=== PATIENT | male | born 2005 | race Caucasian/White ===

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

== ENCOUNTER 2024-01-03 18:04 | Emergency (ER) | payer MEDICAID, SELFPAY ==
--- OUTSIDE RECORDS SUMMARY | 2024-01-03 18:09 | XMS_ITS | Encounter Summary ---
Author Organization [facility] [place] [address] Care Team Providers Care Certified Performance Technologist Name Role Phone Unavailable Primary Care Provider Unavailabl e Encounter Details Date Type Department Care Team (Late st Contact Info) Description 10/30/2019 Orders Only [place] [address] Bjorn Hinojosa MD [facility] [place] [address] Auditory hallucination Social History Tobacco Use Types [...] EDT Yaya Mueller ? 10/31/2019 ??9:22 AM [facility] Department of Neurology Outpatient EEG Report [...] channel digitized electroencephalogram was performed in the [facility] Clinical Neurophysiology Laboratory. The 10/20 international system of electrode placement was used and bipolar and referential electrode montages were recorded. ??In addition to EEG the patient was monitored for EKG and lateral/vertical eye movements. Video was recorded during the session. The duration of the recording was 25 minutes. CHIEF WHEELAGE CLERK'S REPORT: Performed by: SR Patient was sleep deprived. Sleep was not attained. Photic stimulation was ??performed. Hyperventilation was not performed. Effort was was not adequate. Movement and other artifact was not significant. Comments: ??None. Bjorn Hinojosa MD NEUROLOGY ORDERABLES documented in this encounter Visit Diagnoses Diagnosis Auditory hallucination Hallucinations Auditory hallucination Hallucinations documented in this encounter
--- OUTSIDE RECORDS SUMMARY | 2024-01-03 18:09 | XMS_ITS | Clinical Summary ---
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 ([facility]) 07/15/2023 Borderline personality disorder ([facility]) 2023 Bipolar 1 disorder ([facility]) 07/14/2023 Delirium due to multiple etiologies 07/12/2023 Mood disorder ([facility]) 07/12/2023 Suicide attempt ([facility]) 07/12/2023 Acute encephalopathy 07/11/2023 Ingestion of substance, inte ntional self-harm, initial encounter ([facility]) 07/10/2023 Acute respiratory failure with hypoxia ([facility]) 07/10/2023 Immunizations Name Administration Dates [...] place to sleep or slept in a fdc (including now)? Yes 07/14/2023 Sex and Gender Information Value Date Recorded Sex Assigned at Not on file Gender Identity Not on file Sexual Orientation Not on file Obstetrics History Growth Chart Information Age Height Weight Ytzagj-isq-crie th Percentile BMI Percentile Head Circum Head Circum Percentile Date 17 years 99.3 kg (218 lb 14.4 oz) 2023 17 years 93.9 kg (207 lb) 2023 17 years 88.8 kg (195 lb 12.3 oz) 2023 17 years 175.3 cm (5' 9.02) 91.6 kg (202 lb) 95.12%* 2023 17 years 175.3 cm (5' 9) 91.6 kg (202 lb) 95.13%* 2023 * [facility] (Boys, 2-20 Years) Last Filed [...] Advance Directives For more information, please contact: [phone] * Full Code (Latest Code Status on [...] Made the Decision? Default/Not Discussed Care Teams Sheep Farmer Relationship Specialty Start Date End Date Unknown, Provider, PCP - General 07/10/23 Obie Mccoy MD [address] [place] [id number] 07/10/23
--- OUTSIDE RECORDS SUMMARY | 2024-01-03 18:09 | XMS_ITS | Encounter Summary ---
[place] [address] Care Team Providers Care Plant Tech Name Role Phone KlaudiaRobbie Primary Care Provider [phone] Reason for Referral * Consultation (Routine) - Closed Specialty Diagnoses / Procedures Referred By Magen barney Referred To Contact Psychiatry Diagnoses Anxiety disorder, unspecified type Do Rodriguez MD [address] [place] [address] Nitin Meyers PsyD [facility] [place] [address] Referral ID Status Reason Start Date Expiration Date V isits Requested Visits Authorized [id number] Closed Consult, Test & Treat 09/23/2022 09/23/2023 1 1 Encounter Details Date Type Department Care Team (Latest Contact Info) Description 09/23/2022 Transcribe Orders eDH Incoming Referrals [phone] Do Rodriguez MD [address] [place], [place] [id number] Anxiety disorder, unspecified type Social History Tobacco [...] type documented in this encounter Care Teams Plant Tech Relationship Specialty Start Date End Date Robbie Rudolph DO [address] [place] [address] PCP - General Family Medicine 10/31/19 documented as of this encounter
--- OUTSIDE RECORDS SUMMARY | 2024-01-03 18:09 | XMS_ITS | Encounter Summary ---
[facility] Organization [facility] Address [facility] [place] [address] Care Team Providers Care Elementary Art Teacher Name Role Phone Klaudia Robbie Saldivar Primary Care Provider [phone] Reason for Visit * Auth/Cert (Routine) Specialty Diagnoses / Procedures Referred By Magen t Referred To Contact Diagnoses Poisoning by unspecified drugs, medicaments and biological substances, accidental (unintentional), initial encounter Procedures [facility] Referral ID Status Reason Start Date Expiration Date Visits Re quested Visits Authorized [id number] 1 1 Encounter Details Date Type Department Care Team (Latest Contact Info) Description 12/15/2022 12:13 PM EDT - 12/15/2022 2:15 PM EDT Hospital Encounter [facility] at [address] [phone] Kevin Blakely MD [facility] [place] [address] Discharge Disposition: Home Social History Tobacco Use [...] on filedocumented in this encounter Care Teams Elementary Art Teacher Relationship Specialty Start Date End Date Robbie Rudolph DO [address] [place] [address] PCP - General Family Medicine 10/31/19 documented as of this encounter
--- OUTSIDE RECORDS SUMMARY | 2024-01-03 18:09 | XMS_ITS | Encounter Summary ---
Author Organization [facility] [place] [address] Care Team Providers Care Poultice Machine Operator Name Role Phone Klaudia Robbie Saldivar Primary Care Provider [phone] Reason for Visit * Auth/Cert (Routine) Specialty Diagnoses / Procedures Referred By Magen t Referred To Contact Diagnoses Borderline personality disorder Bipolar Affective Disorder Procedures emerg Lucille Espinal MD [facility] [place] [address] [facility] Referral ID Status Reason Start Date Expiration Date Visits Re quested Visits Authorized [id number] 1 1 Encounter Details Date Type Department Care Team (Late st Contact Info) Description 12/19/2022 2:56 PM EDT - 12/23/2022 1:31 PM EDT Hospital Encounter Psychiatry Care Unit Level 2 [place] [address] Lucille Mcmullen MD [facility] [place] [address] Discharge Disposition: Home Social History Tobacco Use [...] Keshav Patiño Patient Age: 17 y.o. Language: Luxembourgish Race: White Ethnicity: Not nor Admit date: [...] at 9:30 am with Do Rodriguez MD [facility] [address] [place] [address] Wednesday, January 04, 2023 at 9:00 am with Enoch Aguayo CP [facility] [address] [place] [address] Inpatient Provider Contact Information: For questions regarding this document (including laboratory or other studies) or issues relating tothis hospitalization, please contact your casework supervisor, Delma Caceres RN, through the [facility] Pensionholder Information Clerk . Issues after hours and on weekends will be handled by the residential driver on-call who can be reached through the Department of Psychiatry by calling [phone] and following the appropriate prompts to connect to the mirror fabrication supervisor team. Medication Instructions Continue to take all of the medications as instructed. Any medication changes will be addressed at your next outpatient appointment with the individual who prescribes your medications. Advance Care Plan The patient has an appointed surrogate decision maker: [place] of surrogate decision maker: N/A The patient [...] the ICU. He initially was transferred to [facility] after an intentional overdose while under the [...] cocaine, alcohol, and marijuana. While in the [facility] ICU he was intubated, extubated, and further [...] Social Work offered to connect him with [facility] for wraparound services, and with homeless community support groups, both of which Keshav declined. Keshav was offered resources for substance use and referral to rehab, both of which he declined. During his time in the hospital, the team made contact with family (mother Sheryl [phone]) who shared that Keshav was not able [...] who lives nearby his immediate family in [place]. His mother shared that Keshav had [...] considering re-admission, recommend discussing with inpatient medical insurance claims processor or attending on service first. On the [...] rate, and normal rhythm Language: fluent in indian, without paraphasic errors, and without word finding [...] INR Thyroid: No results found for: TSH, U4BWQGO, TT4 Lipids and HgbA1C: Lab Results Component Value Date TRIG 117 12/15/2022 No results found for: HA1C Vit Lvls: No results found for: [id number], SFOLATE UA: No results found for: GLUCOSEU, [...] pending Discharge Disposition: home Primary Care Physician: Robbei Rudolph DO [phone] Special Physician Instructions: -Keshav would benefit greatly from connection with community resources at [facility]. He deferred these services while [...] emergencies, call [phone] from anywhere in the [facility]. State specific information for [place] and [place] crisis services are as follows and should be used to access local resources: [facility] Mental Health Crises Services REPLACED BY [facility] Crisis Line text or call Visit www.Handshake for further information [place] Call your local [facility] crisis line at: [place]: Counseling Service of [facility] [phone] [place]: [facility] Services [phone] [place]: [facility] [phone] [place]: [facility] [phone] [place]: [facility] [phone] [place]: [facility] Counseling and Support [phone] [place]: [facility] Mental Health [phone] on weekdays 8AM-4:30PM and [phone] on nights and weekends [place]: Brenda [facility] [place]: [facility] [phone] [place]: [facility] [phone] [place]: [facility] Services, [place]: HCRS [place]: HCRS or Text [place] to 972447 For further information for [place] residents: https://mentalhealth.[place].gov/services/emergency-services/esx-vqm-cvei National Suicide Prevention Hotline: For patients cared for in the Department of Psychiatry, you can reach your mental health clinician at [phone]. Activity level: no restrictions from psychiatry Diet: [...] emergencies, call 988 from anywhere in the [facility]. State specific information for [place] and [place] crisis services are as follows and should be used to access local resources: [facility] Mental Health Crises Services REPLACED BY [facility] Crisis Line text or call Visit www.Handshake for further information [place] Call your local [facility] crisis line at: [place]: Counseling Service of [facility] [phone] [place]: [facility] [phone] [place]: [facility] [phone] [place]: [facility] [phone] [place]: [facility] [phone] [place] speedy [place]: [facility] Counseling and Support [phone] [place]: [facility] Health [phone] on weekdays 8AM-4:30PM and [phone] on nights and weekends [place]: Brenda [place]: [facility] [phone] [place]: [facility] [phone] [place]: [facility] Services, [place]: HCRS [place]: HCRS or Text [place] to [phone] For further information for [place] residents: https://mentalhealth.[place].[facility]/services/emergency-services/ssd-pfm-csin National Suicide Prevention Hotline: For patients cared for in the Department of Psychiatry, you can reach your mental health clinician at [phone]. I have personally seen and examined the [...] coordinating discharge for this patient and included jqcx-jo-[id number] and exam, explanation of after visit instructions and medications to the patient and necessary caregivers, documentation, and prescription management. documented in this encounter Discharge Instructions * Discharge Instructions* Barbara Sewell MSW - 12/20/2022 12:55 PM EDT We have made the following appointments for you: Tuesday, December 27, 2022 at 9:30 am with Do Rodriguez MD [facility] [address] [place] [address] Wednesday, January 04, 2023 at 9:00 am with Enoch Aguayo CP [facility] [address] [place] [address] Community Supports: If you should change your mind about a referral to the Community Rehabilitation Therapy program at [facility] please contact their office to obtain the application, for you and your outpatient providers to complete: [phone]. To access information/supports around teenage at risk of homelessness you can outreach to [facility] Youth Services: [phone]. Inpatient Provider Contact Information: For questions regarding this document (including laboratory or other studies) or issues relating tothis hospitalization, please contact your casework supervisor, Delma Caceres RN, through the [facility] Pensionholder Information Clerk . Issues after hours and on weekends will be handled by the residential driver on-call who can be reached through the Department of Psychiatry by calling [phone] and following the appropriate prompts to connect to the mirror fabrication supervisor team. Medication Instructions Continue to take all of the medications as instructed. Any medication changes will be addressed at your next outpatient appointment with the individual who prescribes your medications. Advance Care Plan The patient has an appointed surrogate decision maker: [place] of surrogate decision maker: N/A The patient [...] INR Thyroid: No results found for: TSH, Q1UMBVI, TT4 Lipids and HgbA1C: Lab Results Component Value Date TRIG 117 12/15/2022 No results found for: HA1C Vit Lvls: No results found for: [id number], SFOLATE UA: No results found for: GLUCOSEU, [...] home Primary Care Physician: Robbie Rudolph DO [phone] Special Physician Instructions: -Keshav would benefit greatly from connection with community resources at [facility]. He deferred these services while [...] the [place]. State specific information for [place] and [place] crisis services are as follows and should be used to access local resources: [facility] Crises Services REPLACED BY [facility] Crisis Line text or call Visit www.Handshake for further information [place] Call your local community crisis line at: [place]: [facility] Service of [facility] [phone] [place]: [facility] Services [phone] [place]: [facility] [phone] [place]: [facility] [phone] [place]: [facility] [phone] [place]: [facility] Counseling and Support [phone] [place]: [facility] Mental Health [phone] on weekdays 8AM-4:30PM and [phone] on nights and weekends [place]: [facility] [place]: [facility] [phone] [place]: [facility] [phone] [place]: [facility] Services, [place]: HCRS [place]: HCRS or Text [place] to [phone] For further information for [place] residents: https://mentalhealth.[place].[facility]/services/emergency-services/vtq-afi-osaz National Suicide Prevention Hotline: For patients cared for in the Department of Psychiatry, you can reach your mental health clinician at [phone]. Activity level: no restrictions from psychiatry Diet: [...] discharge- Ride will be at [facility] for 1:30 [facility] Medicaid is covering transport [phone] Pt will be driven to [facility] home in [place]. * Daniela Amezcua LCValerie - 12/23/2022 [...] rate, and normal rhythm Language: fluent in indian, without paraphasic errors, and without word finding [...] age matched peers Insight: limited Judgment: poor Hardy Suicide Risk Scale - Initial Assessment: Q1 [...] the Past 3 Months?: yes (12/19/22 152) Hardy Suicide Risk Scale - Daily Assessment (most [...] 12/15/2022 Thyroid: No results found for: TSH, V7UEYQK, TT4 Lipids and HgbA1C: Lab Results Component Value Date TRIG 117 12/15/2022 No results found for: HA1C Vit Lvls: No results found for: [id number], SFOLATE UA: Lab Results Component Value Date [...] Patient declined SW offer to refer to [facility] Services for wraparound services and to [...] hands on courses, but struggled with math, indian, and history. Keshav feels like social interactions [...] rate, and normal rhythm Language: fluent in indian, without paraphasic errors, and without word finding [...] age matched peers Insight: limited Judgment: poor Hardy Suicide Risk Scale - Initial Assessment: Q1 [...] Within the Past 3 Months?: yes (12/19/221519) Hardy Suicide Risk Scale - Daily Assessment (most [...] 12/15/2022 Thyroid: No results found for: TSH, D3WRLBC, TT4 Lipids and HgbA1C: Lab Results Component Value Date TRIG 117 12/15/2022 No results found for: HA1C Vit Lvls: No results found for: [id number], SFOLATE UA: Lab Results Component Value Date [...] with the patient today. * [facility] - 12/20/2022 10:35 AM EDT Inpatient Daily [...] in the group discussion afterwards. Daniela Amezcua [facility] 12/20/2022 Patient attended the following therapeutic activities: [...] Children: no Employment: recently lost job Residence: [address] [address] Outpatient Providers: (include location) Current Mental Health Prescriber: Current Therapist: PCP: Robbie Rudolph DO Chief Complaint: 17 y.o. Male presents to [facility] with a history of ADHD, bipolar disorder, PTSD, and two reported suicide attempts who presented to [facility] as a transfer from [facility] on 12/15/22 following a suicide [...] and her partner take him to the [facility] ED. He was subsequently transferred to [facility] where he received ICU level of care until medically stable. Keshav shares that things have been difficult for him for the past few months. In particular he citeslosing his job as a large stressor and feels as though he was fired due to expressing concern that the [employer] he worked in did not meet health [...] injection 5,000 Units 5,000 Units Subcutaneous Q8H [facility] Santhosh Templeton MD 5,000 Units at 12/19/22 [...] old) until recently and working in a [employer]. He did not graduate from high [...] Tired appearing EYES ENT CV RESP GI /COUNTY HISTORIAN (include LMP if applicable) MSK SKIN NEURO PSYCH ENDO HEME/LYMPH ALL/IMMUNO Physical Exam: Vitals Flowsheet Row Admission (Current) from 12/15/2022 in Intensive Care Unit at [facility] Weight - Scale 102.6 kg (226 [...] rate, and normal rhythm Language: fluent in indian, without paraphasic errors, and without word finding [...] 12/15/2022 Thyroid: No results found for: TSH, I0GAPDM, TT4 Lipids and HgbA1C: Lab Results Component Value Date TRIG 117 12/15/2022 No results found for: HA1C Vit Lvls: No results found for: [id number], SFOLATE UA: Lab Results Component Value Date [...] a 17 y.o. Male who presents to [facility] with with a history of ADHD, bipolar disorder, PTSD, and two reported suicide attempts who presented to [facility] as a transfer from [facility] on 12/15/22 following a suicide [...] substance use in the setting pf this fydzbr1tey, furthermore, he may have a trauma history [...] surrogate would be surrogate decision maker per [place] surrogate decision making law. (Only good for 180 days) Any patient receiving care in [place] must abide by [place] law. The hierarchy for surrogate decision making [...] (i) The agent with financial power of film producer or a conservator appointed in accordance with [...] as: Patient is homeless at this time [address] [address] Social & Family Supports: All names listed [...] N/A ; Prescription Coverage: Yes Preferred Pharmacy: [id number] - [place], [place] - [address] [facility] [address] Status: Patient is a : No Primary Care Provider listed: Robbie Rudolph DO [phone] Patient/Caregiver Goals of Treatment: Safety and stabilization Potential Needs for Transition of Care: mental health services Agency Referrals: Patient refused referral to [facility] and inpatient substance use treatment. No referrals [...] asked if experiencing SI, pt corrected this designer writer that we should ask do you [...] hours: 7 hrs. Last Bowel Movement: 12/22/22 Hardy Suicide Severity Rating Scale: Initial Risk: High [...] PM EDT OUTCOME EVALUATION NOTE: OUTCOME SUMMARY: [id number]. Pt preoccupied with plan or going home [...] compliant with hs meds. PLAN MOVING FORWARD: Hardy Suicide Severity Rating Scale: Initial Risk: High [...] patient to be higher risk than the Hardy Suicide Severity Rating Scale result per Clinical [...] 12/22/2022 10:58 AM EDT OUTCOME EVALUATION NOTE: Hardy Suicide Severity Rating Scale: Initial Risk: High [...] patient to be higher risk than the Hardy Suicide Severity Rating Scale result per Clinical [...] pain. Pt med compliant PLAN MOVING FORWARD: Hardy Suicide Severity Rating Scale: Initial Risk: High Risk (12/19/22 1520) Daily Risk: Low Risk (12/21/222055) The following nursing interventions and strategies were implemented to mitigate suicide risk: Full room search conducted Identify protective barriers Reviewed Values with patient Scheduled check in with nursing Therapeutic communications/listening Positive reinforcement RN's may designate a patient to be higher risk than the Hardy Suicide Severity Rating Scale result per Clinical [...] occasionally on the phone and attending groups. 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 Financial Source of Income: none Financial / Environmental Concerns: unable to afford rent/mortgage, unemployed, unable to afford food Who Manages Finances if Patient Unable: noone Application for Public Assistance: Legal Criminal Activity/Legal Involvement: other (see comments) (on diversion for retail theft.) MENTAL / BEHAVIORAL HEALTH Values / Beliefs Judaism / Spiritual Practices and Beliefs : deferred Coping / Stress Major Change / Loss / Stressor: mental health condition, financial, legal concerns, housing concerns, chemical dependency/abuse Patient Personal Strengths: future/goal oriented Sources of Support: mental health providers Techniques to Eckerty with Loss/Stress/Change: diversional activities, substance use, medication [...] now unemployed (lost his job at a [employer] a few weeks ago), homeless, with little to no friends/supports for him to turn to. 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 Pt's responses to inquiring about plans for the time immediately after discharge from he is not able to identify any concrete and realistic plan even when asked to be more detailed. He currently does not want to consider a homeless longterm, and verbalizes disinterest in [facility] treatment/residentialoptions since as a future TRUCK SPOTTER he shoudn't be using therefore it is no longer an issue for him. INTERFACE DEVELOPER has consulted with team expressing concern on Pt's unrealistic approach and the impact it will have on his disposition and planning Social Work Plan: INTERFACE DEVELOPER will continue to follow to support Pt in identifying a realistic disposition, and address any obstacles. Barbara Sewell, STEREOTYPE FINISHER, INTERFACE DEVELOPER, [facility] Fact Checker Office of Care Management * Plan of [...] Compliant with scheduled meds. PLAN MOVING FORWARD: Hardy Suicide Severity Rating Scale: Initial Risk: High [...] patient to be higher risk than the Hardy Suicide Severity Rating Scale result per Clinical [...] occasionally on the phone and attending groups. Hardy Suicide Severity Rating Scale: Initial Risk: High [...] patient to be higher risk than the Hardy Suicide Severity Rating Scale result per Clinical [...] improve understanding of illness 2 Work with Seam Finisher to create and implement aftercare plan 3 [...] PHYSICIAN Lucille Mcmullen MD 12/20/22 NURSING 12/20/22 POLYTECHNIC TEACHER Delma Caceres, VALARIE 12/20/22 THERAPIST 12/20/22 SOAKER HELPER TELMA Whatley 12/20/22 * Plan of Care - Violeta Rolle RN - 12/19/2022 8:20 PM EDT OUTCOME EVALUATION NOTE: OUTCOME SUMMARY: Pt resting in bed at start of shift, pleasant and cooperative on interview. Pt denies pain, SIHI, AVH, and agrees to alert staff if unable to maintain his safety. Pt continued to isolate to room. Pt compliant with scheduled medications. Hardy Suicide Severity Rating Scale: Initial Risk: High Risk (12/19/22 1520) Daily Risk: Low Risk (12/19/221999) The following nursing interventions and strategies were implemented to mitigate suicide risk: Full room search conducted Medication as needed Distract with activities Groups for skill building Therapeutic communications/listening Positive reinforcement RN's may designate a patient to be higher risk than the Hardy Suicide Severity Rating Scale result per Clinical [...] hallucinations Sleep hours: Last Bowel Movement: 12/18/22 Hardy Suicide Severity Rating Scale: Initial Risk: High [...] Routine documented in this encounter Care Teams Poultice Machine Operator Relationship Specialty Start Date End Date Robbie Rudolph DO [address] [place] [id number] PCP - General Family Medicine 10/31/19 documented as of this encounter
--- OUTSIDE RECORDS SUMMARY | 2024-01-03 18:09 | XMS_ITS | Referral Summary ---
Author Organization 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) 07/15/2023 Borderline personality disorder ([facility]) 2023 Bipolar 1 disorder ([facility]) 07/14/2023 Delirium due to multiple etiologies 07/12/2023 Mood disorder ([facility]) 07/12/2023 Suicide attempt ([facility]) 07/12/2023 Acute encephalopathy 07/11/2023 Ingestion of substance, inte ntional self-harm, initial encounter ([facility]) 07/10/2023 Acute respiratory failure with hypoxia ([facility]) 07/10/2023 Immunizations Name Administration Dates Next [...] place to sleep or slept in a assisted (including now)? Yes 07/14/2023 Sex and Gender [...] 96.49% 08/01/2023 180 0 EDT Growth Chart: [facility] (Boys, 2-2 0 Years) Functional Status Functional [...] Advance Directives For more information, please contact: [phone] * Full Code (Latest Code Status on [...] Made the Decision? Default/Not Discussed Care Teams Groundskeeping Maintenance Worker Relationship Specialty Start Date End Date Unknown, Provider, PCP - General 07/10/23 Obie Mccoy MD [address] [place] [id number] 07/10/23
--- OUTSIDE RECORDS SUMMARY | 2024-01-03 18:09 | XMS_ITS | Encounter Summary ---
[place] [address] Care Team Providers Care Informatics Manager Name Role Phone Klaudia Robbie Saldivar Primary Care Provider [phone] Reason for Visit * Reason Comments Procedure * Consultation (Routine) - Closed Specialty Diagnoses / Procedures Referred By Magen barney Referred To Contact Neurology Diagnoses AUDITORY HALLUCINATIONS Procedures EEG Bryant Wade, FINGERNAIL SCULPTOR [address] [place] [address] [facility] [place] [address] Referral ID Status Reason Start Date Expiration Date V isits Requested Visits Authorized [id number] Closed Consult, [facility] PCP Updated and/or Approved 10/28/2019 10/27/2020 1 1 Encounter Details Date Type Department Care Team (Latest Contact Info) Description 10/31/2019 8:45 AM EDT - 10/31/2019 11:59 PM EDT Hospital Encounter [place] [phone] Auditory hallucination Discharge Disposition: Home Social History Tobacco Use Types Packs/Day Years Used Date Smoking Tobacco: Never Assessed Sex and Gender Information Value Date Recorded Sex Assigned at Not on file Gender Identity Not on file Sexual Orientation Not on file documented as of this encounter Procedure Notes * Adbi Gill MD - 10/31/2019 9:44 AM EDT [...] documented. Abdi Gill MD [place] [address] Pager: [phone], #[phone] Email: [email or web address] * Yaya Mueller - 10/31/2019 9:20 AM EDTAssociated Order(s): EEG AWAKE, ASLEEP, DROWSY Pre-Procedure Diagnose(s): Auditory hallucination [facility] Department of Neurology Outpatient EEG Report [...] digitized electroencephalogram was performed in the [facility] Clinical Neurophysiology Laboratory. The 10/20 international system of electrode placement was used and bipolar and referential electrode montages were recorded. In addition to EEG the patient was monitored for EKGand lateral/vertical eye movements. Video was recorded during the session. The duration of the recording was 25 minutes. VAT CLEANER'S REPORT: Performed by: SR Patient was sleep [...] EDT Yaya Mueller ? 10/31/2019 ??9:22 AM [facility] Department of Neurology Outpatient EEG Report [...] channel digitized electroencephalogram was performed in the [facility] Clinical Neurophysiology Laboratory. The 10/20 international system of electrode placement was used and bipolar and referential electrode montages were recorded. ??In addition to EEG the patient was monitored for EKG and lateral/vertical eye movements. Video was recorded during the session. The duration of the recording was 25 minutes. VAT CLEANER'S REPORT: Performed by: SR Patient was sleep deprived. Sleep was not attained. Photic stimulation was ??performed. Hyperventilation was not performed. Effort was was not adequate. Movement and other artifact was not significant. Comments: ??None. Bjorn Hinojosa MD NEUROLOGY ORDERABLES documented in this encounter Visit Diagnoses Diagnosis Auditory hallucination Hallucinations documented in this encounter Care Teams Informatics Manager Relationship Specialty Start Date End Date Robbie Rudolph DO [address] [place] [phone] PCP - General Family Medicine 10/31/19 documented as of this encounter
--- OUTSIDE RECORDS SUMMARY | 2024-01-03 18:09 | XMS_ITS | Encounter Summary ---
Author Organization [facility] [place] [address] Care Team Providers Care Geological Engineering Teacher Name Role Phone Klaudia Robbie Janna CASTRO Primary Care Provider [phone] Reason for Visit * Auth/Cert (Routine) Specialty Diagnoses / Procedures Referred By Magen t Referred To Contact Diagnoses OVERDOSE/POISONING Procedures [facility] Referral ID Status Reason Start Date Expiration Date Visits Re quested Visits Authorized [id number] 1 1 Encounter Details Date Type Department Care Team (Latest Contact Info) Description 07/10/2023 3:57 PM EDT - 07/10/2023 11:59 PM EDT Hospital Encounter [facility] at [address] [phone] Kevin Blakely MD [facility] [place] [address] Discharge Disposition: Home Social History Tobacco Use [...] on filedocumented in this encounter Care Teams Geological Engineering Teacher Relationship Specialty Start Date End Date Robbie Rudolph DO [address] [place] [phone] PCP - General Family Medicine 10/31/19 documented as of this encounter
--- OUTSIDE RECORDS SUMMARY | 2024-01-03 18:09 | XMS_ITS | Encounter Summary ---
[place] [address] Care Team Providers Care Environmental Director Name Role Phone Robbie Rudolph Primary Care Provider [phone] Reason for Visit * Reason Onset Date Comments Prior Authorization 12/19/2022 No concurren t review date set, case assigned to Delma Caceres Encounter Details Date Type Department Care Team (Late st Contact Info) Description 12/19/2022 [place] [phone] Abdiel Donald Prior Authorization (No concurrent review [...] Number: n/a Spoke With: website Phone Number: [phone] Patient Class: IPI Patient Class Change Requirements: paolo for opo Notes: pt verified on [place] Medicaid website. ACO-Y documented in this encounter Plan of Treatment Not on file documented as of this encounter Visit Diagnoses Not on filedocumented in this encounter Care Teams Environmental Director Relationship Specialty Start Date End Date Robbie Rudolph DO [address] [place] [address] PCP - General Family Medicine 10/31/19 documented as of this encounter
--- OUTSIDE RECORDS SUMMARY | 2024-01-03 18:09 | XMS_ITS | Clinical Summary ---
[facility] [place] [address] Care Team Providers Care Torch Brazer Name Role Phone Robbie Rudolph DO Primary [...] 12/19/2022 2:5 3 PM EDT Growth Chart: [facility] (Boys, 2-2 0 Years) Plan of Treatment [...] Two - Attending De cision Care Teams Torch Brazer Relationship Specialty Start Date End Date Robbie Rudolph DO [address] [place] [address] PCP - General Family Medicine 10/31/19
--- OUTSIDE RECORDS SUMMARY | 2024-01-03 18:09 | XMS_ITS | Encounter Summary ---
Author Organization [facility] [place] [id number] Care Team Providers Care Aircraft Structure Mechanic Name Role Phone Robbie Rudolph DO Primary Care Provider [phone] Reason for Visit * Reason Comments Procedure * Auth/Cert (Routine) Specialty Diagnoses / Procedures Referred By Magen barney Referred To Contact Diagnoses Polysubstance overdose Overdose Procedures Emergency IPI Oniel Sanchez MD [facility] [place] [address] [facility] Referral ID Status Reason Start Date Expiration Date Visits Re quested Visits Authorized [id number] 1 1 Encounter Details Date Type Department Care Team (Latest Contact Info) Description 12/15/2022 2:16 PM EDT - 12/19/2022 2:54 PM EDT Hospital Encounter [place] [address] Oniel Sanchez MD [facility] [place] [address] Odilon Godfrey MD [facility] [place] [address] [place] [address] [place] [address] Polysubstance overdose, intentional self-harm, initial encounter; Polysubstance [...] 12/17/2022 5:0 0 AM EDT Growth Chart: [facility] (Boys, 2-2 0 Years) documented in this encounter Discharge Summaries * Gildardo Hogue MD - 12/19/2022 2:17 PM EDT Discharge Summary Patient Name: Keshav Patiño Patient Age: 17 y.o. Language: Palauan Race: White Ethnicity: Not nor Admit date: [...] please contact your inpatient physician through the [facility] Director Of Community Education . Issues afterhours and on weekends will [...] OSH and Tele-ICU report Patient presented to [facility] ED around 0800 on 12/14 with [...] in anICU setting. CCS was consulted at [facility] and patient accepted, however transfer delayed several timesover the course of 12/15 due to transportation issues. Patient intubated for airway protection/priorto transport, arriving sedated on a propofol infusion having received several ketamine boluses at [facility] and en route. Transient levo requirement [...] prior reported suicide attempts Patient presented to [facility] ED around 0800 on 12/14 with [...] an ICU setting. CCS was consulted at [facility] and patient accepted and transferred to [facility]. He remained intubated and sedated on propofol [...] who have questions please contact the health patient care technician instructor that requested your imaging first. Electronically signed by: Mert Madsen MD, [facility] ([phone]), at 12/15/2022 2:58 PM Pending Studies and [...] beany issues or concerns once you leave [facility], we apologize for any undue stress this [...] beany issues or concerns once you leave [facility], we apologize for any undue stress this [...] should arise. Kat Padgett PT, DPT Pager: [phone] 12/19/22 Inpatient Rehabilitation Department * Gildardo Hogue [...] spent <30 minutes (Day of Discharge Code 00944) involved in the final examination of the patient, discussion of the hospital stay, instructions for continuing care to all relevant caregivers, and preparation of discharge records, prescriptions and referral forms. Plans Discharge to psych admission Please see the Discharge Summary for complete details of any medication changes and additional plans. Gildardo Hogue MD [facility] Medicine 12/19/2022 * Allen Dozier RN - 12/19/2022 11:09 AM EDT OUTCOME EVALUATION NOTE: OUTCOME SUMMARY: Pt remains A+Ox4 on RA, calm and cooperative. VSS. Pt successfully voided today. PVR 0. Pysch at bedside today, plan to transfer to psych unit today. 1:1 sitter continued. Transferred to [facility] this afternoon, report given to RN. All lines removed. AVS printed and given to pt. Education provided. Brought by this RN and another medical staff member to [facility] unit. PLAN MOVING FORWARD: [facility] once appropriate Suicidal precautions until cleared [...] overdose. Reason for Assessment: Follow-up Nutrition Recommendations: [facility] Monitor and encourage po intake - [...] encounter: 102.6 kg (226 lb 3.1 oz). [place] Body Weight (IBW) (kg): 75.45 Wt Readings [...] 8:30 AM EDT Physical Therapy Note 12/16/22 9684 Evaluation & Treatment Document Type contact Total [...] SpO2 98 % Xiao Waggoner, PT Pager [phone] * Kirby Johnson, HEAD MACHINE FEEDER - 12/15/2022 8:34 PM EDT AMV Protocol: [...] day. KIRBY JOHNSON RRT * Ibis Trevizo EDGE BRUSHER - 12/15/2022 5:46 PM EDT AMV Protocol: [...] PCP: Robbie Rudolph DO PCP phone number: [phone] Date of Admission: 12/15/2022 ( Hospital Day [...] review and the patient. Patient presented to [facility] ED around 0800 on 12/14 with [...] significant for: Polysubstance overdose: Patient presented to [facility] ED around 0800 on 12/14 with [...] an ICU setting. CCS was consulted at [facility] and patient accepted and transferred to [facility]. He remained intubated and sedated on propofol [...] CODE Status: FULL Santhosh Templeton MD 12/18/2022 [facility] Medicine # [id number] * Odilon Godfrey MD - 12/15/2022 2:42 PM EDT MICU STAFF PROGRESS NOTE Critical Care Medicine Author: ODILON GODFREY Patient seen and examined on admission to critical care. Patient reported to family that he took an unknown amount of ADHD / mood medications (details belowin problem list) on 12/14. Required midazolam and precedex drips for agitation. Intubated and transported to [facility] today for further care. Temporarily required norepinephrine [...] OSH and Tele-ICU report Patient presented to [facility] ED around 0800 on 12/14 with [...] in anICU setting. CCS was consulted at [facility] and patient accepted, however transfer delayed several timesover the course of 12/15 due to transportation issues. Patient intubated for airway protection/priorto transport, arriving sedated on a propofol infusion having received several ketamine boluses at [facility] and en route. Transient levo requirement [...] 15, 2022 Critical Care Green Team (pager [phone]) Dr. Godfrey is the attending of record for this admission documented in this encounter Procedure Notes * Abdi Gill MD - 12/16/2022 5:41 PM EDTAssociated Order(s): EEG [facility] Department of Neurology Inpatient Routine EEG Report [...] tablet 975 mg 975 mg Oral Q6H [facility] Bridgette Bateman PA midazolam (pf) (Versed) (1 [...] Units 5,000 Units Subcutaneous Q8H [facility] Alem Rosa PA 5,000 Units at 12/16/22 2201 dexmedeTOMIDine (Precedex) (4 mcg/mL) in sodium chloride 0.9% 100 mL infusion 0- 1.7 mcg/kg/hr Intravenous Continuous Alem Rosa PA 30.4 mL/hr at 12/16/22 2214 1.2 mcg/kg/hr at 12/16/22 2214 PRIOR EEG(s): None METHODS: A 21 channel digitized electroencephalogram was performed in the [facility]. The 10/20 international system of electrode placement was used and bipolar and referential electrode montages were recorded. In addition to EEG the patient was monitored for EKGand lateral/vertical eye movements. Video was recorded during the session. CHIEF LENDING OFFICER'S REPORT: Performed by: NCG Patient was not [...] recording. Abdi Gill MD [place] [address] Pager: [phone], #[phone] Email: [email or web address] CC: Dr. Godfrey documented in this encounter [...] been asked to see Keshav Patiño by [facility] esperanza team for assessment of toe numbness. ID: Keshav Patiño is a 17 y.o. with PMH of ADHD, bipolar disorder, insomnia, and panic attacks who isadmitted to the ICU for a lmictal overdose. Patient presented to [facility] ED around 0800 on 12/14 with his sister who reported an ingestion of >400 mg of focalin, lamictal of unknown quantity and intuniv of unknown quantity. He was found to be tachycardic, hypertensive and developed escalation agitation. He was ultimately admitted tot ICU for management. He was extubated and recently had a psychiatric evaluation with [facility] This resident received an urgent [...] CK 566* No results for input(s): PHART, YUP9DWE, PO2ART, HSG0BSS in the last 168 hours. Recent Labs [...] who have questions please contact the health patient care technician instructor that requested your imaging first. Electronically signed by: Mert Madsen MD, [facility] ([phone]), at 12/15/2022 2:58 PM Assessment and Plan: [...] the AM Please page Vascular Neurology at #[phone] with any questions. [place] [address] Associated attestation - Ethan Saunders III, MD [...] at this time. Ethan Saunders III, MD Auto Service Writer Department of Neurology [facility] Pager: [phone] 6:29 PM 12/18/2022 * Plan of Care [...] two reported suicide attempts who presented to [facility] as a transfer from [facility] on 12/15/22 following a suicide attempt [...] and he was subsequently driven to the [facility] ED. He reports recent psychosocial stressors. 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 Psychiatric Review of Systems: Sustained Depressed Mood: [...] rate, and normal rhythm Language: fluent in mosotho, without paraphasic errors, and without word finding [...] two reported suicide attempts who presented to [facility] as a transfer from [facility] on 12/15/22 following a suicide attempt via overdose of medication for ICU-level of care. Psychiatry is consulted for evaluation of SI and recommendations regarding his home medication regimen. On evaluation this afternoon, patient confirms that his overdose of home medications was a suicide attempt. He identifies several psychosocial stressors and describes having limited social support outside of [facility]. Patient is ultimately at high risk [...] leaving AMA. Recommendations were communicated to primary nut steamer, WALTER Joshi. Nain Mckeon MD 12/17/2022 [...] [] Minimal - [] Minimal [] Straightforward 23343 [] Low [] Low [] Low [] Low 96840 [] Moderate [x] Moderate [] Moderate [] Moderate 73463 [x] High [] High [x] High [x] High 89943 Final Coding Determination: High Associated attestation - [...] DO Nery Ayers MD Psychiatry Consultation Pager: [phone] * Plan of Care - Susy Carter [...] Admitted From: Transfer from another hospital Location: [facility] Reason for Hospitalization: Polysubstance OD Covid Vaccination Status: (unable to assess) Past medical History: No past medical history on file. Hospitalizations Within the Past 30 Days: no previous admission in last 30 days Current Decision-Making Capacity: Self If AD's have not been completed the following surrogate Pt's parents - Gomez would be surrogate decision maker per [place] surrogate decision making law. (Only good for 180 days) Any patient receiving care in [place] must abide by [place] law. The hierarchy for surrogate decision making [...] (i) The agent with financial power of bankruptcy attorney or a conservator appointed in accordance [...] none Home Address confirmed as: [address] [facility] [address] Social & Family Supports: All names listed [...] a : No Primary Care Provider confirmed: oRbbie Rudolph DO [phone] Patient/Caregiver Goals of Treatment: Possible Psych admission [...] his basic needs. He was working at [employer] but lost his job,he dropped out of school. EDUCATION TEACHER explored other family relationships with pt [...] care planning. RAJ[facility] Phone: [phone] Pager: [phone] * Plan of Care - Isi Robb [...] labs Monitor BM - goal of 1 [id number] while on TF Monitor BG - goal of 140-180 Daily weights I was able to discuss plan with provider JEANNE Soler [phone] . Current Nutrition Regimen: Active Orders Diet [...] time Site Days Naso/Oral Tube 12/15/22 1423 [place] [facility] mouth 12/15/22 1423 center mouth [...] encounter: 103.7 kg (228 lb 9.9 oz). [place] Body Weight (IBW) (kg): 75.45 Wt Readings [...] EDT) Phosphorus 4.3 2.5 - 4.5 mg/dL [facility] Blood 12/18/2022 12:2 4 AM EDT 12/18/2022 12:31 AM EDT Narrative Resulting Agency Comment Spec In Lab Oniel Campbell MD CHEMISTRY ORDERABL ES [facility] [place] [address] * Magnesium (12/18/2022 12:24 AM EDT) Magnesium 0.77 0.69 - 1.07 mmol/L [facility] Blood 12/18/2022 12:2 4 AM EDT 12/18/2022 12:31 AM EDT Narrative Resulting Agency Comment Spec In Lab Oniel Campbell MD CHEMISTRY ORDERABL ES [facility] [place] [address] * Basic Metabolic Panel (non-fasting) (12/18/2022 12:24 AM EDT) Glucose 110 65 - 199 mg/dL [facility] Comment:Diabetes: >=200 mg/d L plus symptoms Blood Urea Nitrogen 11 10 - 20 mg/dL [facility] Creatinine 0.85 0.63 - 1.09 mg/dL [facility] Sodium 138 135 - 145 mmol/L [facility] Potassium Not Perf 3.5 - 5.0 [facility] Comment: Unable to quantitate due [...] questions. Chloride 101 98 - 107 mmol/L [facility] Carbon Dioxide 23 22 - 31 mmol/L [facility] Anion Gap 14 5 - 15 mmol/L [facility] Calcium 9.4 8.5 - 10.5 mg/dL [facility] Est Glomerular Filtration Rate 129 >=60 mL/min/1. 73 m?? [facility] Comment: This patient's estimated GFR was [...] MD CHEMISTRY ORDERABL ES Performing Organization Address [facility] Co de Phone Number [facility] [place] [address] * Blood culture (12/17/2022 9:05 AM EDT) Blood Culture No growth at 5 days. [facility] Blood 12/17/2022 9:05 AM EDT 12/17/2022 9:42 AM EDT Comment:R fa Narrative Resulting Agency Comment Spec In Lab Odilon Godfrey MD MICROBIOLOGY - BLOOD ORDERABLES Performing Organization Address [facility] Co de Phone Number [facility] [place] [address] * Blood culture (12/17/2022 8:55 AM EDT) Blood Culture No growth at 5 days. [facility] Blood 12/17/2022 8:55 AM EDT 12/17/2022 9:42 AM EDT Comment:LH Narrative Resulting Agency Comment Spec In Lab Odilon Godfrey MD MICROBIOLOGY - BLOOD ORDERABLES Performing Organization Address [facility] de Phone Number [facility] [place] [address] * POCT Glucose (12/17/2022 8:47 AM EDT) Glucose, POC 74 65 - 199 mg/dL [facility] Comment: Supplemental ranges: <140 mg/dL before meals <180 mg/dL all other times of the day Blood 12/17/2022 8:47 AM EDT 12/17/2022 8:47 AM EDT Odilon Godfrey MD POINT OF CARE TEST O RDERABLES Performing Organization Address [facility] Co de Phone Number [facility] [place] [address] * (ABNORMAL) CK (12/17/2022 5:26 AM EDT) Creatine Kinase 566(H) 0 - 400 unit/L [facility] Blood 12/17/2022 5:26 AM EDT 12/17/2022 5:36 AM EDT Narrative Resulting Agency Comment Spec In Lab Odilon Godfrey MD CHEMISTRY ORDERABLES Performing Organization Address City/[facility] Co de Phone Number [facility] [place] [address] * Differential, Automated (12/17/2022 2:48 AM EDT) Neutrophil % 62.9 % [facility] Neutrophil Absolute 5.82 1.70 - 6.10 x10(3)/[facility] Lymph % 24.4 % [facility] Lymphocytes Abs 2.3 0.9 - 3.2 x10(3)/[facility] Monocyte % 8.4 % [facility] Monocyte Abs 0.8 0.3 - 0.9 x10(3)/[facility] Eos % 3.6 % [facility] Eosinophils Abs 0.3 0.0 - 0.4 x10(3)/[facility] Basophil % 0.4 % [facility] Baso Absolute 0.0 0.0 - 0.1 x10(3)/[facility] Immature Gran % 0.30 % [facility] Comment: Immature granulocytes(IG's)percentage and absolute count will include metamyelocytes, myelocytes, and promyelocytes. Blood smears from CBCs yielding IG's will be scanned manually for concordance. If this scan disagrees with the automated IG or if promyelocytes are noted, a manual differential will be performed. Immature Gran Absolute 0.03 0.00 - 0.04 x10(3)/[facility] Blood 12/17/2022 2:48 AM EDT 12/17/2022 3:27 AM EDT Narrative Resulting Agency Comment Spec In Lab Alem WATSON HEMATOLOGY ORDERABLE S [facility] [place] [address] * (ABNORMAL) Hemogram (12/17/2022 2:48 AM EDT) White Blood Cell 9.3 4.0 - 9.5 x10(3)/mc L [facility] Red Blood Cell 4.70 4.58 - 5.54 x10(6)/mc L [facility] Hemoglobin 13.6(L) 13.7 - 16.5 g/dL [facility] Hematocrit 38.5(L) 40.5 - 48.5 % [facility] Mean Cell Volume 81.9(L) 82.9 - 93.1 fL [facility] Mean Cell Hemoglobin 28.9 27.5 - 32.1 pg [facility] Mean Cell Hemoglobin Concentration 35.3 32.0 - 35.7 g/dL [facility] Platelet 273 145 - 357 x10(3)/mc L [facility] RDW Standard Deviation 34.0(L) 36.0 - 45.0 fL [facility] RDW coefficient of variation 11.5 11.4 - 13.8 % [facility] Mean Platelet Volume 9.1 7.6 - 12.9 fL [facility] NRBC% auto 0.0 % [facility] NRBC Absolute 0.000 0.000 - 0.000 x10(3)/ L [facility] Blood 12/17/2022 2:48 AM EDT 12/17/2022 3:27 AM EDT Narrative Resulting Agency Comment Spec In Lab Alem WATSON HEMATOLOGY ORDERABLE S [facility] [place] [address] * Hepatic Function Panel (12/17/2022 2:48 AM EDT) Pathologist [facility] Protein, Total 6.8 6.1 - 8.0 g/dL [facility] Albumin 4.0 3.2 - 5.2 g/dL [facility] Aspartate Aminotransferase 22 10 - 40 unit/L [facility] Alanine Aminotransferase 27 0 - 40 unit/L [facility] Alkaline Phosphatase 94 55 - 149 unit/L [facility] Bilirubin, Total 0.6 0.2 - 1.3 mg/dL [facility] Bilirubin, Direct 0.1 0.0 - 0.3 mg/dL [facility] Blood 12/17/2022 2:48 AM EDT 12/17/2022 3:27 AM EDT Narrative Resulting Agency Comment Spec In Lab Oniel Campbell MD CHEMISTRY ORDERABL ES Performing Organization Address City/[facility]/ZIP Co de Phone Number [facility] [place] [address] * Ammonia (12/17/2022 12:55 AM EDT) Ammonia 18 16 - 60 mcmol/L [facility] Blood 12/17/2022 12:5 5 AM EDT 12/17/2022 1:06 AM EDT Narrative Resulting Agency Comment Spec In Lab Jonathan Stanton APRN CHEMISTRY ORDERABLES Performing Organization Address [facility] Co de Phone Number [facility] [place] [address] * Phosphorus (12/17/2022 12:55 AM EDT) Phosphorus 4.2 2.5 - 4.5 mg/dL [facility] Blood 12/17/2022 12:5 5 AM EDT 12/17/2022 1:08 AM EDT Narrative Resulting Agency Comment Spec In Lab Oniel Campbell MD CHEMISTRY ORDERABL ES Performing Organization Address City/[facility] Co de Phone Number [facility] [place] [address] * Magnesium (12/17/2022 12:55 AM EDT) Magnesium 0.72 0.69 - 1.07 mmol/L [facility] Blood 12/17/2022 12:5 5 AM EDT 12/17/2022 1:08 AM EDT Narrative Resulting Agency Comment Spec In Lab Oniel Campbell MD CHEMISTRY ORDERABL ES Performing Organization Address [facility] Co de Phone Number [facility] [place] [address] * Hepatic Function Panel (12/17/2022 12:55 AM EDT) Protein, Total 6.6 6.1 - 8.0 g/dL [facility] Albumin 3.9 3.2 - 5.2 g/dL [facility] Aspartate Aminotransferase Not Perf 10 - 40 [facility] Comment: Unable to quantitate due to sample hemolysis. ??Sample redraw suggested. Called by: HITESH, Read back by: LISA ARREDONDO, Date/Time:12/17/22 01:45. Alanine Aminotransferase 27 0 - 40 unit/L [facility] Alkaline Phosphatase 94 55 - 149 unit/L [facility] Bilirubin, Total 0.5 0.2 - 1.3 mg/dL [facility] Bilirubin, Direct Not Perf 0.0 - 0.3 [facility] Comment: Unable to quantitate due to sample hemolysis. ??Sample redraw suggested. Called by: HITESH, Read back by: LISA ARREDONDO, Date/Time:12/17/22 01:45. Blood 12/17/2022 12:5 5 AM EDT 12/17/2022 1:08 AM EDT Narrative Resulting Agency Comment Spec In Lab Oniel Campbell MD CHEMISTRY ORDERABL ES Performing Organization Address [facility] Co de Phone Number [facility] [place] [address] * (ABNORMAL) Basic Metabolic Panel (non-fasting) (12/17/2022 12:55 AM EDT) Glucose 74 65 - 199 mg/dL [facility] Comment:Diabetes: >=200 mg/d L plus symptoms Blood Urea Nitrogen 10 10 - 20 mg/dL [facility] Comment:result rechecked-HITESH Creatinine 0.95 0.63 - 1.09 mg/dL [facility] Sodium 141 135 - 145 mmol/L [facility] Potassium 4.0 3.5 - 5.0 mmol/L [facility] Comment: Please note: ??Patients with WBC >100,000 may have falsely elevated Potassium levels. ??For accurate Potassium quantification in these patients send serum separator tube (gold top) for subsequent determinations. ??Contact the Clinical Chemistry Laboratory if there are any questions. Chloride 102 98 - 107 mmol/L [facility] Carbon Dioxide 23 22 - 31 mmol/L [facility] Anion Gap 16(H) 5 - 15 mmol/L [facility] Calcium 9.2 8.5 - 10.5 mg/dL [facility] Est Glomerular Filtration Rate 119 >=60 mL/min/1. 73 m?? [facility] [facility] Comment: This patient's estimated GFR was [...] MD CHEMISTRY ORDERABL ES Performing Organization Address City/[facility] Co de Phone Number [facility] [place] [address] * (ABNORMAL) CK (12/17/2022 12:55 AM EDT) Creatine Kinase 720(H) 0 - 400 unit/L [facility] Blood 12/17/2022 12:5 5 AM EDT 12/17/2022 1:08 AM EDT Narrative Resulting Agency Comment Spec In Lab Odilon Godfrey MD CHEMISTRY ORDERABLES Performing Organization Address [facility]/ZIP Co de Phone Number [facility] [place] [address] * EKG 12 Lead (12/16/2022 7:38 PM EDT) Ventricular rate 75 BPM MUSE SYSTEM Atrial Rate 75 BPM MUSE SYSTEM P-R Interval 178 ms MUSE SYSTEM QRS Duration 94 ms MUSE SYSTEM Q-T Interval 370 ms MUSE SYSTEM QTC Calculated (Bezet) 413 ms MUSE SYSTEM Calculated P [place] 67 degrees MUSE SYSTEM Calculated R [place] 67 degrees MUSE SYSTEM Calculated T [place] 39 degrees MUSE SYSTEM INTERPRETATION Normal sinus rhythm Possible Left atrial enlargement Borderline ECG When compared with ECG of 15-DEC-2022 15:09, No significant change was found Confirmed by Jose Alfredo Santos MD ([id number]) on 12/19/2022 10:39:29 AM MUSE SYSTEM 12/16/2022 7:38 PM EDT 12/19/2022 10:39 AM EDT Jonathan Stnaton APRN ECG ORDERABLES MUSE SYSTEM * (ABNORMAL) CK (12/16/2022 6:18 PM EDT) Creatine Kinase 834(H) 0 - 400 unit/L [facility] Blood 12/16/2022 6:18 PM EDT 12/16/2022 6:18 PM EDT Narrative Resulting Agency Comment Spec In Lab Odilon Godfrey MD CHEMISTRY ORDERABLES [facility] [place] [address] * EEG (12/16/2022 5:41 PM EDT) Narrative Abdi Gill MD - 12/16/2022 5:41 PM EDT Abdi Gill MD ? 12/16/2022 10:43 PM [facility] Department of Neurology Inpatient Routine EEG Report [...] channel digitized electroencephalogram was performed in the [facility] [facility]. The 10/20 international system of electrode placement was used and bipolar and referential electrode montages were recorded. ??In addition to EEG the patient was monitored for EKG and lateral/vertical eye movements. Video was recorded during the session. CHIEF LENDING OFFICER'S REPORT: Performed by: NCG Patient was not [...] recording. Abdi Gill [place] [address] Pager: [phone], #[phone] Email: [email or web address] CC: Dr. Godfrey Odilon Godfrey MD NEUROLOGY ORDERABLES * (ABNORMAL) Urine culture (12/16/2022 4:53 PM EDT) Urine Culture 50,000-99,000 cfu/ml Enterococcus faecalis 10,000-49,000 cfu/ml Normal mucosal julius (A) [facility] Organism Enterococcus faecalis(A) [facility] Indwelling Catheter Urine 12/16/2022 4:53 PM [...] - GENER AL ORDERABLES Performing Organization Address City/[facility]/ZIP Co de Phone Number [facility] [place] [address] * (ABNORMAL) Urinalysis Microscopic Exam (12/16/2022 4:53 PM EDT) RBC, Urine 5(H) 0 - 3 /HPF [facility] WBC, Urine 10(H) 0 - 3 /HPF [facility] Squamous Epithelial Cells Raw Data, Urine 1 <=4 /HPF [facility] Hyaline Casts, Urine 2 0 - 2 /LPF [facility] Indwelling Catheter Urine 12/16/2022 4:53 PM EDT 12/16/2022 5:52 PM EDT Narrative Resulting Agency Comment Spec In Lab Bridgette WATSON URINE ORDERABLES [facility] [place] [address] * (ABNORMAL) Urinalysis with reflex Culture (12/16/2022 4:53 PM EDT) Glucose, Urine Dipstick Negative Negative mg/dL [facility] Protein, Urine Dipstick Negative Negative mg/dL [facility] Bilirubin, Urine Dipstick Negative Negative mg/dL [facility] Comment: Clinical correlation required for positive Urine Bilirubin results as false positive may occur with some drugs and drug related products. If a false positive is suspected a serum total bilirubin should be considered if clinically indicated. Urobilinogen, Urine Dipstick Normal Normal mg/dL [facility] pH, Urn (dipstick) 6.5 5.0 - 8.0 [facility] Blood, Urine Dipstick Trace(A) Negative mg/dL [facility] Ketone, Urine Dipstick 40(A) Negative mg/dL [facility] Nitrite, Urine Dipstick Negative Negative [facility] Leukocytes, Urine Dipstick Trace(A) Negative mcL [facility] Appearance, Urine Dipstick Clear Clear [facility] Specific Gravelly Urine Automated 1.019 1.005 - 1.030 [facility] Color, Urine Dipstick Yellow Yellow [facility] Reflex to Culture Yes [facility] Indwelling Catheter Urine 12/16/2022 4:53 PM EDT 12/16/2022 5:52 PM EDT Narrative Resulting Agency Comment Spec In Lab Odilon Godfrey MD URINE ORDERABLES [facility] [place] [address] * Benzodiazepine, Urine Confirmation (12/16/2022 1:30 PM [...] ? Negative ? ng/mL ??Cutoff: 10 ??Zolpidem Lvhpel-8-Xdempydbv c acid by LC- ? Negative ? ng/mL ??Cutoff: 10 ?MS/MS ??Benzodiazepines Interpretation ? Positive. ? ---ADDITIONAL INFORMATION------- ?This report is intended for use in clinical monitoring and ?management of patients. ??It is not intended for use in ?employment-relat ed testing. ?This test was developed and its performance characteristics ?determined by [facility] in a manner consistent with CLIA ?requirements. This test has not been cleared or approved by ?the U.S. Food and Drug Administration. ?Test Performed by: ?[facility] ?[address] [place] [address] ?Ammonia Print Operator: Kush Gaspar M.D. Ph.D.; CLIA# [id number] [facility] Urine 12/16/2022 1:30 PM EDT 12/19/2022 3:03 PM EDT Narrative Resulting Agency Comment Spec In Lab Bridgette WATSON LAB SEND OUT ORDERAB LES [facility] [place] [address] * (ABNORMAL) Rapid Drug Screen w/ Confirmation, Urine (12/16/2022 1:30 PM EDT) Barbiturates Screen, Urine None Detected None Detected [facility] Comment: The barbiturate screen detects barbiturates [...] Benzodiazepines Screen, Urine Presumptive Pos(A) None Detected [facility] Comment: The benzodiazepines screen [...] Cocaine Screen, Urine None Detected None Detected [facility] Comment: The cocaine metabolites screen detects benzoylecgonine (Cocaine Metabolite) at concentrations >150 ng/mL. A ? Presumptive Positive? result indicates that the screening result was positive but has not yet been confirmed by a highly-specific method. As with any screen, occasional false positive results from cross-reacting substances may occur. Not for Medico-Legal Purposes. Methadone Metabolites Screen, Urine None Detected None Detected [facility] Comment: The methadone metabolite screen detects EDDP (major methadone metabolite) at concentrations >100 ng/mL. A ? Presumptive Positive? result indicates that the screening result was positive but has not yet been confirmed by a highly-specific method. As with any screen, occasional false positive results from cross-reacting substances may occur. Not for Medico-Legal Purposes. Opiate Screen, Urine None Detected None Detected [facility] Comment: The opiates screen [...] Cannabinoid Screen, Urine None Detected None Detected [facility] Comment: The marijuana metabolites screen detects the THC metabolite (91-plp-6-carboxy-delta 9-THC) at concentrations >20 ng/mL. A ? Presumptive Positive? result indicates that the screening result was positive but has not yet been confirmed by a highly-specific method. As with any screen, occasional false positive results from cross-reacting substances may occur. Not for Medico-Legal Purposes. Oxycodone Screen, Urine None Detected None Detected [facility] Comment: The oxycodone screen detects oxycodone and oxymorphone at concentrations >100 ng/mL. A ? Presumptive Positive? result indicates that the screening result was positive but has not yet been confirmed by a highly-specific method. As with any screen, occasional false positive results from cross-reacting substances may occur. Not for Medico-Legal Purposes. Buprenorphine Screen, Urine None Detected None Detected [facility] Comment: The buprenorphine screen detects buprenorphine [...] characteristics of this test were determined by [facility] in accordance with CLIA requirements. This laboratory is qualified under CLIA to perform high-complexity testing. Fentanyl Screen, Urine None Detected None Detected [facility] Comment: The fentanyl screen detects fentanyl [...] characteristics of this test were determined by [facility] in accordance with CLIA requirements. This laboratory is qualified under CLIA to perform high-complexity testing. Tricyclics Screen, Urine None Detected None Detected [facility] Comment: The tricyclics screen detects tricyclic [...] characteristics of this test were determined by [facility] in accordance with CLIA requirements. This laboratory is qualified under CLIA to perform high-complexity testing. Ethanol Screen, Urine None Detected None Detected [facility] Comment:This urine ethanol a ssay detects ethanol at concentrations >/= 100 mg/L. Amphetamines Screen, Urine None Detected None Detected [facility] Comment: The amphetamine screen detects d-amphetamine and d-methamphetamine at concentrations >300 ng/mL. A ? Presumptive Positive? result indicates that the screening result was positive but has not yet been confirmed by a highly-specific method. As with any screen, occasional false positive results from cross-reacting substances may occur. Not for Medico-Legal Purposes. Creatinine Specimen Validity Test, Urine 222 >=20 mg/dL [facility] Chromate Specimen Validity Test, Urine 3.0 <=49.9 mg/L [facility] Nitrite Specimen Validity Test, Urine <50 <=499 mg/L [facility] Oxidant Specimen Validity Test, Urine >500(H) <=199 mg/L [facility] pH Specimen Validity Test, Urine 5.7 3.0 - 10.9 [facility] Adulterants Screen, Urine Suspected(A) None Detected [facility] Comment: An Adulteration screen performed on this urine sample produced a result that is suspicious for adulteration. Urine adulteration can produce false negative or false positive drug screen results. Urine 12/16/2022 1:30 PM EDT 12/16/2022 2:03 PM EDT Narrative Resulting Agency Comment Spec In Lab Bridgette WATSON CHEMISTRY ORDERABLES Performing Organization Address City/State/[facility] Co de Phone Number [facility] [place] [address] * Lamotrigine Lvl (12/16/2022 1:30 PM EDT) Lamotrigine Lvl (JULY) 15.2 3.0 - 15.0 mcg/mL [facility] Comment: ADDITIONAL INFORMATION This test was developed and its performance characteristics determined by [facility] in a manner consistent with CLIA requirements. This test has not been cleared or approved by the U.S. Food and Drug Administration. Test Performed by: [facility] [address] [place] [address] Ammonia Print Operator: Kush Gaspar M.D. Ph.D.; CLIA# [id number] Blood 12/16/2022 1:30 PM EDT 12/16/2022 3:42 PM EDT Narrative Resulting Agency Comment Spec In Lab Odilon Godfrey MD LAB SEND OUT ORDERAB LES Performing Organization Address City/[facility]/ZIP Co de Phone Number [facility] [place] [address] * Rapid Drug Screen, Urine (MAYCO Request) (12/16/2022 1:30 PM EDT) MAYCO Conf Requested Yes [facility] Comment: Collection date/time has been modified to: 13:30:00. ??Previous collection date/time: 13:29:00. Corrected from Yes [NA] on 12/16/22 14:03:28 EDT by John Au MAYCO Requested See Comment [facility] Comment: Refer to Rapid Drug Screen w/ Confirmation, Urine for results. Collection date/time has been modified to: 13:30:00. ??Previous collection date/time: 13:29:00. Corrected from See Comment [NA] on 12/16/22 14:03:28 EDT by John Au Urine 12/16/2022 1:30 PM EDT 12/16/2022 2:03 PM EDT Narrative Resulting Agency Comment Spec In Lab Odilon Godfrey MD URINE ORDERABLES Performing Organization Address [facility] Co de Phone Number [facility] [place] [address] * (ABNORMAL) CK (12/16/2022 12:15 PM EDT) Creatine Kinase 712(H) 0 - 400 unit/L [facility] Blood 12/16/2022 12:1 5 PM EDT 12/16/2022 12:50 PM EDT Narrative Resulting Agency Comment Spec In Lab Odilon Godfrey MD CHEMISTRY ORDERABLES Performing Organization Address City/[facility]/ZIP Co de Phone Number [facility] [place] [address] * (ABNORMAL) CK (12/16/2022 5:12 AM EDT) Creatine Kinase 435(H) 0 - 400 unit/L [facility] Blood 12/16/2022 5:12 AM EDT 12/16/2022 5:17 AM EDT Narrative Resulting Agency Comment Spec In Lab Odilon Godfrey MD CHEMISTRY ORDERABLES Performing Organization Address [facility] de Phone Number [facility] [place] [address] * Differential, Automated (12/16/2022 12:55 AM EDT) Pathologist [facility] Neutrophil % 67.0 % [facility] Neutrophil Absolute 5.82 1.70 - 6.10 x10(3)/[facility] Lymph % 20.3 % [facility] Lymphocytes Abs 1.8 0.9 - 3.2 x10(3)/[facility] Monocyte % 8.3 % [facility] Monocyte Abs 0.7 0.3 - 0.9 x10(3)/[facility] Eos % 3.6 % [facility] Eosinophils Abs 0.3 0.0 - 0.4 x10(3)/[facility] Basophil % 0.6 % [facility] Baso Absolute 0.0 0.0 - 0.1 x10(3)/[facility] Immature Gran % 0.20 % [facility] Comment: Immature granulocytes(IG's)percentage and absolute count will include metamyelocytes, myelocytes, and promyelocytes. Blood smears from CBCs yielding IG's will be scanned manually for concordance. If this scan disagrees with the automated IG or if promyelocytes are noted, a manual differential will be performed. Immature Gran Absolute 0.02 0.00 - 0.04 x10(3)/mcL [facility] Blood 12/16/2022 12:5 5 AM EDT 12/16/2022 1:07 AM EDT Narrative Resulting Agency Comment Spec In Lab Alem WATSON HEMATOLOGY ORDERABLE S [facility] [place] [address] * (ABNORMAL) Hemogram (12/16/2022 12:55 AM EDT) White Blood Cell 8.7 4.0 - 9.5 x10(3)/mc L [facility] Red Blood Cell 4.45(L) 4.58 - 5.54 x10(6)/mc L [facility] Hemoglobin 12.7(L) 13.7 - 16.5 g/dL [facility] Hematocrit 37.1(L) 40.5 - 48.5 % [facility] Mean Cell Volume 83.4 82.9 - 93.1 fL [facility] Mean Cell Hemoglobin 28.5 27.5 - 32.1 pg [facility] Mean Cell Hemoglobin Concentration 34.2 32.0 - 35.7 g/dL [facility] Platelet 221 145 - 357 x10(3)/mc L [facility] RDW Standard Deviation 37.5 36.0 - 45.0 fL [facility] RDW coefficient of variation 12.2 11.4 - 13.8 % [facility] Mean Platelet Volume 9.0 7.6 - 12.9 fL [facility] NRBC% auto 0.0 % [facility] NRBC Absolute 0.000 0.000 - 0.000 x10(3)/mc L [facility] Blood 12/16/2022 12:5 5 AM EDT 12/16/2022 1:07 AM EDT Narrative Resulting Agency Comment Spec In Lab Alem WATSON HEMATOLOGY ORDERABLE S [facility] [place] [address] * Phosphorus (12/16/2022 12:55 AM EDT) Phosphorus 3.4 2.5 - 4.5 mg/dL [facility] Blood 12/16/2022 12:5 5 AM EDT 12/16/2022 1:07 AM EDT Narrative Resulting Agency Comment Spec In Lab Oniel Campbell MD CHEMISTRY ORDERABL ES Performing Organization Address [facility] de Phone Number [facility] [place] [address] * Magnesium (12/16/2022 12:55 AM EDT) Magnesium 0.81 0.69 - 1.07 mmol/L [facility] Blood 12/16/2022 12:5 5 AM EDT 12/16/2022 1:07 AM EDT Narrative Resulting Agency Comment Spec In Lab Oniel Campbell MD CHEMISTRY ORDERABL ES Performing Organization Address [facility] de Phone Number [facility] [place] [address] * (ABNORMAL) Hepatic Function Panel (12/16/2022 12:55 AM EDT) Protein, Total 6.0(L) 6.1 - 8.0 g/dL [facility] Albumin 3.5 3.2 - 5.2 g/dL [facility] Aspartate Aminotransferase 21 10 - 40 unit/L [facility] Alanine Aminotransferase 28 0 - 40 unit/L [facility] Alkaline Phosphatase 81 55 - 149 unit/L [facility] Bilirubin, Total 0.4 0.2 - 1.3 mg/dL [facility] Bilirubin, Direct 0.1 0.0 - 0.3 mg/dL [facility] Blood 12/16/2022 12:5 5 AM EDT 12/16/2022 1:07 AM EDT Narrative Resulting Agency Comment Spec In Lab Oniel Campbell MD CHEMISTRY ORDERABL ES Performing Organization Address [facility]/ZIP Co de Phone Number [facility] [place] [address] * (ABNORMAL) Basic Metabolic Panel (non-fasting) (12/16/2022 12:55 AM EDT) Glucose 98 65 - 199 mg/dL [facility] Comment:Diabetes: >=200 mg/d L plus symptoms Blood Urea Nitrogen 6(L) 10 - 20 mg/dL [facility] Comment:result rechecked-[facility] Creatinine 0.98 0.63 - 1.09 mg/dL [facility] Sodium 143 135 - 145 mmol/L [facility] Potassium 3.7 3.5 - 5.0 mmol/L [facility] Comment: Please note: ??Patients with WBC >100,000 may have falsely elevated Potassium levels. ??For accurate Potassium quantification in these patients send serum separator tube (gold top) for subsequent determinations. ??Contact the Clinical Chemistry Laboratory if there are any questions. Chloride 109(H) 98 - 107 mmol/L [facility] Carbon Dioxide 23 22 - 31 mmol/L [facility] Anion Gap 11 5 - 15 mmol/L [facility] Calcium 9.2 8.5 - 10.5 mg/dL [facility] Est Glomerular Filtration Rate 115 >=60 mL/min/1. 73 m?? [facility] Comment: This patient's estimated GFR was [...] Lab Oniel Campbell MD CHEMISTRY ORDERABL ES [facility] [place] [address] * (ABNORMAL) CK (12/16/2022 12:55 AM EDT) Creatine Kinase 556(H) 0 - 400 unit/L [facility] Blood 12/16/2022 12:5 5 AM EDT 12/16/2022 1:07 AM EDT Narrative Resulting Agency Comment Spec In Lab Odilon Godfrey MD CHEMISTRY ORDERABLES Performing Organization Address [facility] Co de Phone Number [facility] [place] [address] * EKG 12 Lead (12/15/2022 3:09 PM EDT) Ventricular rate 79 BPM MUSE SYSTEM Atrial Rate 79 BPM MUSE SYSTEM P-R Interval 164 ms MUSE SYSTEM QRS Duration 90 ms MUSE SYSTEM Q-T Interval 360 ms MUSE SYSTEM QTC Calculated (Bezet) 412 ms MUSE SYSTEM Calculated P [place] 74 degrees MUSE SYSTEM Calculated R [place] 85 degrees MUSE SYSTEM Calculated T [place] 42 degrees MUSE SYSTEM INTERPRETATION Normal sinus rhythm Normal ECG No previous ECGs available Confirmed by MD Mellisa, Berry (63) on 12/16/2022 8:33:38 AM MUSE SYSTEM 12/15/2022 3:09 PM EDT 12/16/2022 8:33 AM EDT Oniel Campbell MD ECG ORDERABLES Performing Organization Address [facility] de Phone Number MUSE SYSTEM * (ABNORMAL) BLOOD GAS 2 VENOUS (12/15/2022 3:03 PM EDT) pH, Venous 7.37 7.32 - 7.42 [facility] PCO2, Venous 41 41 - 51 mmHg [facility] PO2, Venous 33 25 - 40 mmHg [facility] Bicarbonate, Venous 23.3 mmol/L [facility] Base Excess, Venous -2.0 mmol/L [facility] Hgb Blood Gas 14.2 13.7 - 16.5 g/dL [facility] Oxyhemoglobin, Venous 70.4 % [facility] Carboxyhemoglob in, Venous 0.3 % [facility] Comment: Nonsmokers: 0.5-1.5% COHB Smokers: Variable, but usually less than 10% Toxic: 20-30% COHB Lethal: Greater than 60% COHB Methemoglobin, Venous 0.3 <=1.5 % [facility] Na Whole Blood 142 135 - 145 mmol/L [facility] K Whole Blood 3.8 3.5 - 5.0 mmol/L [facility] Comment: Please note: Patients with WBC >100,000 may have falsely elevated Potassium levels. Contact the Clinical Chemistry Laboratory if there are any questions. ICa Whole Blood 1.20 1.15 - 1.33 mmol/L [facility] Comment: Note: ??Total bilirubin higher than 20 mg/dL may lead to falsely low ionized calcium. CL Whole Blood 109(H) 98 - 107 mmol/L [facility] Gluc Whole Bld 93 65 - 199 mg/dL [facility] Comment:Diabetes: >=200 mg/d L plus symptoms Lactate WB 1.2 0.5 - 2.2 mmol/L [facility] Fraction of Inspired Oxygen, Venous 21 % [facility] Blood Gas Source Venous [facility] Blood 12/15/2022 3:03 PM EDT 12/15/2022 3:03 PM EDT Odilon Godfrey MD POINT OF CARE TEST O RDERABLES Performing Organization Address City/State/[facility] Co de Phone Number [facility] [facility] [place] [address] * XR Chest One View (12/15/2022 2:50 [...] who have questions please contact the health patient care technician instructor that requested your imaging first. ? Electronically signed by: Mert Madsen MD, [facility] ([phone]), at 12/15/2022 2:58 PM Narrative 12/15/2022 2:58 [...] patients who have questions please contactthe health patient care technician instructor that requested your imaging first. Electronically signed by: Mert Madsen MD, [facility]([phone]), at 12/15/2022 2:58 PM Oniel Campbell MD IMG DX ORDERABLES * Gold Tube HOLD (12/15/2022 2:40 PM EDT) [facility] Gold Hold Sample in lab. [facility] Blood Venous Draw / Unknown 12/15/2022 2:40 PM EDT 12/15/2022 3:02 PM EDT Alem WATSON CHEMISTRY ORDERABLES [facility] [place] [address] * (ABNORMAL) Differential, Automated (12/15/2022 2:40 PM EDT) Neutrophil % 81.4 % [facility] Neutrophil Absolute 11.47(H) 1.70 - 6.10 x10(3)/mc L [facility] Lymph % 8.9 % [facility] Lymphocytes Abs 1.3 0.9 - 3.2 x10(3)/mc L [facility] Monocyte % 7.7 % [facility] Monocyte Abs 1.1(H) 0.3 - 0.9 x10(3)/mc L [facility] Eos % 1.3 % [facility] Eosinophils Abs 0.2 0.0 - 0.4 x10(3)/mc L [facility] Basophil % 0.3 % [facility] Baso Absolute 0.0 0.0 - 0.1 x10(3)/mc L [facility] Immature Gran % 0.40 % [facility] Comment: Immature granulocytes(IG's)percentage and absolute count will include metamyelocytes, myelocytes, and promyelocytes. Blood smears from CBCs yielding IG's will be scanned manually for concordance. If this scan disagrees with the automated IG or if promyelocytes are noted, a manual differential will be performed. Immature Gran Absolute 0.05(H) 0.00 - 0.04 x10(3)/mc L [facility] Blood 12/15/2022 2:40 PM EDT 12/15/2022 3:01 PM EDT Narrative Resulting Agency Comment Spec In Lab Alem WATSON HEMATOLOGY ORDERABLE S [facility] [place] [address] * (ABNORMAL) Hemogram (12/15/2022 2:40 PM EDT) White Blood Cell 14.1(H) 4.0 - 9.5 x10(3)/mc L [facility] Red Blood Cell 4.94 4.58 - 5.54 x10(6)/mc L [facility] Hemoglobin 14.3 13.7 - 16.5 g/dL [facility] Hematocrit 42.7 40.5 - 48.5 % [facility] Mean Cell Volume 86.4 82.9 - 93.1 fL [facility] Mean Cell Hemoglobin 28.9 27.5 - 32.1 pg [facility] Mean Cell Hemoglobin Concentration 33.5 32.0 - 35.7 g/dL [facility] Platelet 250 145 - 357 x10(3)/mc L [facility] RDW Standard Deviation 38.6 36.0 - 45.0 fL [facility] RDW coefficient of variation 12.2 11.4 - 13.8 % [facility] Mean Platelet Volume 8.9 7.6 - 12.9 fL [facility] NRBC% auto 0.0 % [facility] NRBC Absolute 0.000 0.000 - 0.000 x10(3)/mc L [facility] Blood 12/15/2022 2:40 PM EDT 12/15/2022 3:01 PM EDT Narrative Resulting Agency Comment Spec In Lab Alem WATSON HEMATOLOGY ORDERABLE S [facility] [place] [address] * APTT (12/15/2022 2:40 PM EDT) Partial Thromboplastin Time 27 25 - 37 sec [facility] Comment: The PTT is NOT appropriate for heparin monitoring. Use the Anti-Xa level for heparin monitoring (HEP UFH) or LMWH monitoring (HEP LMW). A PTT less than 37 seconds generally indicates adequate hemostasis. Blood 12/15/2022 2:40 PM EDT 12/15/2022 3:01 PM EDT Narrative Resulting Agency Comment Spec In Lab Oniel Campbell MD HEMATOLOGY ORDERAB LES Performing Organization Address [facility] Co de Phone Number [facility] [place] [address] * (ABNORMAL) Prothrombin Time (12/15/2022 2:40 PM EDT) Prothrombin Time 12.6(H) 9.4 - 12.5 sec [facility] International Normalization Ratio 1.1 [facility] Comment: An INR <2.0 indicates adequate [...] MD HEMATOLOGY ORDERAB LES Performing Organization Address [facility] Co de Phone Number [facility] [place] [address] * Triglyceride (12/15/2022 2:40 PM EDT) Triglyceride 117 mg/dL [facility] Comment: Average Risk/Lower Risk: <150 mg/dL Borderline High Risk: 150-199 mg/dL High Risk: 200-499 mg/dL Very High Risk: >ke=597 mg/dL Blood 12/15/2022 2:40 PM EDT 12/15/2022 3:01 PM EDT Narrative Resulting Agency Comment Spec In Lab Oniel Campbell MD CHEMISTRY ORDERABL ES Performing Organization Address [facility] Co de Phone Number [facility] [place] [address] * (ABNORMAL) Phosphorus (12/15/2022 2:40 PM EDT) Phosphorus 2.4(L) 2.5 - 4.5 mg/dL [facility] Blood 12/15/2022 2:40 PM EDT 12/15/2022 3:01 PM EDT Narrative Resulting Agency Comment Spec In Lab Oniel Campbell MD CHEMISTRY ORDERABL ES Performing Organization Address [facility] Co de Phone Number [facility] [place] [address] * Magnesium (12/15/2022 2:40 PM EDT) Magnesium 0.77 0.69 - 1.07 mmol/L [facility] Blood 12/15/2022 2:40 PM EDT 12/15/2022 3:01 PM EDT Narrative Resulting Agency Comment Spec In Lab Oniel Campbell MD CHEMISTRY ORDERABL ES Performing Organization Address [facility] de Phone Number [facility] [place] [address] * Hepatic Function Panel (12/15/2022 2:40 PM EDT) Protein, Total 6.4 6.1 - 8.0 g/dL [facility] Albumin 4.1 3.2 - 5.2 g/dL [facility] Aspartate Aminotransferase Not Perf 10 - 40 [facility] Comment: Unable to quantitate due to sample hemolysis. ??Sample redraw suggested. Called by: MELISSA, Read back by: MARYAM CARVER, Date/Time:12/15/22 17:21. Alanine Aminotransferase 35 0 - 40 unit/L [facility] Alkaline Phosphatase 93 55 - 149 unit/L [facility] Bilirubin, Total 0.4 0.2 - 1.3 mg/dL [facility] Bilirubin, Direct 0.1 0.0 - 0.3 mg/dL [facility] Blood 12/15/2022 2:40 PM EDT 12/15/2022 3:01 PM EDT Narrative Resulting Agency Comment Spec In Lab Oniel Campbell MD CHEMISTRY ORDERABL ES Performing Organization Address [facility] Co de Phone Number [facility] [place] [address] * (ABNORMAL) Basic Metabolic Panel (non-fasting) (12/15/2022 2:40 PM EDT) Glucose 98 65 - 199 mg/dL [facility] Comment:Diabetes: >=200 mg/d L plus symptoms Blood Urea Nitrogen 3(L) 10 - 20 mg/dL [facility] Creatinine 1.01 0.63 - 1.09 mg/dL [facility] Sodium 145 135 - 145 mmol/L [facility] Potassium 4.1 3.5 - 5.0 mmol/L [facility] Comment: Please note: ??Patients with WBC >100,000 may have falsely elevated Potassium levels. ??For accurate Potassium quantification in these patients send serum separator tube (gold top) for subsequent determinations. ??Contact the Clinical Chemistry Laboratory if there are any questions. Chloride 109(H) 98 - 107 mmol/L [facility] Carbon Dioxide 23 22 - 31 mmol/L [facility] Anion Gap 13 5 - 15 mmol/L [facility] Calcium 9.3 8.5 - 10.5 mg/dL [facility] Est Glomerular Filtration Rate 111 >=60 mL/min/1. 73 m?? [facility] Comment: This patient's estimated GFR was [...] Lab Oniel Campbell MD CHEMISTRY ORDERABL ES [facility] [place] [address] * (ABNORMAL) CK (12/15/2022 2:40 PM EDT) Creatine Kinase 989(H) 0 - 400 unit/L [facility] Blood 12/15/2022 2:40 PM EDT 12/15/2022 3:01 PM EDT Narrative Resulting Agency Comment Spec In Lab Oniel Campbell MD CHEMISTRY ORDERABL ES Performing Organization Address [facility] Co de Phone Number [facility] [place] [address] * POCT Glucose (12/15/2022 2:35 PM EDT) Glucose, POC 94 65 - 199 mg/dL [facility] Comment: Supplemental ranges: <140 mg/dL before meals <180 mg/dL all other times of the day Blood 12/15/2022 2:35 PM EDT 12/15/2022 2:35 PM EDT Odilon Godfrey MD POINT OF CARE TEST O RDERABLES Performing Organization Address [facility] Co de Phone Number [facility] [place] [address] documented in this encounter Visit Diagnoses Diagnosis [...] Starting on [place] 12/15/22 at 0030, Until [place] 12/18/22 at 1611, Titrate to sedation level [...] restart at 50% of previous rate. Call supervisor brew house if goal not achieved at maximum rate. [...] restart at 50% of previous rate. Call supervisor brew house if goal not achieved at maximum rate. [...] Moses RN) [phone] (Given - Provider: Allen Dzoier RN) nitrofurantoin (Macrobid) capsule 100 mg 100 [...] restart at 50% of previous rate. Call supervisor brew house if goal not achieved at maximum rate. [...] Routine documented in this encounter Care Teams Aircraft Structure Mechanic Relationship Specialty Start Date End Date Robbie Rudolph DO [address] [place] [id number] PCP - General Family Medicine 10/31/19 documented as of this encounter
--- OUTSIDE RECORDS SUMMARY | 2024-01-03 18:09 | XMS_ITS | Encounter Summary ---
[facility] Address [facility] [place] [address] Care Team Providers Care Dough Panner Name Role Phone Robbie Rudolph Primary Care Provider [phone] Reason for Visit * Reason Onset Date Comments Hospital Transfer 12/15/2022 Encounter Details Date Type Department Care Team (Late st Contact Info) Description 12/15/2022 [place] [address] Mary Huynh MD [facility] [address] [facility] [place] [address] Hospital Transfer Social History Tobacco Use Types Packs/Day Years Used Date Smoking Tobacco: Never Assessed Sex and Gender Information Value Date Recorded Sex Assigned at Not on file Gender Identity Not on file Sexual Orientation Not on file documented as of this encounter Miscellaneous Notes * Telephone Encounter - Mary Hunyh MD - 12/15/2022 4:54 AM EDT [facility] TeleICU Transfer Acceptance Note Referring Facility and Physician: [facility] ED Accepting Service and Physician: MICU Green team Clinical Summary: Information is obtained verbally via TC call with ICU Fellow and outside Provider around 11pm. I amtold that the patient will not arrive to [facility] until the day shift. 17yo male h/o [...] on filedocumented in this encounter Care Teams Dough Panner Relationship Specialty Start Date End Date Robbie Rudolph DO [address] [place] [address] PCP - General Family Medicine 10/31/19 documented as of this encounter
--- OUTSIDE RECORDS SUMMARY | 2024-01-03 18:10 | XMS_ITS | Encounter Summary ---
Author Organization [facility] Address [address] [place] [address] Care Team Providers Care Ammonia Technician Name Role Phone Unknown, Provider Primary Care Provider [phone] Obie Mccoy MD Unavailable [phone] Encounter Details Date Type Department Care [...] place to sleep or slept in a longterm (including now)? Yes 07/11/2023 Sex and Gender Information Value Date Recorded Sex Assigned at Not on file Gender Identity Not on file Sexual Orientation Not on file documented as of this encounter Plan of Treatment Not on file documented as of this encounter Visit Diagnoses Not on filedocumented in this encounter Care Teams Ammonia Technician Relationship Specialty Start Date End Date Unknown, Provider, PCP - General 07/10/23 Obie Mccoy MD [address] [place] [id number] 07/10/23 documented as of this encounter
--- OUTSIDE RECORDS SUMMARY | 2024-01-03 18:10 | XMS_ITS | Encounter Summary ---
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
--- OUTSIDE RECORDS SUMMARY | 2024-01-03 18:10 | XMS_ITS | Encounter Summary ---
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 out to his field case manager Sherrie, to talk about options for housing as well as discharge plan. PATSY followed up with Sherrie who scheduled a phone call with PATSY for 10:30 tomorrow 07/20. PATSY will continue to work with patient through his hospitalization and help plan for a safe discharge. RAJESH Dyson, [facility] Epic Application Coordinator II Phone:[phone]/Pager:[phone] MDVIP Chat preferred * Alexis Guillaume - 07/20/2023 1105 EDT [facility] Spiritual Care Note Re: Keshav Patiño : 2005, AGE: 17 y.o. ROOM: [place] [address] BACKGROUND Warehouse Record Clerk with priors. Today, entrepreneur contacted pt in their room. Pt on phone and requested entrepreneur visit later. Not long after, entrepreneur observed pt in hallway. Pt consented to visiting in their hospital room. ASSESSMENT Beliefs & Values Pt began this encounter with the following quote: Yesterday is my past, tomorrow is my future, andtoday is my present. Pt appeared more calm and present and less emotionally distraught compared tothis entrepreneur's last visit. Pt confirmed they feel more [...] both scary and liberating for them. INTERVENTIONS Warehouse Record Clerk engaged pt in active listening, emotional processing, and supportive presence. Warehouse Record Clerk invited pt to look at their life from the vantage point of self-compassion. CARE PLAN Warehouse Record Clerk provided pt with follow up options. Pt elected to reach out to this entrepreneur via RN shouldthey desire additional supports. Warehouse Record Clerk remains available. RECOMMENDATIONS Nothing at this time. TIME STAMP: 25 minutes Alexis Guillaume [facility] Warehouse Record Clerk [address] Thank you for the opportunity to provide for this patient's/family's spiritual needs. * Ghulam Nevarez MD - 07/20/2023 1008 EDT [facility] Inpatient Daily Psychiatric Assessment DOS: 07/20/2023 OBS: [...] prior hospitalization and meeting with is outpatient field case manager Sherrie show history of BPD, not bipolar disorder, and this remains the current diagnostic hypothesis. Keshav has after a few days become more calm, cooperative, engaged in daily interviews, receptive to medication recommendations, and consistently receptive to support from his outpatient field case manager. 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 Per outpatient CM Sherrie: half-way vs crisis bed then half-way vs shared living facility, patient unsure 07/19. [...] Attending Psychiatrist * Phoebe Albright - 07/19/2023 2902 EDT Case Management Progress Note Level of Care: Acute Discharge plan/estimated date: Pending clinical course. Estimated discharge on 07/27/2023 though subject to change. [facility] Medicaid Status: N/A Barriers to d/c: Stability, safety, medication management, discharge planning. Support Network: partner, outpatient supports Next Steps: Assess for needs, gather collateral information, provide support, offer family/support person meeting if desired, community referral, discharge planning. This investment underwriter is covering for Sloane Garcia. SW met [...] plan for a safe discharge. RAJESH Dyson, [facility] Epic Application Coordinator II Epic Chat preferred * Ghulam Nevarez MD - 07/19/2023 1108 EDT [facility] Inpatient Daily Psychiatric Assessment DOS: 07/19/2023 OBS: [...] prior hospitalization and meeting with is outpatient field case manager Sherrie show history of BPD, not bipolar [...] STATUS: Full Code DISPOSITION: Unhoused. Lived in [facility]. Outpatient CM filling housing application. WAYNE 1-3 [...] Psychiatrist * Ghulam Nevarez MD - 07/18/2023 3195 EDT [facility] Inpatient Daily Psychiatric Assessment DOS: 07/18/2023 OBS: [...] meeting was held today with Keshav, his field case manager Chica, and the psychiatry team. Sherrie mentioned that Keshav had been living in a hotel and that they were working on an application for more permanent housing. Keshav shared that he was interpreted in resuming his SHIPPING SUPERVISOR medications and leaving. Sherrie encouraged Keshav to [...] prior hospitalization and meeting with is outpatient field case manager Sherrie show history of BPD, not bipolar [...] DISPOSITION: Pending Course CONSULTS: None GHULAM ROQUE, rollway man PGY-1 07/18/2023 16:36 Associated attestation - Melissa [...] get adequate sleep this shift. Assumed care [id number] Data: Patient T.S. is involuntary status, ROBBY [...] Alexis Guillaume - 07/17/2023 1305 EDT [facility] Spiritual Care Note Re: Keshav Patiño : 2005, AGE: 17 y.o. ROOM: [place] [address] BACKGROUND Warehouse Record Clerk with prior visits. Weekend entrepreneur with prior. Today, pt involved in two code 8 calls. Per pt request, this entrepreneur contacted pt in hospital room for visit. [...] themselves and how they react to things. Warehouse Record Clerk encouraged pt to reflect on this awareness [...] which may trigger this for them. INTERVENTIONS Warehouse Record Clerk engaged pt in active listening, emotional processing, and supportive presence. Pt concernsand update given to Provider. Therapist request passed along to Care Management. CARE PLAN Warehouse Record Clerk will follow up, as able, per pt request. RECOMMENDATIONS This entrepreneur recommends treatment team maintain awareness around pt's felt experience of loss of control. TIME STAMP: 35 minutes Alexis Guillaume [facility] Warehouse Record Clerk [address] Thank you for the opportunity to provide for this patient's/family's spiritual needs. * Melissa Conley MD - 07/17/2023 1103 EDT [facility] Inpatient Daily Psychiatric Assessment DOS: 07/17/2023 OBS: [...] himself on medication and to invite his field case manager Clarissa, a trusted provider, to join a [...] -Melatonin 3 mg hs PRN -Meeting with field case manager Sherrie 07/18/23 -Will obtain records from recent [...] Jay Bowersa - 07/15/2023 1639 EDT [facility] Spiritual Care Note Re: Keshav Patiño : 2005, AGE: 17 y.o. ROOM: [facility] [address] Spirituality: None BACKGROUND Responded to nursing request for support of patient who expressed openness to speaking again to spiritual care. Per nursing Keshav was expressing a desire to be freed from constant observation and relaying acceptance of a safety plan. Constant was present when this investment underwriter visited pt but permitted privacy of a closed door at Keshav's request. Of note, constant was removed on trial by end of entrepreneur'svisit. ASSESSMENT Beliefs & Values Keshav stated that [...] can talk to whom he met at [facility] but feels otherwise very isolated [...] that he doesn't deserve love and care. Warehouse Record Clerk explored and encouraged reflection on this with [...] by the removal the constant, appeared overall lead care manager in spirit as observed by both this entrepreneur and his RN. CARE PLAN RECOMMENDATIONS Pt is open to and would benefit from continued support from unit entrepreneur. TIME STAMP: 55 minutes YUSRA BOWERS, [facility] Warehouse Record Clerk [address] Thank you for the opportunity [...] no idea how creative I am. This investment underwriter thanked him for being honest about it. Notified MD and obtained order to keep plastic knives from pt. * Janet Levine RN - 07/14/2023 1717 EDT Pt had no pockets, or shoes. Search completed by Yusra Dos Santos RN * Yusra Mason RN - 07/14/2023 1601 EDT Admission Note: 17 yo male brought to [facility] with escorts. He was apprehensive about admission but was calm and compliant. Depressed mood, sad affect. Directly said to investment underwriter I will do it again when I [...] appear to use soap. He called his field case manager Sherrie, whom he stated is the only one who he will talk to while here. Hecurrently is on constant, denies AVH. Settling in room. Giving patient 1:1 encouragement and support. documented in this encounter H&P Notes * Pipe Singh MD - 07/14/2023 1436 EDT [facility] Inpatient Admission Psychiatric Evaluation Admission Date: 07/14/23 Referral Source: ED Admission Reason: SI PCP: UNKNOWN,PROVIDER HPI Keshav Patiño is a 17 y.o. male with psychiatric history of bipolar disorder, 5 psychiatric hospitalizations, unknown number of suicide attempts, and no known medical history, who [facility] following OD of psychiatric medication. Psychiatry was initially consulted for suicidal ideation and agitation management before involuntary transfer to inpatient psychiatry. Prior to overdose, Keshav sent a photograph of a firearm to his field case manager, prompting a call by anthony 911. He then overdosed on an uncertain quantity of medication, suspected to be a combination of aripiprazole, guanfacine, and lamotrigine. He was initially brought to [facility], then transferred to [facility], where he was found to have [...] individually with his nurse, psychiatrist, and social services designee at different times throughout the afternoon. Review [...] bipolar disorder -Hospitalizations: 5 prior: 2 at [facility], [facility], other [facility] -Suicide attempts: not discussed -Outpatient providers: psychiatric prescriber (per dispense reports): Do Rodriguez MD. [phone] -Self Harm: not discussed -Aggression: agitated in [...] friend he calls, unwilling to share more. food concession manager Clarissa (contact info above) -Partnership: not [...] known medical history, who was [facility] following OD of psychiatric [...] provocative text of a firearm to his field case manager prior to the attempt, and notable difference in attitude towards different staff members suggestive of splitting. Extended interview, collateral information from field case manager, and records from other hospitalizations will be [...] a photograph of a gun to his field case manager before overdose. -Location: not discussed Indications for [...] 08/04/2023 1152 EDT 08/04/2023 Group: Self-esteem Group Attendance Officer: Chiquita Berrios MA Group start time: 1115 Group end time: 1135 Keshav Patiño declined to attend * Group Note - Garima Reese - 08/04/2023 1020 EDT 08/04/2023 Group:Morning Check in Group Attendance Officer: Garima Reese Group start time: 1000 Group [...] Rustam Collazo RN - 08/04/2023 0318 EDT [facility] Certificate of Need for Emergency Medication Emergency medication may be utilized only when there is a risk of imminent danger of physical harm to self or others due to psychiatric illness. I have performed a [id number] evaluation at 0153 1. Imminent risk of [...] been told I couldn't have anymore. This investment underwriter and multiple staff tried to work with patient to get him to refrain from negative behavior to seek medication. 3. On the Admission Assessment, under Risk Factors, did the patient indicate that s/he wanted someone called if s/he received emergency medication? Yes If yes, did you attempt to call that person? Yes. [phone], Were you able toreach the person by phone? Yes at 0335- food concession manager aware. 4. Describe the effect of the emergency medication: At the time of this note the patient was medicated 1.5 hours ago. Patient is starting to slow down as evidence of not hitting reeves/windows and laying his head over his crossed arms at the kitchen table. RUSTAM COLLAZO RN 08/04/2023 3:18 * Plan of Care - Rustam Collazo RN - 08/04/2023 031 EDT Problem: Coping: Goal: Patient will decrease/cease [...] safe while in restraint or seclusion x Yucca to reality as needed x Reassess patient's [...] LOS: 21 days. Diagnosis: Bipolar I disorder ([facility]), borderline personality disorder ([facility]- CMS), Current severe [...] during safety check, which staff alert this investment underwriter. Approached patient room and knocked on his door and explained expectations of staff being ableto visualize patients during checks. Patient responds, ???Door is open.?? This investment underwriter was able to open the door and patient was sitting on his bed smirking. Patient began to argue that it was the staff's fault for not being able to open the door; expectations reviewed once again. Patient later came to the team station and put his foot in the door to make it difficult for this investment underwriter to shut the door. Patient states, ???Can I have medication??? This investment underwriter agrees to see what patient has available [...] ???more medications?? and wanted something for anxiety.This investment underwriter reminded patient that it came in an oral tablet and would require a mouth check and patient states, ???I can't promise that I can do that.?? This investment underwriter explained that due to him not following [...] Care - Rustam Collazo RN - 08/03/2023 2365 EDT Problem: Daily Care Plan Goals Goal: Care Plan Documentation Outcome: Ongoing Flowsheets (Taken 08/03/20231941) Goal This Shift: Patient will remain safe on the unit Note: Assumed patient care [id number]: Patient received walking around the unit today hitting reeves and windows. Patient shared he was doing this in an effort to get medications. This investment underwriter set firm boundaries with patient about not getting medications for acting out purposefully and that he could communicate his needs and still havethe same outcome. Patient was able to verbalize with this investment underwriter that he continues to have hand andfoot [...] 08/03/2023 2007 EDT 08/03/2023 Group:Evening Check-in Group Attendance Officer: Anabel Watson Group start time: 0700 Group end time: 0740 Keshav Patiño declined to attend * Group Note - Anabel Watson - 08/03/2023 1440 EDT 08/03/2023 Group: Self-esteem Group Attendance Officer: Anabel Watson Group start time: 0200 Group end time: 0223 Keshav Patiño declined to attend * Group Note - Teodoro Nolan - 08/03/2023 1140 EDT 08/03/2023 Group:Communication Skills Group Attendance Officer: Teodoro Nolan Group start time: 1115 Group end time: 1135 Keshav Patiño was excused because it was clinically inappropriate * Group Note - Anabel Watson - 08/03/2023 1104 EDT 08/03/2023 Group:Morning Check in Group Attendance Officer: Anabel Watson Group start time: 1000 Group [...] LOS: 20 days. 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 Mouth checks post medication administration. Patient may [...] initially redirected away from the scene. This investment underwriter went to spend time with him to offer positive reinforcement. Patient at this time (0146) requested PRN Ibuprofen for ~8/10 hand pain; while this investment underwriter was pullingmedication per his request, he returned to the rapid response area and would not follow direction to move away from the scene; after about 10-minutes of sitting with patient he finally joined this investment underwriter in the activity room to play cards. While playing cards patient abruptly stood up and walked back to the rapid which had cleared out at this time. He returned to the kitchen area and started to punch the Plexi glass windows. This investment underwriter asked him to stop and reminded him of the earlier debrief where he had stated, ???If I was given more time.?? Patient states, ???Fine. I will go on the porch, and you can't hear me out there if I punch the windows.?? This investment underwriter followed patient to the [facility] for his safety. He continued to walk around the parameter of the porch, hitting the window with his fist and bottom of his feet. He was given one final warning to communicate his needs before a Code 8 was called. Code Xi called at [address] [facility] by 0218 and worked with talking with [...] administered would barely open his mouth. This investment underwriter explained it would be difficult to administer [...] grossly intact Language: shows no deficits Knowledge: claim service representative of his education level Insight: [...] on the unit Note: Assumed patient care 5822-3948: Patient sitting at his desk eating his missed meals from earlier today. Patient denies Self-harm/SI/HI/AVH and endorses ~8/10 left hand pain, which he requests prn pain medications (too early to administer). Non-pharmacological interventions offered and declined. Patient participated in debriefing while eating his dinner. Patient noted to be asleep at 1946, and this investment underwriter did not wake patient for any further intervention. No other issues noted or reported this portion of the shift. *Patient woke-up around 2129 to request pain medication. PRN Tylenol requested and received at 2136for ~8/10 left hand pain. This investment underwriter will play cards with patient to encourage positive reinforcement; reassessed at 2214 and patient was noted to be asleep. * Group Note - Anabel Watson - 08/02/2023 1944 EDT 08/02/2023 Group:Evening Check-in Group Attendance Officer: Anabel Watson Group start time: 1815 Group end time: 184 Keshav Patiño declined to attend * Group Note - Anabel Watson - 08/02/2023 1649 EDT 08/02/2023 Group: Integrative Health Group Attendance Officer: Anabel Watson Group start time: 1530 Group [...] Daily team meetings ad frequent communication with [facility] field case manager DISCHARGE PLANS: Referral to level one facility. [...] RUSTAM COLLAZO RN Therapist: Teodoro Nolan MM, ID- Chief Librarian Branch: SLOANE GARCIA * Group Note - Teodoro Nolan - 08/02/2023 1511 EDT 08/02/2023 Group:Communication Skills Group Attendance Officer: Teodoro Nolan Group start time: 1400 Group end time: 1430 Keshav Patiño was excused because it was clinically inappropriate * Plan of Care - Denis Ambrose RN - 08/02/2023 1505 EDT Problem: Daily Care Plan Goals Goal: Care Plan Documentation Outcome: Ongoing Flowsheets (Taken 08/02/2023 8474) [id number] Data: Pt visualized in hallway outside of [...] Denis Ambrose RN - 08/02/2023 1248 EDT [facility] Certificate of Need for Emergency Medication Emergency medication may be utilized only when there is a risk of imminent danger of physical harm to self or others due to psychiatric illness. I have performed a [id number]-om-[id number] evaluation at 1127 1. Imminent risk of [...] safe while in restraint or seclusion x Yucca to reality as needed x Reassess patient's behavior and continued need for restraint or seclusion at least 30 minutes anddocument N/a Notify family/significant other of restraint/seclusion x Provide debriefing with patient Response: Pt accepted emergency PO medication. Seclusion door unlocked @ 1229 DENIS AMBROSE RN * Psych Emergency Event - Mariluz Brown MD - 08/02/2023 1201 EDT [facility] Psychiatry Emergency Note 08/02/2023 Patient assessed for [...] to engage in any discussion with this investment underwriter. Moodnot stated. Affect elevated, irritable, intense. No perceptual disturbances appreciated. Thought process somewhat goal directed. Thought content without voiced paranoid or delusional ideation. No spontaneously voiced SI but is observed punching reeves and nurse station window repeatedly. No spontaneously voiced HI to this plastic welding machine operator but overheard making physical threats toward others. [...] - 08/02/2023 1119 EDT 08/02/2023 Group:[facility] Group Attendance Officer: Garima Reese Group start time: 1110 Group end time: 1120 Keshav Patiño was excused because it was clinically inappropriate * Group Note - Teodoro Nolan - 08/02/2023 1021 EDT 08/02/2023 Group:Morning Check in Group Attendance Officer: Teodoro Nolan Group start time: 1000 Group [...] safe and needs to remain safe) x Yucca to reality as needed (continuous redirection and [...] 08/01/2023 Group: Mindfulness / [facility] Group Attendance Officer: Teodoro Nolan Group start time: 1530 Group end time: 1550 Keshav Patiño declined to attend * Plan of Care - Brannon Hernandez RN - 08/01/2023 1551 EDT Problem: Daily Care Plan Goals Goal: Care Plan Documentation Outcome: Met This Shift Flowsheets (Taken 08/01/2023 4776) Area of Focus: Safety Goal This Shift: [...] the unit. The patient talked to this investment underwriter about their family and upbringing. They stated their siblings are successful but they aren't and won't be. This investment underwriter provided therapeutic communication. PRN Tylenol for left foot pain provided. Code 8 was called. Please see emergency note.The patient was sleeping near the end of shift. Total sleep hours this shift: ~0.25 hours as of 220 BRANNON HERNANDEZ RN * Group Note - Teodoro Nolan - 08/01/2023 1441 EDT 08/01/2023 Group:Dialectical Group Attendance Officer: Teodoro Nolan Group start time: 1400 Group end time: 1435 Keshav Patiño declined to attend * Group Note - Chiquita Berrios MA - 08/01/2023 1222 EDT 08/01/2023 Group: Grief & Anger Group Attendance Officer: Chiquita Berrios MA Group start time: 1115 Group end time: 1210 Keshav Patiño declined to attend * Group Note - Chiquita Berrios MA - 08/01/2023 1046 EDT 08/01/2023 Group:Morning Check in Group Attendance Officer: Chiquita Berrios MA Group start time: 1000 Group end time: 1040 Keshav Patiño declined to attend . This investment underwriter talked with Keshav about writing on the [...] out nurse name on the board. This investment underwriter set limits and boundaries and clear expectationsfor [...] reeves and various signs with markers. This investment underwriter and other staff tried multiple times toset limits and deter behavior but pt is not redirectable. This investment underwriter informed pt that we would engage with him when he demonstrated appropriate behavior, pt became agitated and threw a marker at the team station window. Unable to assess for SI/HI/AVH due to pt's increasing agitation and disorganization. Pt requested medication, this investment underwriter offered Atarax which pt refused. Pt erased his name on whiteboard and wrote bitch and retard above this investment underwriter's name. Pt told another RN that he was going to beat the shit out of this investment underwriter. Told this RN that he tried to [...] Jules Rosenthal RN - 08/01/2023 0121 EDT [id number] Problem: Daily Care Plan Goals Goal: Care Plan Documentation Flowsheets (Taken 07/31/2023 2300) Goal This Shift: pt will get adequate rest through the night Sleep hours 5683-2570= 2.5 hours Data: Keshav Patiño is an [...] self quickly in our first interaction. This investment underwriter offer him a snack and reassured him that he will betaken care of. Keshav asked investment underwriter to play card almost immediatly, per his requested we played cards.In the beginning he was not talking much, pointing and using nonverbal communication. As the card game went on he began to intact with investment underwriter appropriately, laughing at times. Keshav shared with [...] seemed somewhat engaged to the conversation. This investment underwriter asked Keshav why he is refusing to take Zyprexa he stated, all that does is make me sleep. I don't like the feeling. Encouraged him to take his medication as ordered. Keshav was no engaged in that suggestion. Telesales Advisor encouraged Keshav to discuss his feeling related [...] 07/31/2023 1934 EDT 07/31/2023 Group:Evening Check-in Group Attendance Officer: Leydi De Guzman Group start time: 1900 Group end time: 193 Keshav Patiño declined to attend * Group Note - Anabel Watson - 07/31/2023 1622 EDT 07/31/2023 Group:Communication Skills Group Attendance Officer: Anabel Watson Group start time: 0200 Group [...] tired and they slept all day. This investment underwriter asked if they would prefer taking it [...] the outside. The patient talked w/ this investment underwriter while doing laps around the unit about [...] - 07/31/2023 1219 EDT 07/31/2023 Group:Cognitive Group Attendance Officer: Chiquita Berrios MA Group start time: 1115 Group end time: 1210 Ksehav Patiño declined to attend * Group Note - Anabel Watson - 07/31/2023 1100 EDT 07/31/2023 Group:Morning Check in Group Attendance Officer: Anabel Watson Group start time: 1000 Group end time: 1030 Keshav Patiño declined to attend * Plan of Care - Cardinal Pena RN - 07/30/2023 2323 EDT 4222-3150 Problem: Daily Care Plan Goals Goal: Care [...] of Sleep (# of hrs): 4 hrs. 6991-4572 Data: Keshav Patiño is a 17 y.o. male who was admitted to [facility] with Bipolar 1 disorder ([facility]). Assumed care of pt at 1919. In darkened room looking at phone when investment underwriter introduced self. Did notlook up from phone and gave one word answers or shook his head in response to assessment questions.Shook his head vigorously when investment underwriter offered his HS medications. Telesales Advisor asked again later and he shook his head again. Action: Provide 1:1 Therapeutic support and assess patient for safety and pain. Administer scheduled/and or PRN medications. Response: Action(s) successful with no safety issues noted this shift. Refused medications and Engaged only minimally with this investment underwriter. * Group Note - Anabel Watson - 07/30/20232007 EDT 07/30/2023 Group:Evening Check-in Group Attendance Officer: Anabel Watson Group start time: 1899 Group end time: 1922 Keshav Patiño declined to attend * Group Note - Leydi De Guzman - 07/30/2023 1450 EDT 07/30/2023 Group:Stress Management Group Attendance Officer: Leydi De Guzman Group start time: 1400 Group end time: 1445 Keshav Patiño declined to attend * Group Note - Leydi De Guzman - 07/30/2023 1205 EDT 07/30/2023 Group:Cognitive Group Attendance Officer: Leydi De Guzman Group start time: 1115 Group end time: 1200 Keshav Patiño declined to attend * Group Note - Anabel Watson - 07/30/2023 1056 EDT 07/30/2023 Group:Morning Check in Group Attendance Officer: Anabel Watson Group start time: 1000 Group [...] 17 y.o. male who was admitted to [facility] with Bipolar 1 disorder ([facility]), he was observed at shift change pacing the halls and jumping up attempting to hit the ceiling. material handler 2nd shift reported that patient refused HS [...] - Jules Rosenthal RN - 07/29/20232328 EDT 1094-5559 Problem: Daily Care Plan Goals Goal: Care [...] Shift: pt will remain safe this shift 3617-8692 Data: Assumed care at 1930. Patient remains on involuntary level 3. On frequent observation. Alert and oriented. Mood: Irritable and direct with investment underwriter. Denied depression, anxiety, AVH, SI and HI. [...] remains safe on the unit. Sleep hours 0104-5449= 4 hours Flowsheets (Taken 07/29/2023 2300) Area of Focus: Sleep Goal This Shift: pt will get adequate amount of sleep this shift 1968-4561 Data: Continue care at 2300. Patient noted [...] report. 526 c/o elbow pain refused for investment underwriter to assess the right elbow. PRN given [...] 07/29/2023 194 EDT 07/29/2023 Group:Evening Check-in Group Attendance Officer: Chiquita Berrios MA Group start time: 1899 Group end time: 1944 Keshav Patiño was excused because they had visitors * Group Note - Chiquita Berrios MA - 07/29/2023 1645 EDT 07/29/2023 Group: Self-esteem Group Attendance Officer: Chiquita Berrios MA Group start time: 1530 [...] 17 y.o. male who was admitted to [facility] with Bipolar 1 disorder ([facility]), he was observed sleeping at shift [...] LOS: 15 days. 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 Patient may have the following conditional itemwhile [...] phone and played some cards with this investment underwriter. Patient medication compliant. No other noted reports or concerns this shift. * Group Note - Anabel Watson - 07/28/2023 1910 EDT 07/28/2023 Group: Addiction Recovery Group Attendance Officer: Anabel Watson Group start time: 624 Group [...] Note: Data: Cared for this patient from 6078-2324. He was sleeping at the start of the shift, and awakened suddenly when this investment underwriter opened the door to meet him. He [...] 07/28/2023 1627 EDT 07/28/2023 Group:Communication Skills Group Attendance Officer: Teodoro Nolan Group start time: 1530 Group end time: 1615 Keshav Patiño declined to attend * Plan of Care - Benita Cuevas RN - 07/28/2023 1454 EDT Problem: Daily Care Plan Goals Goal: Care Plan Documentation 07/28/2023 1454 by Benita Cuevas RN Outcome: Met This Shift 07/28/2023 1454 by Faith, Benita, RN Flowsheets (Taken 07/28/2023 2844) Area of Focus: Safety Goal This Shift: [...] 07/28/2023 1454 EDT 07/28/2023 Group:Evening Check-in Group Attendance Officer: Anabel Watson Group start time: 0200 Group end time: 0240 Keshav Patiño declined to attend * Group Note - Chiquita Berrios MA - 07/28/2023 1249 EDT 07/28/2023 Group: Self-esteem Group Attendance Officer: Chiquita Berrios MA Group start time: 1115 Group end time: 1140 Keshav Patiño declined to attend * Group Note - Teodoro Nolan - 07/28/2023 1020 EDT 07/28/2023 Group:Morning Check in Group Attendance Officer: Teodoro Nolan Group start time: 1000 Group [...] - 07/27/2023 1930 EDT 07/27/2023 Group:Meditation Group Attendance Officer: Garima Reese Group start time: 1900 Group end time: 1930 Keshav Patiño declined to attend * Group Note - Garima Reese - 07/27/2023 1442 EDT 07/27/2023 Group:Lindsey Group Attendance Officer: Garima Reese Group start time: 1400 Group end time: 1440 Keshav Patiño declined to attend * Group Note - Garima Reese - 07/27/2023 1146 EDT 07/27/2023 Group: Art Therapy Group Attendance Officer: Garima Reese Group start time: 1115 Group end time: 1140 Keshavronen Patiño was excused because they were asleep * Group Note - Teodoro Nolan - 07/27/2023 1026 EDT 07/27/2023 Group:Morning Check in Group Attendance Officer: Teodoro Nolan Group start time: 1000 Group [...] Total hours of sleep this shift: 3.5 3770-1595 Data: Keshav Patiño is a 17 y.o. male who was admitted to [facility] with Bipolar 1 disorder ([facility]), he is received this morning asleep. [...] 07/26/2023 1916 EDT 07/26/2023 Group:Evening Check-in Group Attendance Officer: Garima Reese Group start time: 1899 Group [...] Daily team meetings ad frequent communication with [facility] field case manager DISCHARGE PLANS: Recommendation for crisis bed step [...] RUSTAM COLLAZO RN Therapist: Teodoro Nolan MM, ID- Chief Librarian Branch: TELMA Rose * Group Note - Teodoro Nolan - 07/26/2023 1435 EDT 07/26/2023 Group: Mindfulness / [facility] Group Attendance Officer: Teodoro Nolan Group start time: 1400 Group end time: 1430 Keshav M Jeovannyeau was excused because they were asleep * Group Note - Garima Reese - 07/26/2023 1213 EDT 07/26/2023 Group:Dialectical Group Attendance Officer: Garima Reese Group start time: 1115 Group end time: 1200 Keshav M Jeovannyeau was excused because they were asleep * Group Note - Garima Reese - 07/26/2023 1025 EDT 07/26/2023 Group:Morning Check in Group Attendance Officer: Garima Reese Group start time: 1000 Group end time: 1025 Keshav M Jeovannyeau was excused because they were asleep * Plan of Care - Zuleima Soares RN - 07/26/2023 0724 EDT Problem: Daily Care Plan Goals Goal: Care Plan Documentation Outcome: Ongoing Flowsheets (Taken 07/26/2023 0723) Area of Focus: Safety Goal This Shift: Pt will remain safe 7244-5404 Data: Assumed care of pt at 0730. Pt asleep at start of shift. Pt refused to wake up when prompted by this investment underwriter at 1000. This investment underwriter attempted to wake pt again at 1100, pt refusing to get out of bed/wake up. Pt awake at 1145. VS stable. When asked how he slept, pt says I'm still tired. This investment underwriter asks if pt is normally this tired and pt replied no. When asked about anxiety/depression, pt states I'm fine. Endorses 6/10 bilateral wrist pain but declines interventions. Denies SI/HI/AVH. Action: Assessed for SI/HI/AVH/pain. Offered listening and support. Administered meds per MAR. Obtained VS. Response: Pt remained safe. 9989-1591 Pt became irritable during a check in [...] - 07/25/20232013 EDT 07/25/2023 Group:Evening Check-in Group Attendance Officer: Anabel Watson Group start time: 07 Group [...] 07/25/2023 1632 EDT 07/25/2023 Group: Arts/Crafts/Hobbies/Crocheting/Painting Group Attendance Officer: Teodoro Nolan Group start time: 1530 Group end time: 1620 Keshavronen Patiño declined to attend * Group Note - Teodoro Nolan - 07/25/2023 1453 EDT 07/25/2023 Group:Communication Skills Group Attendance Officer: Teodoro Nolan Group start time: 1400 Group end time: 1430 Keshavronen Patiño declined to attend * Group Note - Chiquita Berrios MA - 07/25/2023 1215 EDT 07/25/2023 Group:Cognitive Group Attendance Officer: Chiquita eBrrios MA Group start time: 1115 Group end time: 1200 Keshavronen Patiño declined to attend * Group Note - Chiquita Berrios MA - 07/25/2023 1039 EDT 07/25/2023 Group:Morning Check in Group Attendance Officer: Chiquita Berrios MA Group start time: 1000 [...] Shift: Pt will have uninterrupted sleep overnight. 7452-6092 Pt sleep throughout the night uninterruptedly. 7042-0448 Hour(s) of sleep: 6.25 * Group Note - Leydi De Guzman - 07/24/2023 194 EDT 07/24/2023 Group:Evening Check-in Group Attendance Officer: Leydi De Guzman Group start time: 1900 [...] 1623 EDT 07/24/2023 Group:Writing for Health Group Attendance Officer: Garima Reese Group start time: 1530 Group end time: 1610 Keshav M Kaylyn declined to attend * Group Note - Teodoro Nolan - 07/24/2023 1511 EDT 07/24/2023 Group:Writing for Health Group Attendance Officer: Teodoro Nolan Group start time: 1400 Group end time: 1420 Keshav M Kaylyn was excused because they were with a provider * Group Note - Chiquita Berrios MA - 07/24/2023 1207 EDT 07/24/2023 Group: Integrative Health Group Attendance Officer: Chiquita Berrios MA Group start time: 1115 Group end time: 1200 Keshav M Kaylyn was excused because they were asleep * Group Note - Teodoro Nolan - 07/24/2023 1035 EDT 07/24/2023 Group:Morning Check in Group Attendance Officer: Teodoro Nolan Group start time: 1000 Group end time: 1025 Keshav Patiño declined to attend * Plan of Care - Bradford Yang RN - 07/24/2023 0811 EDT Problem: Daily Care Plan Goals Goal: Care Plan Documentation 07/24/2023 0811 by Bradford Yang RN Outcome: Ongoing Flowsheets (Taken 07/24/2023 0800) Area of Focus: Safety Goal This Shift: Pt will demonstrate safe behavior on the unit. 1805-8382 Upon assessment pt was observed sitting with [...] Shift: Pt will have uninterrupted sleep overnight 7066-6956 Pt sleep throughout the night uninterruptedly with no issue. 3635-6926 Hour(s) of sleep: 6.25 * Plan of Care - Bradford Yang RN - 07/23/20232007 EDT Problem: Daily Care Plan Goals Goal: Care Plan Documentation Outcome: Ongoing Flowsheets (Taken 07/23/20231999) Area of Focus: Safety Goal This Shift: Pt will demonstrate safe behavior on the unit. 0757-1048 Upon assessment pt was observed in bed [...] their room the rest of the shift. 3542-7511 Hour(s) of sleep: 0 * Group Note - Garima Reese - 07/23/2023 192 EDT 07/23/2023 Group:Evening Check-in Group Attendance Officer: Garima Reese Group start time: 1900 Group end time: 1924 Keshav Patiño was excused because they were with a provider * Group Note - Garima Reese - 07/23/2023 1517 EDT 07/23/2023 Group: Art Therapy Group Attendance Officer: Garima Reese Group start time: 1400 Group [...] 1209 EDT 07/23/2023 Group:Writing for Health Group Attendance Officer: Teodoro Nolan Group start time: 1115 Group end time: 1200 Keshavronen Patiño declined to attend * Group Note - Garima Reese - 07/23/2023 1030 EDT 07/23/2023 Group:Morning Check in Group Attendance Officer: Garima Reese Group start time: 1000 Group [...] people. Pt is able to joke with investment underwriter a little but then returns to a downcast stare and reporting feeling like he just wants to leave and . Pt is consistently stating that he wants to and finally, after offering numerous alternative coping strategies and activities, investment underwriter asked if the pt just wanted to try and sleep. He said he did. At this time he reported vague pain in his hand but wouldn't answer any questions regarding the pain. Later hesaid it was 6/10 and he took PRN tylenol for the pain. He also received PRN zyprexa 5 mg and melaton in 3mg. Pt was more conversational with investment underwriter after taking these meds but then did finally fall asleep. He did attempt to convince investment underwriter that he was needing to discharge and [...] out of their room hereto punch. When investment underwriter asked more about that he didn't say he wanted to punch anyone and he was saying it more as an observation, but he was reminded how that would not get him home. Staff are aware. A: Assessed for any acute changes MH sx or medical issues. Safety checked per [facility] protocol. Medications given per order and all interventions completed per treatment plan. R: Pt remains safe on the shift and has had no changes in MH sx or medical complaints. * Group Note - Garima Reese - 07/22/20231930 EDT 07/22/2023 Group:Evening Check-in Group Attendance Officer: Garima Reese Group start time: 1849 Group end time: 1929 Keshav Patiño declined to attend * Group Note - Garima Reese - 07/22/2023 1436 EDT 07/22/2023 Group:Coping with Anxiety Group Attendance Officer: Garima Reese Group start time: 1400 Group end time: 1435 Keshav Patiño declined to attend * Plan of Care - Yusra Mason RN - 07/22/2023 1352 EDT D: Pt. Was flat, frustrated, and at times annoyed with investment underwriter. He did come out and sit at a table while investment underwriter colored. He watched videos on his phone [...] was polite most of the time with investment underwriter. * Group Note - Garima Reese - 07/22/2023 1022 EDT 07/22/2023 Group:Morning Check in Group Attendance Officer: Garima Reese Group start time: 1000 Group [...] on the unit Note: Assumed patient care 9863-0290: Patient initially isolative to his room at [...] and doesn't see himself being successful outpatient correction. Patient declined scheduled HS Zyprexa 10 mg just stating, I don't want to take it. This investment underwriter played cards with him in the milieu this shift. No other issues noted or reported. * Group Note - Anabel Watson - 07/21/2023 1941 EDT 07/21/2023 Group: Addiction Recovery Group Attendance Officer: Anabel Watson Group start time: 0700 Group end time: 0730 Keshav Patiño Patient was offered AA recovery group. * Group Note - Teodoro Nolan - 07/21/2023 1610 EDT 07/21/2023 Group:Communication Skills Group Attendance Officer: Teodoro Nolan Group start time: 1530 Group end time: 1600 Keshav Patiño declined to attend * Group Note - Anabel Watson - 07/21/2023 1549 EDT 07/21/2023 Group:Focus Group Attendance Officer: Anabel Watson Group start time: 0200 Group [...] 1530. Pt refuses to engage with this investment underwriter. States I don't want to f*cking talk [...] called at 1307. Patient was going to [place] but was not allowed r/t to inappropriate foot garcia. Patient began to hit the wall with his fist. Patient requested PRNS was givenZyprexa 5mg.. Appears effective patient sleeping an hour later. Patient also asked for pain medications for his hand this AM. Positive effect. * Group Note - Leydi De Guzman - 07/21/2023 1139 EDT 07/21/2023 Group: Integrative Health Group Attendance Officer: Leydi De Guzman Group start time: 1115 Group end time: 1135 Keshav Patiño declined to attend * Group Note - Teodoro Nolan - 07/21/2023 1023 EDT 07/21/2023 Group:Morning Check in Group Attendance Officer: Teodoro Nolan Group start time: 1000 Group [...] LOS: 7 days. Diagnosis: Bipolar I disorder ([facility]), borderline personality disorder ([facility]), Current severe [...] and Zyprexa offered, but patient declined. This investment underwriter sat with patient in kitchen area, and [...] successful behaviors after previous inpatient hospitalization to [facility]. Citing his reason for maintaining his mental health was out of fear of being sent back to [facility]. This investment underwriter encouraged patient to get some sleep, but he chooses to stay in the kitchen area. Patient requested and received PRN Tylenol 500mg at 0203 and was noted to be asleep in the kitchen upon reassessment. This investment underwriter woke-up patient and directed him back to his room. Patient was noted to be asleep in his room at 0330. No other issues noted or reported overnight. Total sleep hours on NOC shift: ~2.75 hours as of 0600. 24 Hour Sleep total: ~4.5 hours. * Plan of Care - Rustam Collazo RN - 07/20/2023 5797 EDT Problem: Daily Care Plan Goals Goal: Care Plan Documentation Outcome: Met This Shift Flowsheets (Taken 07/20/20231929) Area of Focus: Safety Goal This Shift: Patient will remain safe this shift Note: Assumed patient care 6899-5722: Patient is walking laps on the unit at the start of the shift. Patient denies any current thoughts of self-harm/SI/HI/AVH and continues with Left hand pain and anxiety which he utilized PRN Tylenol 500 mg and Atarax 50 mg at 2039; effective upon reassessment. Patient played cards with this investment underwriter in the activity room for an hour. [...] at 2147 with good effect. When this investment underwriter expressed concern over his Left hand pain and swelling, hestates, I'm okay. It is no big deal. No other issues noted or reported this portion of the shift. * Group Note - Anabel Watson - 07/20/20232010 EDT 07/20/2023 Group:Evening Check-in Group Attendance Officer: Anabel Watson Group start time: 07 Group end time: 730 Keshav Patiño declined to attend * Group Note - Anabel Watson - 07/20/2023 1615 EDT 07/20/2023 Group: Integrative Health Group Attendance Officer: Anabel Watson Group start time: 329 Group end time: 414 Keshav Patiño declined to attend * Group Note - Garima Reese - 07/20/2023 1452 EDT 07/20/2023 Group:Coping with Anxiety Group Attendance Officer: Garima Reese Group start time: 1400 Group end time: 1450 Keshav Patiño declined to attend * Group Note - Anabel Watson - 07/20/2023 1219 EDT 07/20/2023 Group: Self-esteem Group Attendance Officer: Anabel Watson Group start time: 1115 Group [...] Groups- 1 NENITA CONDE RN 07/20/2023 11:32 [id number] Patient continues with a mixed mood and anxious affect. Patient appears to be more isolative today.Continues to deny sI/HI/AVH. Patient invited to play cards,accepted invitation and played several games with this investment underwriter and student nurses. * Group Note - Teodoro Nolan - 07/20/2023 1048 EDT 07/20/2023 Group:Morning Check in Group Attendance Officer: Teodoro Nolan Group start time: 1000 Group [...] LOS: 6 days. 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 Patient may have the following conditional item [...] pain this shift Note: Assumed patient care 4544-9702: Patient sitting in the kitchen with another [...] - 07/19/2023 1921 EDT 07/19/2023 Group:Meditation Group Attendance Officer: Garima Reese Group start time: 190 Group end time: 1919 Keshav Patiño declined to attend * Group Note - Teodoro Nolan - 07/19/2023 1600 EDT 07/19/2023 Group: Mindfulness / [facility] Group Attendance Officer: Teodoro Nolan Group start time: 1530 Group end time: 1550 Keshav Patiño declined to attend * Group Note - Anabel Watson - 07/19/2023 1453 EDT 07/19/2023 Group:Lindsey Group Attendance Officer: Anabel Watson Group start time: 0200 Group [...] SOCIAL: COLLABORATIVE EFFORTS: Close collaboration with community outreach worker through [facility] DISCHARGE PLANS: Step down to [...] RUSTAM COLLAZO RN Therapist: Teodoro Nolan MM, [facility] Chief Librarian Branch: TELMA Rose * Group Note - Garima Reese - 07/19/2023 1208 EDT 07/19/2023 Group: Art Therapy Group Attendance Officer: Garima Reese Group start time: 1115 Group end time: 1200 Keshav Patiño declined to attend * Group Note - Anabel Watson - 07/19/2023 1100 EDT 07/19/2023 Group:Morning Check in Group Attendance Officer: Anabel Watson Group start time: 1000 Group [...] earlier in shift played card with this investment underwriter and another patient. Action: Observation Level frequent Monitored patient for safety and assessed for SI/HI/AVH and pain. Provided1:1 supportive listening, encouraged groups and participation in the milieu, encouragedADLs. Coordinated care with treatment team, administered medications as ordered. Response: Pt remained safe on the unit. Will continue to monitor for changes in mood, behavior, andsafety. Sleep-0 Groups-0 NENITA CONDE RN 07/19/2023 9:12 Addendum- [id number] Patient continues to deny SI/HI/AVH Also, pt remains with a depressed mood and congruent affect. 1500 c/o anxiety/agitation- olanzapine given with positive effects. Urged patient to journal and inquired if there was any individual he feels comfortable speaking to. * Plan of Care - America Zhang RN - 07/19/2023 0703 EDT [id number] Problem: Daily Care Plan Goals Goal: Care [...] 07/18/2023 1626 EDT 07/18/2023 Group: Arts/Crafts/Hobbies/Crocheting/Painting Group Attendance Officer: Teodoro Nolan Group start time: 1530 Group end time: 1620 Keshav Patiño was excused because they were with a provider * Group Note - Teodoro Nolan - 07/18/2023 1429 EDT 07/18/2023 Group:Writing for Health Group Attendance Officer: Teodoro Nolan Group start time: 1400 Group end time: 1425 Keshav Patiño declined to attend * Group Note - Scottie Gutierrez - 07/18/2023 1152 EDT 07/18/2023 Group:Dialectical Group Attendance Officer: Scottie Gutierrez Group start time: 1115 Group end time: 1150 Keshav Patiño declined to attend * Group Note - Leydi De Guzman - 07/18/2023 1027 EDT 07/18/2023 Group:Morning Check in Group Attendance Officer: Leydi De Guzman Group start time: 1000 [...] refused VS. Refuses to engage with this investment underwriter, states I don't give a f*ck don't [...] 07/17/2023 2008 EDT 07/17/2023 Group:Evening Check-in Group Attendance Officer: Anabel Watson Group start time: 701 Group end time: 744 Keshav Patiño declined to attend * Group Note - Anabel Watson - 07/17/2023 1502 EDT 07/17/2023 Group:Cognitive Group Attendance Officer: Anabel Watson Group start time: 199 Group end time: 252 Keshav Patiño declined to attend * Group Note - Leydi De Guzman - 07/17/2023 1222 EDT 07/17/2023 Group:Cognitive Group Attendance Officer: Leydi De Guzman Group start time: 1115 Group end time: 1200 Keshav Patiño declined to attend * Group Note - Anabel Watson - 07/17/2023 1216 EDT 07/17/2023 Group:Morning Check in Group Attendance Officer: Anabel Watson Group start time: 1000 Group [...] Debriefing occurred at: 12:10 Rafiq Wadsworth MD [facility] Psychiatry PGY-1 07/17/23 12:25 * Psych Emergency Event - Zuleima Soares RN - 07/17/2023 1211 EDT [facility] Certificate of Need for Emergency Medication Emergency medication may be utilized only when there is a risk of imminent danger of physical harm to self or others due to psychiatric illness. I have performed a [id number] evaluation at 1143 1. Imminent risk of [...] Goal This Shift: Pt will remain safe 1304-1094 Data: Assumed care of pt at 0730. [...] says No, I don't have a plan. winding inspector and MD made aware of SI. Denies [...] but refused to take it from this investment underwriter so med was not given. Pt refusing to engage with this investment underwriter, PRN Tylenol and Atarax given by other RN. Action: Assessed for SI/HI/AVH/pain. Administered meds per MAR. Offered listening and support. Obtained VS and weight. Response: Pt remained safe barring Code 8 event. [id number] This investment underwriter attempted to interact with pt, this investment underwriter asked pt if he was up for [...] 07/16/2023 185 EDT 07/16/2023 Group:Evening Check-in Group Attendance Officer: Leydi De uGzman Group start time: 1814 Group end time: [...] 17 y.o. male who was admitted to [facility] with Bipolar 1 disorder ([facility]), he is received this AM as [...] feels much better after rest. Observed in [facility] interacting with staff and peers. He had [...] 1602 EDT 07/16/2023 Group: Integrative Health Group Attendance Officer: Leydi De Guzman Group start time: 1530 Group end time: 1550 Keshav Patiño declined to attend * Group Note - Anabel Watson - 07/16/2023 1448 EDT 07/16/2023 Group: Grief & Anger Group Attendance Officer: Anabel Watson Group start time: 0200 Group end time: 0241 Keshav Patiño declined to attend * Group Note - Leydi De Guzman - 07/16/2023 1206 EDT 07/16/2023 Group:Boundaries Group Attendance Officer: Leydi De Guzman Group start time: 1115 Group end time: 1200 Keshav Patiño declined to attend * Group Note - Anabel Watson - 07/16/2023 1024 EDT 07/16/2023 Group:Morning Check in Group Attendance Officer: Anabel Watson Group start time: 1000 Group [...] 07/15/2023 1937 EDT 07/15/2023 Group:Evening Check-in Group Attendance Officer: Anabel Watson Group start time: 0700 Group end time: 07 Keshav Patiño declined to attend * Group Note - Garima Reese - 07/15/2023 1442 EDT 07/15/2023 Group: Art Therapy Group Attendance Officer: Garima Reese Group start time: 1400 Group end time: 1435 Keshav Patiño declined to attend * Group Note - Anabel Watson - 07/15/2023 1206 EDT 07/15/2023 Group:Cognitive Group Attendance Officer: Anabel Watson Group start time: 1115 Group [...] 17 y.o. male who was admitted to [facility] with Bipolar 1 disorder ([facility]), he is received this AM as [...] asks when am I getting my next gill box tender? 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 [facility] Guideline: 11 days Principal Dx: F60.3 Borderline Personality Disorder. [facility] Guideline: 8 days Patient's Strengths: Intelligence and [...] RN: ERASMO CARMICHAEL RN Therapist: GARIMA REESE Chief Librarian Branch: SLOANE GARCIA PharmD: Patient Involvement This Treatment [...] LOS: 1 day. Diagnosis: Bipolar I disorder ([facility]). Action: Provide 1:1 Therapeutic support and assess patient for safety and pain while awake. Monitorhours of sleep. Response: Patient comes up to the team station around 2300 and requests, ???libertarian medications.?? Patient notes that the medication that was given to him made him feel ???good?? and he wanted more. This investment underwriter explained that medications are used to treat anxiety and agitation and not to be referred to as, ???[employer] medications.?? Patient agreed and appropriately requested medication for ???anxiety.?? PRN Atarax 25 mg administered at midnight. Patient was cooperative and assisted this investment underwriter to fill out his menu (faxed to nutrition). Patient appeared tired and was encouraged to rest. Patientwas adamant that he would sleep on the floor. This investment underwriter offered to help patient move mattress to floor, but he declined, ???I am fine.?? Patient offered a pillow for comfort which he accepted but declined blanket. Patient appeared to be asleep by 0115 and woke-up at 0245 distressed, tearful, andanxious. Patient comes out into hallway and lays on the floor. This investment underwriter asked patient to return to his room/floor [...] on the unit Note: Assumed patient care [id number]: Patient was in his bed at the start of the shift and avoidant of interaction with staff. Patient with his 1:1 did come to the team station shortly after start of shift to notify this investment underwriter that he was having pain in his hands. On- call MD was notified as patient did not have any comfort medicationsavailable; Patient was irritable that he had to wait for intervention. In the meantime this investment underwriter offered patient Atarax 25mg at 1950 for anxiety and agitation which he took with encouragement. Around 2024 a loud bang was heard and then followed the Code 8 activation. This investment underwriter went to patients room and upon arrival he softly punched his wall. This investment underwriter explained to him what a Code 8 looked like, what to expect as far as people responding to the unit and what he could do to avoid any unwanted intervention. Patient agreed to remain safe and this investment underwriter directed staff to cancel code. TheMD arrived [...] 1900 EDT 07/14/2023 Group: Addiction Recovery Group Attendance Officer: Garima Reese Group start time: 1810 Group [...] Social Supports in the Home Support Systems food concession manager/social services designee Able to provide 24/7 care? NA Transportation [...] requires assistance None Assistive Devices None Community Resources/Automobile Tire Builder: None Type of Home Health Services None [...] to the MICU as a transfer from [facility] following an overdose. Patient denies this was an intentional overdose. Hiscase system developer associate manager was concerned he was hoarding pills. Patient had also sent his field case manager a picture of a gun. Patient has psychiatric history of bipolar disorder. Current Living Situation/Housing: Living in emergency housing through [facility]. Family/Support System and Contact Telephone Numbers: Clarissa Jara [phone]. Family Constellation/Pertinent Family History: Patient reports he was adopted and does not have contact with his family. He has two sisters, Gabriela and Yusra and reports they have a strained relationship. Other Social Supports: None identified. Education/Employment Financial: Dropped out of school in the 9th grade. No history of work. Substance Abuse and Treatment History: unknown. Mental Health Treatment History: At [facility] for several months this past Winter. Mental Health and Other Providers: Clarissa Jara [phone]. Legal Issues: none known. Spiritual/Sabianism/Cultural Considerations: none identified Other Issues/Supports/Barriers to Adaptive Functioning: Does not identify family supports. Insurance/Pharmacy Coverage: Medicaid- traditional . Assessment: 17 yo male transferred from MICU, involuntary admission following overdose and texting field case manager picture of a gun. Plan: Gather collateral, ongoing assessment and engagement. Collaboration with outpatient providersand patient around discharge. Community referrals as indicated. Patient * Group Note - Chiquita Berrios MA - 07/14/2023 6888 EDT 07/14/2023 Group:[facility] Attendance Officer: Chiquita Berrios MA Group start time: 1400 [...] prepared using voice recognition software and/or keyboard data lead. ??All reasonable efforts have been made to ensure accuracy. ??However, minor irregularities or keyboard misprints may be present. ??If you find an error, or have any concerns, please contact Dr. Yadi Gutierrez at [email or web address] Procedure Note Yadi Gutierrez MD - 07/21/2023 [...] been prepared using voice recognition software and/orkeyboard data lead. All reasonable efforts have been made to ensureaccuracy. However, minor irregularities or keyboard misprints may bepresent. If you find an error, or have any concerns, please contact Dr. Yadi Gutierrez at [email or web address] [email or web address] Ivette Fox [facility] IMAGI NG ORDERABLES * XR HAND [...] prepared using voice recognition software and/or keyboard data lead. ??All reasonable efforts have been made to ensure accuracy. ??However, minor irregularities or keyboard misprints may be present. ??If you find an error, or have any concerns, please contact Dr. Yadi Gutierrez at [email or web address] Procedure Note Yadi Gutierrez MD - 07/21/2023 [...] been prepared using voice recognition software and/orkeyboard data lead. All reasonable efforts have been made to ensureaccuracy. However, minor irregularities or keyboard misprints may bepresent. If you find an error, or have any concerns, please contact Dr. Yadi Gutierrez at [email or web address] Ivette [facility] NG ORDERABLES * [...] therapy. LDL, Calculated 74 <160 mg/dL 9:37 [facility] Comment:Note that therapeuti c goals will differ between patients based on cardiac risk factors and current medical therapy. Triglyceride 111 <=150 mg/dL 07/21/2023 9:37 [facility] Comment:Note that therapeuti c [...] S ORDERABLES [facility] [address] [place] [address] * (ABNORMAL) LIPID PROFILE (INCLUDES CHOLESTEROL, TRIGLYCERIDES, [...] Chol/HDL Ratio 4.6 See Note 07/19/2023 15:47 [facility] Comment:No reference range h [...] BLOOD GA S ORDERABLES Performing Organization Address [facility] Co de Phone Number [facility] [address] [place] [address] * HEMOGLOBIN A1C (07/19/2023 14:43 EDT) Hemoglobin [...] BLOOD GA S ORDERABLES Performing Organization Address [facility] Co de Phone Number [facility] [address] [place] [phone] documented in this encounter Visit Diagnoses Diagnosis Borderline personality disorder (HCC-CMS)- Primary Borderline personality disorder Current severe episode of major depressive disorder without psychotic features, unspecified whether recurrent (HCC-CMS) Borderline personality disorder (HCC-CMS) Borderline personality disorder Bipolar 1 disorder (HCC-CMS) [F31.9] Bipolar I disorder, most recent episode (or current) unspecified Severe episode of recurrent major depressive disorder, without psychotic features ([facility]) [F33.2] documented in this encounter Admitting Diagnoses Diagnosis Bipolar 1 disorder ([facility]) Bipolar I disorder, most recent episode [...] 08/09/2023 documented in this encounter Care Teams Medical Lead Relationship Specialty Start Date End Date Unknown, Provider, PCP - General 07/10/23 Obie Mccoy MD [address] [place] [id number] 07/10/23 documented as of this encounter
--- OUTSIDE RECORDS SUMMARY | 2024-01-03 18:10 | XMS_ITS | Encounter Summary ---
Author Organization [facility] Address [address] [place] [address] Care Team Providers Care Scuba Diving Instructor Name Role Phone Unknown, Provider Primary Care Provider Obie Mccoy MD Unavailable [phone] Reason for Visit * Auth/Cert (Routine) Specialty Diagnoses / Procedures Referred By Contac t Referred To Contact Diagnoses Ingestion of substance, intentional self-harm, initial encounter (HCC-CMS) Over Dose/Intubated Referral ID Status Reason Start Date Expiration Date Visits Re quested Visits Authorized [id number] 1 1 Encounter Details Date Type Department Care Team (Late st Contact Info) Description 07/10/2023 17:06 EDT - 07/14/2023 12:43 EDT Hospital Encounter [facility] Medical Intensive Care Unit [address] [place] [address] [id number] Marty Higginbotham MD [address] [place] [phone] Tracie Cr MD [address] [place] [phone] Ingestion of substance, intentional self-harm, initial encounter ([facility]) (Primary Dx); Acute respiratory failure with hypoxia ([facility]); Acute encephalopathy; Delirium due to multiple etiologies; Mood disorder ([facility]); Suicide attempt ([facility]) Discharge Disposition: Psychiatric Hospital Social History Tobacco [...] Percentile 95.13% 07/10/2023 1720 EDT Growth Chart: [facility] [place] (Boys, 2-2 0 Years) documented in this encounter Discharge Summaries * Cristiane Espana MD - 07/14/2023 1122 EDT HOSPITAL MEDICINE DISCHARGE SUMMARY Primary Care Provider: UNKNOWN,PROVIDER Attending Physician: Marty Higginbotham MD Admit Date: 07/10/23 Discharge Date: 07/14/2023 Disposition (location): Involuntary psychiatry admission Condition at Discharge: Stable Reason for Admission (chief complaint): Overdose with SI Principal/Final Diagnosis: Ingestion of substance, intentional self-harm, initial encounter ([facility]) Additional Problems Managed in the Hospital: Active Hospital Problems Diagnosis Date Noted *Ingestion of substance, intentional self-harm, initial encounter ([facility]) 07/10/2023 Acute encephalopathy 07/11/2023 Acute respiratory failure with hypoxia ([facility]) 07/10/2023 Resolved Hospital Problems No resolved problems to display. Transition of care: [employer] Transition of Care report automatically routed to PCP office on discharge.Additional handoff communication performed via: Secure [employer] Staff Message to psychiatry team Clinical Issues [...] to the MICU as a transfer from [facility] for concern for toxic ingestion that occurred 5 hours PSYCHIATRIC SECURITY NURSE. Upon EMS arrival, the patient was altered,had [...] Propofol for sedation prior to transfer to [facility] and while en route. EMS reports [...] and superf icial soft tissues are unremarkable. [id number] Results Pending at Discharge: Test results still pending from this admission Procedure Component Value Units Date/Time Lamotrigine [[id number]] Collected: 07/10/23 174 Lab Status: In process Specimen: Blood, Venous Updated: 07/10/231752 CRISTIANE ESPANA MD 07/12/2023 8:27 Associated attestation - Tracie Cr MD - 07/14/2023 0418 EDT Attestation: I saw and evaluated the patient for discharge. I agree with the resident's/fellow's note. I personally spent 10 minutes in discharging services for this patient. Tracie Cr MD 07/14/2023 17:58 documented in this encounter Discharge Instructions * Medications* [place], Prerna, RN - 07/14/2023 11:36 EDT Medications will be added back to your regimen once in the psychiatric unit. documented in this encounter Discharge Disposition Disposition Code Departure Means Destination Comment [facility] documented in this encounter Progress Notes * Marty Higginbotham MD - 07/14/2023 1243 EDT Request for Documentation Clarification [facility] Keshav Patiño ; VISIT [id number]; ACCT [id number] Final Query Response Sent: 07/16/23 16:42 EDT [...] 07/11/23 11:36 EDT From: ILYA SWAN RN [facility] To: CRISTIANE ESPANA MD, MARTY HIGGINBOTHAM MD [...] [facility] Keshav Patiño ; VISIT [id number]; ACCT [id number] Query Response Sent: 07/11/23 12:55 EDT From: [...] of substance, intentional self- harm, initial encounter ([facility]). 24 hour events: Psych completed involuntary certification [...] results for input(s): PHISTAT, PCOISTAT, POISTAT, POCTCO2, D5QINLDX, POCFIO2 in the last 72 hours.Cardiac Markers: [...] medications yesterday, medically stable for transfer [facility], pending bed for involuntary [...] over 6 hours ago upon arrival at [facility] - Poison Control does not recommendGI [...] in setting of overdose #SI - 07/12 [facility] completed the involuntary certification [...] attestation - Tracie Cr MD - 07/14/2023 1936 EDT ,Attestation: I performed or was present during the mukherjee or critical portions of the visit and participated in the management of the patient on 07/14/23. I agree with the findings and plan of care as documented in the resident's/fellow's note. Tracie Cr MD 07/14/2023 17:56 * Alexis Guillaume - 07/13/2023 1345 EDT [facility] Spiritual Care Note Re: Keshav Patiño : 2005, AGE: 17 y.o. ROOM: [place] [address] BACKGROUND Plastics Bench Mechanic with prior initial contact. Today, Case Management made this public health engineer aware pt alert and oriented and having conversation. Plastics Bench Mechanic introduced self and spiritual care. Pt expressed receptivity to public health engineer support. ASSESSMENT Beliefs & Values Pt described [...] Pt spoke about their relationship with their Plug Machine Operator. Pt described CM as the only person [...] cope with life, pt replied: nothing legal. Plastics Bench Mechanic verbalized awareness of pt's humor. Pt appeared to resonate with humor being at least one way they cope with life. Pt endorsed desire to return home as soon as possible. Meaning Making Plastics Bench Mechanic invited pt to reflect on what they most desire in life. Pt replied: I don't know. Pt described the way they approach life as a river that just keeps flowing. INTERVENTIONS Plastics Bench Mechanic engaged pt in active listening, emotional processing, and supportive presence. Consulted with pt's RN post visit. CARE PLAN Pt agreed to public health engineer follow up at the beginning of next week. RECOMMENDATIONS Nothing at this time. TIME STAMP: 20 minutes Alexis Guillaume [facility] Plastics Bench Mechanic [place] [address] Thank you for the opportunity to provide for this patient's/family's spiritual needs. * Marty Higginbotham MD - 07/13/2023 0620 EDT Critical Care Progress Note Service Date: 07/13/2023 Admit Date: 07/10/2023 17:06 Reason for Admission to ICU: 17 y.o. male admitted with a chief complaint of AMS and now with a principal diagnosis of Ingestion of substance, intentional self- harm, initial encounter ([facility]). 24 hour events: Weaned off precedex drip [...] results for input(s): PHISTAT, PCOISTAT, POISTAT, POCTCO2, D7MMYICQ, POCFIO2 in the last 72 hours.Cardiac Markers: [...] medications yesterday, medically stable for transfer to [facility], pending involuntary admission paperwork. [...] over 6 hours ago upon arrival at [facility] - Poison Control does not recommendGI [...] setting of overdose #SI - Transfer to [facility] once medically stable, appreciate recommendations now for PRN medications - [facility] has begun the paperwork for the involuntary [...] Note CM met OP CM Clarissa Celestin [phone] (M) at bedside. Meeting was just to connect in person after several calls back and forth yesterday. Patient is now extubated but still sedated for agitation. Clarissa placed her phone number on the patients whiteboard and said it was fine for Keshav to call her any time but that she will not lemon picker after 6pm. Clarissa further stated she is workingon getting him his phone back. This CM will continue to follow for ongoing care coordination. Patient stated to Clarissa that he would be willing to accept a voluntary psych admission. CMSW Manuel Nickerson PATHOLOGY LABORATORY AIDES TEACHER * Alexis Guillaume - 07/12/2023 1215 EDT [facility] Spiritual Care Note Re: Keshav Graysusan : 2005, AGE: 17 y.o. ROOM: [place] [address] BACKGROUND Plastics Bench Mechanic self-initiated visit. Prior attempt. Today, public health engineer observed pt who appeared to be sleeping. Consulted bedside RN who advised pt medicated at this time. Plastics Bench Mechanic subsequently introduced self and spiritual care. Pt expressed receptivity to public health engineer support. ASSESSMENT Beliefs & Values Not mentioned. Connections Plastics Bench Mechanic observed pt's Plug Machine Operator arriving to visit pt. One of the few statements clearly made by the pt: I grew up with tough parents. Otherwise, pt mumbling throughout encounter. Coping Pt observed to be very drowsy with their eyes briefly opening and mostly closed. Meaning Making Not mentioned. INTERVENTIONS Plastics Bench Mechanic attempted to engaged pt in active listening, emotional processing, and supportive presence. Plastics Bench Mechanic consulted with [employer]. Later, public health engineer observed who public health engineer learned is pt's Plug Machine Operator. Plastics Bench Mechanic introduced self and spiritual care. CM declined supports at this time but affirmed chaplainpresence to support pt later on. CARE PLAN Plastics Bench Mechanic will follow up, as able, per pt request. Plastics Bench Mechanic coordinated follow up with bedside [employer]. RECOMMENDATIONS Nothing at this time. TIME STAMP: 10 minutes Alexis Guillaume [facility] Plastics Bench Mechaniceileen Ramachandran 131 Thank you for the opportunity to provide for this patient's/family's spiritual needs. * Cristiane Espana MD - 07/12/2023 0638 EDT Critical Care Progress Note Service Date: 07/12/2023 Admit Date: 07/10/2023 17:06 Reason for Admission to ICU: 17 y.o. male admitted with a chief complaint of AMS and now with a principal diagnosis of Ingestion of substance, intentional self- harm, initial encounter ([facility]). 24 hour events: Extubated in afternoon Subjective [...] results for input(s): PHISTAT, PCOISTAT, POISTAT, POCTCO2, [id number], POCFIO2 in the last 72 hours.Cardiac Markers: [...] over 6 hours ago upon arrival at [facility] - Poison Control does not recommendGI [...] Ingestion of substance, intentional self-harm, initial encounter ([facility]) Patient understands reason for admission: No PATIENT INFO VERIFIED: (S) PCP not verified, Contact Info, Address (the patient sees an SOAKING PIT OPERATOR at [facility] for priumary care needs. does not have a foram PCP.) Type of housing (single family, condo, apartment, retirement, single room occupancy, [facility] funded hotel room, group usp) - motel room Who does the patient live with? alone Does the patient have access to their own bedroom/bathroom/kitchen - or is it shared with others? own Name of housing complex (ex [address], [facility], etc)- [facility] in [place] [place] Housing Authority/Managing Organization - [facility] Community Care Providers (complex case manager, [facility] nurse, etc) name and contact information- [facility] F[facility]IAN [facility] [phone] Hiv Counselor. Discharge Delay Risk Assessment 1. Disease/Medical Condition: [...] medical expenses 8. 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) Levels: 1 Stairs to enter: 0 Handicap access: None Bathroom located on bedroom level?: Yes What in home social supports are available to the patient? (S) collection manager/social media content specialist, Family member(s) (the only family the patint [...] Expected Discharge on IV Antibiotics: No CULTURAL, SPIRITISM and/or LANGUAGE factors affecting health care/discharge planning: [...] in comments) (the patient is active with [facility] for [employer] and general case managment as well as primary care with agency SOAKING PIT OPERATOR.) POST HOSPITAL TRANSITION PLAN: the patient is an 17 year old male admitted SP OD with active SI prior to attempt. Assessment completed with Clarissa Jara collection manager at [facility]belle [facility] - [phone] who is the patients primary community support person. Additionally he received basic primary care from an SOAKING PIT OPERATOR at [facility] as well. Clarissa repots that he and younger sister were adopted by Sheryl and Goemz Patiño at age 1 and his older sister was adopted by a different family. The patientis reported to be currently estranged from his adoptive parents and likely would not want contact with them at this time. Keshav is currently un-housed with a [employer] voucher [place] the [employer] [facility] [place] reports he is fully [...] of substance, intentional self- harm, initial encounter ([facility]). 24 hour events: Transferred to [facility] MICU Subjective Intubated and sedated Review [...] results for input(s): PHISTAT, PCOISTAT, POISTAT, POCTCO2, [id number], POCFIO2 in the last 72 hours.Cardiac Markers: [...] Ingestion of substance, intentional self-harm, initial encounter ([facility]) 2. Acute respiratory failure with hypoxia ([facility]) 3. Acute encephalopathy Critical Care time [...] 07/11/2023 * Sylvester Calvert, RT - 07/11/2023 6812 EDT Respiratory Progress Note Indications for Respiratory [...] Add LDA for any identified wounds Add [place] image for any suspected PI or non surgical wounds Order wound consult if suspected PI identified If Warren is < or = to 16, initiate Pressure Injury Prevention Bundle (FRV3556). 07/10/2023 19:59 * Pari Delgado, RT - [...] Marty Higginbotham MD - 07/10/2023 181 EDT [facility] Medical Intensive Care Unit History and Physical CC: overdose HISTORY OF PRESENT ILLNESS Keshav Patiño is a 17 y.o. male with a past medical history significant for bipolar disorder and SI presents to the MICU as a transfer from [facility] for concern for toxic ingestion that occurred 5 hours PSYCHIATRIC SECURITY NURSE. The patient normally receives his bipolar medications at the beginning of the week but his case manageer is concerned he has been hoarding pills. He sent a picture of a gun to his spring encaser, who then called 911. Upon EMS arrival, [...] Notes * Keshawn Martinez MD - 07/11/2023 4913 EDT Video-Electroencephalographic Monitoring Report 11 JUL 2023 [...] Lorazepam 1-2mg PO or IM / IV [id number] as needed for agitation (limit by respiratory status) -Events: NAEON Interview: On this sql report writer's evaluation of Mr. Patiño alone at [...] Patiño about how his meeting with his complex case manager, Clarissa, went yesterday, to which he noted I don't know, it was okay. Per complex case managermanager urgent care on 07/11, patient told Clarissa that he [...] notes that these hospitalizations have been at [facility], a crisis center, and [facility] again. He noted a history of agitation with other patients due that was provoked by forceful touch. He endorsed that he would like to go to [facility] as he knows the staff there and they understood him, and is opposed to going to [facility]. He eventually declined voluntary psychiatric admission after [...] Ingestion of substance, intentional self-harm, initial encounter ([facility]) Active Problems: Acute respiratory failure with hypoxia ([facility]) Acute encephalopathy Delirium due to multiple etiologies Mood disorder ([facility]) Suicide attempt ([facility]) Diagnoses #Mood disorder #Intentional overdose #Suicide attempt ASSESSMENT AND RECOMMENDATIONS Keshav Patiño is a 17 y.o. male with a reported psychiatric history of mood disorder and no significant medical history with unknown prior psychiatric hospitalizations and unknown prior suicide attempts who was admitted to [facility] on 07/10/2023 for concern for toxic [...] admit him to involuntary inpatient psychiatry at [facility] now that he has medical clearance. [...] Lorazepam 2mg PO or IM / IV [id number] as needed for agitation (limit by respiratory [...] Keshav Patiño : 2005 Admit Date: 07/10/2023 machine pie maker: UNKNOWN,PROVIDER Attending Provider: Marty Higginbotham MD Date of Consult: 07/12/23 Time of Consult: 9:45 Reason for Consult/Chief Complaint: Suicide attempt and agitation Provider/Team Requesting Consult: [facility] MICU 2 HPI Keshav Patiño is a 17 y.o. male with a reported psychiatric history of mood disorder and no significant medical history with unknown prior psychiatric hospitalizations and unknown prior suicide attempts who was admitted to [facility] on 07/10/2023 for concern for toxic overdose. Psychiatry was consulted for suicide attempt and agitation. 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 The patient normally receives his bipolar medications at the beginning of the week but his case manageer is concerned he has been hoarding pills. He sent a picture of a gun to his spring encaser, who then called 911. Upon EMS arrival, [...] initial assessment. Attempted to speak with Keshav's complex case manager, Sherrie, per patient's request. Was unable to [...] Reached out and left voicemail to patient's complex case manager for collateral information. History of Self Injury [...] Reached out and left voicemail to patient's complex case manager for collateral information. Outpatient Care History and Current: Unable to assess today given patient's level of consciousness and engagement and minimal information in patient's chart. Reached out and left voicemail to patient's complex case manager for collateral information. Psychiatric Medications (prior to admission and past): Guanfacine 4 mg daily Dexmethylphenidate Methylphenidate Lamotrigine 150 mg BID Abilify 20 mg daily Depakote 250 mg daily Family History Unknown. Reached out and left voicemail to patient's complex case manager for collateral information. Family Psychiatric History Unknown. Reached out and left voicemail to patient's complex case manager for collateral information. Social History -Living situation: Lives alone in [facility] in [place]. Patient is otherwise unhoused and using a [...] Tired Affect: Blunted. Thought Process and Associations: [place] Thought Content: Limited by mental status; related [...] at the beginning of the week but complex case manager is concerned that he has been hoarding [...] Ingestion of substance, intentional self-harm, initial encounter ([facility]) Active Problems: Acute respiratory failure with hypoxia ([facility]) Acute encephalopathy Diagnoses #Delirium due to multiple etiologies #Mood disorder #Intentional overdose #Suicide attempt ASSESSMENT AND RECOMMENDATIONS Keshav Patiño is a 17 y.o. 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 Transported with security and preliminary school psychologist. PRERNA MURRAY RN 07/14/2023 7:48 * Plan of Care - Elvia Becerril RN - 07/14/2023 0220 EDT Assumed care of Keshav Patiño at 1900, Patient admitted with Ingestion of substance, intentional self-harm, initial encounter ([facility]) Patient A&Ox 3. Neurologically WNL. Pt intermittently [...] Exam - Brook Dueñas MD - 07/13/2023 4397 EDT Second Physician (Psychiatrist) Certification I. IDENTIFYING INFORMATION Patient Name: Keshav Patiño Date of : 2005 Patient???s Current Location: [facility] MICU Evaluation performed: In-person II. [...] THREATENING DANGEROUS BEHAVIOR: Patient was transferred from [facility] with concern for toxic ingestion. Prior to arrival at the hospital, he had send his spring encaser a picture of a gun. His spring encaser believed that he had also been hoarding his psychiatric medications, which he receives at the beginning of the week. After receiving the photo of the gun, patient's spring encaser called EMS, who observed that the patient was vomiting and displaying activity consistent with seizure. [facility] [...] type) Certifying Physician Address: [facility] [[address] [place] [address]] Please fax completed form to [facility] Admissions: [phone] * Psych Involuntary Exam - Maegan Silverman - 07/13/2023 1330 EDT Revised: 09/2022 PHYSICIAN'S CERTIFICATE EMERGENCY EXAM NOTE TO PHYSICIAN: To complete this form, you must be a licensed physician or an Advanced Practice Registered Nurse (SOAKING PIT OPERATOR). While the Department of Mental Health requests all physicians and APRNs be designated by the Commissioner of Mental Health to complete Physician's Certificates, such designation is not required by law, and you may therefore complete the form without designation. If you are not currently designated, please go to [email or web address] behavioral health [email or web address] for information about becoming designated by the Commissioner of Mental Health. Complete Sections I and II. SECTION I I, the undersigned, hereby certify that I am a board-certified psychiatrist.. I further state that I am licensed in the [facility], and I have made careful examination of the mental condition of Keshav Patiño [place] [address] in the [facility], and that I am of the opinion that this person is a person in need of treatment. The following information concerning the proposed patient is submitted: DATE OF : 2005 GENDER IDENTITY: Male Can the patient speak and understand Indonesian? yes If not, what language? NA Name [...] photo of a gun he sent to complex case manager, and his suggestion to me that he [...] of Certification Print or Type Physician's Name [facility] [phone] Physician/SOAKING PIT OPERATOR's Telephone Number NOTE: The Application for [...] a copy of this form to: [facility] Admissions Office: Fax#: [phone] Phone#: [phone] * Psych Involuntary Exam - Yossi Slater MD - 07/13/2023 1327 EDT [facility]ILY [facility] Unit Docket No. In re: Keshav Patiño APPLICATION FOR EMERGENCY EXAMINATION NOW COMES Yossi Slater MD (Print full name of applicant) Of [facility], [address] [place] [address] (Print complete address of applicant) Date: 07/13/23 Relationship to, or interest in, proposed patient, consulting psychiatrist and makes application for the emergency examination of Keshav Patiño [place] [address] Parent/Legal Guardian: None known N/A (Print Name and address of Parent/Legal Guardian) *NOTE: Only the following persons may make application for an individual's emergency examination: aguardian, spouse, parent, adult child, close adult relative, a responsible adult friend, a person who has the individual in his orher charge or care (e.g., a dive superintendent of a correctional facility), a family lawyer, a licensed physician (Caution: the same physician cannot be both applicant and certifying physician), a head of a hospital or his or her written designee, or a mental health professional (i.e., a physician, psychologist, social media content specialist, mental health counselor, nurse, or other qualified person designated by the Commissioner of Mental Health). Reason for Application 1. Personal Information Keshav Patiño is a 17 y.o. single, unemployed, white presenting [place] [address] 2. Location of Assessment Mr. Patiño was [...] prior suicide attempts who was admitted to [facility] on 07/10/2023 for concern for toxic overdose. Psychiatry was consultedfor suicide attempt and agitation. 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 The patient normally receives his bipolar medications at the beginning of the week but his case manageer is concerned he has been hoarding pills. He sent a picture of a gun to his spring encaser, who then called 911. Upon EMS arrival, [...] contact. Laying in hospital bed in the [facility] medical intensive care unit. Behavior/Manner: Calm. [...] not answer but reportedly recently informed his complex case manager that he would leave and kill himself [...] admission while in the presence of his family service caseworker, reportedly stockpiling medication for such an occasion. He has also threatened to harm others who touch him, saying he will attack anyone who touches him. 6. Eyewitnesses Clarissa Celestin (collection manager) 7. Other Neurological Issues None known. [...] a copy of this form to: [facility] Admissions Office: Fax #: [phone] Phone #: [phone] * Plan of Care - Crystal Jeong [...] Action: - Patient requested male RN, notified insulation cupola charger, no male with switch with this RN at this time, able to place male MEDICAL PROGRAM SPECIALIST on this side of the unit to [...] made aware of interactions with patient. MICU insulation cupola charger updated as well. - @2129 patient attempted to throw himself out of bed multiple times again, RN caught him before falling. Patient persistently requested RN for a bottle of hand lead security officer. Redirection and comfort options provided, patient refused, [...] per order. - Q4H EKGs done - [facility] MICU team requested patient be transitioned from [...] 8:57 EDT) 08/08/2023 8:57 EDT Scan 2 Rod Bending Machine Operator PROCEDURE/MINOR SANDRA GICAL ORDERABLES * ECG REPORT - SCANNED (08/07/2023 16:35 EDT) 08/07/2023 16:3 5 EDT Scan 2 Rod Bending Machine Operator PROCEDURE/MINOR SANDRA GICAL ORDERABLES * ECG REPORT - SCANNED (07/15/2023 20:25 EDT) 07/15/2023 20:2 5 EDT Scan 2 Rod Bending Machine Operator PROCEDURE/MINOR SANDRA GICAL ORDERABLES * ECG REPORT - SCANNED (07/13/2023 14:07 EDT) 07/13/2023 14:0 7 EDT Scan 2 Rod Bending Machine Operator PROCEDURE/MINOR SANDRA GICAL ORDERABLES * ECG REPORT - SCANNED (07/13/2023 14:07 EDT) 07/13/2023 14:0 7 EDT Scan 2 Rod Bending Machine Operator PROCEDURE/MINOR SANDRA GICAL ORDERABLES * ECG REPORT - SCANNED (07/13/2023 14:07 EDT) 07/13/2023 14:0 7 EDT Scan 2 Rod Bending Machine Operator PROCEDURE/MINOR SANDRA GICAL ORDERABLES * ECG REPORT - SCANNED (07/13/2023 14:07 EDT) 07/13/2023 14:0 7 EDT Scan 2 Rod Bending Machine Operator PROCEDURE/MINOR SANDRA GICAL ORDERABLES * ECG REPORT - SCANNED (07/13/2023 14:07 EDT) 07/13/2023 14:0 7 EDT Scan 2 Rod Bending Machine Operator PROCEDURE/MINOR SANDRA GICAL ORDERABLES * ECG REPORT - SCANNED (07/12/2023 10:05 EDT) 07/12/2023 10:0 5 EDT Scan 2 Rod Bending Machine Operator PROCEDURE/MINOR SANDRA GICAL ORDERABLES * EKG 12-LEAD (07/12/2023 6:10 EDT) 07/12/2023 6:10 EDT Narrative [facility] EKG - 07/12/2023 9:57 EDT ? [facility] ? Test Date: ?2023-07-12 Pat Name: ? KESHAV PATIÑO ?Department: ?? Fong 4 ? Room: ? M422 Gender: ? Male ? Med Spec: ?? [id number] : ?2005 ? Requested By: MARTY HIGGINBOTHAM MD Order Number: [id number] ? Reading MD: ?? GABRIELA PARK MD ? Measurements Intervals ?[place] ? Rate: ? 83 ? P: ?61 TN: ? 187 ?QRS: ?48 QRSD: ? 96 [...] Date: 2023-07-12 Pat Name: KESHAV PATIÑO Department: [place] [address] [place] [facility] [place]: Male Med Spec: [id number] : 2005 Requested By: MARTY HIGGINBOTHAM MD Order Number: [id number] Reading MD: GABRIELA PARK MD Measurements Intervals [place] Rate: 83 P: 61 TN: 187 QRS: 48 QRSD: 96 T: 45 QT: 342 QTc: 403 Interpretive Statements SINUS RHYTHM NORMAL EKG I reviewed the tracing and have either agreed or edited the findings inthis report. Electronically Signed On 07-12-2023 09:57:29 EDT by FIDE KATHLEEN. Cristiane Espana MD CARDIAC ECG ORDERABL ES Performing Organization Address City/[facility]/ZIP Co de Phone Number [facility] EKG * MAGNESIUM (07/12/2023 5:58 EDT) Magnesium 1.7 1.7 - 2.8 mg/dL 07/12/2023 6:45 EDT [facility] Blood VENOUS BLOOD / Unknown Venipuncture / Unknown 07/12/2023 5:58 EDT 07/12/2023 6:13 EDT Cristiane Espana MD CHEMISTRY & BLOOD GA S ORDERABLES Performing Organization Address City/[facility]/ZIP Co de Phone Number [facility] [address] [place] [address] * (ABNORMAL) BASIC METABOLIC PANEL (BMP) (07/12/2023 5:58 EDT) Pathologist [facility] [place] Sodium 143 136 - 145 mmol/L 07/12/2023 6:45 EDT [facility] Potassium 3.8 3.5 - 5.0 mmol/L 07/12/2023 6:45 EDT [facility] Chloride 109 96 - 110 mmol/L 07/12/2023 6:45 [facility] CO2 Total 24 22 - 32 mmol/L 07/12/2023 6:45 [facility] Anion Gap 10 5 - 14 mmol/L 07/12/2023 6:45 [facility] Glucose 87 70 - 99 mg/dl 07/12/2023 6:45 [facility] Calcium 8.9 8.5 - 10.5 mg/dL 07/12/2023 6:45 [facility] BUN 8(L) 10 - 26 mg/dL 07/12/2023 6:45 [facility] Creatinine 0.84 0.66 - 1.25 mg/dL 07/12/2023 6:45 [facility] eGFR 130 >60 mL/min/1.73 m2 07/12/2023 6:45 [facility] Blood VENOUS BLOOD / Unknown Venipuncture / Unknown 07/12/2023 5:58 EDT 07/12/2023 6:13 EDT Cristiane Espana MD CHEMISTRY & BLOOD GA S ORDERABLES [facility] [address] [place] [address] * (ABNORMAL) COMPLETE BLOOD COUNT (07/12/2023 5:58 EDT) WBC 9.40 4.00 - 10.40 K/cmm 07/12/2023 6:08 EDT [facility] RBC 4.61 4.36 - 5.78 M/cmm 07/12/2023 6:08 [facility] Hemoglobin 13.7(L) 13.8 - 17.3 g/dL 07/12/2023 6:08 [facility] HCT 39.9 39.5 - 50.2 % 07/12/2023 6:08 [facility] MCV 87 81 - 95 fL 07/12/2023 6:08 [facility] MCH 29.7 27.6 - 33.0 pg 07/12/2023 6:08 [facility] MCHC 34.3 32.8 - 36.4 g/dL 07/12/2023 6:08 [facility] RDW-CV 11.9 <14.2 % 07/12/2023 6:08 [facility] RDW-SD 37.3 <46.0 fl 07/12/2023 6:08 [facility] PLT 239 141 - 377 K/cmm 07/12/2023 6:08 [facility] MPV 9.2(L) 9.5 - 12.7 fL 07/12/2023 6:08 [facility] Blood VENOUS BLOOD / Unknown Venipuncture / Unknown 07/12/2023 5:58 EDT 07/12/2023 6:02 EDT Maya Kelley MD HEMATOLOGY & PF4 ORD ERABLES [facility] [address] [place] [address] * MAGNESIUM (07/11/2023 17:40 EDT) Magnesium 2.0 1.7 - 2.8 mg/dL 07/11/2023 18:03 EDT [facility] Blood VENOUS BLOOD / Unknown Venipuncture / Unknown 07/11/2023 17:40 EDT 07/11/2023 17:44 EDT Cristiane Espana MD CHEMISTRY & BLOOD GA S ORDERABLES [facility] [address] [place] [address] * (ABNORMAL) BASIC METABOLIC PANEL (BMP) (07/11/2023 17:40 EDT) Sodium 141 136 - 145 mmol/L 07/11/2023 18:03 T [facility] Potassium 3.9 3.5 - 5.0 mmol/L 07/11/2023 18:03 [facility] Chloride 110 96 - 110 mmol/L 07/11/2023 18:03 [facility] CO2 Total 21(L) 22 - 32 mmol/L 07/11/2023 18:03 [facility] Anion Gap 10 5 - 14 mmol/L 07/11/2023 18:03 [facility] Glucose 91 70 - 99 mg/dl 07/11/2023 18:03 [facility] Calcium 9.2 8.5 - 10.5 mg/dL 07/11/2023 18:03 [facility] BUN 7(L) 10 - 26 mg/dL 07/11/2023 18:03 [facility] Creatinine 0.86 0.66 - 1.25 mg/dL 07/11/2023 18:03 [facility] eGFR 129 >60 mL/min/1.73 m2 07/11/2023 18:03 [facility] Blood VENOUS BLOOD / Unknown Venipuncture / Unknown 07/11/2023 17:40 EDT 07/11/2023 17:44 EDT Cristiane Espana MD CHEMISTRY & BLOOD GA S ORDERABLES [facility] [address] [place] [address] * EKG 12-LEAD (07/11/2023 17:31 EDT) 07/11/2023 17:3 1 EDT Narrative [facility] EKG - 07/15/2023 20:16 EDT ? [facility] ? Test Date: ?2023-07-11 Pat Name: ? KESHAV PATIÑO ?Department: ?? Fong 4 ? Room: ? M422 Gender: ? Male ? Med Spec: ?? [id number] : ?2005 ? Requested By: CAT TANNER Order Number: [id number] ? Reading MD: ?? JAYLEN COLE ? Measurements Intervals ?[place] ? Rate: ? 64 ? P: ?84 TN: ? 189 ?QRS: ?97 QRSD: ? 96 [...] Date: 2023-07-11 Pat Name: KESHAV PATIÑO Department: [place] [address] [place] [facility] [place]: Male Med Spec: [id number] : 2005 Requested By: CAT TANNER Order Number: [id number] Kerrie MD: JAYLEN CLOE Measurements Intervals [place] Rate: 64 P: 84 TN: 189 QRS: 97 QRSD: 96 T: 70 QT: 396 QTc: 410 Interpretive Statements SINUS RHYTHM BORDERLINE RIGHT AXIS DEVIATION Automated Interpretation. Provider Interpretation to follow. Compared to ECG 07/11/2023 10:06:14 No significant changes I reviewed the tracing and have either agreed or edited the findings inthis report. Electronically Signed On 07-15-2023 20:16:58 EDT by JAYLEN COLE. Cristiane Espana MD CARDIAC ECG ORDERABL ES [facility] EKG * CK (07/11/2023 13:44 EDT) Pathologist [facility] [place] CK 117 <=250 U/L 07/11/2023 14:11 EDT [facility] Blood VENOUS BLOOD / Unknown Venipuncture / Unknown 07/11/2023 13:44 EDT 07/11/2023 13:49 EDT Cristiane Espana MD CHEMISTRY & BLOOD GA S ORDERABLES Performing Organization Address City/[facility] Co de Phone Number [facility] [address] [place] [address] * MAGNESIUM (07/11/2023 13:44 EDT) Pathologist [facility] [place] Magnesium 1.9 1.7 - 2.8 mg/dL 07/11/2023 14:11 EDT [facility] Blood VENOUS BLOOD / Unknown Venipuncture / Unknown 07/11/2023 13:44 EDT 07/11/2023 13:49 EDT Maya Kelley MD CHEMISTRY & BLOOD GA S ORDERABLES Performing Organization Address [facility] de Phone Number [facility] [address] [place] [address] * (ABNORMAL) BASIC METABOLIC PANEL (BMP) (07/11/2023 13:44 EDT) Pathologist [facility] [place] Sodium 140 136 - 145 mmol/L 07/11/2023 14:11 [facility] Potassium 4.0 3.5 - 5.0 mmol/L 07/11/2023 14:11 [facility] Chloride 110 96 - 110 mmol/L 07/11/2023 14:11 [facility] CO2 Total 23 22 - 32 mmol/L 07/11/2023 14:11 [facility] Anion Gap 7 5 - 14 mmol/L 07/11/2023 14:11 [facility] Glucose 97 70 - 99 mg/dl 07/11/2023 14:11 [facility] Calcium 8.8 8.5 - 10.5 mg/dL 07/11/2023 14:11 EDT [facility] BUN 7(L) 10 - 26 mg/dL 07/11/2023 14:11 EDT [facility] Creatinine 0.85 0.66 - 1.25 mg/dL 07/11/2023 14:11 EDT [facility] eGFR 129 >60 mL/min/1.73 m2 07/11/2023 14:11 EDT [facility] Blood VENOUS BLOOD / Unknown Venipuncture / Unknown 07/11/2023 13:44 EDT 07/11/2023 13:49 EDT Maya Kelley MD CHEMISTRY & BLOOD GA S ORDERABLES Performing Organization Address [facility] Co de Phone Number [facility] [address] [place] [address] * POCT GLUCOSE, INTERFACED (07/11/2023 12:17 EDT) Glucose, POC 82 70 - 100 mg/dL 07/11/2023 12:18 EDT [facility] HN LAB POC COMMENT (GLUCOSE) Test Performed by Nursing Services 07/11/2023 12:18 EDT [facility] Blood CAPILLARY BLOOD / Unknown 07/11/2023 12:17 EDT 07/11/2023 12:18 EDT Maya Kelley MD POINT OF CARE TEST O RDERABLES Performing Organization Address [facility]/ZIP Co de Phone Number [facility] [address] [place] [address] * EKG 12-LEAD (07/11/2023 10:06 EDT) 07/11/2023 10:0 6 EDT Narrative [facility] EKG - 07/13/2023 13:55 EDT ? [facility] ? Test Date: ?2023-07-11 Pat Name: ? KESHAVHaley DAWNSELENE ?Department: ?? Fong 4 ? Room: ? M422 Gender: ? Male ? Med Spec: ?? [id number] : ?2005 ? Requested By: CAT TANNER Order Number: [id number] ? Reading MD: ?? KENNEY TORRES MD ? Measurements Intervals ?[place] ? Rate: ? 72 ? P: ?85 TN: ? 179 ?QRS: ?97 QRSD: ? 93 [...] Date: 2023-07-11 Pat Name: KESHAV PATIÑO Department: [place] [address] [place] [facility] [place]: Male Med Spec: [id number] : 2005 Requested By: CAT TANNER Order Number: [id number] Kerrie MD: KENNEY WALDEN Measurements Intervals [place] Rate: 72 P: 85 TN: 179 QRS: 97 QRSD: 93 T: 60 QT: 375 QTc: 411 Interpretive Statements SINUS RHYTHM BORDERLINE RIGHT AXIS DEVIATION Automated Interpretation. Provider Interpretation to follow. Compared to ECG 07/11/2023 05:52:25 No significant changes I reviewed the tracing and have either agreed or edited the findings inthis report. Electronically Signed On 07-13-2023 13:55:06 EDT by KYM KATHLEEN. Cristiane Espana MD CARDIAC ECG ORDERABL ES [facility] EKG * (ABNORMAL) COMPLETE BLOOD COUNT (07/11/2023 6:10 EDT) [facility] WBC 5.98 4.00 - 10.40 K/cmm 07/11/2023 6:27 T [facility] RBC 4.61 4.36 - 5.78 M/cmm 07/11/2023 6:27 [facility] Hemoglobin 13.7(L) 13.8 - 17.3 g/dL 07/11/2023 6:27 [facility] HCT 38.3(L) 39.5 - 50.2 % 07/11/2023 6:27 [facility] MCV 83 81 - 95 fL 07/11/2023 6:27 [facility] MCH 29.7 27.6 - 33.0 pg 07/11/2023 6:27 [facility] MCHC 35.8 32.8 - 36.4 g/dL 07/11/2023 6:27 [facility] RDW-CV 11.7 <14.2 % 07/11/2023 6:27 [facility] RDW-SD 35.0 <46.0 fl 07/11/2023 6:27 [facility] PLT 271 141 - 377 K/cmm 07/11/2023 6:27 [facility] MPV 9.3(L) 9.5 - 12.7 fL 07/11/2023 6:27 [facility] Blood VENOUS BLOOD / Unknown Venipuncture / Unknown 07/11/2023 6:10 EDT 07/11/2023 6:17 EDT Maya Kelley MD HEMATOLOGY & PF4 ORD ERABLES [facility] [address] [place] [address] * (ABNORMAL) BASIC METABOLIC PANEL (BMP) (07/11/2023 6:10 EDT) Sodium 142 136 - 145 mmol/L 07/11/2023 7:24 EDT [facility] Potassium 3.6 3.5 - 5.0 mmol/L 07/11/2023 7:24 EDT [facility] Chloride 108 96 - 110 mmol/L 07/11/2023 7:24 EDT [facility] CO2 Total 21(L) 22 - 32 mmol/L 07/11/2023 7:24 EDT [facility] Anion Gap 13 5 - 14 mmol/L 07/11/2023 7:24 EDT [facility] Glucose 86 70 - 99 mg/dl 07/11/2023 7:24 EDT [facility] Calcium 8.9 8.5 - 10.5 mg/dL 07/11/2023 7:24 EDT [facility] BUN 5(L) 10 - 26 mg/dL 07/11/2023 7:24 EDT [facility] Creatinine 0.79 0.66 - 1.25 mg/dL 07/11/2023 7:24 EDT [facility] eGFR 132 >60 mL/min/1.73 m2 07/11/2023 7:24 EDT [facility] Blood VENOUS BLOOD / Unknown Venipuncture / Unknown 07/11/2023 6:10 EDT 07/11/2023 6:43 EDT Maya Kelley MD CHEMISTRY & BLOOD GA S ORDERABLES [facility] [address] [place] [address] * MRSA PCR (07/11/2023 6:10 EDT) MRSA/Staph aureus Result Staphylococcus aureus detected by PCR (NOT MRSA) 07/11/2023 11:57 EDT [facility] Swab BOTH ANTERIOR NARES / Unknown Swab / Unknown 07/11/2023 6:10 EDT 07/11/2023 6:35 EDT Cristiane Espana MD MICROBIOLOGY - GENER AL ORDERABLES [facility] [address] [place] [address] * EKG 12-LEAD (07/11/2023 5:52 EDT) 07/11/2023 5:52 EDT Narrative [facility] EKG - 07/13/2023 13:55 EDT ? [facility] ? Test Date: ?2023-07-11 Pat Name: ? KESHAV PATIÑO ?Department: ?? Fong 4 ? Room: ? M422 Gender: ? Male ? Med Spec: ?? [id number] : ?2005 ? Requested By: VALDEZ NICHOLS Order Number: [id number] ? Kerrie KATHLEEN: ?? KENNEY TORRES MD ? Measurements Intervals ?[place] ? Rate: ? 87 ? P: ?72 TN: ? 154 ?QRS: ?79 QRSD: ? 94 [...] Date: 2023-07-11 Pat Name: KESHAV PATIÑO Department: [place] [address] Room: 22 Gender: Male Med Spec: [id number] : 2005 Requested By: VALDEZ NICHOLS Order Number: [id number] Kerrie MD: KENNEY WALDEN Measurements Intervals [place] Rate: 87 P: 72 TN: 154 QRS: 79 QRSD: 94 T: 61 QT: 349 QTc: 422 Interpretive Statements SINUS RHYTHM Automated Interpretation. Provider Interpretation to follow. Compared to ECG 07/11/2023 02:04:10 No significant changes I reviewed the tracing and have either agreed or edited the findings inthis report. Electronically Signed On 07-13-2023 13:55:09 EDT by KYM KATHLEEN. Maya Kelley MD CARDIAC ECG ORDERABL ES [facility] EKG * EKG 12-LEAD (07/11/2023 2:04 EDT) 07/11/2023 2:04 EDT Narrative [facility] EKG - 07/13/2023 13:55 EDT ? [facility] ? Test Date: ?2023-07-11 Pat Name: ? KESHAV PATIÑO ?Department: ?? Ajit Villanueva ? Room: ? M422 Gender: ? Male ? Med Spec: ?? [id number] : ?2005 ? Requested By: VALDEZ NICHOLS Order Number: [id number] ? Kerrie KATHLEEN: ?? KENNEY TORRES MD ? Measurements Intervals ?[place] ? Rate: ? 76 ? P: ?75 TN: ? 177 ?QRS: ?78 QRSD: ? 94 [...] Date: 2023-07-11 Pat Name: KESHAV PATIÑO Department: [place] [address] [place] [facility] [place]: Male Med Spec: [id number] : 2005 Requested By: VALDEZ NICHOLS Order Number: [id number] Kerrie MD: KENNEY WALDEN Measurements Intervals [place] Rate: 76 P: 75 TN: 177 QRS: 78 QRSD: 94 T: 67 QT: 350 QTc: 396 Interpretive Statements SINUS RHYTHM Automated Interpretation. Provider Interpretation to follow. Compared to ECG 07/10/2023 21:58:02 Sinus tachycardia no longer present I reviewed the tracing and have either agreed or edited the findings inthis report. Electronically Signed On 07-13-2023 13:55:11 EDT by KYM KATHLEEN. Maya Kelley MD CARDIAC ECG ORDERABL ES [facility] EKG * (ABNORMAL) BASIC METABOLIC PANEL (BMP) (07/10/2023 23:51 EDT) Sodium 140 136 - 145 mmol/L 07/11/2023 0:26 EDT [facility] Potassium 3.9 3.5 - 5.0 mmol/L 07/11/2023 0:26 EDT [facility] Chloride 107 96 - 110 mmol/L 07/11/2023 0:26 EDT [facility] CO2 Total 20(L) 22 - 32 mmol/L 07/11/2023 0:26 EDT [facility] Anion Gap 13 5 - 14 mmol/L 07/11/2023 0:26 EDT [facility] Glucose 143(H) 70 - 99 mg/dl 07/11/2023 0:26 EDT [facility] Calcium 8.8 8.5 - 10.5 mg/dL 07/11/2023 0:26 T [facility] BUN 7(L) 10 - 26 mg/dL 07/11/2023 0:26 EDT [facility] Creatinine 0.73 0.66 - 1.25 mg/dL 07/11/2023 0:26 EDT [facility] eGFR 135 >60 mL/min/1.73 m2 07/11/2023 0:26 EDT [facility] Blood VENOUS BLOOD / Unknown Venipuncture / Unknown 07/10/2023 23:51 EDT 07/10/2023 23:55 EDT Maya Kelley MD CHEMISTRY & BLOOD GA S ORDERABLES [facility] [address] [place] [address] * EKG 12-LEAD (07/10/2023 21:58 EDT) 07/10/2023 21:5 8 EDT Narrative [facility] EKG - 07/13/2023 13:55 EDT ? [facility] ? Test Date: ?2023-07-10 Pat Name: ? KESHAV PATIÑO ?Department: ?? Fong 4 ? Room: ? M422 Gender: ? Male ? Med Spec: ?? [id number] : ?2005 ? Requested By: CAT TANNER Order Number: [id number] ? Reading MD: ?? KENNEY TORRES MD ? Measurements Intervals ?[place] ? Rate: ? 103 ?P: ?74 TN: ? 154 ?QRS: ?92 QRSD: ? 97 [...] Date: 2023-07-10 Pat Name: KESHAV PATIÑO Department: [place] [address] [place] [facility] [place] Med Spec: [id number] : 2005 Requested By: CAT TANNER Order Number: [id number] Kerrie MD: KENNEY WALDEN Measurements Intervals [place] Rate: 103 P: 74 TN: 154 QRS: 92 QRSD: 97 T: 63 [...] CARDIAC ECG ORDERABL ES Performing Organization Address [facility] Co de Phone Number [facility] EKG * EEG WITH PROLONGED BEDSIDE VIDEO MONITORING (07/10/2023 20:06 EDT) Narrative [facility] POINT OF CARE - 07/10/2023 20:06 [...] Espana MD NEUROLOGY ORDERABLES Performing Organization Address [facility] Co de Phone Number [facility] POINT OF CARE * (ABNORMAL) BLOOD GASES, VENOUS (07/10/2023 19:43 EDT) pH, Venous 7.32 7.31 - 7.41 07/10/2023 19:55 EDT [facility] pCO2, Venous 39(L) 41 - 51 mmHg 07/10/2023 19:55 EDT [facility] pO2, Venous 70(H) 30 - 50 mmHg 07/10/2023 19:55 EDT [facility] tCO2, Venous 21(L) 22 - 28 mmol/L 07/10/2023 19:55 EDT [facility] Temperature 37.0 C 07/10/2023 19:55 T [facility] Comment:Body Temp not noted. 37 degrees assumed. O2 Saturation, Venous 93(H) 60 - 85 % 07/10/2023 19:55 T [facility] Oxygen Therapy (FIO2) 21.0 % 07/10/2023 19:55 [facility] Base Level -5.90(L) -2.00 - 3.00 mmol/L 07/10/2023 19:55 EDT [facility] Blood VENOUS BLOOD / Unknown Venipuncture / Unknown 07/10/2023 19:43 EDT 07/10/2023 19:49 EDT Marty Higginbotham MD CHEMISTRY & BLOOD GA S ORDERABLES Performing Organization Address [facility] Co de Phone Number [facility] [address] [place] [address] * XR CHEST PORTABLE LINE PLACEMENT (07/10/2023 [...] Bones and superficial soft tissues are unremarkable. [id number] Narrative 07/10/2023 19:13 EDT XR CHEST PORTABLE [...] contour. Bones andsuperficial soft tissues are unremarkable. [id number] Cristiane Espana MD IMG DIAGNOSTIC IMAGI NG ORDERABLES * CK (07/10/2023 17:46 EDT) CK 70 <=250 U/L 07/10/2023 18:32 EDT [facility] Blood VENOUS BLOOD / Unknown Port / Unknown 07/10/2023 17:46 EDT 07/10/2023 17:53 EDT Maya Kelley MD CHEMISTRY & BLOOD GA S ORDERABLES Performing Organization Address City/[facility]/ZIP Co de Phone Number [facility] [address] [place] [address] * (ABNORMAL) VALPROIC ACID LEVEL (07/10/2023 17:46 EDT) Valproic Acid 24(L) 50 - 100 ug/mL 07/10/2023 18:26 EDT [facility] Blood VENOUS BLOOD / Unknown Port / Unknown 07/10/2023 17:46 EDT 07/10/2023 17:53 EDT Cristiane Espana MD CHEMISTRY & BLOOD GA S ORDERABLES Performing Organization Address City/[facility]/ZIP Co de Phone Number [facility] [address] [place] [address] * POLYSUBSTANCE USE PANEL, URINE (07/10/2023 17:46 EDT) Pathologist [facility] [place] Buprenorphine Screen, Urine Negative <5 ng/mL 07/11/2023 11:58 EDT [facility] Oxycodone Screen, Urine Negative <100 ng/mL 07/11/2023 11:58 EDT [facility] Cotinine Screen, Urine Negative <500 ng/mL 07/11/2023 11:58 T [facility] Benzodiazepines Screen, Urine Negative <200 ng/mL 07/11/2023 11:58 T [facility] Amphetamines Screen, Urine Negative <1000 ng/mL 07/11/2023 11:58 [facility] Cocaine Metabolite Screen, Urine Negative <150 ng/mL 07/11/2023 11:58 [facility] THC Metabolites Screen, Urine Negative <50 ng/mL 07/11/2023 11:58 T [facility] Barbiturates Screen, Urine Negative <200 ng/mL 07/11/2023 11:58 [facility] Opiates Screen, Urine Negative <300 ng/mL 07/11/2023 11:58 [facility] Alcohol Metabolite (EtG) Screen, Urine Negative <500 ng/mL 07/11/2023 11:58 T [facility] Methadone Screen, Urine Negative <300 ng/mL 07/11/2023 11:58 T [facility] Fentanyl Screen with Reflex to Confirmation, U Negative <1 ng/mL 07/11/2023 11:58 [facility] Urine URINE / Unknown Urine Collect / Unknown 07/10/2023 17:46 EDT 07/10/2023 18:29 EDT Narrative [facility] - 07/11/2023 11:58 EDT Testing performed by: [facility] [address] [place] [address] [address] [address] Commercial Interior Designer: Jose Armando Loza MD; CLIA # [id number] Maya Kelley MD GEN LAB UNIT COLLECT ORDERABLES [facility] [address], [address] [place] [address], [facility] [phone] * THYROID CASCADE (07/10/2023 17:46 EDT) TSH 0.67 0.47 - 4.68 mIU/L 07/10/2023 18:54 EDT [facility] Blood VENOUS BLOOD / Unknown Port / Unknown 07/10/2023 17:46 EDT 07/10/2023 17:53 EDT Narrative [facility] - 07/10/2023 18:54 EDT NOTE: The results of this assay can be falsely lowered due to the consumption of Biotin. Cristiane Espana MD CHEMISTRY & BLOOD GA S ORDERABLES [facility] [address] [place] [address] * (ABNORMAL) UA CHEMICAL & SEDIMENT (07/10/2023 17:46 EDT) Color UA Yellow Colorless, Yellow 07/10/2023 18:05 [facility] Clarity UA Clear Clear 07/10/2023 18:05 [facility] Glucose UA Negative Negative mg/dL 07/10/2023 18:05 [facility] Bilirubin UA Negative Negative 07/10/2023 18:05 [facility] Ketones UA 1+(A) Negative 07/10/2023 18:05 [facility] Specific [place], Urine 1.006 1.001 - 1.030 07/10/2023 18:05 [facility] Blood UA Negative Negative 07/10/2023 18:05 [facility] Urobilinogen UA 1.0 0.2-1.0 mg/dL mg/dL 07/10/2023 18:05 [facility] Nitrite UA Negative Negative 07/10/2023 18:05 [facility] Leukocyte Esterase UA Negative Negative 07/10/2023 18:05 [facility] Protein UA Negative Negative mg/dL 07/10/2023 18:05 [facility] pH, UA 6.0 <8.5 07/10/2023 18:05 [facility] Urine RBC Count, Auto 0 - 2 0 - 2 Cells/HPF 07/10/2023 18:05 [facility] Urine WBC Count, Auto 0 - 3 0 - 3 Cells/HPF 07/10/2023 18:05 T [facility] Urine Squamous Count, Auto None Seen None Seen Cells/HPF 07/10/2023 18:05 [facility] Urine Hyaline Cast Count, Auto <=10 <=10 Casts/LPF 07/10/2023 18:05 [facility] Urine Bacteria Count, Auto None Seen None Seen Bacteria/HPF 07/10/2023 18:05 [facility] Urine URINE SPECIMEN OBTAINED BY SINGLE CATHETERIZATION OF URINARY BLADDER / Unknown Urine Collect / Unknown 07/10/2023 17:46 EDT 07/10/2023 17:52 EDT Narrative [facility] - 07/10/2023 18:05 EDT Urine Sediment Analysis results are unreliable on urines that are unrefrigerated for >2 hrs or refrigerated >8 hrs. Cristiane Espana MD URINALYSIS ORDERABLE S [facility] [address] [place] [address] [phone] * LAMOTRIGINE (07/10/2023 17:46 EDT) Lamotrigine, S 22.0 3.0 - 15.0 mcg/mL 07/12/2023 9:[address] [facility] Comment: ADDITIONAL INFORMATION This test was developed and its performance characteristics determined by [facility] in a manner consistent with CLIA requirements. This test has not been cleared or approved by the U.S. Food and Drug Administration. Test Performed by: [facility] [address] [place] [address] Commercial Interior Designer: Kush Gaspar M.D. Ph.D.; CLIA# [id number] Blood VENOUS BLOOD / Unknown Port / Unknown 07/10/2023 17:46 EDT 07/10/2023 17:53 EDT Cristiane Espana MD CHEMISTRY & BLOOD GA S ORDERABLES [facility] [address] [place] [address] * LACTIC ACID (07/10/2023 17:46 EDT) Lactic Acid 1.6 <=2.0 mmol/L 07/10/2023 18:10 EDT [facility] Blood VENOUS BLOOD / Unknown Port / Unknown 07/10/2023 17:46 EDT 07/10/2023 17:54 EDT Cristiane Espana MD CHEMISTRY & BLOOD GA S ORDERABLES Performing Organization Address City/[facility]/ZIP Co de Phone Number [facility] [address] [place] [address] * (ABNORMAL) MAGNESIUM (07/10/2023 17:46 EDT) Magnesium 1.6(L) 1.7 - 2.8 mg/dL 07/10/2023 18:21 EDT [facility] Blood VENOUS BLOOD / Unknown Port / Unknown 07/10/2023 17:46 EDT 07/10/2023 17:53 EDT Cristiane Espana MD CHEMISTRY & BLOOD GA S ORDERABLES Performing Organization Address City/[facility]/ZIP Co de Phone Number [facility] [address] [place] [address] * (ABNORMAL) COMPREHENSIVE METABOLIC PANEL (CMP) (07/10/2023 17:46 ED) Sodium 138 136 - 145 mmol/L 07/10/2023 18:21 [facility] Potassium 4.1 3.5 - 5.0 mmol/L 07/10/2023 18:21 [facility] Chloride 106 96 - 110 mmol/L 07/10/2023 18:21 [facility] CO2 Total 23 22 - 32 mmol/L 07/10/2023 18:21 [facility] Glucose 98 70 - 99 mg/dl 07/10/2023 18:21 [facility] BUN 10 10 - 26 mg/dL 07/10/2023 18:21 [facility] Creatinine 0.72 0.66 - 1.25 mg/dL 07/10/2023 18:21 [facility] eGFR 136 >60 mL/min/1.7 3m2 07/10/2023 18:21 [facility] Total Protein 6.0(L) 6.3 - 8.2 g/dL 07/10/2023 18:21 [facility] Albumin 3.6 3.4 - 4.9 g/dL 07/10/2023 18:21 [facility] Alkaline Phosphatase 91 38 - 126 U/L 07/10/2023 18:21 [facility] AST 21 15 - 46 U/L 07/10/2023 18:21 [facility] ALT 24 <50 U/L 07/10/2023 18:21 [facility] Bilirubin, Total 0.7 <1.4 mg/dL 07/10/19 18:21 [facility] Calcium 8.8 8.5 - 10.5 mg/dL 07/10/2023 18:21 [facility] Albumin/Globulin Ratio 1.5 1.0 - 2.5 07/10/2023 18:21 [facility] Anion Gap 9 5 - 14 mmol/L 07/10/2023 18:21 [facility] Blood VENOUS BLOOD / Unknown Port / Unknown 07/10/2023 17:46 EDT 07/10/2023 17:53 EDT Cristiane Espana MD CHEMISTRY & BLOOD GA S ORDERABLES [facility] [address] [place] [phone] * (ABNORMAL) COMPLETE BLOOD COUNT (07/10/2023 17:46 EDT) WBC 8.06 4.00 - 10.40 K/cmm 07/10/2023 18:06 T [facility] RBC 4.82 4.36 - 5.78 M/cmm 07/10/2023 18:06 [facility] Hemoglobin 14.1 13.8 - 17.3 g/dL 07/10/2023 18:06 [facility] HCT 40.7 39.5 - 50.2 % 07/10/2023 18:06 [facility] MCV 84 81 - 95 fL 07/10/2023 18:06 [facility] MCH 29.3 27.6 - 33.0 pg 07/10/2023 18:06 [facility] MCHC 34.6 32.8 - 36.4 g/dL 07/10/2023 18:06 [facility] RDW-CV 11.3 <14.2 % 07/10/2023 18:06 [facility] RDW-SD 34.8 <46.0 fl 07/10/2023 18:06 [facility] PLT 252 141 - 377 K/cmm 07/10/2023 18:06 [facility] MPV 9.2(L) 9.5 - 12.7 fL 07/10/2023 18:06 [facility] Blood VENOUS BLOOD / Unknown Port / Unknown 07/10/2023 17:46 EDT 07/10/2023 17:53 EDT Cristiane Espana MD HEMATOLOGY & PF4 ORD ERABLES Performing Organization Address City/[facility]/ZIP Co de Phone Number [facility] [address] [place] [address] * MRSA PCR (07/10/2023 17:46 EDT) MRSA/Staph aureus Result Staphylococcus aureus detected by PCR (NOT MRSA) 07/10/2023 23:14 EDT [facility] Swab BOTH ANTERIOR NARES / Unknown Swab / Unknown 07/10/2023 17:46 EDT 07/10/2023 18:01 EDT Cristiane Espana MD MICROBIOLOGY - GENER AL ORDERABLES Performing Organization Address City/[facility]/ZIP Co de Phone Number [facility] [address] [place] [address] * POCT BLOOD GAS, EG6 I-STAT (07/10/2023 17:42 EDT) pH, Venous, i-STAT 7.32 7.31 - 7.41 07/10/2023 17:51 EDT [facility] pCO2, Venous, i-STAT 47 41 - 51 mmHg 07/10/2023 17:51 EDT [facility] pO2, Venous, i-STAT 49 30 - 50 mmHg 07/10/2023 17:51 EDT [facility] TCO2, Venous, i-STAT 25 22 - 28 mmol/L 07/10/2023 17:51 EDT [facility] O2 Saturation, Venous, i-STAT 81 60 - 85 % 07/10/2023 17:51 EDT [facility] Base Excess(+) / Deficit(-), Venous, i-STAT -2 -2 - 3 mmol/L 07/10/2023 17:51 EDT [facility] Blood VENOUS BLOOD / Unknown 07/10/2023 17:42 EDT 07/10/2023 17:51 EDT Narrative [facility] - 07/10/2023 17:51 EDT Test Performed by Respiratory Cristiane Espana MD POINT OF CARE TEST O MOE Performing Organization Address [facility] Co de Phone Number [facility] [address] [place], [place] [phone] * POCT GLUCOSE, INTERFACED (07/10/2023 17:41 EDT) Glucose, POC 97 70 - 100 mg/dL 07/10/2023 17:41 EDT [facility] HN LAB POC COMMENT (GLUCOSE) Test Performed by Nursing Services 07/10/2023 17:41 EDT [facility] Blood CAPILLARY BLOOD / Unknown 07/10/2023 17:41 EDT 07/10/2023 17:41 EDT Cristiane Espana MD POINT OF CARE TEST O MOE Performing Organization Address [facility] Co de Phone Number [facility] [address] [place], [place] [address] * EKG 12-LEAD (07/10/2023 17:28 EDT) 07/10/2023 17:2 8 EDT Narrative [facility] EKG - 07/13/2023 13:55 EDT ? [facility] ? Test Date: ?2023-07-10 Pat Name: ? KESHAV PATIÑO ?Department: ?? [place] ? Room: ? M422 Gender: ? Male ? Med Spec: ?? [id number] : ?2005 ? Requested By: CAT TANNER Order Number: [id number] ? Kerrie MD: ?? KENNEY TORRES MD ? Measurements Intervals ?[place] ? Rate: ? 56 ? P: ?52 TN: ? 158 ?QRS: ?87 QRSD: ? 98 [...] Date: 2023-07-10 Pat Name: KESHAV PATIÑO Department: [place] [address] [place] [facility] [place]: Male Med Spec: [id number] : 2005 Requested By: CAT TANNER Order Number: [id number] Reading MD: KENNEY WALDEN Measurements Intervals [place] Rate: 56 P: 52 TN: 158 QRS: 87 QRSD: 98 T: 58 QT: 417 QTc: 406 Interpretive Statements [facility] Automated Interpretation. Provider Interpretation to follow. No previous ECG available for comparison I reviewed the tracing and have either agreed or edited the findings inthis report. Electronically Signed On 07-13-2023 13:55:19 EDT by KYM KATHLEEN. Cristiane Espana MD CARDIAC ECG ORDERABL ES [facility] EKG documented in this encounter Visit Diagnoses Diagnosis Ingestion of substance, intentional self-harm, initial encounter ([facility])- Primary Ingestion of substance, intentional self-harm, initial encounter ([facility]) Acute respiratory failure with hypoxia ([facility]) Acute respiratory failure Acute encephalopathy Encephalopathy, unspecified Delirium due to multiple etiologies Delirium due to conditions classified elsewhere Mood disorder ([facility]) Unspecified episodic mood disorder Suicide attempt ([facility]) Suicide and self-inflicted injury by unspecified means Acute respiratory failure with hypoxia ([facility]) Acute respiratory failure Acute encephalopathy Encephalopathy, unspecified Delirium due to multiple etiologies Delirium due to conditions classified elsewhere Mood disorder ([facility]) Unspecified episodic mood disorder Suicide attempt ([facility]) Suicide and self-inflicted injury by unspecified means documented in this encounter Admitting Diagnoses Diagnosis Ingestion of substance, intentional self-harm, initial encounter ([facility]) documented in this encounter Administered Medications Inactive [...] 07/14/2023 documented in this encounter Care Teams Scuba 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
[2024-01-03 18:11] VITALS: BP 134/80; PULSE 111; RESP 15; TEMP 36.3; O2SAT 97
--- NOTE | 2024-01-03 18:12 | ED.GENADUL_ITS ---
Discharge Plan Discharge Details Chief Complaint: PsychEval Primary Care Provider: None,None ED Provider: Ernesto Ulloa Home Meds and New Rx's Prescriptions: No Action Abilify Maintena 400 mg suspension,extended rel recon 400 mg IM QMONTH HPI General Mode of arrival: ambulatory . Date/Time Provider Initiated Documentation: 01/03/24 18:06 . Limitations to Documentation: no limitations . Information obtained by: patient . History of Present Illness 18 year old M pr esents to the emergency department with the chief complaint of depression, Patient reports no radiation. and it has been constant. No relieving factors improve symptom(s), No exacerbating factors reported . Patient notes no other symptoms.. Patient did receive the following treatments prior to arrival, none Related Data Home Medications ?Medication ?Instructions ?Recorded ?Confirmed aripiprazole 400 mg intramuscular 400 mg IM QMONTH 12/28/23 12/28/23 suspension,extended release (Abilify Maintena) Allergies Allergy/AdvReac Type Severity Reaction Status Date / Time No Known Allergies Allergy Unverified 12/28/23 20:39 General ESTIVEN: 2 Review of Systems All systems reviewed & are unremarkable except as noted in HPI and below Constitutional Constitutional: Denies chills, Denies fever(s) and Denies weakness Eyes Eyes: Denies loss of vision Cardiovascular Cardiovascular: Denies chest pain and Denies dyspnea Respiratory Respiratory: Denies cough and Denies dyspnea Gastrointestinal Gastrointestinal: Denies abdominal pain, Denies nausea and Denies vomiting Neurologic Neurologic: Denies loss of vision and Denies weakness Psychiatric Psychiatric: Reports depression Exam Const General: no acute distress Orientation: alert HENMA Head: normal to inspection Ears: external ears normal General nose exam: external nose normal Mouth: moist mucous membranes Eyes General: appearance normal, both eyes and all related structures Neck Neck: normal visual inspection Resp Effort & Inspection: normal respiratory effort and able to speak in complete sentences Cardio Rate: regular rate Skin General skin exam: no rashes or lesions noted Neuro General: patient alert and patient oriented x3 Extrem General: normal to inspection Psych Attitude: cooperative Medical Decision Making Patient is a 18-year-old male with a history of depression and 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 He was discharged posterior centimeters he walked down here and checked into the ER. He says he still feels depressed. He was requesting to go to [facility] on arrival. He has no signs of trauma, given he came right from upstairs and clinically sober do not feel any blood work or other worrisome is indicated. HE does state that if he is discharged he will attempt to harm himself. Will have mental health evaluate Mental health evaluated and they said that they were not involved with the discharge that he had up stairs, they stated that he advised that if he leaves here he will kill himself so they are going to seek voluntary placement for him. Medical Records Medical records reviewed: Yes I reviewed the patient's medical records. Quality:[facility] Health Related Social Needs: Health related social needs inadequate housing(Z59.1), housing instability, housed, with risk of homelessness(Z59.811), problem related to primary support group(Z63.9) Health related social needs details home child care provider is aw [facility] All Active Problems (Updated 12/28/23 @ 22:46 by Moe Ferreira) Depression with suicidal ideation (Chronic) Anticholinergic drug overdose (Acute) Intentional overdose (Acute) Abrasion of arm, left (Acute) Surgical History Hx of tonsillectomy Social History Smoking/Tobacco Use Status: Former Tobacco Use Second Hand Exposure: No Smoking risk assessment performed?: Yes Alcohol Intake: never Drug use: Occasionally Details: Pt states does not use anything other than Rx drugs. 12/28/23. Adopted: Yes Caregiver/Support person: No Foster care: No (unsure) Household members: none and other Housing: homeless Number of Children: 0 number of grandchildren: 0 Communication Needs: None Education Level: high school Do you need help understanding health information?: Rarely current occupation: Unemployed Pets and animals: No Do you think of yourself as: straight/heterosexual Current gender identity: male What is your relationship status?: never How often do you talk on the phone with friends or family?: decline to answer How often do you get together with friends or relatives?: decline to answer Do you belong to any clubs or organized social groups?: decline to answer Panel score (0-1 are the most socially isolated patients): 0 What type of physical activity do you participate in: walking and additional Details: Basketball Frequency: daily Danielle/Yazidism: None Seatbelt use: sometimes Helmet use: No Drive intox or ride w/intox motor 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
--- NOTE | 2024-01-03 18:54 | PDOC.MHCN_ITS ---
Date of service: 01/03/24 Time of Service: 18:40 Mental Health Emergency Note Release [facility] release signed:: Yes Reason for Visit Keshav presented to the ED after being discharged 10 minutes ago from [facility]. In the last 2 weeks has the pt presented for ES prior to today?: Yes, presented at [facility] Client Information Client is: [facility] Well Housed: No,status: Homeless Stable housing Non Suicidal Self Injury Current: Yes, Keshav reports he has been self scratching. History: yes, Keshav has a history of self harming. Safety Risk/Harm to Self or Others Current Ideation to Harm Self or Others: Yes to self. (Keshav reports several thou ghts of ending his life including jumping off a bridge or overdosing. ) Intent: yes, has intent. Plan: yes,has a plan. History of suicide attempt: yes,history of suicide attempt reported. Details of previous suicide attempt: Keshav's last suicide attempt was a few days ago when he attempted to overdose. Risk: Does risk to harm exist?: No Risk: N/A Duty to warn indicated: No Asssessment/Mental Status Appearance: Disheveled Attitude: Passive and Guarded Behavior: Poor impulse control, Agitated and Gait disturbances Speech: Normal Affect: Cogruent with mood Mood: Stressed, Depressed and Irritable Thought process: Goal directed Hallucinations: No evidence Delusions: No evidence Attention: Unremarkable Perception: Not impaired Orientation: Fully orientated Memory: Intact Insight: Poor Judgement: Poor Neurovegetative Symptoms Sleep: No change Appetitie: No change Interests: No change Energy: No change Libido: Not applicable Substance Use: Do you use nicotine?: No Have you used substances in the last 7 days?: No Additional Issues: Assaultive/Threatening Behavior: No Medical Concerns: No Client engaged in active self harm w/weapon: No Threatening to run away: No Child reported abuse/neglect: No Voluntarily presenting for services: Yes Domestic violence is a concern: No Extreme Psychosis or extreme behavior is present: No Impression Keshav presents to this mortgage loan underwriter in paper scrubs, sitting on his bed. Keshav is disheveled, and has apparent self harm scars and fresh self harm scratches. Keshav reports to this mortgage loan underwriter he was discharged with nowhere to go and no plan to be safe. Keshav reports not wanting to be discharged and wanting to seek inpatient treatment. Keshav reports he was discharged, he walked out and instantly came to the ED because he would rather try to get help than end his life. Keshav reports he was self harming today and reports if he were to be discharged on a self reported scale of 0-10 he is a 7/10 of to end his life. 0 being that he could be safe 10 being he would end his life. They reports several thoughts of how he could end his life including overdosing, or jumping off the bridge on [facility], and several others he would not disclose. Keshav would not engage in a conversation regarding his treatment team or treatment in the community. Keshav reports that he wants to go to inpatient treatment and he will remain at [facility] on a voluntary basis. Plan/Disposition Recommended Disposition: Hospitalization (referrals will be sent on 01/02 after documentation is complete) facilities contacted. Plan: Keshav will remain at [facility] until voluntary placement can be found Reports/communication Outcome discussed with: ED/Personnel
--- NOTE | 2024-01-04 09:01 | W.EDPROG ---
Date of service: 01/04/24 Time of Service: 08:00 Medical Decision Making In brief, this is a 18-year-old male patient with a past medical history significant for PTSD, OCD, insomnia, and homelessness. He was discharged from this facility yesterday, and returned to the emergency department complaining of suicidal ideation and requesting that he be allowed to stay in zone B until such time as he is admitted to an inpatient psychiatric facility. During his stay last night he did not require any acute interventions, chemical or physical restraints. He was medically cleared. This morning the patient reports that he is feeling much better, is no longer feeling suicidal or desiring to engage in self-harm (patient was scratching his arm in his hospital room over the night cleaner) and states that he wants to leave the facility. I did reach out to the social welfare administrator at [facility] who reports that given his recent safety planning that we are fine to utilize that safety plan for his discharge today. This includes a therapy session at noon which the patient recalls and will attend, and a follow-up call with the social work team at noon tomorrow. The patient is not suicidal or homicidal, is calm and understands his safety plan. At this time, the patient has had a full medical evaluation and is safe for discharge to home. They are hemodynamically stable, ambulatory, and tolerating PO. They are understanding of the follow-up plan and return precautions. They left our facility without incident. Aimee Laura MD Medical Records Medical records reviewed: Yes I reviewed the patient's medical records. Lab Data Lab results reviewed: Yes I reviewed the patient's lab results. Quality:[facility] Health Related Social Needs: Health related social needs inadequate housing(Z59.1), housing instability, housed, with risk of homelessness(Z59.811), problem related to primary support group(Z63.9) Health related social needs details rn homecare is aware Sign Out Sign Out Data: Sign Out Comment: Patient discharged from upstairs send just walked down here as he did not feel safe going home stating that he was having depression and SI. Mental health is currently seeking placement for him. Last updated by Ernesto Ulloa MD at 01/03/24 21:27 Sign Out Comment: Patient was just admitted, did not feel safe going home, and after being discharged from the hospital came to the ER. He wants to be in zone B, and so mental health has recommended that he stay in room 5 or 9 so as to not give positive reinforcement to his desire to come back. He is otherwise stable and currently seeking voluntary placement. Last updated by Demond Sultana DO at 01/04/24 04:39 Discharge Plan Disposition Patient Disposition: Home Condition: Stable Discharge Details Clinical Impression: Suicidal ideations Primary Care Provider: None,None ED Provider: Aimee Laura Home Meds and New Rx's Prescriptions: No Action Abilify Maintena 400 mg suspension,extended rel recon 400 mg IM QMONTH Discharge Instructions Instructions: Depression in adults - Discharge instructions Additional Instructions: You were seen in the emergency department today for evaluation of suicidal thoughts and feelings. You were evaluated by our team and it is safe for you to go home at this time and follow-up with the safety plan that was put in place by our social workers yesterday. This includes a therapy appointment at noon, and a check-in call with [facility] tomorrow at noon. Thank you for allowing us to be part of your care
--- NOTE | 2024-04-11 19:14 | CMPROGNOTE_ITS ---
Date of service: 04/11/24 Time of Service: 19:14 Care Management Progress Note Progress Note Text Progress Note Text: CM met with staff regarding Keshav's plan of care. Per RN, [facility] screened Keshav today and did not feel that he met criteria for inpatient psychiatric treatment, and created a safety plan for Keshav to follow in the community. Per report, he was provided the option to go to the [facility] front porch facility in [place], which he declined. The alternative would be for him to return to the community, although he stated that his room at the local hot was no longer available to him. When provided with these options, Keshav made concerning statements to staff about harming himself when he leaves the building, therefore the decision was made to hold Keshav until he can be reassessed by [facility], and a plan can be made to mitigate risk in the community. Safety plan in place. CM will continue to follow.
--- NOTE | 2024-04-11 19:18 | PDOC.CMSAFE ---
Date of service: 04/11/24 Time of Service: 19:19 Care Management Safety Plan Status Status: Voluntary Reason for Wait Reason for Wait: Assessment/Screening and Community Placement Safety Plan Safety Plan: VOLUNTARY FOR INPATIENT PSYCHIATRIC STABILIZATION.? Patient is appropriate in all interactions since arriving at [facility]; Pt has demonstrated appropriate coping and communication skills, has articulated his needs and concerns and is fully engaged during staff interaction Safety plan has been established with patient and care team to adhere to patient goals, identify restrictions based on behavioral status, address nutrition, and determine allowed personal belongings, tools for hygiene and personal care. Determine level of activity including ambulation, level of supervision, visitors, and determine privileges based on behaviors and level of engagement by pt. SAFETY PLAN: 1. Will remain on suicide precautions, in paper clothes 2. Will remain in room under direct supervision of one-on-one staff at all times provided by [employer]; MELISA, SPRAY II PAINTER motor vehicle examiner. 3. May have paper cups, plates, finger foods as well as a cardboard spoon with which to eat meals. 4. Follow [facility] Management of the Admitted Behavioral Health Patient policy. 5. Comfort bath system, shower permitted with escort at RN discretion. 6. Personal belongings-soft items permitted at RN discretion. 7. Visitors- supportive guests, at RN discretion. 8. Activities: soft cart items, and netflix/josemanuel tablet approved per RN discretion. 9.? Bathroom privileges without limitations on med/surge. 10. Phone: limited to cordless phone at RN discretion. Due to VOLUNTARY status, if patient wishes to leave [facility], staff will contact [facility] Crisis Screener ([phone]) and the Taker Off assigned, as soon as possible.
== END 2024-01-04 09:29 | disposition home or self-care (01) ==
PROVIDERS: Emergency Provider Emergency Medicine
DX: F32.A Depression, unspecified (principal); R45.851 Suicidal ideations; Z59.00 Homelessness unspecified; Z87.891 Personal history of nicotine dependence
CPT/HCPCS: 00123; 99285; 99284

== ENCOUNTER 2024-04-10 23:23 | Emergency (ER) | payer MEDICAID, SELFPAY ==
[2024-04-10] VITALS (9 sets, daily range): BP systolic 121–154; BP diastolic 68–82; PULSE 93–121; RESP 12–24; TEMP 36.6; O2SAT 96–99
--- NOTE | 2024-04-10 23:15 | RT.EKG_ITS ---
APPROVED REPORT Exam: Resting ECG Reason for Exam: OD Patient Location: E HR:95 bpm ECG Measurements Heart Rate 95 AXIS TN 165 P 56 QRSd 91 QRS 53 QT 319 T 39 QTc 401 Conclusion Sinus rhythm...normal P axis, V-rate 60- 99 Physician: no stemi
--- NOTE | 2024-04-10 23:33 | W.ED.GENAD ---
Discharge Plan Discharge Details Chief Complaint: OD/Poison Clinical Impression: Intentional overdose Primary Care Provider: None,None ED Provider: Demond Sultana Home Meds and New Rx's Prescriptions: No Action Abilify Maintena 400 mg suspension,extended rel recon 400 mg IM QMONTH quetiapine [Seroquel] 50 mg tablet 50 mg PO DAILY HPI General Date/Time Provider Initiated Documentation: 04/10/24 23:28. HPI Narrative: This is a 18-year-old female with a past medical history of previous overdose, depression who is on 50 mg of daily Seroquel, presents today for evaluation after overdose. He presents via EMS, per EMS and patient he states that he got in an argument with a person and then at around 6 PM he took 600 mg of Seroquel. He has done this before. Eventually EMS was called, and he was brought into the ER for further evaluation. He states that he does want to hurt himself, and end his life. He denies any auditory or visual hallucinations. He denies any fever or chills. No other complaints. He denies taking any alcohol drugs or other medications. Related Data Home Medications ?Medication ?Instructions ?Recorded ?Confirmed aripiprazole 400 mg intramuscular 400 mg IM QMONTH 12/28/23 04/10/24 suspension,extended release (Abilify Maintena) quetiapine 50 mg tablet (Seroquel) 50 mg PO DAILY 04/10/24 04/10/24 Allergies Allergy/AdvReac Type Severity Reaction Status Date / Time No Known Allergies Allergy Unverified 04/10/24 23:28 General Stated Complaint: OD/Poison ESTIVEN: 2 Exam Narrative Exam Narrative: 1.Const: Well-nourished, Well-developed, appearing stated age 2.Eyes: PERRL, no conjunctival injection, and symmetrical lids. 3.ENT: Atraumatic external nose and ears. Moist MM. Neck: Symmetric, trachea midline, No thyromegaly. 4.CVS: +S1/S2, Peripheral pulses 2+ and equal in all extremities. Brisk capillary refill in all extremities. 5.RESP: Unlabored respiratory effort. Clear to auscultation bilaterally. No wheezes rales or rhonchi 6.GI: Soft, Nontender/Nondistended, No hepatosplenomegaly. No guarding or rebound. 7.MSK: Normocephalic/Atraumatic, Extremities w/o deformity or ttp No cyanosis or clubbing, Normal movement of all extremities 8.Skin: Warm, Dry. No rashes or lesions. 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 Sensation grossly intact, no focal neurologic deficits. 10.Psych: (AAO) x3. Appropriate mood and affect Course Vital Signs Vital signs: Vital Signs Temperature 36.6 C 04/10/24 23:22 Pulse 109 H 04/10/24 23:22 Respiratory Rate 20 04/10/24 23:22 Blood Pressure 154/82 H 04/10/24 23:22 Pulse Oximetry 99 04/10/24 23:22 Temperature 36.6 C 04/10/24 23:22 Temperature Source Temporal Artery Scan 04/10/24 23:22 Pulse 109 H 04/10/24 23:22 Respiratory Rate 18 04/10/24 23:30 Respiratory Effort Normal, Non-Labored 04/10/24 23:30 Respiratory Depth Normal 04/10/24 23:30 Respiratory Pattern Normal 04/10/24 23:30 Blood Pressure 154/82 H 04/10/24 23:22 Blood Pressure Position Sitting 04/10/24 23:22 Pulse Oximetry 99 04/10/24 23:22 Oxygen Delivery Method Room Air 04/10/24 23:22 Oxygen Flow Rate 0 04/10/24 23:22 Pain Level 0 04/10/24 23:22 Medical Decision Making This is a 18-year-old female with a past medical history of previous overdose, depression who is on 50 mg of daily Seroquel, presents today for evaluation after overdose. He presents via EMS, per EMS and patient he states that he got in an argument with a person and then at around 6 PM he took 600 mg of Seroquel. He has done this before. Eventually EMS was called, and he was brought into the ER for further evaluation. He states that he does want to hurt himself, and end his life. He denies any auditory or visual hallucinations. He denies any fever or chills. No other complaints. He denies taking any alcohol drugs or other medications. Exam demonstrates well-appearing male, mild tachycardia, mild hypertension, no leadpipe rigidity, hyperreflexia, or evidence of significant confusion or agitation. No hyperthermia. Symptoms appear inconsistent with neuroleptic malignant syndrome. Symptoms appear inconsistent with significant serotonin syndrome. Suspect mild symptomatic component of Seroquel overdose. Will evaluate for other concerning etiologies, we will rehydrate with a liter of normal saline, will monitor closely and reassess. Patient will be placed in a one-to-one. 1 AM Laboratory workup has returned notably unremarkable. EKG benign. Electrolytes stable. Salicylates acetaminophen and alcohol negative. Patient remains notably stable. Tachycardia has resolved. Patient has been medically cleared. Discussed the case with poison control. They have no other recommendations. Patient has been seen and assessed by mental health, he will be transition to zone B and await voluntary placement versus safety plan. 1:39 AM Patient has been seen and assessed by mental health. They will recommend reassessment in the morning. Patient will be signed out to my colleagues for reassessment by mental health in the morning. 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 [facility] All Active Problems (Updated 04/11/24 @ 01:40 by Demond Sultana DO) Intentional overdose (Acute) Anticholinergic drug overdose (Acute) Intentional overdose (Acute) Abrasion of arm, left (Acute) Surgical History Hx of tonsillectomy Social History Smoking/Tobacco Use Status: Current every day Tobacco Type: e-cigarettes and smokeless tobacco Second Hand Exposure: No Smoking risk assessment performed?: Yes Alcohol Intake: never Drug use: Occasionally Substance use type: marijuana Adopted: Yes Caregiver/Support person: No Foster care: No (unsure) Household members: none and other Housing: homeless Number of Children: 0 number of grandchildren: 0 Communication Needs: None Education Level: high school Do you need help understanding health information?: Rarely current occupation: Unemployed Pets and animals: No Do you think of yourself as: straight/heterosexual Current gender identity: male What is your relationship status?: never How often do you talk on the phone with friends or family?: decline to answer How often do you get together with friends or relatives?: decline to answer Do you belong to any clubs or organized social groups?: decline to answer Panel score (0-1 are the most socially isolated patients): 0 What type of physical activity do you participate in: walking and additional Details: Basketball Frequency: daily Danielle/Restorationist: None Seatbelt use: sometimes Helmet use: No Drive intox or ride w/intox school bus driver/custodian: Yes (ride with intoxicated school bus driver/custodian) Do you feel safe at home: No Do you feel safe in your relationship?: No
[2024-04-10] MEDS: Normal Saline 1,000 ML 1000 ML IV (23:39)
[2024-04-10 23:45] LABS: Abs Immature Grans 0.01 10^3/uL (0.0-0.06); Absolute Basophil Count 0.03 10^3/uL (0.0-0.2); Absolute Eosinophil Count 0.04 10^3/uL (0.0-0.7); Absolute Lymphocyte Count 2.01 10^3/uL (1.2-3.4); Absolute Monocyte Count 0.58 10^3/uL (0.1-0.8); Absolute Neutrophil Count 4.99 10^3/uL (1.2-6.7); Basophils % 0.4 %; Eosinophils % 0.5 %; HCT 42.4 % (40.0-50.0); HGB 14.4 g/dL (13.5-17.5); Immature Grans % 0.1 %; Lymphocytes % 26.2 %; MCH 28.8 pg (27.0-33.0); MCV 85 fL (80-95); MPV 8.7 fL (8.0-11.0); Monocytes % 7.6 %; Neutrophils % 65.2 %; Platelet Count 288 10^3/uL (130-400); RDW 12.1 % (11.8-14.1); RDW-SD 36.9 fL; WBC 7.66 10^3/uL (4.4-10.8)
[2024-04-10 23:59] LABS: ALT 38 U/L (16-63); AST 13 U/L (15-37); Albumin 3.9 g/dL (3.4-5.0); Alkaline Phosphatase 100 U/L (46-116); Anion Gap 6.3 mmol/L (3-11); BUN 13 mg/dL (7-18); CO2 29.7 mmol/L (21.0-32.0); CREATININE 0.9 mg/dL (0.70-1.30); Chloride 108 mmol/L (98-107); Estimated GFR 126.17 (mL/min/1.73m2); Glucose 130 mg/dL (74-106); Magnesium 1.7 mg/dL (1.8-2.4); Potassium 3.6 mmol/L (3.5-5.1); Sodium 144 mmol/L (136-145); Total Protein 7.1 g/dL (6.4-8.2)
[2024-04-11] VITALS (13 sets, daily range): BP systolic 100–125; BP diastolic 60–68; PULSE 68–98; RESP 12–22; O2SAT 94–98
[2024-04-11 00:01] LABS: Creatine Kinase 157 U/L (39-308)
[2024-04-11 00:02] LABS: ETHANOL BLOOD < 3.0 mg/dL (<10)
[2024-04-11 00:11] LABS: Salicylate < 2.8 mg/dL (<2.8)
[2024-04-11 00:12] LABS: Acetaminophen < 2 ug/mL (10-30)
--- NOTE | 2024-04-11 00:54 | PDOC.MHCN ---
Date of service: 04/11/24 Time of Service: 00:54 PHQ-9 Over the last 2 weeks, how often have you been bothered by any of the following problems? 1. Little interest or pleasure in doing things: nearly every day 2. Feeling down, depressed, or hopeless: nearly every day 3. Trouble falling or staying asleep, or sleeping too much: nearly every day 4. Feeling tired or having little energy: nearly every day 5. Poor appetite or overeating: not at all 6. Feeling bad about yourself - or that you are a failure or have let yourself and your family down: nearly every day 7. Trouble concentrating on things, such as reading the newspaper or watching television: nearly every day 8. Moving or speaking so slowly that other people could have noticed? - Or the opposite - being so fidgety or restless that you have been moving around a lot more than usual: nearly every day 9. Thoughts that you would be better off or of hurting yourself in some way: nearly every day Total score: 24 If you checked off any problems, how difficult have these problems made it for you to do your work, take care of things at home, or get along with other people?: extremely difficult PHQ-9 Results: Positive Source: Developed by Drs. Robbie Gerard, Alysha Rodriguez, Edward Hayes and colleagues, with an educational kana from [employer]. Suicide Severity Rate CSSRS Have you wished you were or wished you could go to sleep and not wake up?: Yes Have you actually had any thoughts of killing yourself?: Yes CSSRS2 Have you been thinking about how you might do this?: Yes Have you had these thoughts and had some intention of acting on them?: Yes Have you started to work out or worked out the details of how to kill yourself? Do you intend to carry out this plan?: Yes CSSRS3 Have you ever done anything, started to do anything or prepared to do anything to end your life?: Yes CSSRS4 Was this within the past three months?: Yes Screening Score Total Score: 8 Screening: Positive Mental Health Emergency Note Release HS release signed:: Yes Reason for Visit Lori presents to [facility] due to an overdose attempt where he took 600mg of Seroquel. Lori is medically cleared and ready for an assessment. 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 (Lori reports he is still endorsing SI lori came into [facility] after attempting to OD on his prescription medication) Intent: yes, has intent. Plan: yes,has a plan. History of suicide attempt: yes,history of suicide attempt reported. Details of previous suicide attempt: Lori has attempted to end his life several times Risk: Does risk to harm exist?: yes. Access to means: No. Risk: Moderate Risk Duty to warn indicated: No Asssessment/Mental Status Appearance: Disheveled Attitude: Passive Behavior: Gait disturbances Speech: Normal Affect: Cogruent with mood Mood: Stressed and Irritable Thought process: Unremarkable Hallucinations: No evidence Delusions: No evidence Attention: Unremarkable Perception: Not impaired Orientation: Fully orientated Memory: Intact Insight: Poor Judgement: Poor Substance Use: Do you use nicotine?: No Have you used substances in the last 7 days?: No Additional Issues: Assaultive/Threatening Behavior: No Medical Concerns: No Client engaged in active self harm w/weapon: No Threatening to run away: No Child reported abuse/neglect: No Voluntarily presenting for services: Yes Domestic violence is a concern: No Extreme Psychosis or extreme behavior is present: No Impression Lori presents to this conventional mortgage underwriter sitting in his hospital bed, in paper scrubs. Lori is at [facility] due to an attempted overdose on his Seroquel. Lori reports to his conventional mortgage underwriter he took 600mg of Seroquel in attempt to end his life. Lori reports he does not want to be alive, he is still actively endorsing Si and reports other plans besides attempting to overdose. When asked about these plans, Lori states I am not going to tell you because then you will prevent me from doing them. Lori has a history of endorsing SI as well as attempting to end his life. Lori also has a history of self harming. Lori denies HI at this time. Lori got into an argument with 'someone really important' gilberto but tells this conventional mortgage underwriter it is not her business who or what they were arguing about. Lori describes his mood as a okay and says it with a smile, Lori then states he is fine, his sleep is fine, his appetite is fine and becomes frustrated because he knows he will need to repeat himself tomorrow. Lori reports he wants inpatient treatment so he knows he will need an assessment everyday. Lori reports inpatient is how I get better. Lori answered the PHQ9 and CSSRS for screening tools but could not ge through the others as he was playing with his IV and distracted, dozing off, or visibly frustrated to be asked so many questions. Lori will remain at [facility] and wait for voluntary placement Plan/Disposition Recommended Disposition: Hospitalization (Referrals will be made gilberto, 04/11 to [facility], [facility], [facility], [facility]) facilities contacted. Plan: lori will remain at [facility] until voluntary psych admission can be secured Person reported agreement to plan: Yes Reports/communication Outcome discussed with: ED/Personnel
--- NOTE | 2024-04-11 16:27 | W.EDPROG ---
Date of service: 04/11/24 Time of Service: 16:32 Medical Decision Making Care assumed from off going physician. Patient is a 18-year-old gentleman with concern for intentional overdose. Currently voluntary pending reevaluation by mental health services for potential safety plan versus placement. Patient was offered a safety plan by mental health services, but he states that he does not feel safe going home and feels that he would hurt himself if he left. Patient will continue to stay voluntarily in the emergency department and be reassessed in the morning for further management and disposition options 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 needs details health care / medical job titles is aware Discharge Plan Discharge Details Chief Complaint: OD/Poison Clinical Impression: Intentional overdose Primary Care Provider: None,None ED Provider: Vihdi York Home Meds and New Rx's Prescriptions: No Action Abilify Maintena 400 mg suspension,extended rel recon 400 mg IM QMONTH quetiapine [Seroquel] 50 mg tablet 50 mg PO DAILY
[2024-04-11 16:42] LABS: *AMPHETAMINES SCREEN URINE Negative (Negative); *BARBITURATES SCREEN URINE Negative (Negative); *BENZODIAZEPINES SCREEN URINE Negative (Negative); Cannabinoids THC Negative (Negative); Cocaine Screen,Urine Negative (Negative); METHADONE URINE SCREEN Negative (Negative); OPIATES URINE SCREEN Negative (Negative)
[2024-04-11 16:45] LABS: Tricyclic Antidepressants Negative (Negative)
[2024-04-11] MEDS: QUEtiapine 50 MG TAB PO (19:25)
--- NOTE | 2024-04-11 21:00 | W.EDPROG ---
Date of service: 04/11/24 Time of Service: 21:00 Medical Decision Making Patient has decided that he would like to leave the emergency department at this time. I discussed this with him [id number]. He has no requests. He denies any suicidal ideation or homicidal ideation. He states that he has a plan for when he leaves he will go to his sister's house and stay with her tonight. She he states that he will attempt to call her to come pick him up but that she lives really close and that he feels okay about walking even though it is very cold. At this time I do not feel that I can hold the patient against his will for that there is any indication for an EE. The patient has multiple mental health resources and a team in place to manage him in the outpatient setting. And understands he can return to the emergency department anytime as needed. 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 needs details healthcare or medical is aware Discharge Plan Disposition Patient Disposition: Home Discharge Details Clinical Impression: Intentional overdose Primary Care Provider: None,None ED Provider: Vidhi York Home Meds and New Rx's Prescriptions: No Action Abilify Maintena 400 mg suspension,extended rel recon 400 mg IM QMONTH quetiapine [Seroquel] 50 mg tablet 50 mg PO DAILY Discharge Instructions Additional Instructions: You have elected to leave the hospital at this time. You have denied any thoughts about hurting yourself or other people. Your plan is to go to your sister's house. Earlier you were offered resources for additional community mental health treatment and you declined these treatment options. If you would like to resume care or be further evaluated, you can return to the emergency department at any time otherwise please continue to follow-up with your outpatient mental health team
--- NOTE | 2024-04-11 21:12 | NUR.NOTE ---
Nursing Note: Pt was sitting in the dayroom scratching his arm with his markers. This RN, Anna Marie Mccoy, tax technician, and 2 security officers, Jozef and Lito were present and asked the patient to please give the markers back. Markers were removed from the patient area. Patient stated that he was voluntary and that he wanted to leave. Patient began to escalate and punched the window to the nursing station and kicked the door to door to the vestibule area. This RN notified Dr. York and the charge nurse, Tyler Canchola RN. Dr. York spoke with the patient and determined that he would be discharged. Patient was given his belongings and walked out of the facility at approximately 2053 through the ambulance entrance door. Per the charge nurse, this RN notified [facility], [facility], and [facility] .
--- NOTE | 2024-04-13 07:00 | NUR.NOTE ---
Access chart to reconcile EKG orders with EKG's in [facility]. Duplicate order cancelled. Nursing Note:
== END 2024-04-12 15:14 | disposition left against medical advice (07) ==
PROVIDERS: Student in an Organized Health Care Education/Training Program; Emergency Provider Emergency Medicine
DX: R45.851 Suicidal ideations (principal); R45.850 Homicidal ideations; T50.902A Poisoning by unspecified drugs, medicaments and biological substances, intentional self-harm, initial encounter
CPT/HCPCS: 00123; 36415; 80053; 80307; 82550; 93005; 96127; 96360; 99285; H0046; 80320; 80329; 83735; 85025; 93010

== ENCOUNTER 2024-04-11 23:58 | Emergency (ER) | payer MEDICAID, SELFPAY ==
[2024-04-12 00:11] VITALS: BP 120/81; PULSE 94; RESP 16; TEMP 37.2; O2SAT 100
--- NOTE | 2024-04-12 00:45 | W.ED.GENAD ---
Discharge Plan Discharge Details Chief Complaint: PsychEval Clinical Impression: Homicidal ideation, Suicide ideation Primary Care Provider: None,None ED Provider: Demond Sultana Home Meds and New Rx's Prescriptions: No Action Abilify Maintena 400 mg suspension,extended rel recon 400 mg IM QMONTH quetiapine [Seroquel] 50 mg tablet 50 mg PO DAILY HPI General Date/Time Provider Initiated Documentation: 04/12/24 00:22. HPI Narrative: 18-year-old male with a past medical history of overdose in the past requiring intubation, depression and bipolar, presents again today after just being discharged a few hours ago. I saw the patient last night for an overdose of his Seroquel. Last night he took 600 mg of Seroquel. He was evaluated, observed for the entire night, then medically cleared. He was signed out in the morning to my colleagues for mental health assessment. He was seen and assessed by mental health and safety plan was completed and he was discharged. Allegedly the patient then went home and made suicidal statements to his sister. Police were called and the patient was brought back to the ER for further evaluation. Currently the patient states many different things, some of which are contradictory, but nursing staff he states I might put a cap in my sister and her and her kids will be without parents. I told my sister that I was going to kill myself there are all sorts of ways that I think I am going to try to kill myself with, but I am not going to tell you! However together our conversations are quite limited and he states Fuck you, I don't want to talk to you. And will look around the room and point to various nurses and staff and state Fuck you, Fuck you, and FUCK you! Patient denies any other complaints. He denies any IV or illicit drug use. Related Data Home Medications ?Medication ?Instructions ?Recorded ?Confirmed aripiprazole 400 mg intramuscular 400 mg IM QMONTH 12/28/23 04/12/24 suspension,extended release (Abilify Maintena) quetiapine 50 mg tablet (Seroquel) 50 mg PO DAILY 04/10/24 04/12/24 Allergies Allergy/AdvReac Type Severity Reaction Status Date / Time No Known Allergies Allergy Unverified 04/12/24 00:32 General Stated Complaint: PsychEval ESTIVEN: 2 Exam Narrative Exam Narrative: 1.Const: Well-nourished, Well-developed, appearing stated age 2.Eyes: PERRL, no conjunctival injection, and symmetrical lids. 3.ENT: Atraumatic external nose and ears. Moist MM. Neck: Symmetric, trachea midline, No thyromegaly. 4.CVS: 5.RESP: Unlabored respiratory effort. 6.GI: 7.MSK: Normocephalic/Atraumatic, Extremities w/o deformity or ttp No cyanosis or clubbing, Normal movement of all extremities 8.Skin: Warm, Dry. No rashes or lesions. 9.Neuro: steam pan sponger II-XII grossly intact. Sensation grossly intact, no focal neurologic deficits. 10.Psych: (AAO) x3. Appropriate mood and affect, but notably confrontational Course Vital Signs Vital signs: Vital Signs Temperature 37.2 C 04/12/24 00:11 Pulse 94 H 04/12/24 00:11 Respiratory Rate 16 04/12/24 00:11 Blood Pressure 120/81 04/12/24 00:11 Pulse Oximetry 100 04/12/24 00:11 Temperature 37.2 C 04/12/24 00:11 Temperature Source Tympanic 04/12/24 00:11 Pulse 94 H 04/12/24 00:11 Respiratory Rate 16 04/12/24 00:11 Blood Pressure 120/81 04/12/24 00:11 Blood Pressure Position Sitting 04/12/24 00:11 Pulse Oximetry 100 04/12/24 00:11 Oxygen Delivery Method Room Air 04/12/24 00:11 Oxygen Flow Rate 0 04/12/24 00:11 Pain Level 4 04/12/24 00:11 Medical Decision Making 18-year-old male with a past medical history of overdose in the past requiring intubation, depression and bipolar, presents again today after just being discharged a few hours ago. I saw the patient last night for an overdose of his Seroquel. Last night he took 600 mg of Seroquel. He was evaluated, observed for the entire night, then medically cleared. He was signed out in the morning to my colleagues for mental health assessment. He was seen and assessed by mental health and safety plan was completed and he was discharged. Allegedly the patient then went home and made suicidal statements to his sister. Police were called and the patient was brought back to the ER for further evaluation. Currently the patient states many different things, some of which are contradictory, but nursing staff he states I might put a cap in my sister and her and her kids will be without parents. I told my sister that I was going to kill myself there are all sorts of ways that I think I am going to try to kill myself with, but I am not going to tell you! However together our conversations are quite limited and he states Fuck you, I don't want to talk to you. And will look around the room and point to various nurses and staff and state Fuck you, Fuck you, and FUCK you! Patient denies any other complaints. He denies any IV or illicit drug use. Exam demonstrates a confrontational male, who makes it very clear that he wants to harm himself and others. Patient is otherwise notably medically stable. The patient is able to speak clearly. There is no demonstration of any slurring of speech. There is evidence of clear decision making capacity. Patient is able to ambulate well without any difficulty. There are no signs of ataxia or stumbling motions. Mental health has come and evaluated the patient. He is seeking help voluntarily. Will keep him here, but if he tries to leave we we will perform EE. Patient has been medically cleared. Pending placement. 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 needs details neurocritical care physician is aware [facility] All Active Problems (Updated 04/12/24 @ 06:41 by Demond Sultana DO) Suicide ideation (Acute) Homicidal ideation (Acute) Intentional overdose (Acute) Anticholinergic drug overdose (Acute) Intentional overdose (Acute) Abrasion of arm, left (Acute) Surgical History Hx of tonsillectomy Social History Smoking/Tobacco Use Status: Current every day Tobacco Type: e-cigarettes and smokeless tobacco Second Hand Exposure: No Smoking risk assessment performed?: Yes Alcohol Intake: never Drug use: Occasionally Substance use type: marijuana Adopted: Yes Caregiver/Support person: No Foster care: No (unsure) Household members: none and other Housing: homeless Number of Children: 0 number of grandchildren: 0 Communication Needs: None Education Level: high school Do you need help understanding health information?: Rarely current occupation: Unemployed Pets and animals: No Do you think of yourself as: straight/heterosexual Current gender identity: male What is your relationship status?: never How often do you talk on the phone with friends or family?: decline to answer How often do you get together with friends or relatives?: decline to answer Do you belong to any clubs or organized social groups?: decline to answer Panel score (0-1 are the most socially isolated patients): 0 What type of physical activity do you participate in: walking and additional Details: Basketball Frequency: daily Danielle/Episcopalian: None Seatbelt use: sometimes Helmet use: No Drive intox or ride w/intox entry driver operator: Yes (ride with intoxicated entry driver operator) Do you feel safe at home: No Do you feel safe in your relationship?: No
--- OUTSIDE RECORDS SUMMARY | 2024-04-12 01:08 | XMS_ITS | Encounter Summary ---
[place] [address] Care Team Providers Care Cold Meat Chef Name Role Phone Robbie Rudolph Primary Care Provider [phone] Reason for Visit * Reason Onset Date Comments Prior Authorization 12/19/2022 No concurren t review date set, case assigned to Delma Caceres Encounter Details Date Type Department Care Team (Late st Contact Info) Description 12/19/2022 [place] [id number] Abdiel Donald Prior Authorization (No concurrent review [...] Number: n/a Spoke With: website Phone Number: [phone] Patient Class: IPI Patient Class Change Requirements: paolo for opo Notes: pt verified on [place] Medicaid website. ACO-Y documented in this encounter Plan of Treatment Not on file documented as of this encounter Visit Diagnoses Not on filedocumented in this encounter Care Teams Cold Meat Chef Relationship Specialty Start Date End Date Robbie Rudolph DO [address] [place] [address] PCP - General Family Medicine 10/31/19 documented as of this encounter
--- OUTSIDE RECORDS SUMMARY | 2024-04-12 01:08 | XMS_ITS | Encounter Summary ---
Author Organization [facility] [place] [address] Care Team Providers Care Operation Research Analyst Name Role Phone Klaudia Robbie Janna CASTRO Primary Care Provider [phone] Reason for Visit * Auth/Cert (Routine) Specialty Diagnoses / Procedures Referred By Magen t Referred To Contact Diagnoses OVERDOSE/POISONING Procedures [facility] Referral ID Status Reason Start Date Expiration Date Visits Re quested Visits Authorized [id number] 1 1 Encounter Details Date Type Department Care Team (Latest Contact Info) Description 07/10/2023 3:57 PM EDT - 07/10/2023 11:59 PM EDT Hospital Encounter [facility] at [address] [phone] Kevin Blakely MD [facility] [place] [address] Discharge Disposition: Home Social History Tobacco Use [...] on filedocumented in this encounter Care Teams Operation Research Analyst Relationship Specialty Start Date End Date Robbie Rudolph DO [address] [place] [phone] PCP - General Family Medicine 10/31/19 documented as of this encounter
--- OUTSIDE RECORDS SUMMARY | 2024-04-12 01:08 | XMS_ITS | Encounter Summary ---
[facility] [place] [address] Care Team Providers Care Licensed Embalmer Supervisor Name Role Phone Klaudia Robbie Saldivar Primary Care Provider [phone] Reason for Visit * Auth/Cert (Routine) Specialty Diagnoses / Procedures Referred By Magen t Referred To Contact Diagnoses Borderline personality disorder Bipolar Affective Disorder Procedures emerg Lucille Espinal MD [facility] [place] [address] [facility] Referral ID Status Reason Start Date Expiration Date Visits Re quested Visits Authorized [id number] 1 1 Encounter Details Date Type Department Care Team (Late st Contact Info) Description 12/19/2022 2:56 PM EDT - 12/23/2022 1:31 PM EDT Hospital Encounter Psychiatry Care Unit Level 2 [place] [address] Lucille Mcmullen MD [facility] [place] [address] Discharge Disposition: Home Social History Tobacco Use [...] Keshav Patiño Patient Age: 17 y.o. Language: Andorran Race: White Ethnicity: Not nor Admit date: [...] at 9:30 am with Do Rodriguez MD [facility] [address] [place] [address] Wednesday, January 04, 2023 at 9:00 am with Enoch Aguayo CP [facility] [address] [place] [address] Inpatient Provider Contact Information: For questions regarding this document (including laboratory or other studies) or issues relating tothis hospitalization, please contact your case manager specialist, Delma Caceres RN, through the [facility] Silverware Assembler . Issues after hours and on weekends will be handled by the vice president regulatory on-call who can be reached through the Department of Psychiatry by calling [phone] and following the appropriate prompts to connect to the environmental science technician team. Medication Instructions Continue to take all of the medications as instructed. Any medication changes will be addressed at your next outpatient appointment with the individual who prescribes your medications. Advance Care Plan The patient has an appointed surrogate decision maker: Conner of surrogate decision maker: N/A The patient [...] the ICU. He initially was transferred to [facility] from [facility] after an intentional overdose while under [...] cocaine, alcohol, and marijuana. While in the [facility] ICU he was intubated, extubated, and further [...] Social Work offered to connect him with [facility] [employer] for wraparound services, and with homeless community support groups, both of which Keshav declined. Keshav was offered resources for substance use and referral to rehab, both of which he declined. During his time in the hospital, the team made contact with family (mother Sheryl [phone]) who shared that Keshav was not able [...] who lives nearby his immediate family in [place]. His mother shared that Keshav had [...] considering re-admission, recommend discussing with inpatient medical billing coordinator or attending on service first. On the [...] rate, and normal rhythm Language: fluent in micronesian, without paraphasic errors, and without word finding [...] INR Thyroid: No results found for: TSH, [id number], TT4 Lipids and HgbA1C: Lab Results Component Value Date TRIG 117 12/15/2022 No results found for: HA1C Vit Lvls: No results found for: [id number], SFOLATE UA: No results found for: GLUCOSEU, [...] home Primary Care Physician: Robbie Rudolph DO [phone] Special Physician Instructions: -Keshav would benefit greatly from connection with community resources at [facility]. He deferred these services while in [...] emergencies, call 988 from anywhere in the [facility]. State specific information for [place] and [place] crisis services are as follows and should be used to access local resources: [facility] Mental Health Crises Services [facility] Crisis Line text or call Visit www.YouGoDo for further information [place] Call your local unc health crisis line at: [place]: [facility] [phone] [place]: [facility] Services [phone] [place]: [facility] [phone] [place]: [facility] [phone] [place]: [facility] [phone] Davi speedy [place]: [facility] Counseling and Support [phone] [place]: [facility] Mental Health [phone] on weekdays 8AM-4:30PM and [phone] on nights and weekends [place]: [facility] [place]: [facility] [phone] [place]: [facility] [phone] [place]: [facility] Services, [place]: H[facility]S [place]: HCRS or Text [place] to [phone] For further information for [place] residents: https://mentalhealth.[place].gov/services/emergency-services/rzf-zyw-zijo National Suicide Prevention Hotline: For patients cared for in the Department of Psychiatry, you can reach your mental health clinician at [phone]. Activity level: no restrictions from psychiatry Diet: [...] emergencies, call 988 from anywhere in the [facility]. State specific information for [place] and [place] crisis services are as follows and should be used to access local resources: [facility] Mental Health Crises Services [facility] Crisis Line text or call Visit www.YouGoDo for further information [place] Call your local [facility] health crisis line at: [place]: [facility] [phone] [place]: [facility] [phone] [place]: [facility] [phone] [place]: [facility] [phone] [place]: [facility] [phone] Davi speedy [place]: [facility] Counseling and Support [phone] [place]: [facility] [phone] on weekdays 8AM-4:30PM and [phone] on nights and weekends [place]: [facility] [place]: [facility] [phone] [place]: [facility] [phone] [place]: [facility] Services, [place]: H[facility]S [place]: HCRS or Text [place] to [phone] For further information for [place] residents: https://mentalhealth.[place].[facility]/services/emergency-services/jwm-jxt-mjxt National Suicide Prevention Hotline: For patients cared for in the Department of Psychiatry, you can reach your mental health clinician at [phone]. I have personally seen and examined the [...] coordinating discharge for this patient and included gpwn-tf-wkfxnykxymfyi and exam, explanation of after visit instructions and medications to the patient and necessary caregivers, documentation, and prescription management. documented in this encounter Discharge Instructions * Discharge Instructions* Barbara Sewell MSW - 12/20/2022 12:55 PM EDT We have made the following appointments for you: Tuesday, December 27, 2022 at 9:30 am with Do Rodriguez MD [facility] [address] [place] [address] Wednesday, January 04, 2023 at 9:00 am with Enoch Aguayo CP [facility] [address] [place] [address] Community Supports: If you should change your mind about a referral to the Community Rehabilitation Therapy program at [facility] please contact their office to obtain the application, for you and your outpatient providers to complete: [phone]. To access information/supports around teenage at risk of homelessness you can outreach to [facility] Youth Services: [phone]. Inpatient Provider Contact Information: For questions regarding this document (including laboratory or other studies) or issues relating tothis hospitalization, please contact your case manager specialist, Delma Caceres RN, through the [facility] [employer] . Issues after hours and on weekends will be handled by the vice president regulatory on-call who can be reached through the Department of Psychiatry by calling [phone] and following the appropriate prompts to connect to the environmental science technician team. Medication Instructions Continue to take all of the medications as instructed. Any medication changes will be addressed at your next outpatient appointment with the individual who prescribes your medications. Advance Care Plan The patient has an appointed surrogate decision maker: Conner of surrogate decision maker: N/A The patient [...] INR Thyroid: No results found for: TSH, E5PNLCE, TT4 Lipids and HgbA1C: Lab Results Component Value Date TRIG 117 12/15/2022 No results found for: HA1C Vit Lvls: No results found for: [id number], SFOLATE UA: No results found for: GLUCOSEU, [...] home Primary Care Physician: Robbie Rudolph DO [phone] Special Physician Instructions: -Keshav would benefit greatly from connection with community resources at [facility]. He deferred these services while in [...] the [place]. State specific information for [place] and [place] crisis services are as follows and should be used to access local resources: Regional Mental Health Crises Services [facility] Crisis Line text or call Visit www.YouGoDo for further information [place] Call your local community crisis line at: [place]: [facility] [phone] [place]: [facility] Services [phone] [place]: [facility] [phone] [place]: [facility] [phone] [place]: [facility] [phone] [place]: [facility] Counseling and Support [phone] [place]: [facility] Mental Health [phone] on weekdays 8AM-4:30PM and [phone] on nights and weekends [place]: [facility] [place]: [facility] [phone] [place]: [facility] Services [phone] [place]: [facility] Services, [place]: HCRS [place]: HCRS or Text [place] to [phone] For further information for [place] residents: https://mentalhealth.[place].[facility]/services/emergency-services/jfl-gdn-fzrj National Suicide Prevention Hotline: For patients cared for in the Department of Psychiatry, you can reach your mental health clinician at [phone]. Activity level: no restrictions from psychiatry Diet: [...] detail for discharge- Ride will [facility] at [facility] for 1:30 [facility] Medicaid is covering transport [phone] Pt will be driven to [facility] home [place]. * Daniela Amezcua LCValerie - [...] rate, and normal rhythm Language: fluent in micronesian, without paraphasic errors, and without word finding [...] age matched peers Insight: limited Judgment: poor Leon Suicide Risk Scale - Initial Assessment: Q1 [...] the Past 3 Months?: yes (12/19/22 152) Leon Suicide Risk Scale - Daily Assessment (most [...] 12/15/2022 Thyroid: No results found for: TSH, O0YZVDL, TT4 Lipids and HgbA1C: Lab Results Component Value Date TRIG 117 12/15/2022 No results found for: HA1C Vit Lvls: No results found for: [id number], SFOLATE UA: Lab Results Component Value Date [...] Patient declined SW offer to refer to [facility] for wraparound services and [...] use the assertiveness skills that were presented. OMI Mancuso 12/22/2022 * Tammy Gomez LCValerie - [...] hands on courses, but struggled with math, micronesian, and history. Keshav feels like social interactions [...] rate, and normal rhythm Language: fluent in micronesian, without paraphasic errors, and without word finding [...] age matched peers Insight: limited Judgment: poor Leon Suicide Risk Scale - Initial Assessment: Q1 [...] Within the Past 3 Months?: yes (12/19/221519) Leon Suicide Risk Scale - Daily Assessment (most [...] 12/15/2022 Thyroid: No results found for: TSH, E1GSIUZ, TT4 Lipids and HgbA1C: Lab Results Component Value Date TRIG 117 12/15/2022 No results found for: HA1C Vit Lvls: No results found for: [id number], SFOLATE UA: Lab Results Component Value Date [...] outpatient care, and/or diagnostic study. Signed By: nAaly Centeno MD 12/21/2022 Associated attestation - Lucille [...] would most benefit from connecting with a case manager specialist, therapist, and other community supports, where he [...] with the patient today. * [facility] 12/20/2022 10:35 AM EDT Inpatient Daily [...] in the group discussion afterwards. Daniela Amezcua [facility] 12/20/2022 Patient attended the following therapeutic [...] no Employment: recently lost job Residence: [address] [address] Outpatient Providers: (include location) Current Mental Health Prescriber: Current Therapist: PCP: Robbie Rudolph DO Chief Complaint: 17 y.o. Male presents to [facility] with a history of ADHD, bipolar disorder, PTSD, and two reported suicide attempts who presented to [facility] as a transfer from [facility] on 12/15/22 following a suicide [...] and her partner take him to the [facility] ED. He was subsequently transferred to [facility] where he received ICU level of care until medically stable. Keshav shares that things have been difficult for him for the past few months. In particular he citeslosing his job as a large stressor and feels as though he was fired due to expressing concern that the [employer] he worked in did not meet health [...] injection 5,000 Units 5,000 Units Subcutaneous Q8H [facility] Santhosh Templeton MD 5,000 Units [...] old) until recently and working in a [employer]. He did not graduate from high [...] Tired appearing EYES ENT CV RESP GI /KILN PLACER (include LMP if applicable) MSK SKIN NEURO PSYCH ENDO HEME/LYMPH ALL/IMMUNO Physical Exam: Vitals Flowsheet Row Admission (Current) from 12/15/2022 in Intensive Care Unit at [facility] Weight - Scale 102.6 kg (226 lb [...] rate, and normal rhythm Language: fluent in micronesian, without paraphasic errors, and without word finding [...] 12/15/2022 Thyroid: No results found for: TSH, R2PBAHS, TT4 Lipids and HgbA1C: Lab Results Component Value Date TRIG 117 12/15/2022 No results found for: HA1C Vit Lvls: No results found for: [id number], SFOLATE UA: Lab Results Component Value Date [...] a 17 y.o. Male who presents to [facility] with with a history of ADHD, bipolar disorder, PTSD, and two reported suicide attempts who presented to [facility] as a transfer from [facility] on 12/15/22 following a suicide [...] substance use in the setting pf this ycarwo3wwp, furthermore, he may have a trauma history [...] Miscellaneous Notes * Initial Assessments - Delma Cacrees RN - 12/23/2022 1:10 PM EDT Office [...] surrogate would be surrogate decision maker per [place] surrogate decision making law. (Only good for 180 days) Any patient receiving care in [place] must abide by [place] law. The hierarchy for surrogate decision making [...] (i) The agent with financial power of attorney general or a conservator appointed in accordance with [...] Patient is homeless at this time [address] [address] Social & Family Supports: All names listed [...] N/A ; Prescription Coverage: Yes Preferred Pharmacy: [id number] - [place], [place] - [address] [facility] [address] Status: Patient is a : No Primary Care Provider listed: Robbie Rudolph DO [phone] Patient/Caregiver Goals of Treatment: Safety and stabilization Potential Needs for Transition of Care: mental health services Agency Referrals: Patient refused referral to [facility] and inpatient substance use treatment. No [...] asked if experiencing SI, pt corrected this signwriter that we should ask do you feel [...] hours: 7 hrs. Last Bowel Movement: 12/22/22 Leon Suicide Severity Rating Scale: Initial Risk: High [...] PM EDT OUTCOME EVALUATION NOTE: OUTCOME SUMMARY: [id number]. Pt preoccupied with plan or going home [...] compliant with hs meds. PLAN MOVING FORWARD: Leon Suicide Severity Rating Scale: Initial Risk: High [...] patient to be higher risk than the Leon Suicide Severity Rating Scale result per Clinical [...] 12/22/2022 10:58 AM EDT OUTCOME EVALUATION NOTE: Leon Suicide Severity Rating Scale: Initial Risk: High [...] patient to be higher risk than the Leon Suicide Severity Rating Scale result per Clinical [...] pain. Pt med compliant PLAN MOVING FORWARD: Leon Suicide Severity Rating Scale: Initial Risk: High Risk (12/19/22 1520) Daily Risk: Low Risk (12/21/222055) The following nursing interventions and strategies were implemented to mitigate suicide risk: Full room search conducted Identify protective barriers Reviewed Values with patient Scheduled check in with nursing Therapeutic communications/listening Positive reinforcement RN's may designate a patient to be higher risk than the Leon Suicide Severity Rating Scale result per Clinical [...] occasionally on the phone and attending groups. Leon Suicide Severity Rating Scale: Initial Risk: High [...] patient to be higher risk than the Leon Suicide Severity Rating Scale result per Clinical [...] Sewell MSW - 12/21/2022 11:50 AM EDTSummary: [facility] Psychosocial Assessment Office of Care Management Social [...] hisGED, go to college and become an HALF BACKER, make alot of money and eventually be able to purchase a Skilljar dog. Financial Source of Income: none Financial / Environmental Concerns: unable to afford rent/mortgage, unemployed, unable to afford food Who Manages Finances if Patient Unable: noone Application for Public Assistance: Legal Criminal Activity/Legal Involvement: other (see comments) (on diversion for retail theft.) MENTAL / BEHAVIORAL HEALTH Values / Beliefs Buddhist / Spiritual Practices and Beliefs : deferred Coping / Stress Major Change / Loss / Stressor: mental health condition, financial, legal concerns, housing concerns, chemical dependency/abuse Patient Personal Strengths: future/goal oriented Sources of Support: mental health providers Techniques to [place] with Loss/Stress/Change: diversional activities, substance use, medication [...] now unemployed (lost his job at a [employer] a few weeks ago), homeless, with little to no friends/supports for him to turn to. Pt does not express significant concern about this instead saying that after speaking with one of the LPNs here through out the night he plans ot get his GED, go toschool to be an HALF BACKER, make a lot of money, get his own apartment and eventually save enough to purchase a cane jose ramon dog. Pt's responses to inquiring about plans for the time immediately after discharge from he is not able to identify any concrete and realistic plan even when asked to be more detailed. He currently does not want to consider a homeless alf, and verbalizes disinterest in [facility] treatment/residentialoptions since as a future HALF BACKER he shoudn't be using therefore it is no longer an issue for him. MOLD MAKING SUPERVISOR has consulted with team expressing concern on Pt's unrealistic approach and the impact it will have on his disposition and planning Social Work Plan: MOLD MAKING SUPERVISOR will continue to follow to support Pt in identifying a realistic disposition, and address any obstacles. Barbara Sewell, PIPE BUFFER, MOLD MAKING SUPERVISOR, [facility] [place] Office of Care Management * Plan of [...] Compliant with scheduled meds. PLAN MOVING FORWARD: Leon Suicide Severity Rating Scale: Initial Risk: High [...] patient to be higher risk than the Leon Suicide Severity Rating Scale result per Clinical [...] occasionally on the phone and attending groups. Leon Suicide Severity Rating Scale: Initial Risk: High [...] patient to be higher risk than the Leon Suicide Severity Rating Scale result per Clinical [...] improve understanding of illness 2 Work with Plant Specialist to create and implement aftercare plan 3 [...] PHYSICIAN Lucille Mcmullen MD 12/20/22 NURSING 12/20/22 BLAST SETTER Delma Caceres, VALARIE 12/20/22 THERAPIST 12/20/22 SKIMMER SCOOP OPERATOR TELMA Whatley 12/20/22 * Plan of Care - Violeta Rolle RN - 12/19/2022 8:20 PM EDT OUTCOME EVALUATION NOTE: OUTCOME SUMMARY: Pt resting in bed at start of shift, pleasant and cooperative on interview. Pt denies pain, SIHI, AVH, and agrees to alert staff if unable to maintain his safety. Pt continued to isolate to room. Pt compliant with scheduled medications. Leon Suicide Severity Rating Scale: Initial Risk: High Risk (12/19/22 1520) Daily Risk: Low Risk (12/19/221999) The following nursing interventions and strategies were implemented to mitigate suicide risk: Full room search conducted Medication as needed Distract with activities Groups for skill building Therapeutic communications/listening Positive reinforcement RN's may designate a patient to be higher risk than the Leon Suicide Severity Rating Scale result per Clinical [...] hallucinations Sleep hours: Last Bowel Movement: 12/18/22 Leon Suicide Severity Rating Scale: Initial Risk: High [...] Routine documented in this encounter Care Teams Licensed Embalmer Supervisor Relationship Specialty Start Date End Date Robbie Rudolph DO [address] [place] [id number] PCP - General Family Medicine 10/31/19 documented as of this encounter
--- OUTSIDE RECORDS SUMMARY | 2024-04-12 01:08 | XMS_ITS | Encounter Summary ---
Author Organization Formerly [facility] [place] [address] Care Team Providers Care Wholesale Account Executive Name Role Phone Robbie Rudolph DO Primary Care Provider [phone] Reason for Visit * Reason Comments Procedure * Auth/Cert (Routine) Specialty Diagnoses / Procedures Referred By Magen barney Referred To Contact Diagnoses Polysubstance overdose Overdose Procedures Emergency IPI Oniel Sanchez MD [facility] [place] [address] [facility] Referral ID Status Reason Start Date Expiration Date Visits Re quested Visits Authorized [id number] 1 1 Encounter Details Date Type Department Care Team (Latest Contact Info) Description 12/15/2022 2:16 PM EDT - 12/19/2022 2:54 PM EDT Hospital Encounter [place] [address] Oniel Sanchez MD [facility] [place] [address] Odilon Godfrey MD [facility] [place] [address] Santhosh Templeton MD [facility] [place] [address] G[place] [address] Polysubstance overdose, intentional self-harm, initial encounter; Polysubstance [...] 12/17/2022 5:0 0 AM EDT Growth Chart: [facility] (Boys, 2-2 0 Years) documented in this encounter Discharge Summaries * Gildardo Hogue MD - 12/19/2022 2:17 PM EDT Discharge Summary Patient Name: Keshav Patiño Patient Age: 17 y.o. Language: [place] Race: White Ethnicity: Not nor Admit date: [...] contact your inpatient physician through the [facility] Computer Numerical Control Operator . Issues afterhours and on weekends will [...] OSH and Tele-ICU report Patient presented to [facility] ED around 0800 on 12/14 with his [...] anICU setting. CCS was consulted at [facility] and patient accepted, however transfer delayed several timesover the course of 12/15 due to transportation issues. Patient intubated for airway protection/priorto transport, arriving sedated on a propofol infusion having received several ketamine boluses at [facility] and en route. Transient levo requirement while [...] prior reported suicide attempts Patient presented to [facility] ED around 0800 on 12/14 with his [...] ICU setting. CCS was consulted at [facility] and patient accepted and transferred to [facility]. He remained intubated and sedated on propofol [...] who have questions please contact the health skin care therapist that requested your imaging first. Pending Studies [...] beany issues or concerns once you leave [facility], we apologize for any undue stress this [...] beany issues or concerns once you leave [facility], we apologize for any undue stress this [...] of this encounter Progress Notes * Kat Padgett PT - 12/19/2022 2:49 PM EDT Physical Therapy Contact Note Consult received and chart reviewed. Per RN, pt mobilizing without concern. Awaiting transfer to psych unit. No formal PT assessment warranted at this time. Please page if mobility concerns should arise. Kat Padgett PT, DPT Pager: [phone] 12/19/22 Inpatient Rehabilitation Department * Gildardo Hogue [...] spent <30 minutes (Day of Discharge Code 99557) involved in the final examination of the patient, discussion of the hospital stay, instructions for continuing care to all relevant caregivers, and preparation of discharge records, prescriptions and referral forms. Plans Discharge to psych admission Please see the Discharge Summary for complete details of any medication changes and additional plans. Gildardo Hogue MD [facility] Medicine 12/19/2022 * Allen Dozier RN - 12/19/2022 11:09 AM EDT OUTCOME EVALUATION NOTE: OUTCOME SUMMARY: Pt remains A+Ox4 on RA, calm and cooperative. VSS. Pt successfully voided today. PVR 0. Pysch at bedside today, plan to transfer to psych unit today. 1:1 sitter continued. Transferred to [facility] this afternoon, report given to RN. All lines removed. AVS printed and given to pt. Education provided. Brought by this RN and another medical staff member to [facility] unit. PLAN MOVING FORWARD: [facility] Unit once appropriate Suicidal precautions until [...] overdose. Reason for Assessment: Follow-up Nutrition Recommendations: [facility] Monitor and encourage po intake - [...] encounter: 102.6 kg (226 lb 3.1 oz). Dunbar Body Weight (IBW) (kg): 75.45 Wt Readings [...] follow up while inpatient Thank you, Robina Verma MS, RD, CNSC, LD * Odilon Godfrey [...] Odilon Godfrey MD 12/17/2022 8:32 AM * Zuleima Rush, RT - 12/16/2022 4:01 PM EDT AMV [...] 8:30 AM EDT Physical Therapy Note 12/16/22 8011 Evaluation & Treatment Document Type contact Total [...] SpO2 98 % Xiao Waggoner, PT Pager [phone] * Kirby Johnson, COMMODITY SPECIALIST - 12/15/2022 8:34 PM EDT AMV Protocol: [...] day. KIRBY JOHNSON RRT * Ibis Trevizo RCP - 12/15/2022 5:46 PM EDT AMV Protocol: [...] PCP: Robbie Rudolph DO PCP phone number: [phone] Date of Admission: 12/15/2022 ( Hospital Day [...] review and the patient. Patient presented to [facility] ED around 0800 on 12/14 with his [...] significant for: Polysubstance overdose: Patient presented to [facility] ED around 0800 on 12/14 with his [...] ICU setting. CCS was consulted at [facility] and patient accepted and transferred to [facility]. He remained intubated and sedated on propofol [...] CODE Status: FULL Santhosh Templeton MD 12/18/2022 [facility] Medicine # [id number] * Odilon Godfrey MD - 12/15/2022 2:42 PM EDT MICU STAFF PROGRESS NOTE Critical Care Medicine Author: ODILON GODFREY Patient seen and examined on admission to critical care. Patient reported to family that he took an unknown amount of ADHD / mood medications (details belowin problem list) on 12/14. Required midazolam and precedex drips for agitation. Intubated and transported to [facility] today for further care. Temporarily required norepinephrine [...] OSH and Tele-ICU report Patient presented to [facility] ED around 0800 on 12/14 with his [...] anICU setting. CCS was consulted at [facility] and patient accepted, however transfer delayed several timesover the course of 12/15 due to transportation issues. Patient intubated for airway protection/priorto transport, arriving sedated on a propofol infusion having received several ketamine boluses at [facility] and en route. Transient levo requirement while [...] 15, 2022 Critical Care Green Team (pager [phone]) Dr. Godfrey is the attending of record for this admission documented in this encounter Procedure Notes * Abdi Gill MD - 12/16/2022 5:41 PM EDTAssociated Order(s): EEG [facility] Department of Neurology Inpatient Routine EEG Report [...] 975 mg 975 mg Oral Q6H [facility] Bridgette Bateman PA midazolam (pf) (Versed) (1 [...] 5,000 Units 5,000 Units Subcutaneous Q8H [facility] Alem Rosa PA 5,000 Units at 12/16/22 2201 dexmedeTOMIDine (Precedex) (4 mcg/mL) in sodium chloride 0.9% 100 mL infusion 0- 1.7 mcg/kg/hr Intravenous Continuous Alem Rosa PA 30.4 mL/hr at 12/16/22 2214 1.2 mcg/kg/hr at 12/16/22 2214 PRIOR EEG(s): None METHODS: A 21 channel digitized electroencephalogram was performed in the [facility] Clinical Neurophysiology Laboratory. The 10/20 international system of electrode placement was used and bipolar and referential electrode montages were recorded. In addition to EEG the patient was monitored for EKGand lateral/vertical eye movements. Video was recorded during the session. AUTO WASH BUFFER'S REPORT: Performed by: NCG Patient was not [...] recording. Abdi Gill MD [place] [address] Pager: [phone], #[phone] Email: [email or web address] CC: Dr. Godfrey documented in this encounter [...] PLAN MOVING FORWARD: 1:1 Sitter Transfer to [facility] Q8 neuro checks [facility] GOAL OUTCOME EVALUATION: [...] been asked to see Keshav Patiño by [facility] esperanza team for assessment of toe numbness. ID: Keshav Patiño is a 17 y.o. with PMH of ADHD, bipolar disorder, insomnia, and panic attacks who isadmitted to the ICU for a lmictal overdose. Patient presented to [facility] ED around 0800 on 12/14 with his sister who reported an ingestion of >400 mg of focalin, lamictal of unknown quantity and intuniv of unknown quantity. He was found to be tachycardic, hypertensive and developed escalation agitation. He was ultimately admitted tot ICU for management. He was extubated and recently had a psychiatric evaluation with [facility] This resident received an [...] CK 566* No results for input(s): PHART, CIL6JPZ, PO2ART, XNM0DAB in the last 168 hours. Recent Labs [...] who have questions please contact the health skin care therapist that requested your imaging first. Assessment and [...] the AM Please page Vascular Neurology at #[phone] with any questions. [place] [address] Associated attestation - Ethan Saunders III, MD [...] at this time. Ethan Saunders III, MD Senior Developer Department of Neurology [facility] Pager: [phone] 6:29 PM 12/18/2022 * Plan of Care [...] reported suicide attempts who presented to [facility] as a transfer from [facility] on 12/15/22 following a suicide [...] and he was subsequently driven to the [facility] ED. He reports recent psychosocial stressors. 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 Psychiatric Review of Systems: Sustained Depressed Mood: [...] 975 mg 975 mg Oral Q6H [facility] Bridgette Bateman PA 975 mg at 12/17/22 [...] 5,000 Units 5,000 Units Subcutaneous Q8H [facility] Alem Rosa PA 5,000 Units at 12/17/22 [...] rate, and normal rhythm Language: fluent in uzbek, without paraphasic errors, and without word finding [...] reported suicide attempts who presented to [facility] as a transfer from [facility] on 12/15/22 following a suicide attempt via overdose of medication for ICU-level of care. Psychiatry is consulted for evaluation of SI and recommendations regarding his home medication regimen. On evaluation this afternoon, patient confirms that his overdose of home medications was a suicide attempt. He identifies several psychosocial stressors and describes having limited social support outside of [facility]. Patient is ultimately at high risk of [...] leaving AMA. Recommendations were communicated to primary pressure steamer tender, WALTER Joshi. Nain Mckeon MD 12/17/2022 Coding [...] [] Minimal - [] Minimal [] Straightforward [id number] [] Low [] Low [] Low [] Low 78960 [] Moderate [x] Moderate [] Moderate [] Moderate 92942 [x] High [] High [x] High [x] High 10658 Final Coding Determination: High Associated attestation - [...] Psychiatrist - Do Rodriguez PCP DO Nery Ayres MD Psychiatry Consultation Pager: [phone] * Plan of Care - Susy Carter [...] Admitted From: Transfer from another hospital Location: [facility] Reason for Hospitalization: Polysubstance OD Covid Vaccination Status: (unable to assess) Past medical History: No past medical history on file. Hospitalizations Within the Past 30 Days: no previous admission in last 30 days Current Decision-Making Capacity: Self If AD's have not been completed the following surrogate Pt's parents - Gomez would be surrogate decision maker per [place] surrogate decision making law. (Only good for 180 days) Any patient receiving care in [place] must abide by [place] law. The hierarchy for surrogate decision making [...] (i) The agent with financial power of state's attorney or a conservator appointed in accordance [...] confirmed as: [address] [facility] [address] Social & Family Supports: All names listed [...] Primary Care Provider confirmed: Robbie Rudolph DO [phone] Patient/Caregiver Goals of Treatment: Possible Psych admission [...] his basic needs. He was working at [employer] but lost his job,he dropped out of school. STRESS TEST TECHNICIAN explored other family relationships with pt to [...] care planning. [facility] Phone: [phone] Pager: [phone] * Plan of Care - Isi Robb [...] as Appropriate) * Consult Note - Robina Verma RD - 12/16/2022 11:13 AM EDT Nutrition [...] labs Monitor BM - goal of 1 [id number] while on TF Monitor BG - goal of 140-180 Daily weights I was able to discuss plan with provider JEANNE Soler 1204 . Current Nutrition Regimen: Active Orders Diet [...] time Site Days Naso/Oral Tube 12/15/22 1423 [place] [facility] mouth 12/15/22 1423 center mouth [...] encounter: 103.7 kg (228 lb 9.9 oz). Dunbar Body Weight (IBW) (kg): 75.45 Wt Readings [...] EDT) Phosphorus 4.3 2.5 - 4.5 mg/dL [facility] Blood 12/18/2022 12:2 4 AM EDT 12/18/2022 12:31 AM EDT Narrative Resulting Agency Comment Spec In Lab Oniel Campbell MD CHEMISTRY ORDERABL ES [facility] [place] [address] * Magnesium (12/18/2022 12:24 AM EDT) Magnesium 0.77 0.69 - 1.07 mmol/L [facility] Blood 12/18/2022 12:2 4 AM EDT 12/18/2022 12:31 AM EDT Narrative Resulting Agency Comment Spec In Lab Oniel Campbell MD CHEMISTRY ORDERABL ES [facility] [place] [address] * Basic Metabolic Panel (non-fasting) (12/18/2022 12:24 AM EDT) Glucose 110 65 - 199 mg/dL [facility] Comment:Diabetes: >=200 mg/d L plus symptoms Blood Urea Nitrogen 11 10 - 20 mg/dL [facility] Creatinine 0.85 0.63 - 1.09 mg/dL [facility] Sodium 138 135 - 145 mmol/L [facility] Potassium Not Perf 3.5 - 5.0 [facility] Comment: Unable to quantitate due [...] questions. Chloride 101 98 - 107 mmol/L [facility] Carbon Dioxide 23 22 - 31 mmol/L [facility] Anion Gap 14 5 - 15 mmol/L [facility] Calcium 9.4 8.5 - 10.5 mg/dL [facility] Est Glomerular Filtration Rate 129 >=60 mL/min/1. 73 m?? [facility] Comment: This patient's estimated GFR [...] MD CHEMISTRY ORDERABL ES Performing Organization Address [facility] de Phone Number [facility] [place] [address] * Blood culture (12/17/2022 9:05 AM EDT) Blood Culture No growth at 5 days. [facility] Blood 12/17/2022 9:05 AM EDT 12/17/2022 9:42 AM EDT Comment:R fa Narrative Resulting Agency Comment Spec In Lab Odilon Godfrey MD MICROBIOLOGY - BLOOD ORDERABLES Performing Organization Address [facility] de Phone Number [facility] [place] [address] * Blood culture (12/17/2022 8:55 AM EDT) Blood Culture No growth at 5 days. [facility] Blood 12/17/2022 8:55 AM EDT 12/17/2022 9:42 AM EDT Comment:LH Narrative Resulting Agency Comment Spec In Lab Odilon Godfrey MD MICROBIOLOGY - BLOOD ORDERABLES Performing Organization Address [facility] de Phone Number [facility] [place] [address] * POCT Glucose (12/17/2022 8:47 AM EDT) Glucose, POC 74 65 - 199 mg/dL [facility] Comment: Supplemental ranges: <140 mg/dL before meals <180 mg/dL all other times of the day Blood 12/17/2022 8:47 AM EDT 12/17/2022 8:47 AM EDT Odilon Godfrey MD POINT OF CARE TEST O RDERABLES Performing Organization Address [facility] Co de Phone Number [facility] [place] [address] * (ABNORMAL) CK (12/17/2022 5:26 AM EDT) Creatine Kinase 566(H) 0 - 400 unit/L [facility] Blood 12/17/2022 5:26 AM EDT 12/17/2022 5:36 AM EDT Narrative Resulting Agency Comment Spec In Lab Odilon Godfrey MD CHEMISTRY ORDERABLES Performing Organization Address City/[facility]/ZIP Co de Phone Number [facility] [place] [address] * Differential, Automated (12/17/2022 2:48 AM EDT) Pathologist [facility] Neutrophil % 62.9 % [facility] Neutrophil Absolute 5.82 1.70 - 6.10 x10(3)/[facility] Lymph % 24.4 % [facility] Lymphocytes Abs 2.3 0.9 - 3.2 x10(3)/[facility] Monocyte % 8.4 % [facility] Monocyte Abs 0.8 0.3 - 0.9 x10(3)/[facility] Eos % 3.6 % [facility] Eosinophils Abs 0.3 0.0 - 0.4 x10(3)/[facility] Basophil % 0.4 % [facility] Baso Absolute 0.0 0.0 - 0.1 x10(3)/[facility]ORAT[facility] Immature Gran % 0.30 % [facility] Comment: Immature granulocytes(IG's)percentage and absolute count will include metamyelocytes, myelocytes, and promyelocytes. Blood smears from CBCs yielding IG's will be scanned manually for concordance. If this scan disagrees with the automated IG or if promyelocytes are noted, a manual differential will be performed. Immature Gran Absolute 0.03 0.00 - 0.04 x10(3)/[facility] Blood 12/17/2022 2:48 AM EDT 12/17/2022 3:27 AM EDT Narrative Resulting Agency Comment Spec In Lab Alem WATSON HEMATOLOGY ORDERABLE S [facility] [place] [address] * (ABNORMAL) Hemogram (12/17/2022 2:48 AM EDT) White Blood Cell 9.3 4.0 - 9.5 x10(3)/mc L [facility] Red Blood Cell 4.70 4.58 - 5.54 x10(6)/mc L [facility] Hemoglobin 13.6(L) 13.7 - 16.5 g/dL [facility] Hematocrit 38.5(L) 40.5 - 48.5 % [facility] Mean Cell Volume 81.9(L) 82.9 - 93.1 fL [facility] Mean Cell Hemoglobin 28.9 27.5 - 32.1 pg [facility] Mean Cell Hemoglobin Concentration 35.3 32.0 - 35.7 g/dL [facility] Platelet 273 145 - 357 x10(3)/mc L [facility] RDW Standard Deviation 34.0(L) 36.0 - 45.0 fL [facility] RDW coefficient of variation 11.5 11.4 - 13.8 % [facility] Mean Platelet Volume 9.1 7.6 - 12.9 fL [facility] NRBC% auto 0.0 % [facility] NRBC Absolute 0.000 0.000 - 0.000 x10(3)/ L [facility] Blood 12/17/2022 2:48 AM EDT 12/17/2022 3:27 AM EDT Narrative Resulting Agency Comment Spec In Lab Alem WATSON HEMATOLOGY ORDERABLE S [facility] [place] [address] * Hepatic Function Panel (12/17/2022 2:48 AM EDT) Pathologist [facility] Protein, Total 6.8 6.1 - 8.0 g/dL [facility] Albumin 4.0 3.2 - 5.2 g/dL [facility] Aspartate Aminotransferase 22 10 - 40 unit/L [facility] Alanine Aminotransferase 27 0 - 40 unit/L [facility] Alkaline Phosphatase 94 55 - 149 unit/L [facility] Bilirubin, Total 0.6 0.2 - 1.3 mg/dL [facility] Bilirubin, Direct 0.1 0.0 - 0.3 mg/dL [facility] Blood 12/17/2022 2:48 AM EDT 12/17/2022 3:27 AM EDT Narrative Resulting Agency Comment Spec In Lab Oniel Campbell MD CHEMISTRY ORDERABL ES Performing Organization Address City/[facility]/ZIP Co de Phone Number [facility] [place] [address] * Ammonia (12/17/2022 12:55 AM EDT) Ammonia 18 16 - 60 mcmol/L [facility] Blood 12/17/2022 12:5 5 AM EDT 12/17/2022 1:06 AM EDT Narrative Resulting Agency Comment Spec In Lab Jonathan Stanton APRN CHEMISTRY ORDERABLES Performing Organization Address [facility] Co de Phone Number [facility] [place] [address] * Phosphorus (12/17/2022 12:55 AM EDT) Phosphorus 4.2 2.5 - 4.5 mg/dL [facility] Blood 12/17/2022 12:5 5 AM EDT 12/17/2022 1:08 AM EDT Narrative Resulting Agency Comment Spec In Lab Oniel Campbell MD CHEMISTRY ORDERABL ES Performing Organization Address [facility] Co de Phone Number [facility] [place] [address] * Magnesium (12/17/2022 12:55 AM EDT) Magnesium 0.72 0.69 - 1.07 mmol/L [facility] Blood 12/17/2022 12:5 5 AM EDT 12/17/2022 1:08 AM EDT Narrative Resulting Agency Comment Spec In Lab Oniel Campbell MD CHEMISTRY ORDERABL ES Performing Organization Address [facility] Co de Phone Number [facility] [place] [address] * Hepatic Function Panel (12/17/2022 12:55 AM EDT) Protein, Total 6.6 6.1 - 8.0 g/dL [facility] Albumin 3.9 3.2 - 5.2 g/dL [facility] Aspartate Aminotransferase Not Perf 10 - 40 [facility] Comment: Unable to quantitate due to sample hemolysis. ??Sample redraw suggested. Called by: HITESH, Read back by: LISA ARREDONDO, Date/Time:12/17/22 01:45. Alanine Aminotransferase 27 0 - 40 unit/L [facility] Alkaline Phosphatase 94 55 - 149 unit/L [facility] Bilirubin, Total 0.5 0.2 - 1.3 mg/dL [facility] Bilirubin, Direct Not Perf 0.0 - 0.3 [facility] Comment: Unable to quantitate due to sample hemolysis. ??Sample redraw suggested. Called by: HITESH, Read back by: LISA ARREDONDO, Date/Time:12/17/22 01:45. Blood 12/17/2022 12:5 5 AM EDT 12/17/2022 1:08 AM EDT Narrative Resulting Agency Comment Spec In Lab Oniel Campbell MD CHEMISTRY ORDERABL ES Performing Organization Address [facility] [facility] [place] Co de Phone Number [facility] [place] [address] * (ABNORMAL) Basic Metabolic Panel (non-fasting) (12/17/2022 12:55 AM EDT) Glucose 74 65 - 199 mg/dL [facility] Comment:Diabetes: >=200 mg/d L plus symptoms Blood Urea Nitrogen 10 10 - 20 mg/dL [facility] Comment:result rechecked-HITESH Creatinine 0.95 0.63 - 1.09 mg/dL [facility] Sodium 141 135 - 145 mmol/L [facility] Potassium 4.0 3.5 - 5.0 mmol/L [facility] Comment: Please note: ??Patients with WBC >100,000 may have falsely elevated Potassium levels. ??For accurate Potassium quantification in these patients send serum separator tube (gold top) for subsequent determinations. ??Contact the Clinical Chemistry Laboratory if there are any questions. Chloride 102 98 - 107 mmol/L [facility] Carbon Dioxide 23 22 - 31 mmol/L [facility] Anion Gap 16(H) 5 - 15 mmol/L [facility] Calcium 9.2 8.5 - 10.5 mg/dL [facility] Est Glomerular Filtration Rate 119 >=60 mL/min/1. 73 m?? [facility] Comment: This patient's estimated GFR [...] MD CHEMISTRY ORDERABL ES Performing Organization Address [facility] [place] Co de Phone Number [facility] [place] [address] * (ABNORMAL) CK (12/17/2022 12:55 AM EDT) Creatine Kinase 720(H) 0 - 400 unit/L [facility] Blood 12/17/2022 12:5 5 AM EDT 12/17/2022 1:08 AM EDT Narrative Resulting Agency Comment Spec In Lab Odilon Godfrey MD CHEMISTRY ORDERABLES Performing Organization Address [facility] [place] Co de Phone Number [facility] [place] [address] * EKG 12 Lead (12/16/2022 7:38 PM EDT) Ventricular rate 75 BPM MUSE SYSTEM Atrial Rate 75 BPM MUSE SYSTEM P-R Interval 178 ms MUSE SYSTEM QRS Duration 94 ms MUSE SYSTEM Q-T Interval 370 ms MUSE SYSTEM QTC Calculated (Bezet) 413 ms MUSE SYSTEM Calculated P [place] 67 degrees MUSE SYSTEM Calculated R [place] 67 degrees MUSE SYSTEM Calculated T [place] 39 degrees MUSE SYSTEM INTERPRETATION Normal sinus rhythm Possible Left atrial enlargement Borderline ECG When compared with ECG of 15-DEC-2022 15:09, No significant change was found Confirmed by Jose Alfredo Santos MD ([id number]) on 12/19/2022 10:39:29 AM MUSE SYSTEM 12/16/2022 7:38 PM EDT 12/19/2022 10:39 AM EDT Jonathan Maximino COLES ECG ORDERABLES MUSE SYSTEM * (ABNORMAL) CK (12/16/2022 6:18 PM EDT) Creatine Kinase 834(H) 0 - 400 unit/L [facility] Blood 12/16/2022 6:18 PM EDT 12/16/2022 6:18 PM EDT Narrative Resulting Agency Comment Spec In Lab Odilon Godfrey MD CHEMISTRY ORDERABLES [facility] [place] [address] * EEG (12/16/2022 5:41 PM EDT) Narrative Abid Gill MD - 12/16/2022 5:41 PM EDT Abdi Gill MD ? 12/16/2022 10:43 PM [facility] Department of Neurology Inpatient Routine EEG Report [...] channel digitized electroencephalogram was performed in the [facility] Clinical Neurophysiology Laboratory. The 10/20 international system of electrode placement was used and bipolar and referential electrode montages were recorded. ??In addition to EEG the patient was monitored for EKG and lateral/vertical eye movements. Video was recorded during the session. AUTO WASH BUFFER'S REPORT: Performed by: [facility] Patient was not [...] recording. Abdi Gill [place] [address] Pager: [phone], #[phone] Email: [email or web address] CC: Dr. Godfrey Odilon Godfrey MD NEUROLOGY ORDERABLES * (ABNORMAL) Urine culture (12/16/2022 4:53 PM EDT) Urine Culture 50,000-99,000 cfu/ml Enterococcus faecalis 10,000-49,000 cfu/ml Normal mucosal julius (A) [facility] Organism Enterococcus faecalis(A) [facility] Indwelling Catheter Urine 12/16/2022 4:53 [...] - GENER AL ORDERABLES Performing Organization Address City/[facility] [place]/ZIP Co de Phone Number [facility] [place] [address] * (ABNORMAL) Urinalysis Microscopic Exam (12/16/2022 4:53 PM EDT) RBC, Urine 5(H) 0 - 3 /HPF [facility] WBC, Urine 10(H) 0 - 3 /HPF [facility] Squamous Epithelial Cells Raw Data, Urine 1 <=4 /HPF [facility] Hyaline Casts, Urine 2 0 - 2 /LPF [facility] Indwelling Catheter Urine 12/16/2022 4:53 PM EDT 12/16/2022 5:52 PM EDT Narrative Resulting Agency Comment Spec In Lab Bridgette WATSON URINE ORDERABLES Performing Organization Address City/[facility] [place]/ZIP Co de Phone Number [facility] [place] [address] * (ABNORMAL) Urinalysis with reflex Culture (12/16/2022 4:53 PM EDT) Glucose, Urine Dipstick Negative Negative mg/dL [facility] Protein, Urine Dipstick Negative Negative mg/dL [facility] Bilirubin, Urine Dipstick Negative Negative mg/dL [facility] Comment: Clinical correlation required for positive Urine Bilirubin results as false positive may occur with some drugs and drug related products. If a false positive is suspected a serum total bilirubin should be considered if clinically indicated. Urobilinogen, Urine Dipstick Normal Normal mg/dL [facility] pH, Urn (dipstick) 6.5 5.0 - 8.0 [facility] Blood, Urine Dipstick Trace(A) Negative mg/dL [facility] Ketone, Urine Dipstick 40(A) Negative mg/dL [facility] Nitrite, Urine Dipstick Negative Negative [facility] Leukocytes, Urine Dipstick Trace(A) Negative mcL [facility] Appearance, Urine Dipstick Clear Clear [facility] Specific [place] Urine Automated 1.019 1.005 - 1.030 [facility] Color, Urine Dipstick Yellow Yellow [facility] Reflex to Culture Yes [facility] Indwelling Catheter Urine 12/16/2022 4:53 PM EDT 12/16/2022 5:52 PM EDT Narrative Resulting Agency Comment Spec In Lab Odilon Godfrey MD URINE ORDERABLES Performing Organization Address [facility]/State/ZIP Co de Phone Number [facility] [place] [address] * Benzodiazepine, Urine Confirmation (12/16/2022 1:30 PM [...] ? Negative ? ng/mL ??Cutoff: 10 ??Zolpidem Irvssa-8-Ixrktndkx c acid by LC- ? Negative ? ng/mL ??Cutoff: 10 ?MS/MS ??Benzodiazepines Interpretation ? Positive. ? ---ADDITIONAL INFORMATION------- ?This report is intended for use in clinical monitoring and ?management of patients. ??It is not intended for use in ?employment-relat ed testing. ?This test was developed and its performance characteristics ?determined by [facility] in a manner consistent with CLIA ?requirements. This test has not been cleared or approved by ?the U.S. Food and Drug Administration. ?Test Performed by: ?[facility] ?[address] [place] [address] ?Mri Assistant: Kush Gaspar M.D. Ph.D.; CLIA# [id number] [facility] Urine 12/16/2022 1:30 PM EDT 12/19/2022 3:03 PM EDT Narrative Resulting Agency Comment Spec In Lab Bridgette WATSON LAB SEND OUT ORDERAB LES Performing Organization Address City/State/[facility] Co de Phone Number [facility] [place] [address] * (ABNORMAL) Rapid Drug Screen w/ Confirmation, Urine (12/16/2022 1:30 PM EDT) Barbiturates Screen, Urine None Detected None Detected [facility] Comment: The barbiturate screen detects [...] Benzodiazepines Screen, Urine Presumptive Pos(A) None Detected [facility] Comment: The benzodiazepines screen [...] Cocaine Screen, Urine None Detected None Detected [facility] Comment: The cocaine metabolites screen detects benzoylecgonine (Cocaine Metabolite) at concentrations >150 ng/mL. A ? Presumptive Positive? result indicates that the screening result was positive but has not yet been confirmed by a highly-specific method. As with any screen, occasional false positive results from cross-reacting substances may occur. Not for Medico-Legal Purposes. Methadone Metabolites Screen, Urine None Detected None Detected [facility] Comment: The methadone metabolite screen detects EDDP (major methadone metabolite) at concentrations >100 ng/mL. A ? Presumptive Positive? result indicates that the screening result was positive but has not yet been confirmed by a highly-specific method. As with any screen, occasional false positive results from cross-reacting substances may occur. Not for Medico-Legal Purposes. Opiate Screen, Urine None Detected None Detected [facility] Comment: The opiates screen [...] Cannabinoid Screen, Urine None Detected None Detected [facility] Comment: The marijuana metabolites screen detects the THC metabolite (76-ofm-8-carboxy-delta 9-THC) at concentrations >20 ng/mL. A ? Presumptive Positive? result indicates that the screening result was positive but has not yet been confirmed by a highly-specific method. As with any screen, occasional false positive results from cross-reacting substances may occur. Not for Medico-Legal Purposes. Oxycodone Screen, Urine None Detected None Detected [facility] Comment: The oxycodone screen detects oxycodone and oxymorphone at concentrations >100 ng/mL. A ? Presumptive Positive? result indicates that the screening result was positive but has not yet been confirmed by a highly-specific method. As with any screen, occasional false positive results from cross-reacting substances may occur. Not for Medico-Legal Purposes. Buprenorphine Screen, Urine None Detected None Detected [facility] Comment: The buprenorphine screen detects [...] characteristics of this test were determined by [facility] in accordance with CLIA requirements. This laboratory is qualified under CLIA to perform high-complexity testing. Fentanyl Screen, Urine None Detected None Detected [facility] Comment: The fentanyl screen detects [...] characteristics of this test were determined by [facility] in accordance with CLIA requirements. This laboratory is qualified under CLIA to perform high-complexity testing. Tricyclics Screen, Urine None Detected None Detected [facility] Comment: The tricyclics screen detects [...] characteristics of this test were determined by [facility] in accordance with CLIA requirements. This laboratory is qualified under CLIA to perform high-complexity testing. Ethanol Screen, Urine None Detected None Detected [facility] Comment:This urine ethanol a ssay detects ethanol at concentrations >/= 100 mg/L. Amphetamines Screen, Urine None Detected None Detected [facility] Comment: The amphetamine screen detects d-amphetamine and d-methamphetamine at concentrations >300 ng/mL. A ? Presumptive Positive? result indicates that the screening result was positive but has not yet been confirmed by a highly-specific method. As with any screen, occasional false positive results from cross-reacting substances may occur. Not for Medico-Legal Purposes. Creatinine Specimen Validity Test, Urine 222 >=20 mg/dL [facility] Chromate Specimen Validity Test, Urine 3.0 <=49.9 mg/L [facility] Nitrite Specimen Validity Test, Urine <50 <=499 mg/L [facility] Oxidant Specimen Validity Test, Urine >500(H) <=199 mg/L [facility] pH Specimen Validity Test, Urine 5.7 3.0 - 10.9 [facility] Adulterants Screen, Urine Suspected(A) None Detected [facility] Comment: An Adulteration screen performed on this urine sample produced a result that is suspicious for adulteration. Urine adulteration can produce false negative or false positive drug screen results. Urine 12/16/2022 1:30 PM EDT 12/16/2022 2:03 PM EDT Narrative Resulting Agency Comment Spec In Lab Bridgette WATSON CHEMISTRY ORDERABLES Performing Organization Address City/State/[facility] Co de Phone Number [facility] [place] [address] * Lamotrigine Lvl (12/16/2022 1:30 PM EDT) Lamotrigine Lvl (JULY) 15.2 3.0 - 15.0 mcg/mL [facility] Comment: ADDITIONAL INFORMATION This test was developed and its performance characteristics determined by [facility] in a manner consistent with CLIA requirements. This test has not been cleared or approved by the U.S. Food and Drug Administration. Test Performed by: [facility] [address] [place] [address] Mri Assistant: Kush Gaspar M.D. Ph.D.; CLIA# [id number] Blood 12/16/2022 1:30 PM EDT 12/16/2022 3:42 PM EDT Narrative Resulting Agency Comment Spec In Lab Odilon Godfrey MD LAB SEND OUT ORDERAB LES Performing Organization Address City/[facility] [place]/[facility] Co de Phone Number [facility] [place] [address] * Rapid Drug Screen, Urine (MAYCO Request) (12/16/2022 1:30 PM EDT) MAYCO Conf Requested Yes [facility] Comment: Collection date/time has been modified to: 13:30:00. ??Previous collection date/time: 13:29:00. Corrected from Yes [NA] on 12/16/22 14:03:28 EDT by John Au MAYCO Requested See Comment [facility] Comment: Refer to Rapid Drug Screen w/ Confirmation, Urine for results. Collection date/time has been modified to: 13:30:00. ??Previous collection date/time: 13:29:00. Corrected from See Comment [NA] on 12/16/22 14:03:28 EDT by John Au Urine 12/16/2022 1:30 PM EDT 12/16/2022 2:03 PM EDT Narrative Resulting Agency Comment Spec In Lab Odilon Godfrey MD URINE ORDERABLES Performing Organization Address [facility] [place]/[facility] Co de Phone Number [facility] [place] [address] * (ABNORMAL) CK (12/16/2022 12:15 PM EDT) Creatine Kinase 712(H) 0 - 400 unit/L [facility] Blood 12/16/2022 12:1 5 PM EDT 12/16/2022 12:50 PM EDT Narrative Resulting Agency Comment Spec In Lab Odilon Godfrey MD CHEMISTRY ORDERABLES Performing Organization Address City/[facility] [place]/ZIP Co de Phone Number [facility] [place] [address] * (ABNORMAL) CK (12/16/2022 5:12 AM EDT) Pathologist [facility] Creatine Kinase 435(H) 0 - 400 unit/L [facility] Blood 12/16/2022 5:12 AM EDT 12/16/2022 5:17 AM EDT Narrative Resulting Agency Comment Spec In Lab Odilon Godfrey MD CHEMISTRY ORDERABLES Performing Organization Address [facility] [place]/[facility] de Phone Number [facility] [place] [address] * Differential, Automated (12/16/2022 12:55 AM EDT) Pathologist [facility] Neutrophil % 67.0 % [facility] Neutrophil Absolute 5.82 1.70 - 6.10 x10(3)/[facility] Lymph % 20.3 % [facility] Lymphocytes Abs 1.8 0.9 - 3.2 x10(3)/[facility] Monocyte % 8.3 % [facility] Monocyte Abs 0.7 0.3 - 0.9 x10(3)/[facility] Eos % 3.6 % [facility] Eosinophils Abs 0.3 0.0 - 0.4 x10(3)/[facility] Basophil % 0.6 % [facility] Baso Absolute 0.0 0.0 - 0.1 x10(3)/[facility] Immature Gran % 0.20 % [facility] Comment: Immature granulocytes(IG's)percentage and absolute count will include metamyelocytes, myelocytes, and promyelocytes. Blood smears from CBCs yielding IG's will be scanned manually for concordance. If this scan disagrees with the automated IG or if promyelocytes are noted, a manual differential will be performed. Immature Gran Absolute 0.02 0.00 - 0.04 x10(3)/mcL [facility] Blood 12/16/2022 12:5 5 AM EDT 12/16/2022 1:07 AM EDT Narrative Resulting Agency Comment Spec In Lab Alem WATSON HEMATOLOGY ORDERABLE S [facility] [place] [address] * (ABNORMAL) Hemogram (12/16/2022 12:55 AM EDT) White Blood Cell 8.7 4.0 - 9.5 x10(3)/mc L [facility] Red Blood Cell 4.45(L) 4.58 - 5.54 x10(6)/mc L [facility] Hemoglobin 12.7(L) 13.7 - 16.5 g/dL [facility] Hematocrit 37.1(L) 40.5 - 48.5 % [facility] Mean Cell Volume 83.4 82.9 - 93.1 fL [facility] Mean Cell Hemoglobin 28.5 27.5 - 32.1 pg [facility] Mean Cell Hemoglobin Concentration 34.2 32.0 - 35.7 g/dL [facility] Platelet 221 145 - 357 x10(3)/mc L [facility] RDW Standard Deviation 37.5 36.0 - 45.0 fL [facility] RDW coefficient of variation 12.2 11.4 - 13.8 % [facility] Mean Platelet Volume 9.0 7.6 - 12.9 fL [facility] NRBC% auto 0.0 % [facility] NRBC Absolute 0.000 0.000 - 0.000 x10(3)/mc L [facility] Blood 12/16/2022 12:5 5 AM EDT 12/16/2022 1:07 AM EDT Narrative Resulting Agency Comment Spec In Lab Alem WATSON HEMATOLOGY ORDERABLE S [facility] [place] [address] * Phosphorus (12/16/2022 12:55 AM EDT) Phosphorus 3.4 2.5 - 4.5 mg/dL [facility] Blood 12/16/2022 12:5 5 AM EDT 12/16/2022 1:07 AM EDT Narrative Resulting Agency Comment Spec In Lab Oniel Campbell MD CHEMISTRY ORDERABL ES Performing Organization Address [facility] [place]/[facility] de Phone Number [facility] [place] [address] * Magnesium (12/16/2022 12:55 AM EDT) Pathologist [facility] Magnesium 0.81 0.69 - 1.07 mmol/L [facility] Blood 12/16/2022 12:5 5 AM EDT 12/16/2022 1:07 AM EDT Narrative Resulting Agency Comment Spec In Lab Oniel Campbell MD CHEMISTRY ORDERABL ES Performing Organization Address [facility] de Phone Number [facility] [place] [address] * (ABNORMAL) Hepatic Function Panel (12/16/2022 12:55 AM EDT) Pathologist [facility] Protein, Total 6.0(L) 6.1 - 8.0 g/dL [facility] Albumin 3.5 3.2 - 5.2 g/dL [facility] Aspartate Aminotransferase 21 10 - 40 unit/L [facility] Alanine Aminotransferase 28 0 - 40 unit/L [facility] Alkaline Phosphatase 81 55 - 149 unit/L [facility] Bilirubin, Total 0.4 0.2 - 1.3 mg/dL [facility] Bilirubin, Direct 0.1 0.0 - 0.3 mg/dL [facility] Blood 12/16/2022 12:5 5 AM EDT 12/16/2022 1:07 AM EDT Narrative Resulting Agency Comment Spec In Lab Oniel Campbell MD CHEMISTRY ORDERABL ES Performing Organization Address [facility] [place]/[facility] Co de Phone Number [facility] [place] [address] * (ABNORMAL) Basic Metabolic Panel (non-fasting) (12/16/2022 12:55 AM EDT) Glucose 98 65 - 199 mg/dL [facility] Comment:Diabetes: >=200 mg/d L plus symptoms Blood Urea Nitrogen 6(L) 10 - 20 mg/dL [facility] Comment:result [facility]hecked[facility] Creatinine 0.98 0.63 - 1.09 mg/dL [facility] Sodium 143 135 - 145 mmol/L [facility] Potassium 3.7 3.5 - 5.0 mmol/L [facility] Comment: Please note: ??Patients with WBC >100,000 may have falsely elevated Potassium levels. ??For accurate Potassium quantification in these patients send serum separator tube (gold top) for subsequent determinations. ??Contact the Clinical Chemistry Laboratory if there are any questions. Chloride 109(H) 98 - 107 mmol/L [facility] Carbon Dioxide 23 22 - 31 mmol/L [facility] Anion Gap 11 5 - 15 mmol/L [facility] Calcium 9.2 8.5 - 10.5 mg/dL [facility] Est Glomerular Filtration Rate 115 >=60 mL/min/1. 73 m?? [facility] Comment: This patient's estimated GFR [...] Lab Oniel Campbell MD CHEMISTRY ORDERABL ES [facility] [place] [address] * (ABNORMAL) CK (12/16/2022 12:55 AM EDT) Creatine Kinase 556(H) 0 - 400 unit/L [facility] Blood 12/16/2022 12:5 5 AM EDT 12/16/2022 1:07 AM EDT Narrative Resulting Agency Comment Spec In Lab Odilon Godfrey MD CHEMISTRY ORDERABLES Performing Organization Address [facility] [facility] Co de Phone Number [facility] [place] [address] * EKG 12 Lead (12/15/2022 3:09 PM EDT) Ventricular rate 79 BPM MUSE SYSTEM Atrial Rate 79 BPM MUSE SYSTEM P-R Interval 164 ms MUSE SYSTEM QRS Duration 90 ms MUSE SYSTEM Q-T Interval 360 ms MUSE SYSTEM QTC Calculated (Bezet) 412 ms MUSE SYSTEM Calculated P [place] 74 degrees MUSE SYSTEM Calculated R [place] 85 degrees MUSE SYSTEM Calculated T [place] 42 degrees MUSE SYSTEM INTERPRETATION Normal sinus rhythm Normal ECG No previous ECGs available Confirmed by MD Mellisa, Berry (63) on 12/16/2022 8:33:38 AM MUSE SYSTEM 12/15/2022 3:09 PM EDT 12/16/2022 8:33 AM EDT Oniel Campbell MD ECG ORDERABLES Performing Organization Address [facility] Co de Phone Number MUSE SYSTEM * (ABNORMAL) BLOOD GAS 2 VENOUS (12/15/2022 3:03 PM EDT) pH, Venous 7.37 7.32 - 7.42 [facility] PCO2, Venous 41 41 - 51 mmHg [facility] PO2, Venous 33 25 - 40 mmHg [facility] Bicarbonate, Venous 23.3 mmol/L [facility] Base Excess, Venous -2.0 mmol/L [facility] Hgb Blood Gas 14.2 13.7 - 16.5 g/dL [facility] Oxyhemoglobin, Venous 70.4 % [facility] Carboxyhemoglob in, Venous 0.3 % [facility] Comment: Nonsmokers: 0.5-1.5% COHB Smokers: Variable, but usually less than 10% Toxic: 20-30% COHB Lethal: Greater than 60% COHB Methemoglobin, Venous 0.3 <=1.5 % [facility] Na Whole Blood 142 135 - 145 mmol/L [facility] K Whole Blood 3.8 3.5 - 5.0 mmol/L [facility] Comment: Please note: Patients with WBC >100,000 may have falsely elevated Potassium levels. Contact the Clinical Chemistry Laboratory if there are any questions. ICa Whole Blood 1.20 1.15 - 1.33 mmol/L [facility] Comment: Note: ??Total bilirubin higher than 20 mg/dL may lead to falsely low ionized calcium. CL Whole Blood 109(H) 98 - 107 mmol/L [facility] Gluc Whole Bld 93 65 - 199 mg/dL [facility] Comment:Diabetes: >=200 mg/d L plus symptoms Lactate WB 1.2 0.5 - 2.2 mmol/L [facility] Fraction of Inspired Oxygen, Venous 21 % [facility] Blood Gas Source Venous [facility] Blood 12/15/2022 3:03 PM EDT 12/15/2022 3:03 PM EDT Odilon Godfrey MD POINT OF CARE TEST O RDERABLES [facility] [place] [address] * XR Chest One View (12/15/2022 2:50 [...] who have questions please contact the health skin care therapist that requested your imaging first. ? Narrative [...] patients who have questions please contactthe health skin care therapist that requested your imaging first. Oniel Campbell MD IMG DX ORDERABLES * Gold Tube HOLD (12/15/2022 2:40 PM EDT) [facility] Gold Hold Sample in lab. [facility] Blood Venous Draw / Unknown 12/15/2022 2:40 PM EDT 12/15/2022 3:02 PM EDT Alem WATSON CHEMISTRY ORDERABLES [facility] [place] [address] * (ABNORMAL) Differential, Automated (12/15/2022 2:40 PM EDT) Neutrophil % 81.4 % [facility] Neutrophil Absolute 11.47(H) 1.70 - 6.10 x10(3)/mc L [facility] Lymph % 8.9 % [facility] Lymphocytes Abs 1.3 0.9 - 3.2 x10(3)/mc L [facility] Monocyte % 7.7 % [facility] Monocyte Abs 1.1(H) 0.3 - 0.9 x10(3)/mc L [facility] Eos % 1.3 % [facility] Eosinophils Abs 0.2 0.0 - 0.4 x10(3)/mc L [facility] Basophil % 0.3 % [facility] Baso Absolute 0.0 0.0 - 0.1 x10(3)/mc L [facility] Immature Gran % 0.40 % [facility] Comment: Immature granulocytes(IG's)percentage and absolute count will include metamyelocytes, myelocytes, and promyelocytes. Blood smears from CBCs yielding IG's will be scanned manually for concordance. If this scan disagrees with the automated IG or if promyelocytes are noted, a manual differential will be performed. Immature Gran Absolute 0.05(H) 0.00 - 0.04 x10(3)/mc L [facility] Blood 12/15/2022 2:40 PM EDT 12/15/2022 3:01 PM EDT Narrative Resulting Agency Comment Spec In Lab Alem WATSON HEMATOLOGY ORDERABLE S Performing Organization Address City/[facility]/ZIP Co de Phone Number [facility] [place] [address] * (ABNORMAL) Hemogram (12/15/2022 2:40 PM EDT) White Blood Cell 14.1(H) 4.0 - 9.5 x10(3)/mc L [facility] Red Blood Cell 4.94 4.58 - 5.54 x10(6)/mc L [facility] Hemoglobin 14.3 13.7 - 16.5 g/dL [facility] Hematocrit 42.7 40.5 - 48.5 % [facility] Mean Cell Volume 86.4 82.9 - 93.1 fL [facility] Mean Cell Hemoglobin 28.9 27.5 - 32.1 pg [facility] Mean Cell Hemoglobin Concentration 33.5 32.0 - 35.7 g/dL [facility] Platelet 250 145 - 357 x10(3)/mc L [facility] RDW Standard Deviation 38.6 36.0 - 45.0 fL [facility] RDW coefficient of variation 12.2 11.4 - 13.8 % [facility] Mean Platelet Volume 8.9 7.6 - 12.9 fL [facility] NRBC% auto 0.0 % [facility] NRBC Absolute 0.000 0.000 - 0.000 x10(3)/mc L [facility] Blood 12/15/2022 2:40 PM EDT 12/15/2022 3:01 PM EDT Narrative Resulting Agency Comment Spec In Lab Alem WATSON HEMATOLOGY ORDERABLE S [facility] [place] [address] * APTT (12/15/2022 2:40 PM EDT) Partial Thromboplastin Time 27 25 - 37 sec [facility] Comment: The PTT is NOT appropriate for heparin monitoring. Use the Anti-Xa level for heparin monitoring (HEP UFH) or LMWH monitoring (HEP LMW). A PTT less than 37 seconds generally indicates adequate hemostasis. Blood 12/15/2022 2:40 PM EDT 12/15/2022 3:01 PM EDT Narrative Resulting Agency Comment Spec In Lab Oniel Campbell MD HEMATOLOGY ORDERAB LES Performing Organization Address City/[facility] Co de Phone Number [facility] [place] [address] * (ABNORMAL) Prothrombin Time (12/15/2022 2:40 PM EDT) Prothrombin Time 12.6(H) 9.4 - 12.5 sec [facility] International Normalization Ratio 1.1 [facility] Comment: An INR <2.0 indicates [...] MD HEMATOLOGY ORDERAB LES Performing Organization Address [facility] Co de Phone Number [facility] [place] [address] * Triglyceride (12/15/2022 2:40 PM EDT) Triglyceride 117 mg/dL [facility] Comment: Average Risk/Lower Risk: <150 mg/dL Borderline High Risk: 150-199 mg/dL High Risk: 200-499 mg/dL Very High Risk: >dx=205 mg/dL Blood 12/15/2022 2:40 PM EDT 12/15/2022 3:01 PM EDT Narrative Resulting Agency Comment Spec In Lab Oniel Campbell MD CHEMISTRY ORDERABL ES Performing Organization Address [facility] Co de Phone Number [facility] [place] [address] * (ABNORMAL) Phosphorus (12/15/2022 2:40 PM EDT) Phosphorus 2.4(L) 2.5 - 4.5 mg/dL [facility] Blood 12/15/2022 2:40 PM EDT 12/15/2022 3:01 PM EDT Narrative Resulting Agency Comment Spec In Lab Oniel Campbell MD CHEMISTRY ORDERABL ES Performing Organization Address [facility] Co de Phone Number [facility] [place] [address] * Magnesium (12/15/2022 2:40 PM EDT) Magnesium 0.77 0.69 - 1.07 mmol/L [facility] Blood 12/15/2022 2:40 PM EDT 12/15/2022 3:01 PM EDT Narrative Resulting Agency Comment Spec In Lab Oniel Campbell MD CHEMISTRY ORDERABL ES Performing Organization Address [place] [facility] Phone Number [facility] [place] [address] * Hepatic Function Panel (12/15/2022 2:40 PM EDT) Protein, Total 6.4 6.1 - 8.0 g/dL [facility] Albumin 4.1 3.2 - 5.2 g/dL [facility] Aspartate Aminotransferase Not Perf 10 - 40 [facility] Comment: Unable to quantitate due to sample hemolysis. ??Sample redraw suggested. Called by: MELISSA, Read back by: MARYAM CARVER, Date/Time:12/15/22 17:21. Alanine Aminotransferase 35 0 - 40 unit/L [facility] Alkaline Phosphatase 93 55 - 149 unit/L [facility] Bilirubin, Total 0.4 0.2 - 1.3 mg/dL [facility] Bilirubin, Direct 0.1 0.0 - 0.3 mg/dL [facility] Blood 12/15/2022 2:40 PM EDT 12/15/2022 3:01 PM EDT Narrative Resulting Agency Comment Spec In Lab Oniel Campbell MD CHEMISTRY ORDERABL ES Performing Organization Address [facility] Co de Phone Number [facility] [place] [address] * (ABNORMAL) Basic Metabolic Panel (non-fasting) (12/15/2022 2:40 PM EDT) Glucose 98 65 - 199 mg/dL [facility] Comment:Diabetes: >=200 mg/d L plus symptoms Blood Urea Nitrogen 3(L) 10 - 20 mg/dL [facility] Creatinine 1.01 0.63 - 1.09 mg/dL [facility] Sodium 145 135 - 145 mmol/L [facility] Potassium 4.1 3.5 - 5.0 mmol/L [facility] Comment: Please note: ??Patients with WBC >100,000 may have falsely elevated Potassium levels. ??For accurate Potassium quantification in these patients send serum separator tube (gold top) for subsequent determinations. ??Contact the Clinical Chemistry Laboratory if there are any questions. Chloride 109(H) 98 - 107 mmol/L [facility] Carbon Dioxide 23 22 - 31 mmol/L [facility] Anion Gap 13 5 - 15 mmol/L [facility] Calcium 9.3 8.5 - 10.5 mg/dL [facility] Est Glomerular Filtration Rate 111 >=60 mL/min/1. 73 m?? [facility] Comment: This patient's estimated GFR [...] Lab Oniel Campbell MD CHEMISTRY ORDERABL ES [facility] [place] [address] * (ABNORMAL) CK (12/15/2022 2:40 PM EDT) Creatine Kinase 989(H) 0 - 400 unit/L [facility] Blood 12/15/2022 2:40 PM EDT 12/15/2022 3:01 PM EDT Narrative Resulting Agency Comment Spec In Lab Oniel Campbell MD CHEMISTRY ORDERABL ES Performing Organization Address [facility] Co de Phone Number [facility] [place] [address] * POCT Glucose (12/15/2022 2:35 PM EDT) Glucose, POC 94 65 - 199 mg/dL [facility] Comment: Supplemental ranges: <140 mg/dL before meals <180 mg/dL all other times of the day Blood 12/15/2022 2:35 PM EDT 12/15/2022 2:35 PM EDT Odilon Godfrey MD POINT OF CARE TEST O RDERABLES Performing Organization Address [facility] Co de Phone Number [facility] [place] [address] documented in this encounter Visit Diagnoses Diagnosis [...] Starting on [place]isha 12/15/22 at 0030, Until [place] 12/18/22 at 1611, Titrate to sedation level [...] at 50% of previous rate. Call warehouse coordinator if goal not achieved at maximum rate. [...] Starting on Trisha 12/15/22 at 1428, Until 12/16/22 at 1910, SAT resedation, Administer bolus dose [...] at 50% of previous rate. Call warehouse coordinator if goal not achieved at maximum rate. [...] Reason: Patient/family refused)1244 (Given - Provider: Kathrin Ramirez RN)1800 (Hold - Provider: Kathrin Ramirez RN - [...] at 50% of previous rate. Call warehouse coordinator if goal not achieved at maximum rate. [...] Ramirez RN)0823 (New Bag - Provider: Kathrin Ramirez RN)0838 (Rate/Dose Change - Provider: Kathrin Ramirez RN)1250 [...] Routine documented in this encounter Care Teams Wholesale Account Executive Relationship Specialty Start Date End Date Robbie Rudolph DO [address] [place] [id number] PCP - General Family Medicine 10/31/19 documented as of this encounter
--- OUTSIDE RECORDS SUMMARY | 2024-04-12 01:08 | XMS_ITS | Encounter Summary ---
Author Organization [facility] Address [facility] [place] [address] Care Team Providers Care Cream Gatherer Name Role Phone Klaudia Robbie Saldivar Primary Care Provider [phone] Reason for Visit * Auth/Cert (Routine) Specialty Diagnoses / Procedures Referred By Magen t Referred To Contact Diagnoses Poisoning by unspecified drugs, medicaments and biological substances, accidental (unintentional), initial encounter Procedures [facility] Referral ID Status Reason Start Date Expiration Date Visits Re quested Visits Authorized [id number] 1 1 Encounter Details Date Type Department Care Team (Latest Contact Info) Description 12/15/2022 12:13 PM EDT - 12/15/2022 2:15 PM EDT Hospital Encounter [facility] at [address] [phone] Kevin Blakely MD [facility] [place] [address] Discharge Disposition: Home Social History Tobacco Use [...] on filedocumented in this encounter Care Teams Cream Gatherer Relationship Specialty Start Date End Date Robbie Rudolph DO [address] [place] [address] PCP - General Family Medicine 10/31/19 documented as of this encounter
--- OUTSIDE RECORDS SUMMARY | 2024-04-12 01:08 | XMS_ITS | Clinical Summary ---
Author Organization [facility] [place] [address] Care Team Providers Care Welt Edge Rounder Name Role Phone Robbie Rudolph DO Primary [...] 12/19/2022 2:5 3 PM EDT Growth Chart: [facility] (Boys, 2-2 0 Years) Plan of Treatment Health Maintenance Due Date Last Done Comments HPV vaccine (1 - Male 3-dose series) 08/17/2019 HIV screen 2022 Hepatitis C Screening 2022 Hepatitis B vaccine (0-59 yrs) (1) 08/17/2023 Tetanus/Diphtheria/Pertussis Vaccines (1 - Tdap) 08/16 Covid-19 Vaccine (1 - season) 2023 Influenza (Flu) vaccine (1 o [...] Two - Attending De cision Care Teams Welt Edge Rounder Relationship Specialty Start Date End Date Robbie Rudolph DO [address] [place] [address] PCP - General Family Medicine 10/31/19
--- OUTSIDE RECORDS SUMMARY | 2024-04-12 01:09 | XMS_ITS | Encounter Summary ---
[place] [address] Care Team Providers Care Data Software Engineer Name Role Phone KlaudiaRobbie Primary Care Provider [phone] Reason for Referral * Consultation (Routine) - Closed Specialty Diagnoses / Procedures Referred By Magen barney Referred To Contact Psychiatry Diagnoses Anxiety disorder, unspecified type Do Rodriguez MD [address] [place] [address] Nitin Meyers PsyD [facility] [place] [address] Referral ID Status Reason Start Date Expiration Date V isits Requested Visits Authorized [id number] Closed Consult, Test & Treat 09/23/2022 09/23/2023 1 1 Encounter Details Date Type Department Care Team (Latest Contact Info) Description 09/23/2022 Transcribe Orders eDH Incoming Referrals [phone] Do Rodriguez MD [address] [place], [place] [id number] Anxiety disorder, unspecified type Social History Tobacco [...] type documented in this encounter Care Teams Data Software Engineer Relationship Specialty Start Date End Date Robbie Rudolph DO [address] [place] [address] PCP - General Family Medicine 10/31/19 documented as of this encounter
--- OUTSIDE RECORDS SUMMARY | 2024-04-12 01:09 | XMS_ITS | Encounter Summary ---
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 per pt request for hand discomfort (since 07/20 event hitting fists on wall). Pt more engaged at this time. 1503: PRN atarax given per pt request for anxiety. * Ghulam Nevarez MD - 07/24/2023 0814 EDT [facility] Inpatient Daily Psychiatric Assessment DOS: 07/24/2023 [...] receptive to support from his outpatient case fitter. 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 Per outpatient FABIAN Balderas: senior living vs crisis bed then senior living vs shared living facility, patient said no to crisis bed 07/23. WAYNE 1-2 weeks pending psychiatric stabilization. CONSULTS: None GHULAM NEVAREZ MD Psychiatry PGY-1 07/24/2023 8:14 Cosigned by Mariluz Brown MD at 09/14/2023 15:39 EDT Associated attestation - Mariluz Brown MD - 09/14/2023 1539 EDT Attending Attestation: I saw and examined [...] was able to shower and appreciate RN special education educational assistant in direction/laundry. MEDICATIONS: Current Facility-Administered Medications Medication Dose Route Frequency Provider Last Rate Last Admin acetaminophen (TYLENOL) tablet 500 mg 500 mg oral Q4H PRN Gennaro Bond MD 500 mg at 07/22/237 hydrOXYzine (ATARAX) tablet 25 mg 25 mg [...] PRN Ghulam Nevarez MD 3 mg at 07/22/232044 OLANZapine (ZYPREXA) [...] hospitalization and meeting with is outpatient case fitter Sherrie show history of BPD, not bipolar disorder, and this remains the current diagnosis. Keshav did after a few days become more calm, cooperative, engaged in daily interviews, receptive to medication recommendations, and receptive to support from his outpatient case fitter. He continues to avoid a more detailed [...] and team. Rashel Ayala DO Attending Psychiatrist Core Sticker * Rashel Ayala DO - 07/22/2023 1312 [...] closed initally, but opened up talking about [employer] videos and [facility]. Somewhat ambiguous around safety in [...] mg at 07/22/23 0924 influenza vaccine quad 2022- (PF) (6 mos+) [...] Ghulam Nevarez MD 5 mg at 07/22/23 1219 EXAM: Vitals: BP 117/66 (BP Cuff Location: [...] hospitalization and meeting with is outpatient case fitter Sherrie show history of BPD, not bipolar disorder, and this remains the current diagnosis. Keshav did after a few days become more calm, cooperative, engaged in daily interviews, receptive to medication recommendations, and receptive to support from his outpatient case fitter. He continues to avoid a more detailed [...] and team. Rashel Ayala DO Attending Psychiatrist Core Sticker * Ghulam Nevarez MD - 07/21/2023 1447 EDT [facility] Inpatient Daily Psychiatric Assessment DOS: 07/21/2023 [...] hospitalization and meeting with is outpatient case fitter Sherrie show history of BPD, not bipolar disorder, and this remains the current diagnosis. Keshav did after a few days become more calm, cooperative, engaged in daily interviews, receptive to medication recommendations, and receptive to support from his outpatient case fitter. 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 Per outpatient CM Sherrie: senior living vs crisis bed then senior living vs shared living facility, patient unsure 07/19. WAYNE 1-3 weeks pending psychiatric stabilization. CONSULTS: None GHULAM NEVAREZ MD Psychiatry PGY-1 07/21/2023 14:48 Cosigned by Melissa Conley MD at 07/23/2023 20:16 EDT Associated attestation - Melissa Conley MD - [...] Psychiatrist * Umair Mims RN - 07/21/2023 7162 EDT Data: Patient remain safe and free [...] discharge on 07/27/2023 though subject to change. [facility] Medicaid Status: N/A Barriers to d/c: Stability, safety, medication management, discharge planning. Support Network: partner, outpatient supports Next Steps: Assess for needs, gather collateral information, provide support, offer family/support person meeting if desired, community referral, discharge planning. This writer technical publications is covering for Sloane Garcia. SW attempted to call patient's CM Sherrie at 10:30 am as scheduled but was unable to reach her. SW leftvm requesting a call back. PATSY will continue to work with patient through his hospitalization and help plan for a safe discharge. RAJESH Dyson, [facility] Thai [employer] II Phone:[phone]/Pager:[phone] Epic Chat preferred * Phoebe Albright - 07/20/2023 1427 EDT Case Management Progress Note Level of Care: Acute Discharge plan/estimated date: Pending clinical course. Estimated discharge on 07/27/2023 though subject to change. [facility] Medicaid Status: N/A Barriers to d/c: Stability, safety, medication management, discharge planning. Support Network: partner, outpatient supports Next Steps: Assess for needs, gather collateral information, provide support, offer family/support person meeting if desired, community referral, discharge planning. This writer technical publications is covering for Sloane Garcia. SW met with patient independent of treatment team this afternoon to check in. Patient reported thathe doing okay today. SW discussed potential discharge plan and patient reported that he has a hotel room until August that he is not allowed to go back to due to behavioral events. Patient advised SWto reach out to his case fitter Sherrie, to talk about options for housing as well as discharge plan. SW followed up with Sherrie who scheduled a phone call with SW for 10:30 tomorrow 07/20. PATSY will continue to work with patient through his hospitalization and help plan for a safe discharge. RAJESH Dyson, [facility] [employer] Phone:[phone]/Pager:[phone] Epic Chat preferred * Alexis Guillaume - 07/20/2023 1105 EDT [facility] Spiritual Care Note Re: Keshav Harris Kaylyn : 2005, AGE: 17 y.o. ROOM: [place] [address] BACKGROUND Router Setter with priors. Today, wagon winder contacted pt in their room. Pt on phone and requested wagon winder visit later. Not long after, wagon winder observed pt in hallway. Pt consented to visiting in their hospital room. ASSESSMENT Beliefs & Values Pt began this encounter with the following quote: Yesterday is my past, tomorrow is my future, andtoday is my present. Pt appeared more calm and present and less emotionally distraught compared tothis wagon winder's last visit. Pt confirmed they feel more [...] both scary and liberating for them. INTERVENTIONS Router Setter engaged pt in active listening, emotional processing, and supportive presence. Router Setter invited pt to look at their life from the vantage point of self-compassion. CARE PLAN Router Setter provided pt with follow up options. Pt elected to reach out to this wagon winder via RN shouldthey desire additional supports. Router Setter remains available. RECOMMENDATIONS Nothing at this time. TIME STAMP: 25 minutes Alexis Guillaume [facility] Router Setter [place] [address] Thank you for the opportunity to provide for this patient's/family's spiritual needs. * Ghulam Nevarez MD - 07/20/2023 1008 EDT [facility] Inpatient Daily Psychiatric Assessment DOS: 07/20/2023 OBS: Observation / visual check: Q 15 minutes (frequent) Admitted: 07/14/23 ROBBY: Current locus of harm: 3 Legal: Legal status: Involuntary CC: Suicide Attempt UPDATE Sleep: 6.75/8.25 Groups: attending none Events: none Accepting meds: yes Vitals: WNL Emergency meds: none Labs/studies: none PRN meds: olanzapine 5 mg x3, hydroxyzine, melatonin Keo was seen in the meeting room today [...] hospitalization and meeting with is outpatient case fitter Sherire show history of BPD, not bipolar disorder, and this remains the current diagnostic hypothesis. Keshav has after a few days become more calm, cooperative, engaged in daily interviews, receptive to medication recommendations, and consistently receptive to support from his outpatient case fitter. 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 Per outpatient CM Sherrie: senior living vs crisis bed then senior living vs shared living facility, patient unsure 07/19. WAYNE 1-3 weeks pending psychiatric stabilization. CONSULTS: None GHULAM NEVAREZ MD Psychiatry PGY-1 07/20/2023 10:08 Cosigned by Melissa Conley MD at 07/20/2023 12:55 EDT Associated attestation - Melissa Conley MD - [...] Attending Psychiatrist * Phoebe Albright - 07/19/2023 1442 EDT Case Management Progress Note Level of Care: Acute Discharge plan/estimated date: Pending clinical course. Estimated discharge on 07/27/2023 though subject to change. [facility] Medicaid Status: N/A Barriers to d/c: Stability, safety, medication management, discharge planning. Support Network: partner, outpatient supports Next Steps: Assess for needs, gather collateral information, provide support, offer family/support person meeting if desired, community referral, discharge planning. This writer technical publications is covering for Sloaen Garcia. SW met with patient in tandem [...] plan for a safe discharge. RAJESH Dyson, [facility] [employer] Epic Chat preferred * Ghulam Nevarez MD - 07/19/2023 1108 EDT [facility] Inpatient Daily Psychiatric Assessment DOS: 07/19/2023 OBS: Observation / visual check: Q 15 minutes (frequent) Admitted: 07/14/23 ROBBY: Current locus of harm: 3 Legal: Legal status: Involuntary CC: Suicide Attempt UPDATE Sleep: 5/5 Groups: attending none Events: none Accepting meds: [...] hospitalization and meeting with is outpatient case fitter Sherrie show history of BPD, not bipolar [...] STATUS: Full Code DISPOSITION: Unhoused. Lived in [facility]. Outpatient CM filling housing application. WAYNE 1-3 weekspending improvement. CONSULTS: None GHULAM NEVAREZ MD Psychiatry PGY-1 07/19/2023 11:09 Cosigned by Melissa Conley MD at 07/19/2023 15:10 EDT Associated attestation - Melissa Conley MD - [...] Psychiatrist * Ghulam Nevarez MD - 07/18/2023 1635 EDT [facility] Inpatient Daily Psychiatric Assessment DOS: 07/18/2023 [...] was held today with Keshav, his case fitter Chica, and the psychiatry team. Sherrie mentioned that Keshav had been living in a hotel and that they were working on an application for more permanent housing. 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 Sherrie encouraged Keshav to [...] hospitalization and meeting with is outpatient case fitter Sherrie show history of BPD, not bipolar [...] CONSULTS: None GHULAM NEVAREZ MD Psychiatry PGY-1 07/18/2023 16:36 Cosigned by Melissa Conley MD at 07/19/2023 12:15 EDT Associated attestation - Melissa Conley MD - [...] get adequate sleep this shift. Assumed care [phone] Data: Patient T.S. is involuntary status, ROBBY [...] Alexis Guillaume - 07/17/2023 1305 EDT [facility] Spiritual Care Note Re: Keshav Patiño : 2005, AGE: 17 y.o. ROOM: [place] [address] BACKGROUND Router Setter with prior visits. Weekend wagon winder with prior. Today, pt involved in two code 8 calls. Per pt request, this wagon winder contacted pt in hospital room for visit. [...] themselves and how they react to things. Router Setter encouraged pt to reflect on this awareness [...] which may trigger this for them. INTERVENTIONS Router Setter engaged pt in active listening, emotional processing, and supportive presence. Pt concernsand update given to Provider. Therapist request passed along to Care Management. CARE PLAN Router Setter will follow up, as able, per pt request. RECOMMENDATIONS This wagon winder recommends treatment team maintain awareness around pt's felt experience of loss of control. TIME STAMP: 35 minutes Alexis Guillaume [facility] Router Settereileen Ramachandran 131 Thank you for the opportunity to provide for this patient's/family's spiritual needs. * Melissa Conley MD - 07/17/2023 1103 EDT [facility] Inpatient Daily Psychiatric Assessment DOS: 07/17/2023 [...] on medication and to invite his case fitter Clarissa, a trusted provider, to join a [...] 3 mg hs PRN -Meeting with case fitter Sherrie 07/18/23 -Will obtain records from recent [...] note. Melissa Conley MD Attending Psychiatrist * Pipe Singh MD - 07/16/2023 0057 EDT Inpatient Psychiatry Daily Progress Note Date of Service: 07/16/2023 Admit Date: 07/14/23 Hospital day: LOS: 2 days Legal Status: Legal status: Involuntary Observation Level: Observation / visual check: Q 15 minutes (frequent) Locus/Risk of Harm: Current locus of harm: 4 Reason for Admission/Chief Complaint: SI Clinical Update/24-hour Events: Patient chart reviewed including active medications, recent laboratory results and vital signs. Interval history discussed with RN. Treatment and plan discussed with patient and treatment team. No Groups. Ate meals. Medication adherent. Showered. Engaging in milieu. Slept 3.00hrs overnight and 3.25hrs total. States that he is feeling tired secondary to not sleeping well. He also feels anxious. Inquires about various options. Will consider attending groups. Denies AH, VH, SI or HI. Current Facility-Administered Medications Medication Route Frequency acetaminophen (TYLENOL) tablet 500 mg oral Q4H PRN hydrOXYzine (ATARAX) tablet 25 mg oral Q4H PRN influenza vaccine quad (PF) (6 mos+) IM injection-syringe 0.5 mL intramuscular Once (Without Time Specified) melatonin tablet 3 mg oral AT BEDTIME PRN Review of Systems: Tired; Eating well Mental Status Exam: man, who is well nourished and appears his stated age. He meets in his room. He is cooperative and makes good eye contact. No psychomotor agitation or retardation observed. Speech is fluentand spontaneous with a normal rate, tone, and volume. Describes mood as anxious and affect is broad, anxious and congruent with mood. Thought process is linear and goal-directed with tight associations. Thought content is reality based and is focused on the interview. Denies auditory or visual hallucinations. Denies suicidal or homicidal ideation. Impulse control intact. He is alert and oriented to person, place, time and situation. Short-term recall, remote memory and capacity for abstraction intact. Fund of knowledge appropriate to level of education. Language appropriate to level of education. Insight is limited to fair and judgment is impaired to fair. Physical Exam: BP 119/64 (BP Cuff Location: Right arm, BP Patient Position: Sitting) Pulse 87 Temp 36.8 ??C (98.2 ??F) (Temporal) Resp 18 Ht 175.3 cm (69.02) Wt 91.6 kg (202 lb) SpO2 100% BMI 29.82 kg/m?? Data Review: Labs: No results found for this or any previous visit (from the past 24 hour(s)). Other studies: N/A Assessment/Formulation: Mr. Keshav Patiño is a 17 y.o. male with psychiatric history of bipolar disorder, 5 psychiatric hospitalizations, unknown number of suicide attempts, and no known medical history, who was admitted tot MICU on 07/10/23 following OD of psychiatric medications (including aripiprazole, guanfacine, and lamotrigine). No acute events over the weekend. Engaging in treatment. States that mood is better. Affect is stable. No AH, VH or odd behaviors. Good impulse control. Denies SI. Insight is limited to fair and judgment is impaired to fair. Keshav Patiño meets criteria for acute level of care. Diagnostic Impression w/ Differential Diagnosis Psychiatric Diagnoses: Unspecified Depression vs. Bipolar Disorder Other Medical Conditions: s/p polymedication (including aripiprazole, guanfacine, and lamotrigine) overdose requiring MICU admission Plan: Per primary team Discharge Plan: Discharge planning per multidisciplinary team rounds. Attending Attestation: I saw and examined the patient on 07/16/23. Treatment plan reviewed with the patient and team. Pipe Singh MD Psychiatry Attending * Yusra Bowers - 07/15/2023 0144 EDT [facility] Spiritual Care Note Re: Keshav Patiño : 2005, AGE: 17 y.o. ROOM: [place] [address] Spirituality: None BACKGROUND Responded to nursing request for support of patient who expressed openness to speaking again to spiritual care. Per nursing Keshav was expressing a desire to be freed from constant observation and relaying acceptance of a safety plan. Constant was present when this writer technical publications visited pt but permitted privacy of a closed door at Keshav's request. Of note, constant was removed on trial by end of wagon winder'svisit. ASSESSMENT Beliefs & Values Keshav stated that [...] can talk to whom he met at [facility] but feels otherwise very isolated and [...] that he doesn't deserve love and care. Router Setter explored and encouraged reflection on this with [...] by the removal the constant, appeared overall hand box folder in spirit as observed by both this wagon winder and his RN. CARE PLAN RECOMMENDATIONS Pt is open to and would benefit from continued support from unit wagon winder. TIME STAMP: 55 minutes YUSRA BOWERS, [facility] Router Setter [place] 131 Thank you for the opportunity to provide for this patient's/family's spiritual needs. * Gennaro Bond MD - 07/14/20237 EDT Keshav was in his room and [...] and denied having any questions. * Yusra Mason RN - 07/14/2023 1756 EDT Pt. Gave plastic knife to constant observer at dinnertime. He said would use it, you have no idea how creative I am. This writer technical publications thanked him for being honest about it. Notified MD and obtained order to keep plastic knives from pt. * Janet Levine RN - 07/14/2023 1717 EDT Pt had no pockets, or shoes. Search completed by Yusra Dos Santos RN * Yusra Mason RN - 07/14/2023 1601 EDT Admission Note: 17 yo male brought to [facility] with escorts. He was apprehensive about admission but was calm and compliant. Depressed mood, sad affect. Directly said to writer technical publications I will do it again when I [...] to use soap. He called his case fitter Sherrie, whom he stated is the only one who he will talk to while here. Hecurrently is on constant, denies AVH. Settling in room. Giving patient 1:1 encouragement and support. documented in this encounter H&P Notes * Pipe Singh MD - 07/14/2023 1436 EDT [facility] Inpatient Admission Psychiatric Evaluation Admission Date: 07/14/23 Referral Source: ED Admission Reason: SI PCP: UNKNOWN,PROVIDER HPI Keshav Patiño is a 17 y.o. male with psychiatric history of bipolar disorder, 5 psychiatric hospitalizations, unknown number of suicide attempts, and no known medical history, who was admitted to theMICU on 07/10/23 following OD of psychiatric medication. Psychiatry was initially consulted for suicidal ideation and agitation management before involuntary transfer to inpatient psychiatry. Prior to overdose, Keshav sent a photograph of a firearm to his case fitter, prompting a call by herto 911. He then overdosed on an uncertain quantity of medication, suspected to be a combination of aripiprazole, guanfacine, and lamotrigine. He was initially brought to [facility], then transferred to [facility] MICU, where he was found to [...] meeting individually with his nurse, psychiatrist, and high school social studies teacher at different times throughout the afternoon. Review [...] bipolar disorder -Hospitalizations: 5 prior: 2 at [facility], [place], [facility], other [facility] -Suicide attempts: not discussed -Outpatient providers: psychiatric prescriber (per dispense reports): Do Rodriguez MD. [phone] -Self Harm: not discussed -Aggression: agitated in [...] friend he calls, unwilling to share more. tax compliance manager Clarissa (contact info above) -Partnership: not [...] known medical history, who was admitted to [facility] on 07/10/23 following OD of psychiatric medication. [...] text of a firearm to his case fitter prior to the attempt, and notable difference in attitude towards different staff members suggestive of splitting. Extended interview, collateral information from case fitter, and records from other hospitalizations will be [...] photograph of a gun to his case fitter before overdose. -Location: not discussed Indications for [...] 08/04/2023 1152 EDT 08/04/2023 Group: Self-esteem Group Science Manager: Chiquita Berrios MA Group start time: 1115 Group end time: 1135 Keshav Patiño declined to attend * Group Note - Garima Reese - 08/04/2023 1020 EDT 08/04/2023 Group:Morning Check in Group Science Manager: Garima Reese Group start time: 1000 Group [...] remained safe on the unit, as of 06 it appears pt slept for 2.5 this [...] Rustam Collazo RN - 08/04/2023 0318 EDT [facility] Certificate of Need for Emergency Medication Emergency medication may be utilized only when there is a risk of imminent danger of physical harm to self or others due to psychiatric illness. I have performed a [id number] evaluation at 0153 1. Imminent risk of [...] been told I couldn't have anymore. This writer technical publications and multiple staff tried to work with patient to get him to refrain from negative behavior to seek medication. 3. On the Admission Assessment, under Risk Factors, did the patient indicate that s/he wanted someone called if s/he received emergency medication? Yes If yes, did you attempt to call that person? Yes. [facility], - [phone], Were you able toreach the person by phone? Yes at [phone]- tax compliance manager aware. 4. Describe the effect of the emergency medication: At the time of this note the patient was medicated 1.5 hours ago. Patient is starting to slow down as evidence of not hitting reeves/windows and laying his head over his crossed arms at the kitchen table. RUSTAM COLLAZO RN 08/04/2023 3:18 * Plan of Care - Rustam Collazo RN - 08/04/2023 0315 EDT Problem: Coping: Goal: Patient will decrease/cease [...] safe while in restraint or seclusion x [place] to reality as needed x Reassess patient's [...] Care - Rustam Collazo RN - 08/04/2023 0242 EDT Problem: Daily Care Plan Goals Goal: Care Plan Documentation 08/04/2023 0242 by Rustam Collazo RN Outcome: Not Met This Shift Flowsheets (Taken 08/03/2023 2300) Area of Focus: Sleep Goal This Shift: Patient will sleep 5-hours Data: 17-year-old male; Level III/Frequent/Involuntary. Current LOS: 21 days. 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 Mouth checks post medication administration. Patient may have the following conditional item while on frequent observations: Phone with cracked screen. Action: Provide 1:1 Therapeutic support and assess patient for safety and pain while awake. Monitorhours of sleep. Monitor conditional item while in use. Response: Patient barricading his door with his body during safety check, which staff alert this writer technical publications. Approached patient room and knocked on his door and explained expectations of staff being ableto visualize patients during checks. Patient responds, ???Door is open.?? This writer technical publications was able to open the door and patient was sitting on his bed smirking. Patient began to argue that it was the staff's fault for not being able to open the door; expectations reviewed once again. Patient later came to the team station and put his foot in the door to make it difficult for this writer technical publications to shut the door. Patient states, ???Can I have medication??? This writer technical publications agrees to see what patient has available [...] ???more medications?? and wanted something for anxiety.This writer technical publications reminded patient that it came in an oral tablet and would require a mouth check and patient states, ???I can't promise that I can do that.?? This writer technical publications explained that due to him not following [...] care was transferred to Iman SHEPPARD at 0. Total sleep hours on NOC shift: ~0.0 hours as of 229. * Plan of Care - Rustam Collazo RN - 08/03/2023 2245 EDT Problem: Daily Care Plan Goals Goal: Care Plan Documentation Outcome: Ongoing Flowsheets (Taken 08/03/2023 194) Goal This Shift: Patient will remain safe on the unit Note: Assumed patient care [id number]: Patient received walking around the unit today hitting reeves and windows. Patient shared he was doing this in an effort to get medications. This writer technical publications set firm boundaries with patient about not getting medications for acting out purposefully and that he could communicate his needs and still havethe same outcome. Patient was able to verbalize with this writer technical publications that he continues to have hand andfoot [...] 08/03/2023 2007 EDT 08/03/2023 Group:Evening Check-in Group Science Manager: Anabel Watson Group start time: 0700 Group end time: 0740 Keshav Patiño declined to attend * Group Note - Anabel Watson - 08/03/2023 1440 EDT 08/03/2023 Group: Self-esteem Group Science Manager: Anabel Watson Group start time: 0200 Group end time: 0223 Keshav Patiño declined to attend * Group Note - Teodoro Nolan - 08/03/2023 1140 EDT 08/03/2023 Group:Communication Skills Group Science Manager: Teodoro Nolan Group start time: 1115 Group end time: 1135 Keshav Patiño was excused because it was clinically inappropriate * Group Note - Anabel Watson - 08/03/2023 1104 EDT 08/03/2023 Group:Morning Check in Group Science Manager: Anabel Watson Group start time: 1000 Group end time: 1115 Keshav Patiño declined to attend * Plan of Care - Rustam Collazo RN - 08/03/2023 0636 EDT Problem: Daily Care Plan Goals Goal: Care Plan Documentation 08/03/2023 0636 by Rustam Collazo, RN Outcome: Met This Shift Flowsheets (Taken 08/02/2023 2300) Area of Focus: Sleep Goal This Shift: Patient will sleep 5-hours Data: 17-year-old male; Level III/Frequent/Involuntary. Current LOS: 20 days. 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 Mouth checks post medication administration. Patient may [...] initially redirected away from the scene. This writer technical publications went to spend time with him to offer positive reinforcement. Patient at this time (0146) requested PRN Ibuprofen for ~8/10 hand pain; while this writer technical publications was pullingmedication per his request, he returned to the rapid response area and would not follow direction to move away from the scene; after about 10-minutes of sitting with patient he finally joined this writer technical publications in the activity room to play cards. While playing cards patient abruptly stood up and walked back to the rapid which had cleared out at this time. He returned to the kitchen area and started to punch the Plex[employer] glass windows. This writer technical publications asked him to stop and reminded him of the earlier debrief where he had stated, ???If I was given more time.?? Patient states, ???Fine. I will go on the porch, and you can't hear me out there if I punch the windows.?? This writer technical publications followed patient to the [facility] for his safety. He continued to walk around the parameter of the porch, hitting the window with his fist and bottom of his feet. He was given one final warning to communicate his needs before a Code 8 was called. Code 8 called at 0215 and arrived at [facility] by 0218 and worked with talking with [...] administered would barely open his mouth. This writer technical publications explained it would be difficult to administer [...] the unit, behavior he continued on the [employer] porch.This came immediately after he was [...] grossly intact Language: shows no deficits Knowledge: mill representative of his education level Insight: poor, [...] on the unit Note: Assumed patient care 2864-9472: Patient sitting at his desk eating his missed meals from earlier today. Patient denies Self-harm/SI/HI/AVH and endorses ~8/10 left hand pain, which he requests prn pain medications (too early to administer). Non-pharmacological interventions offered and declined. Patient participated in debriefing while eating his dinner. Patient noted to be asleep at 1946, and this writer technical publications did not wake patient for any further intervention. No other issues noted or reported this portion of the shift. *Patient woke-up around 2129 to request pain medication. PRN Tylenol requested and received at 2136for ~8/10 left hand pain. This writer technical publications will play cards with patient to encourage positive reinforcement; reassessed at 2214 and patient was noted to be asleep. * Group Note - Anabel Watson - 08/02/20231943 EDT 08/02/2023 Group:Evening Check-in Group Science Manager: Anabel Watson Group start time: 1815 Group end time: 1842 Keshav Patiño declined to attend * Group Note - Anabel Watson - 08/02/2023 1649 EDT 08/02/2023 Group: Integrative Health Group Science Manager: Anabel Watson Group start time: 1530 Group [...] Daily team meetings ad frequent communication with [facility] case fitter DISCHARGE PLANS: Referral to level one facility. [...] RUSTAM COLLAZO RN Therapist: Teodoro Nolan MM, MT- Recovery Auditor: SLOANE GARCIA * Group Note - Teodoro Nolan - 08/02/2023 1511 EDT 08/02/2023 Group:Communication Skills Group Science Manager: Teodoro Nolan Group start time: 1400 Group end time: 1430 Keshav Patiño was excused because it was clinically inappropriate * Plan of Care - Denis Ambrose RN - 08/02/2023 6606 EDT Problem: Daily Care Plan Goals Goal: Care Plan Documentation Outcome: Ongoing Flowsheets (Taken 08/02/2023 9472) 6770-1623 Data: Pt visualized in hallway outside of [...] Denis Ambrose RN - 08/02/2023 1248 EDT [facility] Certificate of Need for Emergency Medication Emergency medication may be utilized only when there is a risk of imminent danger of physical harm to self or others due to psychiatric illness. I have performed a [id number] evaluation at 1127 1. Imminent risk of [...] safe while in restraint or seclusion x [place] to reality as needed x Reassess patient's behavior and continued need for restraint or seclusion at least 30 minutes anddocument N/a Notify family/significant other of restraint/seclusion x Provide debriefing with patient Response: Pt accepted emergency PO medication. Seclusion door unlocked @ 1227 DENIS AMBROSE RN * Psych Emergency Event - Mariluz Brown MD - 08/02/2023 1201 EDT [facility] Psychiatry Emergency Note 08/02/2023 Patient assessed [...] to engage in any discussion with this writer technical publications. Moodnot stated. Affect elevated, irritable, intense. No perceptual disturbances appreciated. Thought process somewhat goal directed. Thought content without voiced paranoid or delusional ideation. No spontaneously voiced SI but is observed punching reeves and nurse station window repeatedly. No spontaneously voiced HI to this tone cabinet assembler but overheard making physical threats toward others. [...] - 08/02/2023 1119 EDT 08/02/2023 Group:[facility] Group Science Manager: Garima Reese Group start time: 1110 Group end time: 1120 Keshav Patiño was excused because it was clinically inappropriate * Group Note - Teodoro Nolan - 08/02/2023 1021 EDT 08/02/2023 Group:Morning Check in Group Science Manager: Teodoro Nolan Group start time: 1000 Group [...] despite constant redirection. First manual hold was 1949 and ended 1950 (escorted to room). Second [...] safe and needs to remain safe) x [place] to reality as needed (continuous redirection and [...] 08/01/2023 Group: Mindfulness / Francisco [facility] Group Science Manager: Teodoro Nolan Group start time: 1530 Group end time: 1550 Keshav Patiño declined to attend * Plan of Care - Brannon Hernandez RN - 08/01/2023 1551 EDT Problem: Daily Care Plan Goals Goal: Care Plan Documentation Outcome: Met This Shift Flowsheets (Taken 08/01/2023 1423) Area of Focus: Safety Goal This Shift: [...] Zyprexa was d/c'd and Abilify was started. 8/10 right handpain, PRN Ibuprofen provided. The patient denied HI/AVH. The patient reported chronic passive intrusive SI. The patient would intermittently argue w/ another pt on the unit. The patient continued to do laps around the unit. The patient talked to this writer technical publications about their family and upbringing. They stated their siblings are successful but they aren't and won't be. This writer technical publications provided therapeutic communication. PRN Tylenol for left foot pain provided. Code 8 was called. Please see emergency note.The patient was sleeping near the end of shift. Total sleep hours this shift: ~0.25 hours as of 2200 BRANNON HERNANDEZ RN * Group Note - Teodoro Nolan - 08/01/2023 1441 EDT 08/01/2023 Group:Dialectical Group Science Manager: Teodoro Nolan Group start time: 1400 Group end time: 1435 Keshav Patiño declined to attend * Group Note - Chiquita Berrios MA - 08/01/2023 1222 EDT 08/01/2023 Group: Grief & Anger Group Science Manager: Chiquita Berrios MA Group start time: 1115 Group end time: 1210 Keshav Patiño declined to attend * Group Note - Chiquita Berrios MA - 08/01/2023 1046 EDT 08/01/2023 Group:Morning Check in Group Science Manager: Chiquita Berrios MA Group start time: 1000 Group end time: 1040 Keshav Patiño declined to attend . This writer technical publications talked with Keshav about writing on the [...] out nurse name on the board. This writer technical publications set limits and boundaries and clear expectationsfor the floor. * Plan of Care - Zuleima Soares RN - 08/01/2023 0732 EDT Problem: Daily Care Plan Goals Goal: Care Plan Documentation Outcome: Ongoing Flowsheets (Taken 08/01/2023 0730) Area of Focus: Safety Goal This Shift: Pt will remain safe Data: Assumed care of pt at 0730. Pt says I feel wide awake. Pt restless and walking around unit drawing on reeves and various signs with markers. This writer technical publications and other staff tried multiple times toset limits and deter behavior but pt is not redirectable. This writer technical publications informed pt that we would engage with him when he demonstrated appropriate behavior, pt became agitated and threw a marker at the team station window. Unable to assess for SI/HI/AVH due to pt's increasing agitation and disorganization. Pt requested medication, this writer technical publications offered Atarax which pt refused. Pt erased his name on whiteboard and wrote bitch and retard above this writer technical publications's name. Pt told another RN that he was going to beat the shit out of this writer technical publications. Told this RN that he tried to [...] Jules Rosenthal RN - 08/01/2023 0121 EDT [id number] Problem: Daily Care Plan Goals Goal: Care Plan Documentation Flowsheets (Taken 07/31/2023 2300) Goal This Shift: pt will get adequate rest through the night Sleep hours 9102-3217= 2.5 hours Data: Keshav Patiño is an [...] self quickly in our first interaction. This writer technical publications offer him a snack and reassured him that he will betaken care of. Keshav asked writer technical publications to play card almost immediatly, per his requested we played cards.In the beginning he was not talking much, pointing and using nonverbal communication. As the card game went on he began to intact with writer technical publications appropriately, laughing at times. Keshav shared with writerthat he had to cut all ties off from his adoptive family because they were toxic. Keshav stated, I blame a lot of way I am here on the way I was raised, I know it was not easy raising me. Keshav and I talked about leaving the past behind us for new doors to open. Keshav seemed somewhat engaged to the conversation. This writer technical publications asked Keshav why he is refusing to take Zyprexa he stated, all that does is make me sleep. I don't like the feeling. Encouraged him to take his medication as ordered. Keshav was no engaged in that suggestion. Crossing Guard encouraged Keshav to discuss his feeling related [...] 07/31/2023 1934 EDT 07/31/2023 Group:Evening Check-in Group Science Manager: Leydi De Guzman Group start time: 1900 Group end time: 193 Keshav Patiño declined to attend * Group Note - Anabel Watson - 07/31/2023 1622 EDT 07/31/2023 Group:Communication Skills Group Science Manager: Anabel Watson Group start time: 0200 Group end time: 024 Keshav Patiño declined to attend * Plan [...] tired and they slept all day. This writer technical publications asked if they would prefer taking it [...] the outside. The patient talked w/ this writer technical publications while doing laps around the unit about [...] - 07/31/2023 1219 EDT 07/31/2023 Group:Cognitive Group Science Manager: Chiquita Berrios MA Group start time: 1115 Group end time: 1210 Keshav Patiño declined to attend * Group Note - Anabel Watson - 07/31/2023 1100 EDT 07/31/2023 Group:Morning Check in Group Science Manager: Anabel Watson Group start time: 1000 Group end time: 1030 Keshav Patiño declined to attend * Plan of Care - Cardinal Pena RN - 07/30/2023 2323 EDT [id number] Problem: Daily Care Plan Goals Goal: Care [...] of Sleep (# of hrs): 4 hrs. 3585-1540 Data: Keshav Patiño is a 17 y.o. male who was admitted to [facility] with Bipolar 1 disorder ([facility]). Assumed care of pt at 1919. In darkened room looking at phone when writer technical publications introduced self. Did notlook up from phone and gave one word answers or shook his head in response to assessment questions.Shook his head vigorously when writer technical publications offered his HS medications. Crossing Guard asked again later and he shook his head again. Action: Provide 1:1 Therapeutic support and assess patient for safety and pain. Administer scheduled/and or PRN medications. Response: Action(s) successful with no safety issues noted this shift. Refused medications and Engaged only minimally with this writer technical publications. * Group Note - Anabel Watson - 07/30/20232007 EDT 07/30/2023 Group:Evening Check-in Group Science Manager: Anabel Watson Group start time: 1899 Group end time: 1922 Keshav Patiño declined to attend * Group Note - Leydi De Guzman - 07/30/2023 1450 EDT 07/30/2023 Group:Stress Management Group Science Manager: Leydi De Guzman Group start time: 1400 Group end time: 1445 Keshav Patiño declined to attend * Group Note - Leydi De Guzman - 07/30/2023 1205 EDT 07/30/2023 Group:Cognitive Group Science Manager: Leydi De Guzman Group start time: 1115 Group end time: 1200 Keshav Patiño declined to attend * Group Note - Anabel Watson - 07/30/2023 1056 EDT 07/30/2023 Group:Morning Check in Group Science Manager: Anabel Watson Group start time: 1000 Group end time: 1022 Keshav Patiño declined to attend * Plan of Care - Jasen Truong RN - 07/30/2023 1042 EDT Problem: Daily Care Plan Goals Goal: Care Plan Documentation 07/30/2023 1042 by Jasen Truong RN Flowsheets Taken 07/30/2023 1042 Area of [...] 17 y.o. male who was admitted to [facility] with Bipolar 1 disorder ([facility]), he was observed at shift change pacing the halls and jumping up attempting to hit the ceiling. hand upper and bottom lacer reported that patient refused HS medications and [...] - Jules Rosenthal RN - 07/29/20232328 EDT 1954-2761 Problem: Daily Care Plan Goals Goal: Care Plan Documentation 07/29/20232328 by Jules Rosenthal RN Flowsheets (Taken 07/29/2023 230) Area of Focus: Sleep Goal This Shift: pt will get adequate amount of sleep this shift 07/29/20232134 by Jules Rosenthal RN Flowsheets (Taken 07/29/2023 1900) Area of Focus: Safety Goal This Shift: pt will remain safe this shift * Plan of Care - Jules Rosenthal RN - 07/29/20232134 EDT Problem: Daily Care Plan Goals Goal: Care Plan Documentation Flowsheets (Taken 07/29/2023 190) Area of Focus: Safety Goal This Shift: pt will remain safe this shift 3989-2258 Data: Assumed care at 1930. Patient remains on involuntary level 3. On frequent observation. Alert and oriented. Mood: Irritable and direct with writer technical publications. Denied depression, anxiety, AVH, SI and HI. [...] remains safe on the unit. Sleep hours 5706-7553= 4 hours Flowsheets (Taken 07/29/2023 2300) Area of Focus: Sleep Goal This Shift: pt will get adequate amount of sleep this shift 6810-5208 Data: Continue care at 2300. Patient noted [...] report. 526 c/o elbow pain refused for writer technical publications to assess the right elbow. PRN given [...] 07/29/2023 194 EDT 07/29/2023 Group:Evening Check-in Group Science Manager: Chiquita Berrios MA Group start time: 1900 Group end time: 1944 Keshav Patiño was excused because they had visitors * Group Note - Chiquita Berrios MA - 07/29/2023 1645 EDT 07/29/2023 Group: Self-esteem Group Science Manager: Chiquita Berrios MA Group start time: 1530 [...] 17 y.o. male who was admitted to [facility] with Bipolar 1 disorder ([facility]), he was observed sleeping at shift change. [...] days. 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 Patient may have the following conditional [...] Care - Rustam Collazo RN - 07/29/2023 001 EDT Problem: Daily Care Plan Goals Goal: [...] phone and played some cards with this writer technical publications. Patient medication compliant. No other noted reports or concerns this shift. * Group Note - Anabel Watson - 07/28/2023 191 EDT 07/28/2023 Group: Addiction Recovery Group Science Manager: Anabel Watson Group start time: 624 Group end time: 701 Keshav M [place] Patient was offered AA recovery group. * Plan of Care - Joyce Dawn RN - 07/28/2023 1807 EDT Problem: Daily Care Plan Goals Goal: Care Plan Documentation Outcome: Met This Shift Flowsheets (Taken 07/28/2023 1600) Area of Focus: Safety Goal This Shift: pt will remain safe on the unit this shift Note: Data: Cared for this patient from 3660-5414. He was sleeping at the start of the shift, and awakened suddenly when this writer technical publications opened the door to meet him. He [...] 07/28/2023 1627 EDT 07/28/2023 Group:Communication Skills Group Science Manager: Teodoro Nolan Group start time: 1530 Group end time: 1615 Keshav Patiño declined to attend * Plan of Care - Benita Cuevas RN - 07/28/2023 1454 EDT Problem: Daily Care Plan Goals Goal: Care Plan Documentation 07/28/2023 145 by Benita Cuevas RN Outcome: Met This Shift 07/28/2023 145 by Benita Cuevas RN Flowsheets (Taken 07/28/2023 0730) Area of Focus: Safety Goal This Shift: [...] 07/28/2023 1454 EDT 07/28/2023 Group:Evening Check-in Group Science Manager: Anabel Watson Group start time: 0200 Group end time: 0240 Keshav Patiño declined to attend * Group Note - Chiquita Berrios MA - 07/28/2023 1249 EDT 07/28/2023 Group: Self-esteem Group Science Manager: Chiquita Berrios MA Group start time: 1115 Group end time: 1140 Keshav Patiño declined to attend * Group Note - Teodoro Nolan - 07/28/2023 1020 EDT 07/28/2023 Group:Morning Check in Group Science Manager: Teodoro Nolan Group start time: 1000 Group end time: 1015 Keshav Patiño was excused because they were asleep * Plan of Care - Cristiane Roque, VALARIE - 07/27/2023 2104 EDT Data: involuntary, L3, [...] - 07/27/2023 1930 EDT 07/27/2023 Group:Meditation Group Science Manager: Garima Reese Group start time: 1900 Group end time: 1930 Keshavronen Patiño declined to attend * Group Note - Garima Reese - 07/27/2023 1442 EDT 07/27/2023 Group:[facility] Group Science Manager: Garima Reese Group start time: 1400 Group end time: 1440 Keshav Steven Patiño declined to attend * Group Note - Garima Reese - 07/27/2023 1146 EDT 07/27/2023 Group: Art Therapy Group Science Manager: Garima Reese Group start time: 1115 Group end time: 1140 Keshav Steven Patiño was excused because they were asleep * Group Note - Teodoro Nolan - 07/27/2023 1026 EDT 07/27/2023 Group:Morning Check in Group Science Manager: Teodoro Nolan Group start time: 1000 Group end time: 1015 Keshav M Kaylyn was excused because they [...] Total hours of sleep this shift: 3.5 9104-8713 Data: Keshav Patiño is a 17 y.o. male who was admitted to [facility] with Bipolar 1 disorder ([facility]), he is received this morning asleep. There have been no acute events overnight and pt denies all psychiatric symptomology this morning. Action: Provide 1:1 Therapeutic support and assess patient for safety and pain. Pt rates pain in L hand 10. Administer scheduled/and or PRN medications as prescribed [...] 07/26/2023 1916 EDT 07/26/2023 Group:Evening Check-in Group Science Manager: Garima Reese Group start time: 1899 Group [...] Daily team meetings ad frequent communication with [facility] case fitter DISCHARGE PLANS: Recommendation for crisis bed step [...] RUSTAM COLLAZO RN Therapist: Teodoro Nolan MM, [facility] Recovery Auditor: Aissatou Alphonse, GOVERNMENT CLERK * Group Note - Teodoro Nolan - 07/26/2023 1435 EDT 07/26/2023 Group: Mindfulness / [facility] Group Science Manager: Teodoro Nolan Group start time: 1400 Group end time: 1430 Keshav M Kaylyn was excused because they were asleep * Group Note - Garima Reese - 07/26/2023 1213 EDT 07/26/2023 Group:Dialectical Group Science Manager: Garima Reese Group start time: 1115 Group end time: 1200 Keshav M Kaylyn was excused because they were asleep * Group Note - Garima Reese - 07/26/2023 1025 EDT 07/26/2023 Group:Morning Check in Group Science Manager: Garima Reese Group start time: 1000 Group end time: 1025 Keshav M Kaylyn was excused because they were asleep * Plan of Care - Zuleima Soares RN - 07/26/2023 0724 EDT Problem: Daily Care Plan Goals Goal: Care Plan Documentation Outcome: Ongoing Flowsheets (Taken 07/26/2023 0723) Area of Focus: Safety Goal This Shift: Pt will remain safe [id number] Data: Assumed care of pt at 0730. Pt asleep at start of shift. Pt refused to wake up when prompted by this writer technical publications at 1000. This writer technical publications attempted to wake pt again at 1100, pt refusing to get out of bed/wake up. Pt awake at 1145. VS stable. When asked how he slept, pt says I'm still tired. This writer technical publications asks if pt is normally this tired and pt replied no. When asked about anxiety/depression, pt states I'm fine. Endorses 6/10 bilateral wrist pain but declines interventions. Denies SI/HI/AVH. Action: Assessed for SI/HI/AVH/pain. Offered listening and support. Administered meds per MAR. Obtained VS. Response: Pt remained safe. 7354-5769 Pt became irritable during a check in [...] in further conversation or assessment. Pt attended danforth. ZULEIMA SOARES RN 07/26/2023 18:16 * Plan [...] - 07/25/20232013 EDT 07/25/2023 Group:Evening Check-in Group Science Manager: Anabel Watson Group start time: 0700 Group end time: 0745 Keshav Patiño declined to attend * Plan of Care - Hany Caballeor RN - 07/25/2023 1639 EDT Problem: High [...] 07/25/2023 1632 EDT 07/25/2023 Group: Arts/Crafts/Hobbies/Crocheting/Painting Group Science Manager: Teodoro Nolan Group start time: 1530 Group end time: 1620 Keshavronen Patiño declined to attend * Group Note - Teodoro Nolan - 07/25/2023 1453 EDT 07/25/2023 Group:Communication Skills Group Science Manager: Teodoro Nolan Group start time: 1400 Group end time: 1430 Keshav Patiño declined to attend * Group Note - Chiquita Berrios MA - 07/25/2023 1215 EDT 07/25/2023 Group:Cognitive Group Science Manager: Chiquita Berrios MA Group start time: 1115 Group end time: 1200 Keshav Patiño declined to attend * Group Note - Chiquita Berrios MA - 07/25/2023 1039 EDT 07/25/2023 Group:Morning Check in Group Science Manager: Chiquita Berrios MA Group start time: 1000 Group end time: 1030 Keshav Patiño was excused because they were asleep * Plan of Care - Nenita Conde RN - 07/25/2023 1016 EDT Problem: Daily Care Plan Goals Goal: Care Plan Documentation Outcome: Ongoing Flowsheets Taken 07/25/2023 0900 by Nenita Conde, RN Area of Focus: Safety Patient will [...] Shift: Pt will have uninterrupted sleep overnight. 7179-5471 Pt sleep throughout the night uninterruptedly. 4129-6111 Hour(s) of sleep: 6.25 * Group Note - Leydi De Guzman - 07/24/2023 1945 EDT 07/24/2023 Group:Evening Check-in Group Science Manager: Leydi De Guzman Group start time: 1900 [...] 1623 EDT 07/24/2023 Group:Writing for Health Group Science Manager: Garima Reese Group start time: 1530 Group end time: 1610 Keshav Patiño declined to attend * Group Note - Teodoro Nolan - 07/24/2023 1511 EDT 07/24/2023 Group:Writing for Health Group Science Manager: Teodoro Nolan Group start time: 1400 Group end time: 1420 Keshav Patiño was excused because they were with a provider * Group Note - Chiquita Berrios MA - 07/24/2023 1207 EDT 07/24/2023 Group: Integrative Health Group Science Manager: Chiquita Berrios MA Group start time: 1115 Group end time: 1200 Keshav Patiño was excused because they were asleep * Group Note - Teodoro Nolan - 07/24/2023 1035 EDT 07/24/2023 Group:Morning Check in Group Science Manager: Teodoro Nolan Group start time: 1000 Group end time: 1025 Keshav Patiño declined to attend * Plan of Care - Bradford Yang RN - 07/24/2023 0811 EDT Problem: Daily Care Plan Goals Goal: Care Plan Documentation 07/24/2023 0811 by Bradford Yang RN Outcome: Ongoing Flowsheets (Taken 07/24/2023 0800) Area of Focus: Safety Goal This Shift: Pt will demonstrate safe behavior on the unit. 5199-6845 Upon assessment pt was observed sitting with [...] Shift: Pt will have uninterrupted sleep overnight 4122-7438 Pt sleep throughout the night uninterruptedly with no issue. 5168-0814 Hour(s) of sleep: 6.25 * Plan of Care - Bradford Yang RN - 07/23/20232007 EDT Problem: Daily Care Plan Goals Goal: Care Plan Documentation Outcome: Ongoing Flowsheets (Taken 07/23/20231999) Area of Focus: Safety Goal This Shift: Pt will demonstrate safe behavior on the unit. 7474-0156 Upon assessment pt was observed in bed [...] their room the rest of the shift. 2673-9145 Hour(s) of sleep: 0 * Group Note - Garima Reese - 07/23/2023 1925 EDT 07/23/2023 Group:Evening Check-in Group Science Manager: Garima Reese Group start time: 1900 Group end time: 1924 Keshav Patiño was excused because they were with a provider * Group Note - Garima Reese - 07/23/2023 1517 EDT 07/23/2023 Group: Art Therapy Group Science Manager: Garima Reese Group start time: 1400 Group [...] 1209 EDT 07/23/2023 Group:Writing for Health Group Science Manager: Teodoro Nolan Group start time: 1115 Group end time: 1200 Keshav Patiño declined to attend * Group Note - Garima Reese - 07/23/2023 1030 EDT 07/23/2023 Group:Morning Check in Group Science Manager: Garima Reese Group start time: 1000 Group [...] of Care - Dena Barba RN - 07/22/20232299 EDT D: Pt is received in his room and he is watching his phone. He appears dep and reports feeling hopeless bc of him feeling like he always loses people. Pt is able to joke with writer technical publications a little but then returns to a downcast stare and reporting feeling like he just wants to leave and . Pt is consistently stating that he wants to and finally, after offering numerous alternative coping strategies and activities, writer technical publications asked if the pt just wanted to try and sleep. He said he did. At this time he reported vague pain in his hand but wouldn't answer any questions regarding the pain. Later hesaid it was 10 and he took PRN tylenol for the pain. He also received PRN zyprexa 5 mg and melaton in 3mg. Pt was more conversational with writer technical publications after taking these meds but then did finally fall asleep. He did attempt to convince writer technical publications that he was needing to discharge and [...] out of their room hereto punch. When writer technical publications asked more about that he didn't say he wanted to punch anyone and he was saying it more as an observation, but he was reminded how that would not get him home. Staff are aware. A: Assessed for any acute changes MH sx or medical issues. Safety checked per [facility] protocol. Medications given per order and all interventions completed per treatment plan. R: Pt remains safe on the shift and has had no changes in MH sx or medical complaints. * Group Note - Garima Reese - 07/22/20231930 EDT 07/22/2023 Group:Evening Check-in Group Science Manager: Garima Reese Group start time: 1849 Group end time: 1929 Keshavronen Patiño declined to attend * Group Note - Garima Reese - 07/22/2023 1436 EDT 07/22/2023 Group:Coping with Anxiety Group Science Manager: Garima Reese Group start time: 1400 Group end time: 1435 Keshav Patiño declined to attend * Plan of Care - Yusra Mason, VALARIE - 07/22/2023 1352 EDT D: Pt. Was flat, frustrated, and at times annoyed with writer technical publications. He did come out and sit at a table while writer technical publications colored. He watched videos on his phone [...] was polite most of the time with writer technical publications. 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 Patient declined scheduled HS Zyprexa 10 mg just stating, I don't want to take it. This writer technical publications played cards with him in the milieu this shift. No other issues noted or reported. * Group Note - Anabel Watson - 07/21/2023 1941 EDT 07/21/2023 Group: Addiction Recovery Group Science Manager: Anabel Watson Group start time: 0700 Group end time: 0730 Keshav Patiño Patient was offered AA recovery group. * Group Note - Teodoro Nolan - 07/21/2023 1610 EDT 07/21/2023 Group:Communication Skills Group Science Manager: Teodoro Nolan Group start time: 1530 Group end time: 1600 Keshav Patiño declined to attend * Group Note - Anabel Watson - 07/21/2023 1549 EDT 07/21/2023 Group:Focus Group Science Manager: Anabel Watson Group start time: 0200 Group end time: 0242 Keshav Patiño declined to attend * Plan of Care - Zuleima Soares RN - 07/21/2023 1511 EDT Problem: Daily Care Plan Goals Goal: Care Plan Documentation Outcome: Ongoing Flowsheets (Taken 07/21/2023 1509) Area of Focus: Safety Goal This Shift: Pt will remain safe Data: Assumed care of pt at 1530. Pt refuses to engage with this writer technical publications. States I don't want to f*cking talk [...] called at 1307. Patient was going to [place] but was not allowed r/t to inappropriate foot garcia. Patient began to hit the wall with his fist. Patient requested PRNS was given Zyprexa 5mg.. Appears effective patient sleeping an hour later. Patient also asked for pain medications for his hand this AM. Positive effect. * Group Note - Leydi De Guzman - 07/21/2023 1139 EDT 07/21/2023 Group: Integrative Health Group Science Manager: Leydi De Guzman Group start time: 1115 Group end time: 1135 Keshav Patiño declined to attend * Group Note - Teodoro Nolan - 07/21/2023 1023 EDT 07/21/2023 Group:Morning Check in Group Science Manager: Teodoro Nolan Group start time: 1000 Group end time: 1020 Keshav Patiño declined to attend * Plan of Care - Rustam Collazo RN - 07/21/2023 0623 EDT Problem: Daily Care Plan Goals Goal: Care Plan Documentation 07/21/2023 0623 by Rustam Collazo, RN Outcome: Ongoing Flowsheets (Taken 07/20/2023 2300) Area of Focus: Sleep Goal This Shift: Patient will sleep 5-hours this shift Data: 17-year-old male; Level III/Frequent/Involuntary. Current LOS: 7 days. 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 Patient may have the following conditional item [...] and Zyprexa offered, but patient declined. This writer technical publications sat with patient in kitchen area, and [...] successful behaviors after previous inpatient hospitalization to [facility]. Citing his reason for maintaining his mental health was out of fear of being sent back to [facility]. This writer technical publications encouraged patient to get some sleep, but he chooses to stay in the kitchen area. Patient requested and received PRN Tylenol 500mg at 0203 and was noted to be asleep in the kitchen upon reassessment. This writer technical publications woke-up patient and directed him back to his room. Patient was noted to be asleep in his room at 0330. No other issues noted or reported overnight. Total sleep hours on NOC shift: ~2.75 hours as of 0600. 24 Hour Sleep total: ~4.5 hours. * Plan of Care - Rustam Collazo RN - 07/20/2023 6153 EDT Problem: Daily Care Plan Goals Goal: Care Plan Documentation Outcome: Met This Shift Flowsheets (Taken 07/20/2023 1930) Area of Focus: Safety Goal This Shift: Patient will remain safe this shift Note: Assumed patient care 7522-9658: Patient is walking laps on the unit at the start of the shift. Patient denies any current thoughts of self-harm/SI/HI/AVH and continues with Left hand pain and anxiety which he utilized PRN Tylenol 500 mg and Atarax 50 mg at 2039; effective upon reassessment. Patient played cards with this writer technical publications in the activity room for an hour. [...] at 2147 with good effect. When this writer technical publications expressed concern over his Left hand pain and swelling, hestates, I'm okay. It is no big deal. No other issues noted or reported this portion of the shift. * Group Note - Anabel Watson - 07/20/20232010 EDT 07/20/2023 Group:Evening Check-in Group Science Manager: Anabel Watson Group start time: 07 Group end time: 730 Keshav Patiño declined to attend * Group Note - Anabel Watson - 07/20/2023 1615 EDT 07/20/2023 Group: Integrative Health Group Science Manager: Anabel Watson Group start time: 0330 Group end time: 414 Keshav Patiño declined to attend * Group Note - Garima Reese - 07/20/2023 145 EDT 07/20/2023 Group:Coping with Anxiety Group Science Manager: Garima Reese Group start time: 1400 Group end time: 1450 Keshav Patiño declined to attend * Group Note - Anabel Watson - 07/20/2023 1219 EDT 07/20/2023 Group: Self-esteem Group Science Manager: Anabel Watson Group start time: 1115 Group [...] Groups- 1 NENITA CONDE RN 07/20/2023 11:32 [id number] Patient continues with a mixed mood and anxious affect. Patient appears to be more isolative today.Continues to deny sI/HI/AVH. Patient invited to play cards,accepted invitation and played several games with this writer technical publications and student nurses. * Group Note - Teodoro Nolan - 07/20/2023 1048 EDT 07/20/2023 Group:Morning Check in Group Science Manager: Teodoro Nolan Group start time: 1000 Group end time: 1015 Keshav Patiño was excused because they were with a provider * Plan of Care - Rustam Collazo RN - 07/20/2023 0614 EDT Problem: Daily Care Plan Goals Goal: Care Plan Documentation 07/20/2023613 by Rustam Collazo RN Outcome: Met This Shift Flowsheets (Taken 07/19/20232299) Area of Focus: Sleep Goal This Shift: Patient will sleep 5 hours this shift Data: 17-year-old male; Level III/Frequent/Involuntary. Current LOS: 6 days. Diagnosis: Bipolar I disorder ([facility]), borderline personality disorder ([facility]), Current severe episode of major depressive disorder without psychotic features ([facility]). Patient may have the following conditional [...] pain this shift Note: Assumed patient care 5521-1503: Patient sitting in the kitchen with another [...] - 07/19/2023 1921 EDT 07/19/2023 Group:Meditation Group Science Manager: Garima Reese Group start time: 1900 Group end time: 1919 Keshav Patiño declined to attend * Group Note - Teodoro Nolan - 07/19/2023 1600 EDT 07/19/2023 Group: Mindfulness / [facility] Group Science Manager: Teodoro Nolan Group start time: 1530 Group end time: 1550 Keshav Patiño declined to attend * Group Note - Anabel Watson - 07/19/2023 1453 EDT 07/19/2023 Group:[place] Group Science Manager: Anabel Watson Group start time: 0200 Group end time: 0250 Keshav Patiño declined to attend * Psych [...] No SOCIAL: COLLABORATIVE EFFORTS: Close collaboration with shared services manager through [facility] DISCHARGE PLANS: Step down to [...] RUSTAM COLLAZO RN Therapist: Teodoro Nolan MM, [facility] Recovery Auditor: TELMA Rose * Group Note - Garima Reese - 07/19/2023 1208 EDT 07/19/2023 Group: Art Therapy Group Science Manager: Garima Reese Group start time: 1115 Group end time: 1200 Keshav Patiño declined to attend * Group Note - Anabel Watson - 07/19/2023 1100 EDT 07/19/2023 Group:Morning Check in Group Science Manager: Anabel Watson Group start time: 1000 Group [...] earlier in shift played card with this writer technical publications and another patient. Action: Observation Level frequent Monitored patient for safety and assessed for SI/HI/AVH and pain. Provided1:1 supportive listening, encouraged groups and participation in the milieu, encouragedADLs. Coordinated care with treatment team, administered medications as ordered. Response: Pt remained safe on the unit. Will continue to monitor for changes in mood, behavior, andsafety. Sleep-0 Groups-0 NENITA CONDE RN 07/19/2023 9:12 Addendum- 4311-6632 Patient continues to deny SI/HI/AVH Also, pt remains with a depressed mood and congruent affect. 1500 c/o anxiety/agitation- olanzapine given with positive effects. Urged patient to journal and inquired if there was any individual he feels comfortable speaking to. * Plan of Care - America Zhang RN - 07/19/2023 0703 EDT 1757-0617 Problem: Daily Care Plan Goals Goal: Care [...] 07/18/2023 1626 EDT 07/18/2023 Group: Arts/Crafts/Hobbies/Crocheting/Painting Group Science Manager: Teodoro Nolan Group start time: 1530 Group end time: 1620 Keshav Patiño was excused because they were with a provider * Group Note - Teodoro Nolan - 07/18/2023 1429 EDT 07/18/2023 Group:Writing for Health Group Science Manager: Teodoro Nolan Group start time: 1400 Group end time: 1425 Keshav Patiño declined to attend * Group Note - Scottie Gutierrez - 07/18/2023 1152 EDT 07/18/2023 Group:Dialectical Group Science Manager: Scottie Gutierrez Group start time: 1115 Group end time: 1150 Keshav Patiño declined to attend * Group Note - Leydi De Guzman - 07/18/2023 1027 EDT 07/18/2023 Group:Morning Check in Group Science Manager: Leydi De Guzman Group start time: 1000 Group end time: 1022 Keshav Patiño was absent because they were asleep * Plan of Care - Zuleima Soares, VALARIE - 07/18/2023 0729 EDT Problem: Daily Care Plan Goals Goal: Care Plan Documentation Outcome: Ongoing Flowsheets (Taken 07/18/2023 0727) Area of Focus: Safety Goal This Shift: Pt will remain safe Data: Assumed care of pt at 0730. Pt refused VS. Refuses to engage with this writer technical publications, states I don't give a f*ck don't talk to me. Action: Attempted to assess for SI/HI/AVH/pain. Offered listening and support. Response: Pt remained safe. ZULEIMA SOARES RN 07/18/2023 14:04 * Plan of Care - Cristiane Roque RN - 07/17/2023 2135 EDT Data: involuntary, L4, frequent checks. Pt asleep when care assumed. Action: Provided a quiet, calm environment for sleep. Response: Pt safe on unit. No complaints at this time. CRISTIANE ROQUE RN 07/17/2023 21:35 * Group Note - Anabel Watson - 07/17/20232007 EDT 07/17/2023 Group:Evening Check-in Group Science Manager: Anabel Watson Group start time: 701 Group end time: 744 Keshav Patiño declined to attend * Group Note - Anabel Watson - 07/17/2023 1502 EDT 07/17/2023 Group:Cognitive Group Science Manager: Anabel Watson Group start time: 199 Group end time: 252 Keshav Patiño declined to attend * Group Note - Leydi De Guzman - 07/17/2023 1222 EDT 07/17/2023 Group:Cognitive Group Science Manager: Leydi De Guzman Group start time: 1115 Group end time: 1200 Keshav Patiño declined to attend * Group Note - Anabel Watson - 07/17/2023 1216 EDT 07/17/2023 Group:Morning Check in Group Science Manager: Anabel Watson Group start time: 1000 Group [...] Debriefing occurred at: 12:10 Rafiq Wadsworth MD [facility] Psychiatry PGY-1 07/17/23 12:25 Cosigned by Melissa Conley MD at 07/17/2023 15:31 EDT * Psych Emergency Event - Zuleima Soares RN - 07/17/2023 1211 EDT [facility] Certificate of Need for Emergency Medication Emergency medication may be utilized only when there is a risk of imminent danger of physical harm to self or others due to psychiatric illness. I have performed a [id number] evaluation at 1143 1. Imminent risk of [...] Care - Zuleima Soares RN - 07/17/2023 0783 EDT Problem: Daily Care Plan Goals Goal: Care Plan Documentation Outcome: Ongoing Flowsheets (Taken 07/17/2023 0724) Area of Focus: Safety Goal This Shift: Pt will remain safe 6600-2775 Data: Assumed care of pt at 0730. [...] says No, I don't have a plan. chief technician and MD made aware of SI. Denies [...] but refused to take it from this writer technical publications so med was not given. Pt refusing to engage with this writer technical publications, PRN Tylenol and Atarax given by other RN. Action: Assessed for SI/HI/AVH/pain. Administered meds per MAY. Offered listening and support. Obtained VS and weight. Response: Pt remained safe barring Code 8 event. 7636-5239 This writer technical publications attempted to interact with pt, this writer technical publications asked pt if he was up for talking, pt replied not with you. Refused to answer assessment questions. Remains withdrawn in his room. ZULEIMA SOARES RN 07/17/2023 18:51 * Plan of Care - Cristiane Roque, VALARIE - 07/16/20232029 EDT Data: involuntary, L4, frequent checks. Pt [...] 07/16/2023 185 EDT 07/16/2023 Group:Evening Check-in Group Science Manager: Leydi De Guzman Group start time: 1814 [...] 17 y.o. male who was admitted to [facility] with Bipolar 1 disorder ([facility]), he is received this AM as asleep. [...] feels much better after rest. [facility] and [facility]. He had questionsabout treatment plan and restarting medication. He was told to expect to meet with his treatment team tomorrow and concerns would be heard. Appropriate behavior, makes needs known at window. Did not attend groups, eating meals. Continues to be safe on the unit. JANET LEVINE RN * Group Note - Leydi De Guzman - 07/16/2023 1602 EDT 07/16/2023 Group: Integrative Health Group Science Manager: Leydi De Guzman Group start time: 1530 Group end time: 1550 Keshav Patiño declined to attend * Group Note - Anabel Watson - 07/16/2023 1448 EDT 07/16/2023 Group: Grief & Anger Group Science Manager: Anabel Watson Group start time: 0200 Group end time: 0241 Keshav Patiño declined to attend * Group Note - Leydi De Guzman - 07/16/2023 1206 EDT 07/16/2023 Group:Boundaries Group Science Manager: Leydi De Guzman Group start time: 1115 Group end time: 1200 Keshav Patiño declined to attend * Group Note - Anabel Watson - 07/16/2023 1024 EDT 07/16/2023 Group:Morning Check in Group Science Manager: Anabel Watson Group start time: 1000 Group end time: 1023 Keshav Patiño declined to attend * Plan of Care - Rui Looney RN - 07/15/2023 2351 EDT Problem: Daily Care [...] 07/15/2023 1937 EDT 07/15/2023 Group:Evening Check-in Group Science Manager: Anabel Watson Group start time: 0700 Group end time: 07 Keshav Patiño declined to attend * Group Note - Garima Reese - 07/15/2023 1442 EDT 07/15/2023 Group: Art Therapy Group Science Manager: Garima Reese Group start time: 1400 Group end time: 1435 Keshav Patiño declined to attend * Group Note - Anabel Watson - 07/15/2023 1206 EDT 07/15/2023 Group:Cognitive Group Science Manager: Anabel Watson Group start time: 1115 Group [...] of Sleep (# of hrs): 2.75 hrs. 699 - 1929 Data: Keshav Patiño is a 17 y.o. male who was admitted to [facility] with Bipolar 1 disorder ([facility]), he is received this AM as asleep. [...] asks when am I getting my next test manager? I don't like the ones that don't [...] 1022 EDT 07/15/2023 Group:Morning Check in Group Science Manager: Garima Reese Group start time: 1000 Group [...] Dx: F33.2 MDD severe without psychotic features. [facility] Guideline: 11 days Principal Dx: F60.3 Borderline Personality Disorder. [facility] Guideline: 8 days Patient's Strengths: Intelligence [...] patient's condition. Pipe Singh MD Attending Psychiatrist PCP:UJAN,PROVIDER Treatment Team Members Resident MD: RN: ERASMO CARMICHAEL RN Therapist: GARIMA REESE Recovery Auditor: SLOANE GARCIA PharmD: Patient Involvement This Treatment Plan was discussed with the patient/guardian. * Plan of Care - Rustam Collazo RN - 07/15/2023 06 EDT Problem: Daily Care Plan Goals Goal: Care Plan Documentation 07/15/2023619 by Rustam Collazo RN Outcome: Ongoing Flowsheets (Taken 07/14/2023 2300) Area of Focus: Sleep Goal This Shift: Patient will sleep 5 hours this shift Data: 17-year-old male; Level IV/Constant/Involuntary. Current LOS: 1 day. Diagnosis: Bipolar I disorder ([facility] Action: Provide 1:1 Therapeutic support and assess patient for safety and pain while awake. Monitorhours of sleep. Response: Patient comes up to the team station around 2300 and requests, ???republican medications.?? Patient notes that the medication that was given to him made him feel ???good?? and he wanted more. This writer technical publications explained that medications are used to treat anxiety and agitation and not to be referred to as, ???Democrat medications.?? Patient agreed and appropriately requested medication for ???anxiety.?? PRN Atarax 25 mg administered at midnight. Patient was cooperative and assisted this writer technical publications to fill out his menu (faxed to nutrition). Patient appeared tired and was encouraged to rest. Patientwas adamant that he would sleep on the floor. This writer technical publications offered to help patient move mattress to floor, but he declined, ???I am fine.?? Patient offered a pillow for comfort which he accepted but declined blanket. Patient appeared to be asleep by 0115 and woke-up at 0245 distressed, tearful, andanxious. Patient comes out into hallway and lays on the floor. This writer technical publications asked patient to return to his room/floor [...] Care - Rustam Collazo RN - 07/14/2023 2302 EDT Problem: Daily Care Plan Goals Goal: Care Plan Documentation Outcome: Ongoing Flowsheets (Taken 07/14/20231929) Area of Focus: Safety Goal This Shift: Patient will remain safe on the unit Note: Assumed patient care [id number]: Patient was in his bed at the start of the shift and avoidant of interaction with staff. Patient with his 1:1 did come to the team station shortly after start of shift to notify this writer technical publications that he was having pain in his hands. On- call MD was notified as patient did not have any comfort medicationsavailable; Patient was irritable that he had to wait for intervention. In the meantime this writer technical publications offered patient Atarax 25mg at 1950 for anxiety and agitation which he took with encouragement. Around 2024 a loud bang was heard and then followed the Code 8 activation. This writer technical publications went to patients room and upon arrival he softly punched his wall. This writer technical publications explained to him what a Code 8 looked like, what to expect as far as people responding to the unit and what he could do to avoid any unwanted intervention. Patient agreed to remain safe and this writer technical publications directed staff to cancel code. TheMD arrived [...] PRN Melatonin 3 mg was administered at 2238 to encourage sleep. Patient was having a little difficulty at the end of the shift due tohis 1:1 sitter going home and swapping out with the on-coming shift. Patient was able to vocalize that this transition was difficult. At this time patient appears to be doing well with his new 1:1 sitter. * Group Note - Garmia Reese - 07/14/2023 1900 EDT 07/14/2023 Group: [facility] Science Manager: Garima Reese Group start time: 1809 Group end time: 1854 Keshav Patiño was excused because because they [...] Social Supports in the Home Support Systems tax compliance manager/high school social studies teacher Able to provide 17/10 care? NA Transportation Transportation Self Does the patient need discharge transport arranged? Yes Has discharge transport been arranged? No Expected Discharge on IV Antibiotics No Transportation Additional Details not known Final Discharge Destination Motel Patient expects to be discharged to temporary housing Transportation Needs In the past 12 months, has lack of transportation kept you from medical appointments or from getting medications? yes In the past 12 months, has lack of transportation kept you from meetings, work, or from getting things needed for daily living? Yes Functional Status Activities patient requires assistance None Assistive Devices None Community Resources/Computer Systems Software Engineer: None Type of Home Health Services None [...] as a transfer from [facility] following an overdose. Patient denies this was an intentional overdose. Hiscase credit risk analytics manager was concerned he was hoarding pills. Patient had also sent his case fitter a picture of a gun. Patient has psychiatric history of bipolar disorder. Current Living Situation/Housing: Living in emergency housing through [employer]. Family/Support System and Contact Telephone Numbers: Clarissa Jara [phone]. Family Constellation/Pertinent Family History: Patient reports he was adopted and does not have contact with his family. He has two sisters, Gabriela and Yusra and reports they have a strained relationship. Other Social Supports: None identified. Education/Employment Financial: Dropped out of school in the 9th grade. No history of work. Substance Abuse and Treatment History: unknown. Mental Health Treatment History: At [facility] for several months this past Winter. Mental Health and Other Providers: Clarissa Jara [phone]. Legal Issues: none known. Spiritual/Gnosticism/Cultural Considerations: none identified Other Issues/Supports/Barriers to Adaptive Functioning: Does not identify family supports. Insurance/Pharmacy Coverage: Medicaid- traditional . Assessment: 17 yo male transferred from [facility]U, involuntary admission following overdose and texting case fitter picture of a gun. Plan: Gather collateral, ongoing assessment and engagement. Collaboration with outpatient providersand patient around discharge. Community referrals as indicated. Patient * Group Note - Chiquita Berrios MA - 07/14/2023 0825 EDT 07/14/2023 Group:[facility] Science Manager: Chiquita Berrios MA Group start time: 1400 [...] using voice recognition software and/or keyboard data communications engineer. ??All reasonable efforts have been made to ensure accuracy. ??However, minor irregularities or keyboard misprints may be present. ??If you find an error, or have any concerns, please contact Dr. Yadi Gutierrez at [email or web address] Procedure Note Yadi Gutierrez MD - 07/21/2023 [...] prepared using voice recognition software and/orkeyboard data communications engineer. All reasonable efforts have been made to ensureaccuracy. However, minor irregularities or keyboard misprints may bepresent. If you find an error, or have any concerns, please contact Dr. Yadi Gutierrez at [email or web address] [facility] ORDERABLE S Final Result * XR HAND RIGHT 1-2 VIEWS (07/21/2023 [...] using voice recognition software and/or keyboard data communications engineer. ??All reasonable efforts have been made to ensure accuracy. ??However, minor irregularities or keyboard misprints may be present. ??If you find an error, or have any concerns, please contact Dr. Yadi Gutierrez at [email or web address] Procedure Note Yadi Gutierrez MD - 07/21/2023 [...] prepared using voice recognition software and/orkeyboard data communications engineer. All reasonable efforts have been made to ensureaccuracy. However, minor irregularities or keyboard misprints may bepresent. If you find an error, or have any concerns, please contact Dr. Yadi Gutierrez at [email or web address] [email or web address] Iv[facility] ORDERABLE S Final Result * LIPID PROFILE (INCLUDES CHOLESTEROL, TRIGLYCERIDES, HDL, LDL) (07/21/2023 8:41 EDT) Cholesterol 137 <200 mg/dL 07/21/2023 9:37 [facility] Comment:Note that therapeuti c goals will differ between patients based on cardiac risk factors and current medical therapy. HDL 41 >=40 mg/dl 07/21/2023 9:37 [facility] Comment:Note that therapeuti c goals will differ between patients based on cardiac risk factors and current medical therapy. LDL, Calculated 74 <160 mg/dL 9:37 [facility] Comment:Note that therapeuti c goals will differ between patients based on cardiac risk factors and current medical therapy. Triglyceride 111 <=150 mg/dL 07/21/2023 9:37 [facility] Comment:Note that therapeuti c goals will differ between patients based on cardiac risk factors and current medical therapy. Chol/HDL Ratio 3.3 See Note 07/21/2023 9:37 [facility] Comment:No reference range h as been established for CHOL/HDL ratio. Non HDL Cholesterol 96 <160 mg/dL 07/21/2023 9:37 [facility] Comment:Note that therapeuti c goals will differ between patients based on cardiac risk factors and current medical therapy. Blood VENOUS BLOOD / Unknown Venipuncture / Unknown 07/21/2023 8:41 EDT 07/21/2023 9:05 EDT us Ghulam Nevarez MD CHEMISTRY & BLOOD GAS ORDERABL ES Final Result Performing Organization Address City/State/[facility] Co de Phone Number [facility] [address] [place] [phone] * (ABNORMAL) LIPID PROFILE (INCLUDES CHOLESTEROL, TRIGLYCERIDES, HDL, LDL) (07/19/2023 14:43 EDT) Cholesterol 137 <200 mg/dL 07/19/2023 15:47 [facility] Comment:Note that therapeuti c goals will differ between patients based on cardiac risk factors and current medical therapy. HDL 30(L) >=40 mg/dl 07/19/2023 15:47 [facility] Comment:Note that therapeuti c goals will differ between patients based on cardiac risk factors and current medical therapy. LDL, Calculated 45 <160 mg/dL 15:47 [facility] Comment:Note that therapeuti c goals will differ between patients based on cardiac risk factors and current medical therapy. Triglyceride 312(H) <=150 mg/dL 07/19/2023 15:47 [facility] Comment:Note that therapeuti c goals will differ between patients based on cardiac risk factors and current medical therapy. Chol/HDL Ratio 4.6 See Note 07/19/2023 15:47 [facility] Comment:No reference range h as been established for CHOL/HDL ratio. Non HDL Cholesterol 107 <160 mg/dL 07/19/2023 15:47 [facility] Comment:Note that therapeuti c goals will differ between patients based on cardiac risk factors and current medical therapy. Blood VENOUS BLOOD / Unknown Venipuncture / Unknown 07/19/2023 14:43 EDT 07/19/2023 15:09 EDT Ghulam Nevarez MD CHEMISTRY & BLOOD GAS ORDERABL ES Final Result [facility] [address] [id number] * HEMOGLOBIN A1C (07/19/2023 14:43 EDT) Hemoglobin A1c 4.8 <5.7 % 07/19/2023 17:03 [facility] Comment: Glycemic Status References: Normal: ??<5.7% Pre-Diabetes: ??5.7% - 6.4% Diagnostic of Diabetes: ??> or = 6.5% (if confirmed) Est Avg Glucose 91 mg/dL 17:03 [facility] Comment:The eAG represents t he A1c result expressed as average glucose in mg/dL. Blood VENOUS BLOOD / Unknown Venipuncture / Unknown 07/19/2023 14:43 EDT 07/19/2023 15:09 EDT us Ghulam Nevarez MD CHEMISTRY & BLOOD GAS ORDERABL ES Final Result [facility] [address] [place] [address] documented in this encounter Visit Diagnoses Diagnosis Borderline personality disorder (HCC-CMS)- Primary Borderline personality disorder Current severe episode of major depressive disorder without psychotic features, unspecified whether recurrent (HCC-CMS) Borderline personality disorder (HCC-CMS) Borderline personality disorder Bipolar 1 disorder (HCC-CMS) [F31.9] Bipolar I disorder, most recent episode (or current) unspecified Severe episode of recurrent major depressive disorder, 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] documented in this encounter Admitting Diagnoses Diagnosis Bipolar 1 disorder (HCC-CMS) Bipolar I disorder, most recent episode (or [...] Until Trisha 08/03/23 at 0753, Pain, Routine Given 08/02/2023 21:36 [...] oral, 2 TIMES DAILY PRN, Starting on Mon07/29/23 at 1545, Until Mon08/04/23 at 1522, Anxiety, Routine Given 08/03/2023 10:04 EDT 50 mg Given 07/31/2023 14:09 EDT 50 mg Given 07/31/2023 5:45 EDT 50 mg ibuprofen (ADVIL;MOTRIN) suspension 200 mg 200 mg, oral, EVERY 6 HOURS PRN, Starting on Mon08/03/23 at 1320, Until Mon08/04/23 at 1522, Pain, Routine Given 08/04/2023 2:54 EDT 200 mg Given 08/03/2023 19:45 EDT 200 mg ibuprofen (MOTRIN) tablet 400 mg 400 mg, oral, EVERY 6 HOURS PRN, Starting on Mon07/20/23 at 1300, Until Mon08/03/23 at 1320, Pain, Routine Given 08/03/2023 9:42 EDT 400 mg Given 08/03/2023 1:46 EDT 400 mg Given 08/02/2023 14:48 EDT 400 mg ibuprofen (MOTRIN) tablet 400 mg 400 mg, oral, NOW X1, 1 dose, On Mon08/03/23 at 0300, Routine Given 08/03/2023 2:43 EDT [...] mg, oral, NOW X1, 1 dose, On Mon08/03/23 at 0300, Routine 0243 (Given - Provider: [...] dose, On Mon08/09/23 at 2045, STAT, Release olanzapine zydis (ZYPREXA) [...] Pain, Routine 0634 (Given - Provider: Cristiane Roque, RN)1448 (Given - Provider: Denis Ambrose, RN)2136 (Given - Provider: Rustam Collazo, VALARIE) hydrOXYzine (ATARAX) tablet 50 mg 50 mg, oral, 2 TIMES DAILY PRN, Starting on 07/29/23 at 1545, Until Mon08/04/23 at 1522, Anxiety, Routine 1004 (Given - Provider: Umair Mims, VALARIE) ibuprofen (ADVIL;MOTRIN) suspension 200 mg 200 mg, oral, EVERY 6 HOURS PRN, Starting on Trisha 08/03/23 at 1320, Until Mon08/04/23 at 1522, Pain, Routine 1945 (Given - Provider: Rustam Collazo, VALARIE) 0254 (Given - Provider: Iman Sanchez RN) ibuprofen (MOTRIN) tablet 400 mg (CANCELED) 400 mg, oral, EVERY 6 HOURS PRN, Starting on Mon07/20/23 at 1300, Until Trisha 08/03/23 at 1320, Pain, Routine 0617 (Given - Provider: Cristiane Roque, RN)1448 (Given - Provider: Denis Ambrose, RN) 0146 (Given - Provider: Rustam Collazo, VALARIE)0942 (Given - Provider: Umair Mims, VALARIE) melatonin tablet 3 mg 3 mg, oral, [...] NOW X1, 1 dose, On Mon08/09/23 at 204, STAT, Release Group 4: olanzapine zydis (ZYPREXA) disintegrating tablet 10 mgJump to med 10 mg, oral, NOW X1, 1 dose, On Mon08/06/23 at 2044, STAT, Release Or OLANZapine (ZYPREXA) injection 10 mgJump to med 10 mg, intramuscular, NOW X1, 1 dose, On Mon08/06/23 at 2045, STAT, Release Group 5: olanzapine [...] 08/03/2023 diphenhydrAMINE (BENADRYL) 5 0 mg/mL injection 1 08/02/2023 diphenhydrAMINE (BENADRYL) injection 50 mg 1 08/02/2023 haloperidoL (HALDOL) 5 mg tablet 1 08/02/19 haloperidol lactate (HALDOL) 5 mg/mL injection [...] Date First Orde red Date ADMIT TO IP PSYCH 1 07/14/2023 Discharge Count Last Ordered Date First Orde red Date DISCHARGE PATIENT 1 08/04/2023 Restraints Count Last Ordered Date First Orde red Date MANUAL RESTRAINT 1 08/10/2023 [employer] PSY CHIATRY REQUEST 1 08/09/2023 documented in this encounter Care Teams Senior Physical Therapist Relationship Specialty Start Date End Date Karissa Rangel MD PCP - General 07/10/23 Obie Mccoy MD [address] [place] [address] 07/10/23 documented as of this encounter
--- OUTSIDE RECORDS SUMMARY | 2024-04-12 01:09 | XMS_ITS | Encounter Summary ---
Author Organization [facility] [place] [address] Care Team Providers Care Waistband Setter Name Role Phone Robbie Rudolph Primary Care Provider [phone] Reason for Visit * Reason Onset Date Comments Hospital Transfer 12/15/2022 Encounter Details Date Type Department Care Team (Late st Contact Info) Description 12/15/2022 [place] [address] Mary Huynh MD [facility] [address] [place] [address] Hospital Transfer Social History Tobacco Use Types Packs/Day Years Used Date Smoking Tobacco: Never Assessed Sex and Gender Information Value Date Recorded Sex Assigned at Not on file Gender Identity Not on file Sexual Orientation Not on file documented as of this encounter Miscellaneous Notes * Telephone Encounter - Mary Huynh MD - 12/15/2022 4:54 AM EDT [facility] TeleICU Transfer Acceptance Note Referring Facility and Physician: [facility] ED Accepting Service and Physician: MICU Green team Clinical Summary: Information is obtained verbally via TC call with ICU Fellow and outside Provider around 11pm. I amtold that the patient will not arrive to [facility] until the day shift. 17yo male h/o [...] on filedocumented in this encounter Care Teams Waistband Setter Relationship Specialty Start Date End Date Robbie Rudolph DO [address] [place] [address] PCP - General Family Medicine 10/31/19 documented as of this encounter
--- OUTSIDE RECORDS SUMMARY | 2024-04-12 01:09 | XMS_ITS | Encounter Summary ---
Author Organization [facility] [place] [address] Care Team Providers Care Treating Engineer Helper Name Role Phone Unavailable Primary Care Provider Unavailabl e Encounter Details Date Type Department Care Team (Late st Contact Info) Description 10/30/2019 Orders Only [place] [address] Bjorn Hinojosa MD [facility] [address] [place] [address] Auditory hallucination Social History Tobacco Use Types [...] EDT Yaya Mueller ? 10/31/2019 ??9:22 AM [facility] Department of Neurology Outpatient EEG Report Name [...] channel digitized electroencephalogram was performed in the [facility] Clinical Neurophysiology Laboratory. The 10/20 international system of electrode placement was used and bipolar and referential electrode montages were recorded. ??In addition to EEG the patient was monitored for EKG and lateral/vertical eye movements. Video was recorded during the session. The duration of the recording was 25 minutes. DOCUMENT DESIGN SPECIALIST'S REPORT: Performed by: SR Patient was [...]
--- OUTSIDE RECORDS SUMMARY | 2024-04-12 01:09 | XMS_ITS | Encounter Summary ---
[place] [address] Care Team Providers Care Cook Supervisor Name Role Phone Klaudia Robbie Saldivar Primary Care Provider [phone] Reason for Visit * Reason Comments Procedure * Consultation (Routine) - Closed Specialty Diagnoses / Procedures Referred By Magen barney Referred To Contact Neurology Diagnoses AUDITORY HALLUCINATIONS Procedures EEG Bryant Wade, GAS TORCH SOLDERER [address] [place] [address] [facility] [place] [address] Referral ID Status Reason Start Date Expiration Date V isits Requested Visits Authorized [id number] Closed Consult, [facility] PCP Updated and/or Approved 10/28/2019 10/27/2020 1 1 Encounter Details Date Type Department Care Team (Latest Contact Info) Description 10/31/2019 8:45 AM EDT - 10/31/2019 11:59 PM EDT Hospital Encounter [place] [id number] Auditory hallucination Discharge Disposition: Home Social History [...] documented. Abdi Gill MD [place] [address] Pager: [phone], #[phone] Email: [email or web address] * Yaya Mueller - 10/31/2019 9:20 AM EDTAssociated Order(s): EEG AWAKE, ASLEEP, DROWSY Pre-Procedure Diagnose(s): Auditory hallucination [facility] Department of Neurology Outpatient EEG Report [...] channel digitized electroencephalogram was performed in the [facility] Clinical Neurophysiology Laboratory. The 10/20 international system of electrode placement was used and bipolar and referential electrode montages were recorded. In addition to EEG the patient was monitored for EKGand lateral/vertical eye movements. Video was recorded during the session. The duration of the recording was 25 minutes. PIPE FITTER SOFT COPPER'S REPORT: Performed by: SR Patient was sleep [...] EDT Yaya Mueller ? 10/31/2019 ??9:22 AM [facility] Department of Neurology Outpatient EEG Report [...] channel digitized electroencephalogram was performed in the [facility] Clinical Neurophysiology Laboratory. The 10/20 international system of electrode placement was used and bipolar and referential electrode montages were recorded. ??In addition to EEG the patient was monitored for EKG and lateral/vertical eye movements. Video was recorded during the session. The duration of the recording was 25 minutes. PIPE FITTER SOFT COPPER'S REPORT: Performed by: SR Patient was sleep deprived. Sleep was not attained. Photic stimulation was ??performed. Hyperventilation was not performed. Effort was was not adequate. Movement and other artifact was not significant. Comments: ??None. Bjorn Hinojosa MD NEUROLOGY ORDERABLES documented in this encounter Visit Diagnoses Diagnosis Auditory hallucination Hallucinations documented in this encounter Care Teams Cook Supervisor Relationship Specialty Start Date End Date Robbie Rudolph DO [address] [place] [id number] PCP - General Family Medicine 10/31/19 documented as of this encounter
--- OUTSIDE RECORDS SUMMARY | 2024-04-12 01:09 | XMS_ITS | Referral Summary ---
Author Organization [facility] Address [address] [place] [address] Care Team Providers Care Fumigator And Sterilizer Name Role Phone Karissa Rangel MD Primary Care Provide r Unavailable Obie Mccoy MD Unavailable [phone] Allergies No known active allergies Active Problems Problem Noted Date Diagnosed Date Current severe episode of ma gerardo depressive disorder without psychotic features ([facility]) 07/15/2023 Borderline personality disorder ([facility]) 2023 Bipolar 1 disorder ([facility]) 07/14/2023 Delirium due to multiple etiologies 07/12/2023 Mood disorder ([facility]) 07/12/2023 Suicide attempt ([facility]) 07/12/2023 Acute encephalopathy 07/11/2023 Ingestion of substance, inte ntional self-harm, initial encounter ([facility]) 07/10/2023 Acute respiratory failure with hypoxia ([facility]) 07/10/2023 Immunizations Name Administration Dates [...] slept in a longterm (including now)? Yes 07/14/2023 Sex and Gender [...] 96.49% 08/01/2023 180 0 EDT Growth Chart: [facility] (Boys, 2-2 0 Years) Functional Status * Are you deaf or do you have serious difficulty hearing? Answer Date of Assessment Author No 07/14/2023 15:19 EDT Ronit Mason , VALARIE * Are you blind or do you have serious difficulty seeing, even when wearing glasses? Answer Date of Assessment Author No 07/14/2023 15:19 EDT Ronit Mason , RN * Do you have serious difficulty walking or climbing stairs? (5 years old or older) Answer Date of Assessment Author No 07/14/2023 15:19 EDT Ronit Mason , RN * Do you have difficulty dressing or bathing? (5 years old or older) Answer Date of Assessment Author No 07/14/2023 15:19 EDRonit Arredondo , VALARIE * Because of a physical, mental, or emotional condition, do you have difficulty doing errands alone such as visiting a doctor's office or shopping? (15 years old or older) Answer Date of Assessment Author No 07/14/2023 15:19 EDT Ronit Mason , RN Mental Status * Because of a physical, mental, or emotional condition, do you have serious difficulty concentrating, remembering, or making decisions? (5 years old or older) Answer Entry Date Author No 07/14/2023 15:19 EDRonit Arredondo , VALARIE Plan of Treatment Not on file Insurance MEDICAID [place] Advance Directives For more information, please contact: [phone] * Full Code (Latest Code Status on [...] Made the Decision? Default/Not Discussed Care Teams Fumigator And Sterilizer Relationship Specialty Start Date End Date Karissa Rangel MD PCP - General 07/10/23 Obie Mccoy MD [address] [place] [address] 07/10/23
--- OUTSIDE RECORDS SUMMARY | 2024-04-12 01:09 | XMS_ITS | Clinical Summary ---
Author Organization [facility] Address [address] [place] [address] Care Team Providers Care Carpentry Instructor Name Role Phone Karissa Rangel MD Primary Care Provide r Unavailable Obie Mccoy MD Unavailable [phone] Allergies No known active allergies Active Problems Problem Noted Date Diagnosed Date Current severe episode of ma gerardo depressive disorder without psychotic features [place] [place] 07/15/2023 Borderline personality disorder ([facility] [place] 2023 Bipolar 1 disorder ([facility] [place] 07/14/2023 Delirium due to multiple etiologies 07/12/2023 Mood disorder ([facility] [place] 07/12/2023 Suicide attempt [place] [place] 07/12/2023 Acute encephalopathy 07/11/2023 Ingestion of substance, inte ntional self-harm, initial encounter ([facility] [place] 07/10/2023 Acute respiratory failure with hypoxia ([facility] [place] 07/10/2023 Immunizations Name Administration Dates Next Due [...] place to sleep or slept in a [facility] (including now)? Yes 07/14/2023 Sex and Gender Information Value Date Recorded Sex Assigned at Not on file Legal Sex Male 18:38 EST Gender Identity Not on file Sexual Orientation Not on file Obstetrics History Growth Chart Information Age Height Weight Kafowb-[id number] th Percentile BMI Percentile Head Circum Head Circum Percentile Date 17 years 99.3 kg (218 lb 14.4 oz) 2023 17 years 93.9 kg (207 lb) 2023 17 years 88.8 kg (195 lb 12.3 oz) 2023 17 years 175.3 cm (5' 9.02) 91.6 kg (202 lb) 95.12%* 2023 17 years 175.3 cm (5' 9) 91.6 kg (202 lb) 95.13%* 2023 * [facility] (Boys, 2-20 Years) Last Filed Vital [...] 08/01/2023 180 0 EDT Growth Chart: [facility] (Boys, 2-2 0 Years) Plan of Treatment Health Maintenance Due Date Last Done Comments Hepatitis C Screen 2004 Hepatitis B Vaccine (1 of 3 - 19+ 3-dose series) 08/16 COVID-19 Vaccine ( - 2023- season) 2023 Insurance MEDICAID [place] Advance Directives For more information, please contact: [phone] * Full Code (Latest Code Status on [...] Made the Decision? Default/Not Discussed Care Teams Carpentry Instructor Relationship Specialty Start Date End Date Karissa Rangel MD PCP - General 07/10/23 Obie Mccoy MD [address] [place] [address] 07/10/23
--- OUTSIDE RECORDS SUMMARY | 2024-04-12 01:10 | XMS_ITS | Encounter Summary ---
Author Organization [facility] Address [address] [place] [address] Care Team Providers Care [place] Planning Manager Name Role Phone Karissa Rangel MD Primary Care Provide r Unavailable Obie Mccoy MD Unavailable [phone] Reason for Visit * Auth/Cert (Routine) Specialty Diagnoses / Procedures Referred By Contac t Referred To Contact Diagnoses Ingestion of substance, intentional self-harm, initial encounter (HCC-CMS) Over Dose/Intubated Referral ID Status Reason Start Date Expiration Date Visits Re quested Visits Authorized [id number] 1 1 Encounter Details Date Type Department Care Team (Late st Contact Info) Description 07/10/2023 17:06 EDT - 07/14/2023 12:43 EDT Hospital Encounter [facility] Medical Intensive Care Unit [address] [place] [address] [id number] Marty Higginbotham MD [address] [place] [phone] Tracie Cr MD [address] [place] [phone] Ingestion of substance, intentional self-harm, initial encounter (HCC-CMS) (Primary Dx); Acute respiratory failure with hypoxia (HCC-CMS); Acute encephalopathy; Delirium due to multiple etiologies; Mood disorder ([facility]); Suicide attempt ([facility]) Discharge Disposition: Psychiatric Hospital Social History [...] place to sleep or slept in a residential (including now)? Yes 07/14/2023 Sex and Gender [...] Percentile 95.13% 07/10/2023 1720 EDT Growth Chart: CDC (Boys, 2-2 0 [...] Ingestion of substance, intentional self-harm, initial encounter ([facility]) Additional Problems Managed in the Hospital: Active Hospital Problems Diagnosis Date Noted *Ingestion of substance, intentional self-harm, initial encounter ([facility]) 07/10/2023 Acute encephalopathy 07/11/2023 Acute respiratory failure with hypoxia ([facility]) 07/10/2023 Resolved Hospital Problems No resolved problems to display. Transition of care: Smart Picture Tech Transition of Care report automatically routed to PCP office on discharge.Additional handoff communication performed via: Secure Smart Picture Tech Staff Message to psychiatry team Clinical Issues [...] to the MICU as a transfer from [facility] for concern for toxic ingestion that occurred 5 hours MEDIA PRODUCTION SUPPORT MANAGER. Upon EMS arrival, the patient was altered,had [...] Propofol for sedation prior to transfer to [facility] and while en route. EMS reports that [...] and superf icial soft tissues are unremarkable. [id number] Results Pending at Discharge: Test results still pending from this admission Procedure Component Value Units Date/Time Lamotrigine [[id number]] Collected: 07/10/23 1746 Lab Status: In process Specimen: Blood, Venous Updated: 07/10/231752 CRISTIANE ESPANA MD 07/12/2023 8:27 Cosigned by Tracie Cr MD at 07/14/2023 17:58 EDT Associated attestation - Tracie Cr MD - 07/14/2023 1618 EDT Attestation: I saw and evaluated the patient for discharge. I agree with the resident's/fellow's note. I personally spent 10 minutes in discharging services for this patient. Tracie Cr MD 07/14/2023 17:58 documented in this encounter Discharge Instructions * Medications* Prerna Murray RN - 07/14/2023 11:36 EDT Medications will be added back to your regimen once in the psychiatric unit. documented in this encounter Discharge Disposition Disposition Code Departure Means Destination Comment s [facility] documented in this encounter Progress Notes * Marty Higginbotham MD - 07/14/2023 1243 EDT Request for Documentation Clarification [facility] Keshav Patiño ; VISIT [id number]; ACCT [id number] Final Query Response Sent: 07/16/23 16:42 EDT [...] 07/11/23 11:36 EDT From: ILYA SWAN RN CAPA To: [...] 07/14/2023 1243 EDT Request for Documentation Clarification [facility] Keshav Patiño ; VISIT [id number]; ACCT [id number] Query Response Sent: 07/11/23 12:55 EDT From: CRISTIANE ESPANA MD Query question: Based on the clinical information below, please specify all diagnoses that apply: Provider response: Encephalopathy, toxic from an over dose or toxic exposure: concern for overdose of home medications, including guanfacine and abilify Original Query Sent: 07/11/23 11:33 EDT From: ILYA SWAN RN [facility] To: CRISTIANE ESPANA MD, MARTY HIGGINBOTHAM MD [...] of substance, intentional self- harm, initial encounter ([facility]). 24 hour events: Psych completed involuntary certification [...] results for input(s): PHISTAT, PCOISTAT, POISTAT, POCTCO2, E2IYTZIG, POCFIO2 in the last 72 hours.Cardiac Markers: [...] medications yesterday, medically stable for transfer to [facility], pending bed for involuntary admission. Plan [...] over 6 hours ago upon arrival at [facility] - Poison Control does not recommendGI lavage [...] in setting of overdose #SI - 07/12 [facility] completed the involuntary certification paperwork, patient [...] 11:20 Cristiane Espana MD Emergency Medicine PGY-1 Cosigned by Tracie Cr MD at 07/14/2023 17:56 EDT Associated attestation - Tracie Cr MD - 07/14/2023 1756 EDT ,Attestation: I performed or was present during the mukherjee or critical portions of the visit and participated in the management of the patient on 07/14/23. I agree with the findings and plan of care as documented in the resident's/fellow's note. Tracie Cr MD 07/14/2023 17:56 * Alexis Guillaume - 07/13/2023 1345 EDT [facility] Spiritual Care Note Re: Keshav Patiño : 2005, AGE: 17 y.o. ROOM: [facility] [place] [address] BACKGROUND E Learning Developer with prior initial contact. Today, Case Management made this currency exchange specialist aware pt alert and oriented and having conversation. E Learning Developer introduced self and spiritual care. Pt expressed receptivity to currency exchange specialist support. ASSESSMENT Beliefs & Values Pt [...] Pt spoke about their relationship with their Aircraft Sheet Metal Mechanic. Pt described CM as the only person [...] cope with life, pt replied: nothing legal. E Learning Developer verbalized awareness of pt's humor. Pt appeared to resonate with humor being at least one way they cope with life. Pt endorsed desire to return home as soon as possible. Meaning Making E Learning Developer invited pt to reflect on what they most desire in life. Pt replied: I don't know. Pt described the way they approach life as a river that just keeps flowing. INTERVENTIONS E Learning Developer engaged pt in active listening, emotional processing, and supportive presence. Consulted with pt's RN post visit. CARE PLAN Pt agreed to currency exchange specialist follow up at the beginning of next week. RECOMMENDATIONS Nothing at this time. TIME STAMP: 20 minutes Alexis Guillaume [facility] E Learning Developer Duarte 131 Thank you for the opportunity [...] substance, intentional self- harm, initial encounter ([facility]). 24 hour events: Weaned off precedex [...] and Qtc remains under 420ms Recent Labs 07/10/23 1746 07/11/23 0610 07/12/23 [...] results for input(s): PHISTAT, PCOISTAT, POISTAT, POCTCO2, W4SLLEBG, POCFIO2 in the last 72 hours.Cardiac Markers: [...] medications yesterday, medically stable for transfer to [facility], pending involuntary admission paperwork. Plan Pulmonary: [...] over 6 hours ago upon arrival at [facility] - Poison Control does not recommendGI lavage [...] appreciate recommendations now for PRN medications - Psych has begun the paperwork for the involuntary [...] Note CM met OP CM Clarissa Celestin [phone] ([phone]) at bedside. Meeting was just to connect in person after several calls back and forth yesterday. Patient is now extubated but still sedated for agitation. Clarissa placed her phone number on the patients whiteboard and said it was fine for Keshav to call her any time but that she will not pickling machine operator after 6pm. Clarissa further stated she is workingon getting him his phone back. This CM will continue to follow for ongoing care coordination. Patient stated to Clarissa that he would be willing to accept a voluntary psych admission. CMSW Manuel Nickerson POT FLUXER * Alexis Guillaume - 07/12/2023 1215 EDT [facility] Spiritual Care Note Re: Keshav Patiño : 2005, AGE: 17 y.o. ROOM: [facility] [place] [address] BACKGROUND E Learning Developer self-initiated visit. Prior attempt. Today, currency exchange specialist observed pt who appeared to be sleeping. Consulted bedside RN who advised pt medicated at this time. E Learning Developer subsequently introduced self and spiritual care. Pt expressed receptivity to currency exchange specialist support. ASSESSMENT Beliefs & Values Not mentioned. Connections E Learning Developer observed pt's Aircraft Sheet Metal Mechanic arriving to visit pt. One of the few statements clearly made by the pt: I grew up with tough parents. Otherwise, pt mumbling throughout encounter. Coping Pt observed to be very drowsy with their eyes briefly opening and mostly closed. Meaning Making Not mentioned. INTERVENTIONS E Learning Developer attempted to engaged pt in active listening, emotional processing, and supportive presence. E Learning Developer consulted with [employer]. Later, currency exchange specialist observed who currency exchange specialist learned is pt's Aircraft Sheet Metal Mechanic. E Learning Developer introduced self and spiritual care. CM declined supports at this time but affirmed chaplainpresence to support pt later on. CARE PLAN E Learning Developer will follow up, as able, per pt request. E Learning Developer coordinated follow up with bedside CPSA. RECOMMENDATIONS Nothing at this time. TIME STAMP: 10 minutes Alexis Guillaume [facility] Chaplain Ramachandran 131 Thank you for the opportunity to provide for this patient's/family's spiritual needs. * Cristiane Espana MD - 07/12/2023 0609 EDT Critical Care Progress Note Service Date: 07/12/2023 Admit Date: 07/10/2023 17:06 Reason for Admission to ICU: 17 y.o. male admitted with a chief complaint of AMS and now with a principal diagnosis of Ingestion of substance, intentional self- harm, initial encounter ([facility]). 24 hour events: Extubated in afternoon Subjective [...] and Qtc remains under 420ms Recent Labs 07/10/23 1746 07/11/23 0610 07/12/23 [...] results for input(s): PHISTAT, PCOISTAT, POISTAT, POCTCO2, [id number], POCFIO2 in the last 72 hours.Cardiac Markers: [...] transition to medications PRN for transfer to [facility] for ongoing active SI. Plan Pulmonary: #Intubated [...] over 6 hours ago upon arrival at [facility] - Poison Control does not recommendGI lavage [...] 12:20 Cristiane Espana MD Emergency Medicine PGY-1 Cosigned by Marty Higginbotham MD at 07/12/2023 18:16 EDT Associated attestation - Marty Higginbotham MD - [...] Medicine 07/12/2023 * Vignesh Jackson, RT - 07/11/2023 2114 EDT Respiratory Consult/Progress Note Indications for Respiratory [...] of substance, intentional self-harm, initial encounter ([facility]) Patient understands reason for admission: No PATIENT INFO VERIFIED: (S) PCP not verified, Contact Info, Address (the patient sees an DIRECTOR OF PHILANTHROPY at [facility] for priumary care needs. [facility] Type of housing (single family, condo, apartment, prison, single room occupancy, [facility] funded hotel room, group residential) - motel room Who does the patient live with? alone Does the patient have access to their own bedroom/bathroom/kitchen - or is it shared with others? own Name of housing complex (ex [facility], [facility], etc)- [facility] in [place] [facility] Housing Authority/Managing Organization - [employer] Community Care Providers (caseworker protective services, [facility] nurse, etc) name and contact information- [facility] FABIAN Celestin [phone] Finance And Administration Manager. Discharge Delay Risk Assessment 1. Disease/Medical Condition: [...] medical expenses 8. Social issues: Absence of mobile disc jockey Major Barrier day total 7-8: 3 Risk for Delayed Discharge: At Risk For Delayed Discharge Does the patient meet criteria to be escalated?: Yes How was escalation determined?: Per screening tool LIVING ARRANGEMENTS AND ACCESSIBILITY ISSUES: Living Arrangements: (S) Homeless, Other (Comment) (unhoused with [employer] voucher for [employer] Levels: 1 Stairs to enter: 0 Handicap access: None Bathroom located on bedroom level?: Yes What in home social supports are available to the patient? (S) wardrobe manager/social media director, Family member(s) (the only family the patint [...] Expected Discharge on IV Antibiotics: No CULTURAL, DRUZE and/or LANGUAGE factors affecting health care/discharge planning: [...] in comments) (the patient is active with [facility] [employer] for HOME LIGHTING ADVISER and general case managment as well as primary care with agency DIRECTOR OF PHILANTHROPY.) POST HOSPITAL TRANSITION PLAN: the patient is an 17 year old male admitted SP OD with active SI prior to attempt. Assessment completed with Clarissa Jara wardrobe manager at [facility] - [phone] who is the patients primary community support person. Additionally he received basic primary care from an DIRECTOR OF PHILANTHROPY at [facility] as well. Clarissa repots that he and younger sister were adopted by Sheryl and Gomez Patiño at age 1 and his older sister was adopted by a different family. The patientis reported to be currently estranged from his adoptive parents and likely would not want contact with them at this time. Keshav is currently un-housed with a [employer] voucher for the [employer] in [place] [facility]. Clarissa reports he is fully independent in his [...] substance, intentional self- harm, initial encounter ([facility]). 24 hour events: Transferred to [facility] MICU Subjective Intubated and sedated Review of [...] soft tissues are unremarkable. Recent Labs 07/10/23 17407/11/23 0610 WBC 8.06 5.98 RBC 4.82 4.61 [...] results for input(s): PHISTAT, PCOISTAT, POISTAT, POCTCO2, G5LSBVWN, POCFIO2 in the last 72 hours.Cardiac Markers: [...] of substance, intentional self-harm, initial encounter ([facility]) 2. Acute respiratory failure with hypoxia ([facility]) 3. Acute encephalopathy Critical Care time was [...] 07/11/2023 * Sylvester Calvert, RT - 07/11/2023 0530 EDT Respiratory Progress Note Indications for Respiratory [...] pt at 1705- [facility]. Pt was on 100 mcgs/kg/min of propofol. [...] 07/10/2023 20:05 * Prerna Murray RN - 07/10/2023 195 EDT Images from the original note were [...] Add LDA for any identified wounds Add [place] image for any suspected PI or non surgical wounds Order wound consult if suspected PI identified If Warren is < or = to 16, initiate Pressure Injury Prevention Bundle ([id number]). 07/10/2023 19:59 * Pari Delgado, RT - [...] at 23 at the teeth. PARI DELGADO, RT 07/10/23 documented in this encounter H&P Notes * Marty Higginbotham MD - 07/10/2023 1812 EDT [facility] Medical Intensive Care Unit History and Physical CC: overdose HISTORY OF PRESENT ILLNESS Keshav Patiño is a 17 y.o. male with a past medical history significant for bipolar disorder and SI presents to the MICU as a transfer from [facility] for concern for toxic ingestion that occurred 5 hours MEDIA PRODUCTION SUPPORT MANAGER. The patient normally receives his bipolar medications at the beginning of the week but his case manageer is concerned he has been hoarding pills. He sent a picture of a gun to his rn case management, who then called 911. Upon EMS arrival, [...] critical care time is 60 minutes. Marty Higginbotham, MD Pulmonary & Critical Care Medicine 07/10/2023 documented in this encounter Procedure Notes * Keshawn Martinez MD - 07/11/20237 EDT Video-Electroencephalographic Monitoring Report 11 JUL 2023 [...] Lorazepam 1-2mg PO or IM / IV [id number] as needed for agitation (limit by respiratory status) -Events: NAEON Interview: On this senior technical writer's evaluation of Mr. Patiño alone at [...] Patiño about how his meeting with his caseworker protective services, Clarissa, went yesterday, to which he noted I don't know, it was okay. Per caseworker protective servicescurriculum manager on 07/11, patient told Clarissa that [...] notes that these hospitalizations have been at [facility], [facility], a crisis center, and [facility] again. He noted a history of agitation with other patients due that was provoked by forceful touch. He endorsed that he would like to go to [facility] as he knows the staff there and they understood him, and is opposed to going to [facility]. He eventually declined voluntary psychiatric admission after [...] this interval not displayed. LFT: Recent Labs 07/10/23 1746 TBIL 0.7 ALKPHOS 91 AST 21 ALT 24 Cardiac Markers: Recent Labs 07/10/23 1746 07/11/23 1344 CK 70 117 Thyroid Function: Recent Labs 07/10/23 1746 TSH 0.67 Imaging Reviewed Hospital Problems Principal Problem: Ingestion of substance, intentional self-harm, initial encounter ([facility]) Active Problems: Acute respiratory failure with hypoxia ([facility]) Acute encephalopathy Delirium due to multiple etiologies Mood disorder ([facility]) Suicide attempt ([facility]) Diagnoses #Mood disorder #Intentional overdose #Suicide attempt ASSESSMENT AND RECOMMENDATIONS Keshav Patiño is a 17 y.o. male with a reported psychiatric history of mood disorder and no significant medical history with unknown prior psychiatric hospitalizations and unknown prior suicide attempts who was admitted to [facility] on 07/10/2023 for concern for toxic overdose. [...] admit him to involuntary inpatient psychiatry at [facility] now that he has medical clearance. Recommendations [...] Lorazepam 2mg PO or IM / IV [id number] as needed for agitation (limit by respiratory [...] Keshav Patiño : 2005 Admit Date: 07/10/2023 wide area network systems administrator: UNKNOWN,PROVIDER Attending Provider: Marty Higginbotham MD Date of Consult: 07/12/23 Time of Consult: 9:45 Reason for Consult/Chief Complaint: Suicide attempt and agitation Provider/Team Requesting Consult: [facility] MICU 2 HPI Keshav Patiño is a 17 y.o. male with a reported psychiatric history of mood disorder and no significant medical history with unknown prior psychiatric hospitalizations and unknown prior suicide attempts who was admitted to [facility] on 07/10/2023 for concern for toxic overdose. Psychiatry was consulted for suicide attempt and agitation. Hospital course (per MICU H&P): Patient was transferred from [facility] on 07/10/23 for concern for toxic ingestion that occurred 5 hours MEDIA PRODUCTION SUPPORT MANAGER. The patient normally receives his bipolar medications at the beginning of the week but his case manageer is concerned he has been hoarding pills. He sent a picture of a gun to his rn case management, who then called 911. Upon EMS arrival, [...] initial assessment. Attempted to speak with Keshav's caseworker protective services, Sherrie, per patient's request. Was unable to [...] Reached out and left voicemail to patient's caseworker protective services for collateral information. History of Self Injury [...] Reached out and left voicemail to patient's caseworker protective services for collateral information. Outpatient Care History and Current: Unable to assess today given patient's level of consciousness and engagement and minimal information in patient's chart. Reached out and left voicemail to patient's caseworker protective services for collateral information. Psychiatric Medications (prior to admission and past): Guanfacine 4 mg daily Dexmethylphenidate Methylphenidate Lamotrigine 150 mg BID Abilify 20 mg daily Depakote 250 mg daily Family History Unknown. Reached out and left voicemail to patient's caseworker protective services for collateral information. Family Psychiatric History Unknown. Reached out and left voicemail to patient's caseworker protective services for collateral information. Social History -Living situation: Lives alone in [facility] in [place]. Patient is otherwise unhoused and using a [employer] voucher for current accommodations. -Marital Status: Not [...] Tired Affect: Blunted. Thought Process and Associations: [place] Thought Content: Limited by mental status; related [...] at the beginning of the week but caseworker protective services is concerned that he has been hoarding [...] of substance, intentional self-harm, initial encounter ([facility]) Active Problems: Acute respiratory failure with hypoxia ([facility]) Acute encephalopathy Diagnoses #Delirium due to multiple etiologies #Mood disorder #Intentional overdose #Suicide attempt ASSESSMENT AND RECOMMENDATIONS Keshav Patiño is a 17 y.o. male with a reported psychiatric history of mood disorder and no significant medical history with unknown prior psychiatric hospitalizations and unknown prior suicide attempts who was admitted to [facility] on 07/10/2023 for concern for toxic overdose. [...] Lorazepam 1-2mg PO or IM / IV [id number] as needed for agitation (limit by respiratory [...] care, and documentation. Yossi Slater MD * Cinthya Duran RD - 07/11/2023 0915 EDTAssociated Order(s): CONSULT NUTRITION [...] Findings: Respiratory: vent Digestive Systems: Last BM detective captain; Enteral Access: NGT Edema: trace generalized, [...] kcals/day MSJ x1.1-1.2 (using 91.6 kg) = [id number] kcals/day 1.5-2.0 g/kg protein (using 91.6 kg) [...] DURAN RD, CD (Call [facility] or use [employer] (Zedmo) to page RD covering this unit) documented [...] with patient. Transported with security and psychiatric technician assistant. PRERNA MURRAY RN 07/14/2023 7:48 * Plan of Care - Elvia Becerril RN - 07/14/2023 0220 EDT Assumed care of Keshav Harris Kaylyn at 1900, Patient admitted with Ingestion of substance, intentional self-harm, initial encounter ([facility]) Patient A&Ox 3. Neurologically WNL. Pt [...] Exam - Brook Dueñas MD - 07/13/2023 2587 EDT Second Physician (Psychiatrist) Certification I. IDENTIFYING INFORMATION Patient Name: Keshav Patiño Date of : 2005 Patient???s Current Location: [facility] MICU Evaluation performed: In-person II. MENTAL [...] at the hospital, he had send his rn case management a picture of a gun. His rn case management believed that he had also been hoarding his psychiatric medications, which he receives at the beginning of the week. After receiving the photo of the gun, patient's rn case management called EMS, who observed that the patient was vomiting and displaying activity consistent with seizure. He was airlifted to thespital due to the gravity of his physical [...] certificate under the pains and penalties of perjury. Electronically signed by BROOK DUEÑAS MD Date: 07/13/2023 Time: 17:27 Certifying Physician Signature BROOK DUEÑAS MD Certifying Physician Name (please type) Certifying Physician Address: [facility] [[address] [place] [address]] Please fax completed form to [facility] Admissions: [phone] * Psych Involuntary Exam - Maegan Silverman - 07/13/2023 1330 EDT Revised: 09/2022 PHYSICIAN'S CERTIFICATE EMERGENCY EXAM NOTE TO PHYSICIAN: To complete this form, you must be a licensed physician or an Advanced Practice Registered Nurse (DIRECTOR OF PHILANTHROPY). While the Department of Mental Health requests all physicians and APRNs be designated by the Commissioner of Mental Health to complete Physician's Certificates, such designation is not required by law, and you may therefore complete the form without designation. If you are not currently designated, please go to [email or web address] for information about becoming designated by the Commissioner of Mental Health. Complete Sections I and II. SECTION I I, the undersigned, hereby certify that I am a board-certified psychiatrist.. I further state that I am licensed in the [facility], and I have made careful examination of the mental condition of Keshav Patiño [address] [address] in the [facility], and that I am of the opinion that this person is a person in need of treatment. The following information concerning the proposed patient is submitted: DATE OF : 2005 GENDER IDENTITY: Male Can the patient speak and understand Ugandan? yes If not, what language? NA Name [...] say? What did the proposed patient do? Kehsav Patiño is a 17-year-old male with a [...] photo of a gun he sent to caseworker protective services, and his suggestion to me that he [...] of Certification Print or Type Physician's Name [facility] [phone] Physician/DIRECTOR OF PHILANTHROPY's Telephone Number NOTE: The Application for Emergency [...] a hearing involving the above-named proposed patient. MAEGAN SILVERMNA Please fax a copy of this form to: [facility] Admissions Office: Fax#: [phone] Phone#: [phone] * Psych Involuntary Exam - Yossi Slater MD - 07/13/2023 1327 EDT [facility] Unit Docket No. In re: Keshav Patiño APPLICATION FOR EMERGENCY EXAMINATION NOW COMES Yossi Slater MD (Print full name of applicant) Of [facility], [address] [place] [address] (Print complete address of applicant) Date: 07/13/23 Relationship to, or interest in, proposed patient, consulting psychiatrist and makes application for the emergency examination of Keshav Patiño [place] [address] Parent/Legal Guardian: None known N/A (Print Name and address of Parent/Legal Guardian) *NOTE: Only the following persons may make application for an individual's emergency examination: aguardian, spouse, parent, adult child, close adult relative, a responsible adult friend, a person who has the individual in his orher charge or care (e.g., a electric power superintendent of a correctional facility), a constitutional law professor, a licensed physician (Caution: the same physician cannot be both applicant and certifying physician), a head of a hospital or his or her written designee, or a mental health professional (i.e., a physician, psychologist, social media director, mental health counselor, nurse, or other qualified person designated by the Commissioner of Mental Health). Reason for Application 1. Personal Information Keshav Patiño is a 17 y.o. single, unemployed, white presenting [place] [address] 2. Location of Assessment Mr. Patiño was evaluated in the Medical Intensive Care Unit at the [facility], where he was admitted following his intentional overdose. 3. Familiarity with Proposed Patient and Other Relevant Information Per initial psychiatric consultation on 07/12/2023: Keshav Patiño is a 17 y.o. male with a reported psychiatric history of mood disorder and no significant medical history with unknown prior psychiatric hospitalizations and unknown prior suicide attempts who was admitted to [facility] on 07/10/2023 for concern for toxic overdose. Psychiatry was consultedfor suicide attempt and agitation. Hospital course (per MICU H&P): Patient was transferred from [facility] on 07/10/23 for concern for toxic ingestion that occurred 5 hours MEDIA PRODUCTION SUPPORT MANAGER. The patient normally receives his bipolar medications at the beginning of the week but his case manageer is concerned he has been hoarding pills. He sent a picture of a gun to his rn case management, who then called 911. Upon EMS arrival, [...] contact. Laying in hospital bed in the [facility] medical intensive care unit. Behavior/Manner: Calm. Engaged. [...] not answer but reportedly recently informed his caseworker protective services that he would leave and kill himself Homicidal Ideation: No thoughts of killing others. However, he state that he will attack anyone whotouches him (clarifying later that a hand on the shoulder would be OK) Insight Fair Judgment Fair 5. Threatening or Dangerous Behavior Patient was admitted to the [facility] medical intensive care unit following an intentional overdose as a suicide attempt. He was transported here by airlift due to concern for the seriousness of his condition (required medical ICU level of care). He had reportedly overdosed on his medication prior to admission while in the presence of his counseling case manager, reportedly stockpiling medication for such an occasion. He has also threatened to harm others who touch him, saying he will attack anyone who touches him. 6. Eyewitnesses Clarissa Celestin (wardrobe manager) 7. Other Neurological Issues None known. [...] fax a copy of this form to: [facility] Admissions Office: Fax #: [phone] Phone #: [phone] * Plan of Care - Crystal Jeong [...] patient at 0700. Report given by off-going RNMelany. Patient is drowsy and oriented x3. Patient [...] Care - Lior Dwyer RN - 07/11/2023 1919 EDT Images from the original note were not included. Data: - Assumed care of this patient @ 1900. - Patient admitted to the MICU on 07/09 from OSH d/t intentional overdose. - Currently 1:1 sit need for suicidal ideations, reports being actively suicidal - Q12H EKGs/Lytes Action: - Patient requested male RN, notified weigh and charge worker, no male with switch with this RN at this time, able to place male MUSIC AGENT on this side of the unit to [...] made aware of interactions with patient. MICU weigh and charge worker updated as well. - @2129 patient attempted to throw himself out of bed multiple times again, RN caught him before falling. Patient persistently requested RN for a bottle of hand archery equipment hay sorter. Redirection and comfort options provided, patient refused, [...] the bedside to prevent this. - From 29 to 529 patient had eyes closed, chest rise equal [...] per order. - Q4H EKGs done - NOC MICU team requested patient be transitioned from [...] SCANNED (08/08/2023 8:57 EDT) 08/08/2023 8:57 EDT us Scan 2 Combined Rail Operator PROCEDURE/MINOR SURGICAL OR DERABLES Final Result * ECG REPORT - SCANNED (08/07/2023 16:35 EDT) 08/07/2023 16:3 5 EDT us Scan 2 Combined Rail Operator PROCEDURE/MINOR SURGICAL OR DERABLES Final Result * ECG REPORT - SCANNED (07/15/2023 20:25 EDT) 07/15/2023 20:2 5 EDT us Scan 2 Combined Rail Operator PROCEDURE/MINOR SURGICAL OR DERABLES Final Result * ECG REPORT - SCANNED (07/13/2023 14:07 EDT) 07/13/2023 14:0 7 EDT us Scan 2 Combined Rail Operator PROCEDURE/MINOR SURGICAL OR DERABLES Final Result * ECG REPORT - SCANNED (07/13/2023 14:07 EDT) 07/13/2023 14:0 7 EDT us Scan 2 Combined Rail Operator PROCEDURE/MINOR SURGICAL OR DERABLES Final Result * ECG REPORT - SCANNED (07/13/2023 14:07 EDT) 07/13/2023 14:0 7 EDT us Scan 2 Combined Rail Operator PROCEDURE/MINOR SURGICAL OR DERABLES Final Result * ECG REPORT - SCANNED (07/13/2023 14:07 EDT) 07/13/2023 14:0 7 EDT us Scan 2 Combined Rail Operator PROCEDURE/MINOR SURGICAL OR DERABLES Final Result * ECG REPORT - SCANNED (07/13/2023 14:07 EDT) 07/13/2023 14:0 7 EDT us Scan 2 Combined Rail Operator PROCEDURE/MINOR SURGICAL OR DERABLES Final Result * ECG REPORT - SCANNED (07/12/2023 10:05 EDT) 07/12/2023 10:0 5 EDT us Scan 2 Combined Rail Operator PROCEDURE/MINOR SURGICAL OR DERABLES Final Result * EKG 12-LEAD (07/12/2023 6:10 EDT) 07/12/2023 6:10 EDT Narrative [facility] EKG - 07/12/2023 9:57 EDT ? [facility] ? Test Date: ?2023-07-12 Pat Name: ? KESHAV DAWNEAU ?Department: ?? Fong 4 ? Room: ? M422 Gender: ? Male ? 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 [id number] : ?2005 ? Requested By: MARTY HIGGINBOTHAM MD Order Number: [id number] ? Reading MD: ?? GABRIELAJORDAN PARK MD ? Measurements Intervals ?[place] ? Rate: ? 83 ? P: ?61 NC: ? 187 ?QRS: ?48 QRSD: ? 96 ? T: ?45 QT: ? 342 ? QTc: ?403 ? Interpretive Statements SINUS RHYTHM NORMAL EKG I reviewed the tracing and have either agreed or edited the findings in this report. Electronically Signed On 07-12-2023 09:57:29 EDT by GABRIELA PARK MD. Procedure Note Gabriela Park MD - 07/12/2023 [facility] Test Date: 2023-07-12 Pat Name: KESHAV PATIÑO Department: [place] [address] Room: [facility] Gender: Male Flour Mixer Helper: [id number] : 2005 Requested By: MARTY HIGGINBOTHAM MD Order Number: [id number] Reading MD: GABRIELA PARK MD Measurements Intervals [place] Rate: 83 P: 61 NC: 187 QRS: 48 QRSD: 96 T: 45 QT: 342 QTc: 403 Interpretive Statements SINUS RHYTHM NORMAL EKG I reviewed the tracing and have either agreed or edited the findings inthis report. Electronically Signed On 07-12-2023 09:57:29 EDT by FIDE KATHLEEN. Cristiane Espana MD CARDIAC ECG ORDERABLES Final R esult Performing Organization Address City/[facility] Co de Phone Number [facility] EKG * MAGNESIUM (07/12/2023 5:58 EDT) Magnesium 1.7 1.7 - 2.8 mg/dL 07/12/2023 6:45 EDT [facility] Blood VENOUS BLOOD / Unknown Venipuncture / Unknown 07/12/2023 5:58 EDT 07/12/2023 6:13 EDT Cristiane Espana MD CHEMISTRY & BLOOD GAS ORDERABL ES Final Result Performing Organization Address [facility] Co de Phone Number [facility] [address] [place] [address] * (ABNORMAL) BASIC METABOLIC PANEL (BMP) (07/12/2023 5:58 EDT) Sodium 143 136 - 145 mmol/L 07/12/2023 6:45 EDT [facility] Potassium 3.8 3.5 - 5.0 mmol/L 07/12/2023 6:45 EDT [facility] Chloride 109 96 - 110 mmol/L 07/12/2023 6:45 T [facility] CO2 Total 24 22 - 32 mmol/L 07/12/2023 6:45 [facility] Anion Gap 10 5 - 14 mmol/L 07/12/2023 6:45 [facility] Glucose 87 70 - 99 mg/dl 07/12/2023 6:45 [facility] Calcium 8.9 8.5 - 10.5 mg/dL 07/12/2023 6:45 [facility] BUN 8(L) 10 - 26 mg/dL 07/12/2023 6:45 [facility] Creatinine 0.84 0.66 - 1.25 mg/dL 07/12/2023 6:45 [facility] eGFR 130 >60 mL/min/1.73 m2 07/12/2023 6:45 [facility] Blood VENOUS BLOOD / Unknown Venipuncture / Unknown 07/12/2023 5:58 EDT 07/12/2023 6:13 EDT us Cristiane Espana MD CHEMISTRY & BLOOD GAS ORDERABL ES Final Result [facility] [address] [place] [address] * (ABNORMAL) COMPLETE BLOOD COUNT (07/12/2023 5:58 EDT) WBC 9.40 4.00 - 10.40 K/cmm 07/12/2023 6:08 EDT [facility] RBC 4.61 4.36 - 5.78 M/cmm 07/12/2023 6:08 [facility] Hemoglobin 13.7(L) 13.8 - 17.3 g/dL 07/12/2023 6:08 [facility] HCT 39.9 39.5 - 50.2 % 07/12/2023 6:08 [facility] MCV 87 81 - 95 fL 07/12/2023 6:08 [facility] MCH 29.7 27.6 - 33.0 pg 07/12/2023 6:08 [facility] MCHC 34.3 32.8 - 36.4 g/dL 07/12/2023 6:08 [facility] RDW-CV 11.9 <14.2 % 07/12/2023 6:08 [facility] RDW-SD 37.3 <46.0 fl 07/12/2023 6:08 [facility] PLT 239 141 - 377 K/cmm 07/12/2023 6:08 [facility] MPV 9.2(L) 9.5 - 12.7 fL 07/12/2023 6:08 [facility] Blood VENOUS BLOOD / Unknown Venipuncture / Unknown 07/12/2023 5:58 EDT 07/12/2023 6:02 EDT Maya Kelley MD HEMATOLOGY & PF4 ORDERABLES Fi nal Result [facility] [address] [place] [id number] * MAGNESIUM (07/11/2023 17:40 EDT) Magnesium 2.0 1.7 - 2.8 mg/dL 07/11/2023 18:03 [facility] Blood VENOUS BLOOD / Unknown Venipuncture / Unknown 07/11/2023 17:40 EDT 07/11/2023 17:44 EDT Cristiane Espana MD CHEMISTRY & BLOOD GAS ORDERABL ES Final Result Performing Organization Address City/[facility]/ZIP Co de Phone Number [facility] [address] [place] [address] * (ABNORMAL) BASIC METABOLIC PANEL (BMP) (07/11/2023 17:40 EDT) Sodium 141 136 - 145 mmol/L 07/11/2023 18:03 [facility] Potassium 3.9 3.5 - 5.0 mmol/L 07/11/2023 18:03 [facility] Chloride 110 96 - 110 mmol/L 07/11/2023 18:03 [facility] CO2 Total 21(L) 22 - 32 mmol/L 07/11/2023 18:03 [facility] Anion Gap 10 5 - 14 mmol/L 07/11/2023 18:03 [facility] Glucose 91 70 - 99 mg/dl 07/11/2023 18:03 [facility] Calcium 9.2 8.5 - 10.5 mg/dL 07/11/2023 18:03 [facility] BUN 7(L) 10 - 26 mg/dL 07/11/2023 18:03 [facility] Creatinine 0.86 0.66 - 1.25 mg/dL 07/11/2023 18:03 [facility] eGFR 129 >60 mL/min/1.73 m2 07/11/2023 18:03 [facility] Blood VENOUS BLOOD / Unknown Venipuncture / Unknown 07/11/2023 17:40 EDT 07/11/2023 17:44 EDT Cristiane Espana MD CHEMISTRY & BLOOD GAS ORDERABL ES Final Result [facility] [address] [place], [place] [id number] * EKG 12-LEAD (07/11/2023 17:31 EDT) 07/11/2023 17:3 1 EDT Narrative [facility] EKG - 07/15/2023 20:16 EDT ? [facility] ? Test Date: ?2023-07-11 Pat Name: ? KESHAV PATIÑO ?Department: ?? Ajit Villanueva ? Room: ? M422 Gender: ? Male ? 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 [id number] : ?2005 ? Requested By: CAT DASHAH Order Number: [id number] ? Reading MD: ?? JAYLEN COLE ? Measurements Intervals ?[place] ? Rate: ? 64 ? P: ?84 NC: ? 189 ?QRS: ?97 QRSD: ? 96 [...] Note Jaylen Cole MD - 07/15/2023 [facility] Test Date: 2023-07-11 Pat Name: KESHAV PATIÑO Department: Fong Kay Room: [facility] Gender: Male Flour Mixer Helper: [id number] : 2005 Requested By: CAT TANNER Order Number: [id number] Krerie MD: JAYLEN COLE Measurements Intervals [place] Rate: 64 P: 84 NC: 189 QRS: 97 QRSD: 96 T: 70 QT: 396 QTc: 410 Interpretive Statements SINUS RHYTHM BORDERLINE RIGHT AXIS DEVIATION Automated Interpretation. Provider Interpretation to follow. Compared to ECG 07/11/2023 10:06:14 No significant changes I reviewed the tracing and have either agreed or edited the findings inthis report. Electronically Signed On 07-15-2023 20:16:58 EDT by JAYLEN COLE. us Cristiane Espana MD CARDIAC ECG ORDERABLES Final R esult [facility] EKG * CK (07/11/2023 13:44 EDT) [facility] CK 117 <=250 U/L 07/11/2023 14:11 EDT [facility] Blood VENOUS BLOOD / Unknown Venipuncture / Unknown 07/11/2023 13:44 EDT 07/11/2023 13:49 EDT Cristiane Espana MD CHEMISTRY & BLOOD GAS ORDERABL ES Final Result Performing Organization Address City/[facility]/ZIP Co de Phone Number [facility] [address] [place] [address] * MAGNESIUM (07/11/2023 13:44 EDT) [facility] Magnesium 1.9 1.7 - 2.8 mg/dL 07/11/2023 14:11 EDT [facility] Blood VENOUS BLOOD / Unknown Venipuncture / Unknown 07/11/2023 13:44 EDT 07/11/2023 13:49 EDT Maya Kelley MD CHEMISTRY & BLOOD GAS ORDERABL ES Final Result Performing Organization Address [facility]/ZIP Co de Phone Number [facility] [address] [place] [address] * (ABNORMAL) BASIC METABOLIC PANEL (BMP) (07/11/2023 13:44 EDT) [facility] Sodium 140 136 - 145 mmol/L [facility]2023 [facility] Potassium 4.0 3.5 - 5.0 mmol/L 07/11/2023 14:11 [facility] Chloride 110 96 - 110 mmol/L 07/11/2023 14:11 [facility] CO2 Total 23 22 - 32 mmol/L 07/11/2023 14:11 [facility] Anion Gap 7 5 - 14 mmol/L 07/11/2023 14:11 [facility] Glucose 97 70 - 99 mg/dl 07/11/2023 14:11 EDT [facility] Calcium 8.8 8.5 - 10.5 mg/dL 07/11/2023 14:11 EDT [facility] BUN 7(L) 10 - 26 mg/dL 07/11/2023 14:11 EDT [facility] Creatinine 0.85 0.66 - 1.25 mg/dL 07/11/2023 14:11 EDT [facility] eGFR 129 >60 mL/min/1.73 m2 07/11/2023 14:11 EDT [facility] Blood VENOUS BLOOD / Unknown Venipuncture / Unknown 07/11/2023 13:44 EDT 07/11/2023 13:49 EDT Maya Kelley MD CHEMISTRY & BLOOD GAS ORDERABL ES Final Result Performing Organization Address City/[facility]/ZIP Co de Phone Number [facility] [address] [place] [address] * POCT GLUCOSE, INTERFACED (07/11/2023 12:17 EDT) Glucose, POC 82 70 - 100 mg/dL 07/11/2023 12:18 EDT [facility] HN LAB POC COMMENT (GLUCOSE) Test Performed by Nursing Services 07/11/2023 12:18 EDT [facility] Blood CAPILLARY BLOOD / Unknown 07/11/2023 12:17 EDT 07/11/2023 12:18 EDT Maya Kelley MD POINT OF CARE TEST ORDERABLES Final Result [facility] [address] [place] [address] * EKG 12-LEAD (07/11/2023 10:06 EDT) 07/11/2023 10:0 6 EDT Narrative [facility] EKG - 07/13/2023 13:55 EDT ? [facility] ? Test Date: ?2023-07-11 Pat Name: ? KESHAVHaley DAWNSELENE ?Department: ?? Fong 4 ? Room: ? M422 Gender: ? Male ? 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 [id number] : ?2005 ? Requested By: CAT DASHAH Order Number: [id number] ? Reading MD: ?? KENNEY TORRES MD ? Measurements Intervals ?[place] ? Rate: ? 72 ? P: ?85 NC: ? 179 ?QRS: ?97 QRSD: ? 93 [...] Kenney Torres MD PhD - 07/13/2023 [facility] Test Date: 2023-07-11 Pat Name: KESHAV PATIÑO Department: [place] [address] Room: M422 Gender: Male Flour Mixer Helper: [id number] : 2005 Requested By: CAT TANNER Order Number: [id number] Kerrie MD: KENNEY WALDEN Measurements Intervals [place] Rate: 72 P: 85 NC: 179 QRS: 97 QRSD: 93 T: 60 QT: 375 QTc: 411 Interpretive Statements SINUS RHYTHM BORDERLINE RIGHT AXIS DEVIATION Automated Interpretation. Provider Interpretation to follow. Compared to ECG 07/11/2023 05:52:25 No significant changes I reviewed the tracing and have either agreed or edited the findings inthis report. Electronically Signed On 07-13-2023 13:55:06 EDT by KYM KATHLEEN. us Cristiane Espana MD CARDIAC ECG ORDERABLES Final R esult [facility] EKG * (ABNORMAL) COMPLETE BLOOD COUNT (07/11/2023 6:10 EDT) WBC 5.98 4.00 - 10.40 K/cmm 07/11/2023 6:27 [facility] RBC 4.61 4.36 - 5.78 M/cmm 07/11/2023 6:27 [facility] Hemoglobin 13.7(L) 13.8 - 17.3 g/dL 07/11/2023 6:27 [facility] HCT 38.3(L) 39.5 - 50.2 % 07/11/2023 6:27 [facility] MCV 83 81 - 95 fL 07/11/2023 6:27 [facility] MCH 29.7 27.6 - 33.0 pg 07/11/2023 6:27 [facility] MCHC 35.8 32.8 - 36.4 g/dL 07/11/2023 6:27 [facility] RDW-CV 11.7 <14.2 % 07/11/2023 6:27 [facility] RDW-SD 35.0 <46.0 fl 07/11/2023 6:27 [facility] PLT 271 141 - 377 K/cmm 07/11/2023 6:27 [facility] MPV 9.3(L) 9.5 - 12.7 fL 07/11/2023 6:27 [facility] Blood VENOUS BLOOD / Unknown Venipuncture / Unknown 07/11/2023 6:10 EDT 07/11/2023 6:17 EDT us Maya Kelley MD HEMATOLOGY & PF4 ORDERABLES Fi nal Result [facility] [address] [place] [address] * (ABNORMAL) BASIC METABOLIC PANEL (BMP) (07/11/2023 6:10 EDT) Pathologist [facility] Sodium 142 136 - 145 mmol/L 07/11/2023 7:24 EDT [facility] Potassium 3.6 3.5 - 5.0 mmol/L 07/11/2023 7:24 EDT [facility] Chloride 108 96 - 110 mmol/L 07/11/2023 7:24 EDT [facility] CO2 Total 21(L) 22 - 32 mmol/L 07/11/2023 7:24 EDT [facility] Anion Gap 13 5 - 14 mmol/L 07/11/2023 7:24 EDT [facility] Glucose 86 70 - 99 mg/dl 07/11/2023 7:24 EDT [facility] Calcium 8.9 8.5 - 10.5 mg/dL 07/11/2023 7:24 EDT [facility] BUN 5(L) 10 - 26 mg/dL 07/11/2023 7:24 T [facility] Creatinine 0.79 0.66 - 1.25 mg/dL 07/11/2023 7:24 EDT [facility] eGFR 132 >60 mL/min/1.73 m2 07/11/2023 7:24 EDT [facility] Blood VENOUS BLOOD / Unknown Venipuncture / Unknown 07/11/2023 6:10 EDT 07/11/2023 6:43 EDT us Maya Kelley MD CHEMISTRY & BLOOD GAS ORDERABL ES Final Result [facility] [address] [place] [address] * MRSA PCR (07/11/2023 6:10 EDT) MRSA/Staph aureus Result Staphylococcus aureus detected by PCR (NOT MRSA) 07/11/2023 11:57 EDT [facility] Swab BOTH ANTERIOR NARES / Unknown Swab / Unknown 07/11/2023 6:10 EDT 07/11/2023 6:35 EDT Cristiane Espana MD MICROBIOLOGY - GENERAL ORDERAB LES Final Result [facility] [address] [place] [address] * EKG 12-LEAD (07/11/2023 5:52 EDT) 07/11/2023 5:52 EDT Narrative [facility] EKG - 07/13/2023 13:55 EDT ? [facility] ? Test Date: ?2023-07-11 Pat Name: ? KESHAV PATIÑO ?Department: ?? Fong 4 ? Room: ? M422 Gender: ? Male ? 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 [id number] : ?2005 ? Requested By: VALDEZ NICHOLS Order Number: [id number] ? Reading MD: ?? KENNEY TORRES MD ? Measurements Intervals ?[place] ? Rate: ? 87 ? P: ?72 NC: ? 154 ?QRS: ?79 QRSD: ? 94 ? T: ?61 QT: ? 349 ? QTc: ?422 ? Interpretive Statements SINUS RHYTHM Automated Interpretation. ??Provider Interpretation to follow. Compared to ECG 07/11/2023 02:04:10 No significant changes I reviewed the tracing and have either agreed or edited the findings in this report. Electronically Signed On 07-13-2023 13:55:09 EDT by KENNYE TORRES MD. Procedure Note Kenney Torres MD PhD - 07/13/2023 [facility] Test Date: 2023-07-11 Pat Name: KESHAV PATIÑO Department: [place] [address] Room: [facility] [place] Gender: Male Flour Mixer Helper: [id number] : 2005 Requested By: VALDEZ NICHOLS Order Number: [id number] Kerrie MD: KENNEY WALDEN Measurements Intervals [place] Rate: 87 P: 72 NC: 154 QRS: 79 QRSD: 94 T: 61 QT: 349 QTc: 422 Interpretive Statements SINUS RHYTHM Automated Interpretation. Provider Interpretation to follow. Compared to ECG 07/11/2023 02:04:10 No significant changes I reviewed the tracing and have either agreed or edited the findings inthis report. Electronically Signed On 07-13-2023 13:55:09 EDT by KYM KATHLEEN. us Maya Kelley MD CARDIAC ECG ORDERABLES Final R esult [facility] EKG * EKG 12-LEAD (07/11/2023 2:04 EDT) 07/11/2023 2:04 EDT Narrative [facility] EKG - 07/13/2023 13:55 EDT ? [facility] ? Test Date: ?2023-07-11 Pat Name: ? KESHAV PATIÑO ?Department: ?? [place] 4 ? Room: ? M422 Gender: ? Male ? 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 [id number] : ?2005 ? Requested By: VALDEZ NICHOLS Order Number: [id number] ? Kerrie KATHLEEN: ?? KENNEY TORRES MD ? Measurements Intervals ?[place] ? Rate: ? 76 ? P: ?75 NC: ? 177 ?QRS: ?78 QRSD: ? 94 [...] Kenney Torres MD PhD - 07/13/2023 [facility] Test Date: 2023-07-11 Pat Name: KESHAV DAWNSELENE Department: [place] [address] Room: M422 Gender: Male Flour Mixer Helper: [id number] : 2005 Requested By: VALDEZ NICHOLS Order Number: [id number] Kerrie MD: KENNEY WALDEN Measurements Intervals [place] Rate: 76 P: 75 NC: 177 QRS: 78 QRSD: 94 T: 67 QT: 350 QTc: 396 Interpretive Statements SINUS RHYTHM Automated Interpretation. Provider Interpretation to follow. Compared to ECG 07/10/2023 21:58:02 Sinus tachycardia no longer present I reviewed the tracing and have either agreed or edited the findings inthis report. Electronically Signed On 07-13-2023 13:55:11 EDT by KYM KATHLEEN. Maya Kelley MD CARDIAC ECG ORDERABLES Final R esult [facility] EKG * (ABNORMAL) BASIC METABOLIC PANEL (BMP) (07/10/2023 23:51 EDT) Sodium 140 136 - 145 mmol/L 07/11/2023 0:26 EDT [facility] Potassium 3.9 3.5 - 5.0 mmol/L 07/11/2023 0:26 EDT [facility] Chloride 107 96 - 110 mmol/L 07/11/2023 0:26 [facility] CO2 Total 20(L) 22 - 32 mmol/L 07/11/2023 0:26 T [facility] Anion Gap 13 5 - 14 mmol/L 07/11/2023 0:26 [facility] Glucose 143(H) 70 - 99 mg/dl 07/11/2023 0:26 [facility] Calcium 8.8 8.5 - 10.5 mg/dL 07/11/2023 0:26 [facility] BUN 7(L) 10 - 26 mg/dL 07/11/2023 0:26 [facility] Creatinine 0.73 0.66 - 1.25 mg/dL 07/11/2023 0:26 [facility] eGFR 135 >60 mL/min/1.73 m2 07/11/2023 0:26 [facility] Blood VENOUS BLOOD / Unknown Venipuncture / Unknown 07/10/2023 23:51 EDT 07/10/2023 23:55 EDT Maya Kelley MD CHEMISTRY & BLOOD GAS ORDERABL ES Final Result Performing Organization Address [facility]/State/ZIP Co de Phone Number [facility] [address] [place] [phone] * EKG 12-LEAD (07/10/2023 21:58 EDT) 07/10/2023 21:5 8 EDT Narrative [facility] EKG - 07/13/2023 13:55 EDT ? [facility] ? Test Date: ?2023-07-10 Pat Name: ? KESHAV PATIÑO ?Department: ?? Ajit Villanueva ? Room: ? M422 Gender: ? Male ? 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 [id number] : ?2005 ? Requested By: CAT TANNER Order Number: [id number] ? Reading MD: ?? KENNEY TORRES MD ? Measurements Intervals ?[place] ? Rate: ? 103 ?P: ?74 NC: ? 154 ?QRS: ?92 QRSD: ? 97 [...] Kenney Torres MD PhD - 07/13/2023 [facility] Test Date: 2023-07-10 Pat Name: KESHAV PATIÑO Department: [place] [address] Room: [facility] [place] Gender: Male Flour Mixer Helper: [id number] : 2005 Requested By: CAT TANNER Order Number: [id number] Kerrie KATHLEEN: KENNEY WALDEN Measurements Intervals [place] Rate: 103 P: 74 NC: 154 QRS: 92 QRSD: 97 T: 63 [...] KYM KATHLEEN. Cristiane Espana MD CARDIAC ECG ORDERABLES Final R esult [facility] EKG * EEG WITH PROLONGED BEDSIDE VIDEO MONITORING (07/10/2023 20:06 EDT) Narrative [facility] POINT OF CARE - 07/10/2023 20:06 EDT Keshawn Martinez MD ? 07/11/2023 ??9:09 Video-Electroencephalographic Monitoring Report 10 JUL 2023 Referring Physician: Deomnd Sultana, * Clinical Indication: An 17 y.o. [...] 20:07 ??07/10/2023 Cristiane Espana MD NEUROLOGY ORDERABLES Final Res ult Performing Organization Address [facility]/ZIP Co de Phone Number [facility] POINT [facility]ARE * (ABNORMAL) BLOOD GASES, VENOUS (07/10/2023 19:43 EDT) pH, Venous 7.32 7.31 - 7.41 07/10/2023 19:55 EDT [facility] pCO2, Venous 39(L) 41 - 51 mmHg 07/10/2023 19:55 EDT [facility] pO2, Venous 70(H) 30 - 50 mmHg 07/10/2023 19:55 EDT [facility] tCO2, Venous 21(L) 22 - 28 mmol/L 07/10/2023 19:55 EDT [facility] Temperature 37.0 C 07/10/2023 19:55 EDT [facility] Comment:Body Temp not noted. 37 degrees assumed. O2 Saturation, Venous 93(H) 60 - 85 % 07/10/2023 19:55 EDT [facility] Oxygen Therapy (FIO2) 21.0 % 07/10/2023 19:55 [facility] Base Level -5.90(L) -2.00 - 3.00 mmol/L 07/10/2023 19:55 T [facility] Blood VENOUS BLOOD / Unknown Venipuncture / Unknown 07/10/2023 19:43 EDT 07/10/2023 19:49 EDT us Marty Higginbotham MD CHEMISTRY & BLOOD GAS ORDERABLES Final Result [facility] [address] [place] [phone] * XR CHEST PORTABLE LINE PLACEMENT (07/10/2023 [...] Bones and superficial soft tissues are unremarkable. [id number] Narrative 07/10/2023 19:13 EDT XR CHEST PORTABLE [...] contour. Bones andsuperficial soft tissues are unremarkable. [id number] Cristiane Espana MD IMG DIAGNOSTIC IMAGING ORDERAB LES Final Result * CK (07/10/2023 17:46 EDT) Pathologist [facility] CK 70 <=250 U/L 07/10/2023 18:32 EDT [facility] Blood VENOUS BLOOD / Unknown Port / Unknown 07/10/2023 17:46 EDT 07/10/2023 17:53 EDT Maya Kelely MD CHEMISTRY & BLOOD GAS ORDERABL ES Final Result [facility] [address] [place] [address] * (ABNORMAL) VALPROIC ACID LEVEL (07/10/2023 17:46 EDT) Valproic Acid 24(L) 50 - 100 ug/mL 07/10/2023 18:26 EDT [facility] Blood VENOUS BLOOD / Unknown Port / Unknown 07/10/2023 17:46 EDT 07/10/2023 17:53 EDT us Cristiane Espana MD CHEMISTRY & BLOOD GAS ORDERABL ES Final Result [facility] [address] [place] [address] * POLYSUBSTANCE USE PANEL, URINE (07/10/2023 17:46 EDT) Pathologist [facility] Buprenorphine Screen, Urine Negative <5 ng/mL 07/11/2023 11:58 EDT [facility] Oxycodone Screen, Urine Negative <100 ng/mL 07/11/2023 11:58 [facility] Cotinine Screen, Urine Negative <500 ng/mL 07/11/2023 11:58 [facility] Benzodiazepines Screen, Urine Negative <200 ng/mL 07/11/2023 11:58 [facility] Amphetamines Screen, Urine Negative <1000 ng/mL 07/11/2023 11:58 [facility] Cocaine Metabolite Screen, Urine Negative <150 ng/mL 07/11/2023 11:58 [facility] THC Metabolites Screen, Urine Negative <50 ng/mL 07/11/2023 11:58 [facility] Barbiturates Screen, Urine Negative <200 ng/mL 07/11/2023 11:58 [facility] Opiates Screen, Urine Negative <300 ng/mL 07/11/2023 11:58 [facility] Alcohol Metabolite (EtG) Screen, Urine Negative <500 ng/mL 07/11/2023 11:58 [facility] Methadone Screen, Urine Negative <300 ng/mL 07/11/2023 11:58 [facility] Fentanyl Screen with Reflex to Confirmation, U Negative <1 ng/mL 07/11/2023 11:58 [facility] Urine URINE / Unknown Urine Collect / Unknown 07/10/2023 17:46 EDT 07/10/2023 18:29 EDT N[facility]ative [facility] - 07/11/2023 11:58 EDT Testing performed by: [facility] [address] [place] [address], [address], [place] [address] Automotive Window Tinter: Jose Armando Loza MD; CLIA # [id number] Maya Kelley MD GEN LAB UNIT COLLECT ORDERABLE S Final Result Performing Organization Address City/[facility]/ZIP Co de Phone Number [facility] [address] [place] [address], [facility] [address] [phone] * THYROID CASCADE (07/10/2023 17:46 EDT) TSH 0.67 0.47 - 4.68 mIU/L 07/10/2023 18:54 EDT [facility] Blood VENOUS BLOOD / Unknown Port / Unknown 07/10/2023 17:46 EDT 07/10/2023 17:53 EDT Narrative [facility] - 07/10/2023 18:54 EDT NOTE: The results of this assay can be falsely lowered due to the consumption of Biotin. Cristiane Espana MD CHEMISTRY & BLOOD GAS ORDERABL ES Final Result [facility] [address] [place] [phone] * (ABNORMAL) UA CHEMICAL & SEDIMENT (07/10/2023 17:46 EDT) Color UA Yellow Colorless, Yellow 07/10/2023 18:05 EDT [facility] Clarity UA Clear Clear 07/10/2023 18:05 EDT [facility] Glucose UA Negative Negative mg/dL 07/10/2023 18:05 EDT [facility] Bilirubin UA Negative Negative 07/10/2023 18:05 EDT [facility] Ketones UA 1+(A) Negative 07/10/2023 18:05 EDT [facility] Specific [place], Urine 1.006 1.001 - 1.030 07/10/2023 18:05 [facility] Blood UA Negative Negative 07/10/2023 18:05 [facility] Urobilinogen UA 1.0 0.2-1.0 mg/dL mg/dL 07/10/2023 18:05 [facility] Nitrite UA Negative Negative 07/10/2023 18:05 [facility] Leukocyte Esterase UA Negative Negative 07/10/2023 18:05 [facility] Protein UA Negative Negative mg/dL 07/10/2023 18:05 [facility] pH, UA 6.0 <8.5 07/10/2023 18:05 [facility] Urine RBC Count, Auto 0 - 2 0 - 2 Cells/HPF 07/10/2023 18:05 [facility] Urine WBC Count, Auto 0 - 3 0 - 3 Cells/HPF 07/10/2023 18:05 [facility] Urine Squamous Count, Auto None Seen None Seen Cells/HPF 07/10/2023 18:05 [facility] Urine Hyaline Cast Count, Auto <=10 <=10 Casts/LPF 07/10/2023 18:05 [facility] Urine Bacteria Count, Auto None Seen None Seen Bacteria/HPF 07/10/2023 18:05 [facility] Urine URINE SPECIMEN OBTAINED BY SINGLE CATHETERIZATION OF URINARY BLADDER / Unknown Urine Collect / Unknown 07/10/2023 17:46 EDT 07/10/2023 17:52 EDT Narrative [facility] - 07/10/2023 18:05 EDT Urine Sediment Analysis results are unreliable on urines that are unrefrigerated for >2 hrs or refrigerated >8 hrs. us Cristiane Espana MD URINALYSIS ORDERABLES Final Re sult [facility] [address] [place] [address] * LAMOTRIGINE (07/10/2023 17:46 EDT) Pathologist [facility] Lamotrigine, S 22.0 3.0 - 15.0 mcg/mL 07/12/2023 9:36 EDT [facility] Comment: ADDITIONAL INFORMATION This test was developed and its performance characteristics determined by [facility] in a manner consistent with CLIA requirements. This test has not been cleared or approved by the U.S. Food and Drug Administration. Test Performed by: [facility] [address] [place] [address] [employer] Window Tinter: Kush Gaspar M.D. Ph.D.; CLIA# [id number] Blood VENOUS BLOOD / Unknown Port / Unknown 07/10/2023 17:46 EDT 07/10/2023 17:53 EDT Cristiane Espana MD CHEMISTRY & BLOOD GAS ORDERABL ES Final Result [facility] [address] [place] [address] * LACTIC ACID (07/10/2023 17:46 EDT) [facility] Lactic Acid 1.6 <=2.0 mmol/L 07/10/2023 18:10 EDT [facility] Blood VENOUS BLOOD / Unknown Port / Unknown 07/10/2023 17:46 EDT 07/10/2023 17:54 EDT Cristiane Espana MD CHEMISTRY & BLOOD GAS ORDERABL ES Final Result [facility] [address] [place] [address] * (ABNORMAL) MAGNESIUM (07/10/2023 17:46 EDT) [facility] Magnesium 1.6(L) 1.7 - 2.8 mg/dL 07/10/2023 18:21 EDT [facility] Blood VENOUS BLOOD / Unknown Port / Unknown 07/10/2023 17:46 EDT 07/10/2023 17:53 EDT us Cristiane Espana MD CHEMISTRY & BLOOD GAS ORDERABL ES Final Result [facility] [address] [place], [place] [id number] * (ABNORMAL) COMPREHENSIVE METABOLIC PANEL (CMP) (07/10/2023 17:46 EDT) Sodium 138 136 - 145 mmol/L 07/10/2023 18:21 [facility] Potassium 4.1 3.5 - 5.0 mmol/L 07/10/2023 18:21 [facility] Chloride 106 96 - 110 mmol/L 07/10/2023 18:21 [facility] CO2 Total 23 22 - 32 mmol/L 07/10/2023 18:21 [facility] Glucose 98 70 - 99 mg/dl 07/10/2023 18:21 [facility] BUN 10 10 - 26 mg/dL 07/10/2023 18:21 [facility] Creatinine 0.72 0.66 - 1.25 mg/dL 07/10/2023 18:21 [facility] eGFR 136 >60 mL/min/1.7 3m2 07/10/2023 18:21 [facility] Total Protein 6.0(L) 6.3 - 8.2 g/dL 07/10/2023 18:21 [facility] Albumin 3.6 3.4 - 4.9 g/dL 07/10/2023 18:21 [facility] Alkaline Phosphatase 91 38 - 126 U/L 07/10/2023 18:21 [facility] AST 21 15 - 46 U/L 07/10/2023 18:21 [facility] ALT 24 <50 U/L 07/10/2023 18:21 [facility] Bilirubin, Total 0.7 <1.4 mg/dL 07/10/19 18:21 [facility] Calcium 8.8 8.5 - 10.5 mg/dL 07/10/2023 18:21 [facility] Albumin/Globulin Ratio 1.5 1.0 - 2.5 07/10/2023 18:21 [facility] Anion Gap 9 5 - 14 mmol/L 07/10/2023 18:21 [facility] Blood VENOUS BLOOD / Unknown Port / Unknown 07/10/2023 17:46 EDT 07/10/2023 17:53 EDT us Cristiane Espana MD CHEMISTRY & BLOOD GAS ORDERABL ES Final Result [facility] [address] [place] [address] * (ABNORMAL) COMPLETE BLOOD COUNT (07/10/2023 17:46 EDT) WBC 8.06 4.00 - 10.40 K/cmm 07/10/2023 18:06 [facility] RBC 4.82 4.36 - 5.78 M/cmm 07/10/2023 18:06 [facility] Hemoglobin 14.1 13.8 - 17.3 g/dL 07/10/2023 18:06 [facility] HCT 40.7 39.5 - 50.2 % 07/10/2023 18:06 [facility] MCV 84 81 - 95 fL 07/10/2023 18:06 [facility] MCH 29.3 27.6 - 33.0 pg 07/10/2023 18:06 [facility] MCHC 34.6 32.8 - 36.4 g/dL 07/10/2023 18:06 [facility] RDW-CV 11.3 <14.2 % 07/10/2023 18:06 [facility] RDW-SD 34.8 <46.0 fl 07/10/2023 18:06 EDT [facility] PLT 252 141 - 377 K/cmm 07/10/2023 18:06 EDT [facility] MPV 9.2(L) 9.5 - 12.7 fL 07/10/2023 18:06 EDT [facility] Blood VENOUS BLOOD / Unknown Port / Unknown 07/10/2023 17:46 EDT 07/10/2023 17:53 EDT Cristiane Espana MD HEMATOLOGY & PF4 ORDERABLES Fi nal Result [facility] [address] [place] [phone] * MRSA PCR (07/10/2023 17:46 EDT) MRSA/Staph aureus Result Staphylococcus aureus detected by PCR (NOT MRSA) 07/10/2023 23:14 EDT [facility] Swab BOTH ANTERIOR NARES / Unknown Swab / Unknown 07/10/2023 17:46 EDT 07/10/2023 18:01 EDT Cristiane Espana MD MICROBIOLOGY - GENERAL ORDERAB LES Final Result Performing Organization Address City/[facility]/ZIP Co de Phone Number [facility] [address] [place] [phone] * POCT BLOOD GAS, EG6 I-STAT (07/10/2023 17:42 EDT) pH, Venous, i-STAT 7.32 7.31 - 7.41 07/10/2023 17:51 EDT [facility] pCO2, Venous, i-STAT 47 41 - 51 mmHg 07/10/2023 17:51 EDT [facility] pO2, Venous, i-STAT 49 30 - 50 mmHg 07/10/2023 17:51 EDT [facility] TCO2, Venous, i-STAT 25 22 - 28 mmol/L 07/10/2023 17:51 EDT [facility] O2 Saturation, Venous, i-STAT 81 60 - 85 % 07/10/2023 17:51 EDT [facility] Base Excess(+) / Deficit(-), Venous, i-STAT -2 -2 - 3 mmol/L 07/10/2023 17:51 EDT [facility] Blood VENOUS BLOOD / Unknown 07/10/2023 17:42 EDT 07/10/2023 17:51 EDT Narrative [facility] - 07/10/2023 17:51 EDT Test Performed by Respiratory Cristiane Espana MD POINT OF CARE TEST ORDERABLES Final Result Performing Organization Address City/[facility]/ZIP Co de Phone Number [facility] [address] [place] [address] * POCT GLUCOSE, INTERFACED (07/10/2023 17:41 EDT) [facility] Signature Glucose, POC 97 70 - 100 mg/dL 07/10/2023 17:41 EDT [facility] HN LAB POC COMMENT (GLUCOSE) Test Performed by Nursing Services 07/10/2023 17:41 EDT [facility] Blood CAPILLARY BLOOD / Unknown 07/10/2023 17:41 EDT 07/10/2023 17:41 EDT Cristiane Espana MD POINT OF CARE TEST ORDERABLES Final Result [facility] [address] [place] [address] * EKG 12-LEAD (07/10/2023 17:28 EDT) 07/10/2023 17:2 8 EDT Narrative [facility] EKG - 07/13/2023 13:55 EDT ? [facility] ? Test Date: ?2023-07-10 Pat Name: ? KESHAV NEREYDASELENE ?Department: ?? Fong 4 ? Room: ? M422 Gender: ? Male ? 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 [phone] : ?2005 ? Requested By: CAT TANNER Order Number: [id number] ? Reading MD: ?? KENNEY TORRES MD ? Measurements Intervals ?[place] ? Rate: ? 56 ? P: ?52 NC: ? 158 ?QRS: ?87 QRSD: ? 98 [...] Kenney Torres MD PhD - 07/13/2023 [facility] Test Date: 2023-07-10 Pat Name: KESHAV PATIÑO Department: [place] [address] Room: [facility] Gender: Male Flour Mixer Helper: [phone] : 2005 Requested By: CAT TANNER Order Number: [id number] Kerrie MD: KENNEY WALDEN Measurements Intervals [place] Rate: 56 P: 52 NC: 158 QRS: 87 QRSD: 98 T: 58 QT: 417 QTc: 406 Interpretive Statements SINUS BRADYCARDIA Automated Interpretation. Provider Interpretation to follow. No previous ECG available for comparison I reviewed the tracing and have either agreed or edited the findings inthis report. Electronically Signed On 07-13-2023 13:55:19 EDT by KYM KATHLEEN. us Cristiane Espana MD CARDIAC ECG ORDERABLES Final R esult [facility] EKG documented in this encounter Visit Diagnoses Diagnosis Ingestion of substance, intentional self-harm, initial encounter (HCC-CMS)- Primary Ingestion of substance, intentional self-harm, initial encounter ([facility]-CMS) Acute respiratory failure with hypoxia ([facility]-CMS) Acute respiratory failure Acute encephalopathy Encephalopathy, unspecified Delirium due to multiple etiologies Delirium due to conditions classified elsewhere Mood disorder ([facility]-CMS) Unspecified episodic mood disorder Suicide attempt ([facility]) Suicide and self-inflicted injury by unspecified means Acute respiratory failure with hypoxia ([facility]) Acute respiratory failure Acute encephalopathy Encephalopathy, unspecified Delirium due to multiple etiologies Delirium due to conditions classified elsewhere Mood disorder ([facility]) Unspecified episodic mood disorder Suicide attempt ([facility]) Suicide and self-inflicted injury by unspecified means documented in this encounter Admitting Diagnoses Diagnosis Ingestion of substance, intentional self-harm, initial encounter ([facility]) documented in this encounter Administered Medications Inactive [...] on Mon07/10/23 at 2015, Until Mon07/10/23 at 2036, Routine Rate Documented 07/10/2023 20:00 EDT 100 [...] Dwyer RN)0200 (Rate Documented - Provider: Lior Dwyer, RN)0300 (Rate Documented - Provider: Lior Dwyer, RN)0400 (Rate Documented - Provider: Lior Dwyer RN)0500 (Rate Documented - Provider: Tinajero Knipes, RN)0600 (Rate Documented - Provider: Lior Dwyer [...] Administer over 60 Minutes, PRN, Starting on 07/10/23 at 1725, Until Mon07/14/23 at 1301, Routine [...] 07/14/2023 documented in this encounter Care Teams [place]aport Planning Manager Relationship Specialty Start Date End Date Karissa Rangel MD PCP - General 07/10/23 Obie Mccoy MD [address] [place] [address] 07/10/23 documented as of this encounter
--- OUTSIDE RECORDS SUMMARY | 2024-04-12 01:10 | XMS_ITS | Encounter Summary ---
Author Organization [facility] Address [address] [place] [address] Care Team Providers Care Warehouse Laborer Name Role Phone Unavailable Primary Care Provider Unavailabl e Encounter Details Date Type Department Care Team (Latest Contact Info) Description 12/15/2005 10:32 EDT - 12/15/2005 11:59 EDT Hospital Encounter [facility] [address] [place] [address] Keaton Wei MD [address] [place] [address] [place] [phone] Discharge Disposition: Auto Discharge Social History Tobacco [...] extremities, hands and feet, show no fracture. /sb Keaton Wei MD IMG DIAGNOSTIC IMAGING ORDERAB LES Final Result documented in this encounter Visit Diagnoses Not on filedocumented in this encounter
--- OUTSIDE RECORDS SUMMARY | 2024-04-12 01:10 | XMS_ITS | Encounter Summary ---
Author Organization [facility] Address [address] [place] [address] Care Team Providers Care Order Dispatcher Name Role Phone Karissa Rangel MD Primary Care Provide r Unavailable Obie Mccoy MD Unavailable [phone] Encounter Details Date Type Department Care [...] slept in a residential (including now)? Yes 07/11/2023 Sex and Gender Information Value Date Recorded Sex Assigned at Not on file Legal Sex Male 18:38 EST Gender Identity Not on file Sexual Orientation Not on file documented as of this encounter Plan of Treatment Not on file documented as of this encounter Visit Diagnoses Not on filedocumented in this encounter Care Teams Order Dispatcher Relationship Specialty Start Date End Date Karissa Rangel MD PCP - General 07/10/23 Obie Mccoy MD [address] [place] [address] 07/10/23 documented as of this encounter
[2024-04-12] MEDS: Acetaminophen 500 MG TAB 1000 MG PO (01:19)
--- NOTE | 2024-04-12 12:13 | PDOC.MHPN2 ---
Date of service: 04/11/24 Time of Service: 11:31 Mental Health Emergency Note Release [facility] release signed:: Yes Reason for Visit The client is a known client within the [facility]OLDER [employer] [facility]PER[facility] program. The client appeared lethargic but became agitated throughout the reassessment and safety planning. The client appeared disheveled. This life insurance underwriter is importing note for ESC Per Daria In the last 2 weeks has the pt presented for ES prior to today?: No Impression The client presented with thoughts of low self worth and suicidal ideation without means of carrying out his plan. The client reports wanting medication management. The client reports noncompliance with current medication. The client reported having lost his place of residence . The client did not engage with clinician on offered resources to utilize for housing and prison. The client became agitated and aggressive towards property when resources offered did not completely cover his preferences. The client calmed down when the clinician informed him he would not engage with the client until the client was able to engage safely and respectfully. The client declined offered housing options and refused to disclose coping skills or warning signs on the safety plan. Plan/Disposition Recommended Disposition: F[facility]DER GLUER OPERATOR (Follow up and coordination with the clients FOLDER GLUER OPERATOR team, however he declined all support at this time. ). Plan: The client was offered resources for housing and has appointments made with his established team, therapist and egg caser. The client also provided with information on community resources such as the community hub, front porch and [phone]. Person reported agreement to plan: No Reports/communication Outcome discussed with: ED/Personnel (Report given to zone b nurse Ernesto and ED provider Dr. York whom did not agree with the plan and reported that they were going to keep the client overnight. )
--- NOTE | 2024-04-12 14:28 | ED.PROG_ITS ---
Date of service: 04/12/24 Time of Service: 07:00 Medical Decision Making Patient presents the emergency department stating that he was suicidal and has been here for 2 days he has progressed well he has taken his medication and crisis workers from the [facility] crisis group have evaluated the patient and have shared care plan for him. He is also homeless so they are helping him get a housing alternative here. He is medically cleared and was medically cleared 2 days ago and we did discharge home Medical Records Medical records reviewed: Yes I reviewed the patient's medical records. Lab Data Lab results reviewed: Yes I reviewed the patient's lab results. 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 are Exam Narrative Exam Narrative: Exam; vitals signs as reported above normal Constitutional; In no acute distress, afebrile General: cooperative, healthy appearing, comfortable and no acute distress HEENT: Head: normal to inspection, no palpable skull fracture and normocephalic atraumatic Eyes: : appearance normal, both eyes and all related structures EOM intact bilaterally Pupils: PERRL : conjunctiva normal Direct ophthalmoscopy: normal light reflex, normal conjunctiva, normal visual acuity Ears: Normal TM, normal external canal Nose: normal no rhinorreha Neck no JVD, supple non tender Neck: normal visual inspection, full ROM and no lymphadenopathy Chest: normal inspection of the chest Respiratory : normal respiratory effort and able to speak in complete sentences no wheezing no rales Cardio Rate: regular rate, rhythm: regular rhythm normal heart sounds S1 and S2 no murmurs, gallops, or rubs GI : normal to inspection, normal bowel sounds, soft, non tender, non distended, no organomegaly Back/Spine/ no CVA tenderness Thoracic/Lumbar Spine: no tenderness or deformities Skin no rashes or lesions Neuro: patient alert oriented x 4 and no meningeal signs, Cranial Nerves: CN's II-XI intact bilaterally, Cognition: normal cognition, Speech: speech normal, Gait: normal gait, Depp tendon reflexes normal 2+ muscle strength 5/5 bilaterally Extremities, no edema, full range of motion, normal strength Narrative Patient presented with depression who feels much better now has been evaluated in the last 2 days and will be discharged with a safety plan and a housing alternative Discharge Plan Disposition Patient Disposition: Home Condition: Improving Discharge Details Clinical Impression: Homicidal ideation, Suicide ideation Primary Care Provider: None,None ED Provider: Jermaine Reynoso Meds and New Rx's Prescriptions: Continued Abilify Maintena 400 mg suspension,extended rel recon 400 mg IM QMONTH quetiapine [Seroquel] 50 mg tablet 50 mg PO DAILY Discharge Instructions Instructions: Depression in adults Discharge Data Discharge Physician: Jermaine Reynoso
--- NOTE | 2024-04-12 16:00 | PDOC.MHPN2 ---
Date of service: 04/12/24 Time of Service: 16:04 Mental Health Emergency Note Release [facility] release signed:: Yes Reason for Visit Client is a 18yr old male, homeless, known to [facility] through his enrollment in the [facility] [employer] Program. Client presented to [facility] ED due to intentional overdose on Rx (Seroquel) but had limited access to the medication and medical records do not confirm this action. Client reported suicidal thoughts with plan to jump off a bridge or step in front of a train, stating he would end his life in one of these ways if he is discharged and in the community at 5pm today. Client made homicidal statements, naming two specific individuals as targets. Client appeared disheveled with dirty fingernails, wearing hospital issue blue safety garments. Client was seen by this clinician for the reassessment at the ED. The client reports having broken up with his girlfriend as the antecedent to taking more than the amount of Seroquel prescribed. In the last 2 weeks has the pt presented for ES prior to today?: Yes, presented at [facility] ED Impression Client is a 18yr old male, homeless, known to [facility] through his enrollment in the [facility] Program. Client presented to [facility] ED due to intentional overdose on Rx (Seroquel) but had limited access to the medication and medical records do not confirm this action. Client reported suicidal thoughts with plan to jump off a bridge or step in front of a train, stating he would end his life in one of these ways if he is discharged and in the community at 5pm today. Client made homicidal statements, naming two specific individuals as targets. Client appeared disheveled with dirty fingernails, wearing hospital issue blue safety garments. Client was seen by this clinician for the reassessment at the ED. The client reports having broken up with his girlfriend as the antecedent to taking more than the amount of Seroquel prescribed. Plan/Disposition Recommended Disposition: [facility] [employer]. Plan: Client participated in reassessment and remains in [facility] with Underwear Cutter while client and CM work on discharge plans. Person reported agreement to plan: Yes Reports/communication Outcome discussed with: ED/Personnel
--- NOTE | 2024-04-12 16:54 | CMPROGNOTE_ITS ---
Date of service: 04/12/24 Time of Service: 16:54 Care Management Progress Note Progress Note Text Progress Note Text: CM met with staff to discuss Keshav's plan of care. Per report, Keshav is doing much better today and is showing improved insight. [facility] met with him and created a safety plan for him to return to the community. Keshav contacted [address] and was able to secure a room at a hotel in [place]. His TABLEAU DEVELOPER director of casework services, Rosaura visited him this afternoon and offered to provide transport to the hotel, as she was already traveling in that direction. Keshav was discharged with a safety plan; he was agreeable to this plan. Social Determinants of Health Screening Will the Patient Participate in the Screening?: Unable to obtain
--- NOTE | 2024-04-13 07:53 | NUR.NOTE ---
[facility] called asking if this patient was still here seeking placement. Access chart to get disposition and the told them that the patient was discharged home and the time. Nursing Note:
== END 2024-04-12 15:14 | disposition home or self-care (01) ==
PROVIDERS: Emergency Provider Emergency Medicine Emergency Medical Services
DX: R45.851 Suicidal ideations (principal); R45.850 Homicidal ideations; F32.A Depression, unspecified; F31.9 Bipolar disorder, unspecified; F17.290 Nicotine dependence, other tobacco product, uncomplicated; Z59.00 Homelessness unspecified
CPT/HCPCS: 00123; 99284

== ENCOUNTER 2024-07-27 13:38 | Emergency (ER) | payer MEDICAID, SELFPAY ==
[2024-07-27 14:03] VITALS: BP 125/74; PULSE 73; RESP 18; TEMP 36.6; O2SAT 96
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
[2024-07-27 15:29] LABS: Abs Immature Grans 0.04 10^3/uL (0.0-0.06); Absolute Basophil Count 0.08 10^3/uL (0.0-0.2); Absolute Eosinophil Count 0.21 10^3/uL (0.0-0.7); Absolute Lymphocyte Count 1.94 10^3/uL (1.2-3.4); Absolute Neutrophil Count 7.68 10^3/uL (1.2-6.7); Basophils % 0.8 %; HCT 45.7 % (40.0-50.0); HGB 15.4 g/dL (13.5-17.5); Immature Grans % 0.4 %; Lymphocytes % 18.4 %; MCH 29.1 pg (27.0-33.0); MCHC 33.7 % (32.0-36.0); MCV 86 fL (80-95); MPV 9.3 fL (8.0-11.0); Monocytes % 5.7 %; Neutrophils % 72.7 %; Platelet Count 334 10^3/uL (130-400); RDW 11.9 % (11.8-14.1); RDW-SD 37.6 fL; WBC 10.55 10^3/uL (4.4-10.8)
--- NOTE | 2024-07-27 15:33 | PDOC.CMSAFE ---
Date of service: 07/27/24 Time of Service: 15:33 Care Management Safety Plan Status Status: Voluntary Reason for Wait Reason for Wait: Assessment/Screening Safety Plan Safety Plan: VOLUNTARY FOR INPATIENT PSYCHIATRIC STABILIZATION.? Patient is appropriate in all interactions since arriving at [facility]; Pt has demonstrated appropriate coping and communication skills, has articulated his needs and concerns and is fully engaged during staff interaction Safety plan has been established with patient and care team to adhere to patient goals, identify restrictions based on behavioral status, address nutrition, and determine allowed personal belongings, tools for hygiene and personal care. Determine level of activity including ambulation, level of supervision, visitors, and determine privileges based on behaviors and level of engagement by pt. SAFETY PLAN: 1. Will remain on suicide precautions, in paper clothes 2. Will remain in room under direct supervision of one-on-one staff at all times provided by [employer]; MELISA, FUR REPAIRER call circuit worker. 3. May have paper cups, plates, finger foods as well as a cardboard spoon with which to eat meals. 4. Follow [facility] Management of the Admitted Behavioral Health Patient policy. 5. Comfort bath system, shower permitted with escort at RN discretion. 6. Personal belongings-soft items permitted at RN discretion. 7. Visitors- supportive guests, at RN discretion. 8. Activities: soft cart items, and netflix/josemanuel tablet approved per RN discretion. 9.? Bathroom privileges without limitations on med/surge. 10. Phone: limited to cordless phone at RN discretion. Due to VOLUNTARY status, if patient wishes to leave [facility], staff will contact [facility] Crisis Screener ([phone]) and the Digital Color Press Operator assigned, as soon as possible.
[2024-07-27 15:43] LABS: Ammonia 13 umol/L (11-32)
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
[2024-07-27 15:55] LABS: ALT 32 U/L (16-63); AST 17 U/L (15-37); Albumin 4.2 g/dL (3.4-5.0); Alkaline Phosphatase 90 U/L (46-116); Anion Gap 4.9 mmol/L (3-11); BUN 7 mg/dL (7-18); Bilirubin, Total 0.5 mg/dL (0.2-1.0); CO2 30.1 mmol/L (21.0-32.0); Calcium 9.8 mg/dL (8.5-10.1); Chloride 105 mmol/L (98-107); Estimated GFR 111.19 (mL/min/1.73m2); Glucose 96 mg/dL (74-106); Magnesium 1.8 mg/dL (1.8-2.4); Potassium 4.1 mmol/L (3.5-5.1); Sodium 140 mmol/L (136-145); TSH (W/Ref FT4) 0.82 uIU/mL (0.52-4.13); Total Protein 7.7 g/dL (6.4-8.2)
[2024-07-27 15:57] LABS: ETHANOL BLOOD < 3.0 mg/dL (<10)
[2024-07-27 16:07] LABS: Salicylate < 2.8 mg/dL (<2.8)
[2024-07-27 16:08] LABS: Acetaminophen < 2 ug/mL (10-30)
[2024-07-27 16:25] LABS: Bilirubin Negative (Negative); Blood Negative (Negative); Clarity Cloudy (Clear); Glucose Negative (Negative); Ketones Negative (Negative); Leukocyte Esterase Small (Negative); Nitrite Positive (Negative); Specific Gravity 1.015 (1.005-1.025); Urobilinogen 0.2 mg/dL (Up to 0.2)
[2024-07-27 16:30] LABS: Bacteria Packed HPF (Negative); C & S Indicated? Yes; Casts Negative LPF (Negative); Crystals Negative HPF (Negative); Epithelial Cells Negative HPF (Negative); Mucus Negative (Negative); RBC 20-50 HPF (0-2); WBC 20-50 HPF (0-5)
[2024-07-27 16:36] LABS: *AMPHETAMINES SCREEN URINE Negative (Negative); *BARBITURATES SCREEN URINE Negative (Negative); *BENZODIAZEPINES SCREEN URINE Negative (Negative); Cannabinoids THC Positive (Negative); Cocaine Screen,Urine Negative (Negative); METHADONE URINE SCREEN Negative (Negative); OPIATES URINE SCREEN Negative (Negative)
[2024-07-27 16:38] LABS: Tricyclic Antidepressants Negative (Negative)
[2024-07-27] MEDS: cefTRIAXone 2 GM VIAL IM (18:04)
[2024-07-27] MEDS: Lidocaine 1% Pres-Free 5 ML VIAL (18:05)
[2024-07-27] MEDS: LORazepam 1 MG TAB 2 MG PO (19:13)
[2024-07-27] MEDS: Sulfameth/Trimeth DS TAB 1 TAB PO (19:59)
[2024-07-27] MEDS: QUEtiapine 50 MG TAB PO (19:59)
--- NOTE | 2024-07-27 21:02 | NUR.NOTE ---
Fax paperwork including face sheet, doctor's notes, nursing notes, labs to [facility] @ [facility] [phone] at [phone]. Confirmation page 31 pages ok
--- NOTE | 2024-07-27 22:50 | PDOC.MHCN ---
Date of service: 07/27/24 Time of Service: 16:00 PHQ-9 Over the last 2 weeks, how often have you been bothered by any of the following problems? 1. Little interest or pleasure in doing things: several days 2. Feeling down, depressed, or hopeless: more than half the days 3. Trouble falling or staying asleep, or sleeping too much: nearly every day 4. Feeling tired or having little energy: not at all 5. Poor appetite or overeating: more than half the days 6. Feeling bad about yourself - or that you are a failure or have let yourself and your family down: nearly every day 7. Trouble concentrating on things, such as reading the newspaper or watching television: nearly every day 8. Moving or speaking so slowly that other people could have noticed? - Or the opposite - being so fidgety or restless that you have been moving around a lot more than usual: nearly every day 9. Thoughts that you would be better off or of hurting yourself in some way: nearly every day Total score: 20 If you checked off any problems, how difficult have these problems made it for you to do your work, take care of things at home, or get along with other people?: very difficult PHQ-9 Results: Positive Source: Developed by Drs. Robbie Gerard, Alysha Rodriguez, Edward Hayes and colleagues, with an educational kana from [employer]. Suicide Severity Rate CSSRS Have you wished you were or wished you could go to sleep and not wake up?: Yes Have you actually had any thoughts of killing yourself?: Yes CSSRS2 Have you been thinking about how you might do this?: Yes Have you had these thoughts and had some intention of acting on them?: Yes Have you started to work out or worked out the details of how to kill yourself? Do you intend to carry out this plan?: Yes CSSRS3 Have you ever done anything, started to do anything or prepared to do anything to end your life?: Yes CSSRS4 Was this within the past three months?: Yes Screening Score Total Score: 8 Screening: Positive Mental Health Emergency Note Release [facility] release signed:: Yes Reason for Visit The client is known to [facility] and currently receives services through the [facility] program. Per the chart review and the clients report he has been hospitalized numerous time both involuntary and voluntary. Per the client report in March when he moved to [place] he was hospitalized at [facility] for 3 days. Today the client presents to [facility] ED reporting that he stopped using substances 5 days ago ( fentanyl, crack, and alcohol). The client is reporting suicidal ideations as well as homicidal ideations. This assembly instructions writer assesses the client face to face in zone b of [facility]. In the last 2 weeks has the pt presented for ES prior to today?: No Client Information Client is: [facility] Well Housed: No,status: Homeless Unstable housing Non Suicidal Self Injury Current: No History: yes, Hx of overdosing and self- harm. Safety Risk/Harm to Self or Others Current Ideation to Harm Self or Others: Yes to self. Intent: yes, has intent. Plan: yes,has a plan. History of suicide attempt: yes,history of suicide attempt reported. Details of previous suicide attempt: overdosing and to others. Intent: yes, has intent to harm others Plan: no, does not have a plan. History of becoming violent with another person(any age): no history of violence with others. Asssessment/Mental Status Appearance: Disheveled and Poor hygiene Attitude: Cooperative Behavior: Unremarkable Speech: Normal Affect: Cogruent with mood Mood: Anxious Thought process: Unremarkable Hallucinations: No Delusions: No Attention: Unremarkable Perception: Not impaired Orientation: Fully orientated Insight: Fair Judgement: Fair Neurovegetative Symptoms Sleep: Decrease Appetitie: Disordered Interests: Decrease Energy: Decrease Libido: Not applicable Substance Use: Other Do you use nicotine?: Yes Have you used substances in the last 7 days?: yes, Reports using alcohol, marijuana, crack cocaine, and fentanyl. Additional Issues: Assaultive/Threatening Behavior: No Medical Concerns: No Client engaged in active self harm w/weapon: No Threatening to run away: No Child reported abuse/neglect: No Voluntarily presenting for services: Yes Domestic violence is a concern: No Extreme Psychosis or extreme behavior is present: No Impression The client is a single 18 y/o male that is currently homeless, but has been staying with a family member in [facility] for the past 5 days. The client is currently unemployed and reports that he is applying for benefits. The client identifies as male and uses he/ him pronouns. All screening tools are completed and all under represented categories are honored. The client presents with symptoms most congruent to major depressive disorder as evidenced by self-report, increase in both suicidal and homicidal ideations, disorganized sleep and appetite, and loss of interest and energy level. The client reports that he came back to [facility] this past Monday after living in [place] since April 2024. The client reports during his time in [place] he was using substances significantly. The client reports persistent suicidal ideations and within the past couple of weeks reports that he was standing in traffic and has had thoughts of intentionally overdosing on substances or using a firearm to by suicide. The client reports to this assembly instructions writer that he does not feel like he can keep himself or others safe in the community at this time and needs a higher level of care. Plan/Disposition Recommended Disposition: Hospitalization No. Plan: The client will remain at [facility] ED pending placement in an inpatient facility. Referrals will be faxed to , transfer station, , and [facility]. The client will be re-assessed daily by [facility] until placement is secured or the clients acuity level decreases and he is able to be safety planned back to the community. The client is open to [facility] coming in to speak with him. Person reported agreement to plan: Yes Reports/communication Outcome discussed with: ED/Personnel (Verbal [facility] staff and ed provider Dr. Ulloa. )
--- NOTE | 2024-07-27 23:59 | NUR.NOTE ---
[facility] refused PT at this time Nursing Note:
--- NOTE | 2024-07-28 06:43 | W.EDPROG ---
Date of service: 07/28/24 Time of Service: 06:43 Medical Decision Making Patient presented to ED with depression and SI. He has been medically cleared though he was found to have UTI and is currently on Bactrim. There is GC and chlamydia PCR pending which will need to be followed up. No issues on the overnight shift. Calm and cooperative pending voluntary inpatient admission. Lab Data Lab results reviewed: Yes I reviewed the patient's lab results. 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 needs details child care associate teacher is aware Discharge Plan Discharge Details Chief Complaint: Suicide-Atempt Clinical Impression: Depression, Acute UTI, Suicidal ideation Primary Care Provider: None,None ED Provider: Robbie Valdez [place] Meds and New Rx's Prescriptions: No Action Abilify Maintena 400 mg suspension,extended rel recon 400 mg IM QMONTH Patient Comments: Due on August 02 quetiapine [Seroquel] 50 mg tablet 50 mg PO HS
--- NOTE | 2024-07-28 07:29 | ED.PROG_ITS ---
Date of service: 08/28/24 Time of Service: 07:29 Medical Decision Making I received signout on this 18-year-old male who presented to ED with depression and SI. He has been medically cleared though he was found to have UTI and is currently on trimethoprim/sulfamethoxazole. There is GC and chlamydia PCR pending which will need to be followed up. No issues on the overnight shift. Calm and cooperative pending voluntary inpatient admission. 9:25 AM Patient was reportedly became upset as the basketball hoop in the behavioral health area was removed from the patient and she was reportedly slamming the ball. He requested lorazepam. I ordered him for as needed hydroxyzine. 3:45 PM No subsequent behavioral issues in the emergency department. I signed patient out to Dr. Ulloa. 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 needs details healthcare consultant is aw are Discharge Plan Discharge Details Chief Complaint: Suicide-Atempt Clinical Impression: Depression, Acute UTI, Suicidal ideation Primary Care Provider: None,None ED Provider: Bin Ventura Home Meds and New Rx's Prescriptions: No Action Abilify Maintena 400 mg suspension,extended rel recon 400 mg IM QMONTH Patient Comments: Due on August 02 quetiapine [Seroquel] 50 mg tablet 50 mg PO HS
--- NOTE | 2024-07-28 08:13 | CMSP_ITS ---
Date of service: 07/28/24 Time of Service: 08:13 Care Management Safety Plan Status Status: Voluntary Reason for Wait Reason for Wait: Inpatient Admission Safety Plan Safety Plan: VOLUNTARY FOR INPATIENT PSYCHIATRIC STABILIZATION.? Patient is appropriate in all interactions since arriving at [facility]; Pt has demonstrated appropriate coping and communication skills, has articulated his needs and concerns and is fully engaged during staff interaction Safety plan has been established with patient and care team to adhere to patient goals, identify restrictions based on behavioral status, address nutrition, and determine allowed personal belongings, tools for hygiene and personal care. Determine level of activity including ambulation, level of supervision, visit ors, and determine privileges based on behaviors and level of engagement by pt. SAFETY PLAN: 1. Will remain on suicide precautions, in paper clothes 2. Will remain in room under direct supervision of one-on-one staff at all times provided by [employer]; MELISA, RESEARCH DIETITIAN director enterprise sales. 3. May have paper cups, plates, finger foods as well as a cardboard spoon with which to eat meals. 4. Follow [facility] Management of the Admitted Behavioral Health Patient policy. 5. Comfort bath system, shower permitted with escort at RN discretion. 6. Personal belongings-soft items permitted at RN discretion. 7. Visitors- supportive guests, at RN discretion. 8. Activities: soft cart items, and netflix/josemanuel tablet approved per RN discretion. 9.? Bathroom privileges without limitations on med/surge. 10. Phone: limited to cordless phone at RN discretion. Due to VOLUNTARY status, if patient wishes to leave [facility], staff will contact [facility] Crisis Screener ([phone]) and the Family Service Assistant assigned, as soon as po ssible.
[2024-07-28 08:43] VITALS: BP 125/80; PULSE 96; TEMP 36.3; O2SAT 99
[2024-07-28] MEDS: Sulfameth/Trimeth DS TAB 1 TAB PO (08:44)
[2024-07-28] MEDS: hydrOXYzine HCL 25 MG TAB 50 MG PO ×2 (09:30→17:32)
--- NOTE | 2024-07-28 15:42 | PDOC.MHPN2 ---
Date of service: 07/28/24 Time of Service: 12:00 Mental Health Emergency Note Release [facility] release signed:: Yes Reason for Visit The client is known to [facility] and currently receives services through the [employer] program. Per the chart review and the clients report he has been hospitalized numerous time both involuntary and voluntary. Per the client report in March when he moved to [place] he was hospitalized at [facility] for 3 days. Yesterday the client presents to [facility] ED reporting that he stopped using substances 5 days ago ( fentanyl, crack, and alcohol). The client is reporting suicidal ideations as well as homicidal ideations. This verse writer assesses the client face to face in zone b of [facility] for re-assessment as the client is currently awaiting voluntary inpatient treatment. In the last 2 weeks has the pt presented for ES prior to today?: No Impression The client is a single 18 y/o male that is currently homeless, but has been staying with a family member in [facility] for the past 5 days. The client is currently unemployed and reports that he is applying for SS benefits. The client identifies as male and uses he/ him pronouns. All screening tools are completed yesterday during initial assessment and all under represented categories are honored. The client is sleeping upon this writers arrival as [facility] zone b staff report that the client became agitated this morning when playing with the basketball in the common area of zone b. [facility] b nurse Natividad reports that she attempted to hold firm boundaries with the client and he became agitated slamming doors and punching objects. Natividad reports after this the client was administered hydroxyzine, which appeared to calm the client down. The client reports that he is continuing to have thoughts of wanting to kill someone specific, however would not provide details to this verse writer so a duty to warn could be completed. The client is also continuing to report suicidal ideations rating his intent a 7/10. The client reports: it really isn't going to be good if you let me leave here. Based on this writers assessment the client continues to meet criteria for inpatient treatment. Plan/Disposition Recommended Disposition: Hospitalization No. Plan: The client will remain at [facility] ED pending placement in an inpatient facility. Referrals will be faxed to , transfer station, , and [facility]. The client will be re-assessed daily by [facility] until placement is secured or the clients acuity level decreases and he is able to be safety planned back to the community. The client is open to [facility] coming in to speak with him. Person reported agreement to plan: Yes Reports/communication Outcome discussed with: ED/Personnel (Huddle completed with [facility] staff including Dr. Ventura, zone b staff, charge nurse, and [facility] career development director Thelma. )
--- NOTE | 2024-07-28 16:05 | ED.PROG_ITS ---
Date of service: 07/28/24 Time of Service: 16:06 Medical Decision Making Patient seeking voluntary placement for SI and HI, no new acute complaints. Will continue to monitor until safe disposition found. 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 needs details child caregiver private home is aw are Discharge Plan Discharge Details Chief Complaint: Suicide-Atempt Clinical Impression: Depression, Acute UTI, Suicidal ideation Primary Care Provider: None,None ED Provider: Ernesto Ulloa Home Meds and New Rx's Prescriptions: No Action Abilify Maintena 400 mg suspension,extended rel recon 400 mg IM QMONTH Patient Comments: Due on August 02 quetiapine [Seroquel] 50 mg tablet 50 mg PO HS
[2024-07-28] MEDS: Ibuprofen 600 MG TAB PO (17:42)
[2024-07-29] MEDS: Sulfameth/Trimeth DS TAB 1 TAB PO ×2 (07:49→19:40)
[2024-07-29 07:56] VITALS: BP 112/70; PULSE 61; RESP 16; O2SAT 97
--- NOTE | 2024-07-29 11:28 | CMSP_ITS ---
Date of service: 07/29/24 Time of Service: 11:40 Care Management Safety Plan Status Status: Voluntary Reason for Wait Reason for Wait: Inpatient Admission Safety Plan Safety Plan: VOLUNTARY FOR INPATIENT PSYCHIATRIC STABILIZATION.? Patient is appropriate in all interactions since arriving at [facility]; Pt has demonstrated appropriate coping and communication skills, has articulated his needs and concerns and is fully engaged during staff interaction Safety plan has been established with patient and care team to adhere to patient goals, identify restrictions based on behavioral status, address nutrition, and determine allowed personal belongings, tools for hygiene and personal care. Determine level of activity including ambulation, level of supervision, visit ors, and determine privileges based on behaviors and level of engagement by pt. SAFETY PLAN: 1. Will remain on suicide precautions, in paper clothes 2. Will remain in room under direct supervision of one-on-one staff at all times provided by [employer]; MELISA, STUDENT SUPPORT COUNSELOR cuffing machine operator. 3. May have paper cups, plates, finger foods as well as a cardboard spoon with which to eat meals. 4. Follow [facility] Management of the Admitted Behavioral Health Patient policy. 5. Comfort bath system, shower permitted with escort at RN discretion. 6. Personal belongings-soft items permitted at RN discretion. 7. Visitors- supportive guests, at RN discretion. 8. Activities: soft cart items, and netflix/josemanuel tablet approved per RN discretion. 9.? Bathroom privileges without limitations on med/surge. 10. Phone: limited to cordless phone at RN discretion. Due to VOLUNTARY status, if patient wishes to leave [facility], staff will contact [facility] Crisis Screener ([phone]) and the Junior Java Developer assigned, as soon as po ssible.
--- NOTE | 2024-07-29 11:41 | PDOC.CMPRO ---
Date of service: 07/29/24 Time of Service: 11:41 Care Management Progress Note Progress Note Text Progress Note Text: CM huddled with [facility] and [facility] staff regarding Keshav's plan of care. Per RN, Keshav has been interacting appropriately today. He was bouncing a ball off of the reeves and moving around in the common areas during the huddle; he is able to use the ball as long as safety is maintained. Per [facility], Keshav is denying SI, and is expressing vague HI, and does not disclose if this is directed at a certain individual. If he chooses to leave, [facility] will support him with a safety plan for the community. Keshav is currently voluntary, seeking inpatient psychiatric care. Referrals are pending at facilities, which were sent this weekend by [facility]. Safety plan in place; CM will continue to follow. Social Determinants of Health Screening Will the Patient Participate in the Screening?: Unable to obtain
[2024-07-29 12:29] LABS: Chlamydia Result Negative (Negative); GC Result Negative (Negative)
--- NOTE | 2024-07-29 14:16 | NUR.NOTE ---
Nursing Note:Patient had a scabbed over abrasion to left knee. While watching the tablet, he picked at the scab. Minor bleeding stopped with gauze. Large band aid applied
--- NOTE | 2024-07-29 14:50 | W.EDPROG ---
Date of service: 07/29/24 Time of Service: 14:51 Medical Decision Making Care assumed from outgoing provider. Patient is currently pending voluntary inpatient placement for suicidal and homicidal ideation. He is currently being treated for a urinary tract infection with Bactrim. Furthermore gonorrhea and Chlamydia testing were sent but these are pending. 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 needs details child care associate is aware Discharge Plan Discharge Details Chief Complaint: Suicide-Atempt Clinical Impression: Depression, Acute UTI, Suicidal ideation Primary Care Provider: None,None ED Provider: Vidhi York Home Meds and New Rx's Prescriptions: No Action Abilify Maintena 400 mg suspension,extended rel recon 400 mg IM QMONTH Patient Comments: Due on August 02 quetiapine [Seroquel] 50 mg tablet 50 mg PO HS
--- NOTE | 2024-07-29 16:15 | W.EDPROG ---
Date of service: 07/29/24 Time of Service: 16:15 Medical Decision Making Patient currently seeking voluntary placement for anxiety GI, he reported she is on prior shift and currently, cooperative. He is requesting hydroxyzine for anxiety which we will order. 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 needs details aged or disabled carer is aware Discharge Plan Discharge Details Chief Complaint: Suicide-Atempt Clinical Impression: Depression, Acute UTI, Suicidal ideation Primary Care Provider: None,None ED Provider: Ernesto Ulloa Home Meds and New Rx's Prescriptions: No Action Abilify Maintena 400 mg suspension,extended rel recon 400 mg IM QMONTH Patient Comments: Due on August 02 quetiapine [Seroquel] 50 mg tablet 50 mg PO HS
[2024-07-29] MEDS: hydrOXYzine HCL 25 MG TAB 50 MG PO (17:41)
[2024-07-29] MEDS: QUEtiapine 50 MG TAB PO (19:40)
--- NOTE | 2024-07-29 21:07 | ED.PROG_ITS ---
Date of service: 07/29/24 Time of Service: 21:08 Medical Decision Making Patient states that he does not want to stay and wants to leave. He is currently denying any SI or HI and is calm and cooperative and speaking in full sentences without agitation. He did not want to stay to talk to [facility] human services. I did recommend that he wait to speak with them a safety plan but he does not want to stay. I do not have enough to hold him against as well. He will follow-up with his PCP and return precautions given. 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 needs details manager primary care is aw are Discharge Plan Disposition Patient Disposition: Home Condition: Stable Discharge Details Clinical Impression: Depression Primary Care Provider: None,None ED Provider: Ernesto Ulloa Home Meds and New Rx's Prescriptions: Continued Abilify Maintena 400 mg suspension,extended rel recon 400 mg IM QMONTH Patient Comments: Due on August 02 quetiapine [Seroquel] 50 mg tablet 50 mg PO HS Discharge Instructions Additional Instructions: Please follow-up with your primary care provider and also mental health providers. If you have worsening thoughts of self-harm or wanting to harm others return to the emergency department for reevaluation.
--- NOTE | 2024-07-29 21:18 | MHPN_ITS ---
Date of service: 07/29/24 Time of Service: 10:31 Suicide Severity Rate CSSRS Have you wished you were or wished you could go to sleep and not wake up?: No Have you actually had any thoughts of killing yourself?: No CSSRS2 Have you been thinking about how you might do this?: No Have you had these thoughts and had some intention of acting on them?: No Have you started to work out or worked out the details of how to kill yourself? Do you intend to carry out this plan?: No CSSRS3 Have you ever done anything, started to do anything or prepared to do anything to end your life?: Yes CSSRS4 Was this within the past three months?: No Screening Score Total Score: 2 Screening: Positive Mental Health Emergency Note Release [facility] release signed:: Yes Reason for Visit Mr Patiño is a 18 year old single male who resides in [place] with his brother. The client presented as friendly and guarded. The client states that he has some thoughts of hurting others but stated I can't tell you. The client reports that he ate breakfast and slept well. The client states that he is trying to change his perspective from him being a waste to that a change might be good for him for a bit. The client inquired on if any facilities would be accepting him today. This clinician informed the client that [facility] had no available beds and had not gotten back to [facility]. The client stated he would wait voluntarily for in patient treatment. In the last 2 weeks has the pt presented for ES prior to today?: No Non Suicidal Self Injury Current: No History: No Safety Risk/Harm to Self or Others Current Ideation to Harm Self or Others: Yes to others. Intent: No Plan: no, does not have a plan. Risk: Does risk to harm exist?: No Duty to warn indicated: No Asssessment/Mental Status Appearance: Unremarkable Attitude: Cooperative and Friendly Behavior: Unremarkable Speech: Normal Affect: Expansive Mood: Expansive Thought process: Tangential Hallucinations: No Delusions: No Attention: Unremarkable Perception: Not impaired Orientation: Fully orientated Memory: Intact Insight: Fair Judgement: Fair Neurovegetative Symptoms Sleep: No change Appetitie: No change Interests: No change Energy: No change Libido: No change Substance Use: Do you use nicotine?: No Have you used substances in the last 7 days?: No Additional Issues: Assaultive/Threatening Behavior: No Medical Concerns: No Client engaged in active self harm w/weapon: No Threatening to run away: No Child reported abuse/neglect: No Voluntarily presenting for services: Yes Domestic violence is a concern: No Extreme Psychosis or extreme behavior is present: No Impression Mr Patiño is a 18 year old single male who resides in [place] with his brother. The client presented as friendly and guarded. The client states that he has some thoughts of hurting others but stated I can't tell you. The client reports that he ate breakfast and slept well. The client states that he is trying to change his perspective from him being a waste to that a change might be good for him for a bit. The client inquired on if any facilities would be accepting him today. This clinician informed the client that [facility] had no available beds and [facility] had not gotten back to [facility]. The client stated he would wait voluntarily for in patient treatment. Plan/Disposition Recommended Disposition: Hospitalization facilities contacted. Plan: The client will wait in the [facility] zone b for in patient placement. Reports/communication Outcome discussed with: ED/Personnel
[2024-07-29] MEDS: Sulfameth/Trimeth DS, 2 TABS/BTL 1 TAB PO (21:24)
--- NOTE | 2024-07-30 07:23 | NUR.NOTE ---
Access chart to get the antibiotic on discharge for the urine culture result. Nursing Note:
== END 2024-07-29 21:28 | disposition home or self-care (01) ==
PROVIDERS: Emergency Provider Emergency Medicine
DX: R45.851 Suicidal ideations (principal); R45.850 Homicidal ideations; F32.A Depression, unspecified; N39.0 Urinary tract infection, site not specified; F41.9 Anxiety disorder, unspecified; M54.50 Low back pain, unspecified
CPT/HCPCS: 00123; 80053; 80307; 87077; 87491; 87591; 96127; 96372; 99285; 72110; 80320; 80329; 81003; 81015; 82140; 83735; 84443; 85025; 87086; 87186; J0696; J2003

== ENCOUNTER 2024-07-31 22:36 | Emergency (ER) | payer MEDICAID, SELFPAY ==
[2024-07-31 22:37] VITALS: BP 162/142; PULSE 76; RESP 18; TEMP 37.6; O2SAT 100
--- NOTE | 2024-07-31 22:43 | ED.GENADUL_ITS ---
Discharge Plan Disposition Patient Disposition: Home Condition: Stable Discharge Details Chief Complaint: SOB Clinical Impression: Encounter for medical assessment Primary Care Provider: None,None ED Provider: Demond Sultana Home Meds and New Rx's Prescriptions: No Action Abilify Maintena 400 mg suspension,extended rel recon 400 mg IM QMONTH Patient Comments: Due on August 02 quetiapine [Seroquel] 50 mg tablet 50 mg PO HS sulfamethoxazole-trimethoprim [Bactrim DS] 800-160 mg tablet 1 tab PO BID Qty: 8 0RF Discharge Instructions Additional Instructions: If you notice any worsening of your symptoms, or any new symptoms such as vomiting, diarrhea, fever, chills, shortness of breath, chest pain, numbness, weakness, or fainting , please return immediately to the emergency department for reevaluation. Please follow up with your primary care provider as soon as possible for reassessment and reevaluation. As always, it was a pleasure participating in your medical care today. HPI General Date/Time Provider Initiated Documentation: 07/31/24 22:41 . HPI Narrative: This is a 18-year-old male with a past medical history of depression, suicid ality, self-harm, who presents today via EMS for medical evaluation. History is extremely limited from the patient. He has told EMS and staff that he did not want family coming back or being told information. Per EMS he states that he smokes marijuana tonight, and then called 911. No other discussed complaints. When EMS arrived the patient was gasping for air, however he showed no cyanosis, his oxygen saturations were 98 to 100% on room air. His lungs were clear. He was then brought to the ER at his request. An IV was established. He made no other complaints. Currently he is having episodes where he appears to be gasping for air, vital signs remained stable. When asking him why he came in or what is going on or what he did prior to the event he does not discuss anything with myself. He describes no complaints. No additional history at this time. Once I left the room and some of the other staff was able to speak a bit more frankly and directly towards him, he demonstrated Related Data Home Medications ?Medication ?Instructions ?Recorded ?Confirmed aripiprazole 400 mg intramuscular 400 mg IM QMONTH 12/28/23 07/27/24 suspension,extended release ([facility] quetiapine 50 mg tablet (Seroquel) 50 mg PO HS 04/10/24 07/27/24 sulfamethoxazole 800 1 tab PO BID #8 tabs 07/29/24 mg-trimethoprim 160 mg tablet (Bactrim DS) Previous Rx's ?Medication ?Instructions ?Recorded sulfamethoxazole 800 1 tab PO BID #8 tabs 07/29/24 mg-trimethoprim 160 mg tablet (Bactrim DS) Allergies Allergy/AdvReac Type Severity Reaction Status Date / Time No Known Allergies Allergy Unverified 04/12/24 00:32 General ESTIVEN: 2 Exam Narrative Exam Narrative: 1.Const: Well-nourished, Well-developed, appearing stated age 2.Eyes: PERRL, however they are notably dilated pupils, no conjunctival injection, and symmetrical lids. 3.ENT: Atraumatic external nose and ears. Dry MM. Neck: Symmetric, trachea midline, No thyromegaly. No erythema in the posterior oropharynx. No tonsillar enlargement. No signs of peritonsillar abscess. No large neck mass. No hot potato voice. No drooling. No stridor. 4.CVS: +S1/S2, Peripheral pulses 2+ and equal in all extremities. Brisk capillary refill in all extremities. 5.RESP: Unlabored respiratory effort. Clear to auscultation bilaterally. No wheezes rales or rhonchi 6.GI: Soft, Nontender/Nondistended, No hepatosplenomegaly. No guarding or rebound. 7.MSK: Normocephalic/Atraumatic, Extremities w/o deformity or ttp No cyanosis or clubbing, Normal movement of all extremities 8.Skin: Warm, Dry. No rashes or lesions. 9.Neuro: air traffic control supervisor II-XII grossly intact. Sensation grossly intact, no focal neurologic deficits. Medical Decision Making This is a 18-year-old male with a past medical history of depression, suicidality, self-harm, who presents today via EMS for medical evaluation. History is extremely limited from the patient. He has told EMS and staff that he did not want family coming back or being told information. Per EMS he states that he smokes marijuana tonight, and then called 911. No other discussed complaints. When EMS arrived the patient was gasping for air, however he showed no cyanosis, his oxygen saturations were 98 to 100% on room air. His lungs were clear. He was then brought to the ER at his request. An IV was established. He made no other complaints. Currently he is having episodes where he appears to be gasping for air, vital signs remained stable. When asking him why he came in or what is going on or what he did prior to the event he does not discuss anything with myself. He describes no complaints. No additional history at this time. Once I left the room and some of the other staff was able to speak a bit more frankly and directly towards him, he demonstrated clear phonation of his words, he did not give any additional answers but did state to staff I want to get out of here and leave. I am not on the floor. I just want to talk to police and leave. Staff asked the patient if he wanted any further medical evaluation or medical care and he clearly stated no. The patient then walked out to the waiting room where his family was, and left. His physical exam showed no leadpipe rigidity, he was afebrile, and no tachycardia. No evidence to suggest neuroleptic malignant syndrome or serotonin syndrome. He had no hypoxemia, tachypnea, or signs of upper airway compromise to suggest epiglottitis, laryngitis, asthma, or respiratory compromise. He was able to ambulate well, and showed no focal neurologic deficits to suggest central event. He showed no signs of altered mental status to suggest alcohol intoxication. As the patient was leaving he showed no gasping, difficulty breathing, or other abnormalities. Uncertain as to what the initial components of his symptoms were however he clearly shows no evidence of acute life- threatening etiology whatsoever at this time, no evidence to suggest pneumothorax or pneumonia. Initially while he was leaving he made it unequivocally clear to the nursing staff that he had no desire for further medical assessment. At this time he shows no evidence of acute life-threatening etiology. Patient left prior to discharge instructions being printed as he was not willing to wait for anything. 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 needs details residential care facility manager is nacho contreras [facility], [facility] All Active Problems (Updated 07/31/24 @ 23:13 by Demond Sultana DO) Encounter for medical assessment (Acute) Depression (Chronic) Anticholinergic drug overdose (Acute) Intentional overdose (Acute) Abrasion of arm, left (Acute) Surgical History Hx of tonsillectomy Social History Smoking/Tobacco Use Status: Current every day Tobacco Type: e-cigarettes and smokeless tobacco Second Hand Exposure: No Smoking risk assessment performed?: Yes Alcohol Intake: current Drug use: Occasionally Substance use type: marijuana Details: pt states he drinks but wont say how much or how often or when was the last drink Adopted: Yes Caregiver/Support person: No Foster care: No (unsure) Household members: none and other Housing: homeless Number of Children: 0 number of grandchildren: 0 Communication Needs: None Education Level: high school Do you need help understanding health information?: Rarely current occupation: Unemployed Pets and animals: No Do you think of yourself as: straight/heterosexual Current gender identity: male What is your relationship status?: never How often do you talk on the phone with friends or family?: decline to answer How often do you get together with friends or relatives?: decline to answer Do you belong to any clubs or organized social groups?: decline to answer Panel score (0-1 are the most socially isolated patients): 0 What type of physical activity do you participate in: walking and additional Details: Basketball Frequency: daily Danielle/Mandaen: None Seatbelt use: sometimes Helmet use: No Drive intox or ride w/intox distribution driver: Yes (ride with intoxicated distribution driver) Do you feel safe at home: No Do you feel safe in your relationship?: No
== END 2024-07-31 23:11 | disposition home or self-care (01) ==
PROVIDERS: Emergency Provider Student in an Organized Health Care Education/Training Program
DX: F12.90 Cannabis use, unspecified, uncomplicated (principal); R09.89 Other specified symptoms and signs involving the circulatory and respiratory systems; F32.A Depression, unspecified
CPT/HCPCS: 99281; 99282; 80053; 82550; 80320; 84443; 85025

== ENCOUNTER 2024-08-02 03:05 | Emergency (ER) | payer MEDICAID, SELFPAY ==
[2024-08-02 03:11] VITALS: BP 139/78; PULSE 91; RESP 28; TEMP 36.1; O2SAT 98
--- NOTE | 2024-08-02 03:51 | NUR.NOTE ---
PT was observed using his wrist band to scratch his arm. wrist band was removed from PT Nursing Note:
--- NOTE | 2024-08-02 03:52 | W.ED.GENAD ---
Discharge Plan Discharge Details Chief Complaint: PsychEval Clinical Impression: Suicidal ideations Primary Care Provider: None,None ED Provider: Demond Sultana Home Meds and New Rx's Prescriptions: No Action Abilify Maintena 400 mg suspension,extended rel recon 400 mg IM QMONTH Patient Comments: Due on August 02 quetiapine [Seroquel] 50 mg tablet 50 mg PO HS HPI General Date/Time Provider Initiated Documentation: 08/02/24 03:12. HPI Narrative: This is a 18-year-old male with a past medical history of depression, suicidality, self-harm, who presents today for evaluation of suicidality. Patient was in nursing home yesterday after getting really high and then getting ghosted. He states that after being in nursing home for the last 24 hours he now feels that he wants to kill himself. He states that he would do this by jumping off a bridge, laying down on the railroad tracks and getting run over, or getting hit by car. He denies any current homicidal ideations. He denies any illicit drug use or alcohol use since he was in nursing home a few hours ago. He denies any other complaints at this time. He states that he smoked weed yesterday but states that he feels there was something different in it that made him act crazy. He denies any auditory or visual hallucinations. Related Data Home Medications ?Medication ?Instructions ?Recorded ?Confirmed aripiprazole 400 mg intramuscular 400 mg IM QMONTH 12/28/23 08/02/24 suspension,extended release (Abilify Maintena) quetiapine 50 mg tablet (Seroquel) 50 mg PO HS 04/10/24 08/02/24 Allergies Allergy/AdvReac Type Severity Reaction Status Date / Time No Known Allergies Allergy Unverified 04/12/24 00:32 General Stated Complaint: PsychEval ESTIVEN: 2 Exam Narrative Exam Narrative: 1.Const: Well-nourished, Well-developed, appearing stated age 2.Eyes: PERRL, no conjunctival injection, and symmetrical lids. 3.ENT: Atraumatic external nose and ears. Moist MM. Neck: Symmetric, trachea midline, No thyromegaly. 4.CVS: +S1/S2, Peripheral pulses 2+ and equal in all extremities. Brisk capillary refill in all extremities. 5.RESP: Unlabored respiratory effort. Clear to auscultation bilaterally. No wheezes rales or rhonchi 6.GI: Soft, Nontender/Nondistended, No hepatosplenomegaly. No guarding or rebound. 7.MSK: Normocephalic/Atraumatic, Extremities w/o deformity or ttp No cyanosis or clubbing, Normal movement of all extremities 8.Skin: Warm, Dry. No rashes or lesions. 9.Neuro: air route traffic controller II-XII grossly intact. Sensation grossly intact, no focal neurologic deficits. 10.Psych: (AAO) x3. Appropriate mood and affect Course Vital Signs Vital signs: Vital Signs Temperature 36.1 C L 08/02/24 03:11 Pulse 91 H 08/02/24 03:11 Respiratory Rate 28 H 08/02/24 03:11 Blood Pressure 139/78 08/02/24 03:11 Pulse Oximetry 98 08/02/24 03:11 Temperature 36.1 C L 08/02/24 03:11 Temperature Source Temporal Artery Scan 08/02/24 03:11 Pulse 91 H 08/02/24 03:11 Respiratory Rate 28 H 08/02/24 03:11 Blood Pressure 139/78 08/02/24 03:11 Blood Pressure Position Sitting 08/02/24 03:11 Pulse Oximetry 98 08/02/24 03:11 Oxygen Delivery Method Room Air 08/02/24 03:11 Oxygen Flow Rate 0 08/02/24 03:11 Pain Level 0 08/02/24 03:11 Medical Decision Making This is a 18-year-old male with a past medical history of depression, suicidality, self-harm, who presents today for evaluation of suicidality. Patient was in nursing home yesterday after getting really high and then getting ghosted. He states that after being in nursing home for the last 24 hours he now feels that he wants to kill himself. He states that he would do this by jumping off a bridge, laying down on the railroad tracks and getting run over, or getting hit by car. He denies any current homicidal ideations. He denies any illicit drug use or alcohol use since he was in nursing home a few hours ago. He denies any other complaints at this time. He states that he smoked weed yesterday but states that he feels there was something different in it that made him act crazy. He denies any auditory or visual hallucinations. Exam demonstrates stable and unremarkable male. Initially he was slightly tachypneic but this resolved after few minutes of sitting. No hypoxemia. Patient is medically cleared. We did reach out to mental health (Joe) and she agrees with this. For admission. Patient will stay here voluntarily looking for placement. 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 needs details childcare provider is aware [facility] All Active Problems (Updated 08/02/24 @ 04:01 by Demond Sultana DO) Suicidal ideations (Acute) Encounter for medical assessment (Acute) Depression (Chronic) Anticholinergic drug overdose (Acute) Intentional overdose (Acute) Abrasion of arm, left (Acute) Surgical History Hx of tonsillectomy Social History Smoking/Tobacco Use Status: Current every day Tobacco Type: e-cigarettes and smokeless tobacco Second Hand Exposure: No Smoking risk assessment performed?: Yes Alcohol Intake: current Alcohol Intake frequency: a few times a week Alcohol type: beer and hard liquor Drug use: Occasionally Substance use type: marijuana Details: pt states he drinks but wont say how much or how often or when was the last drink Adopted: Yes Caregiver/Support person: No Foster care: No (unsure) Household members: none and other Housing: homeless Number of Children: 0 number of grandchildren: 0 Communication Needs: None Education Level: high school Do you need help understanding health information?: Rarely current occupation: Unemployed Pets and animals: No Do you think of yourself as: straight/heterosexual Current gender identity: male What is your relationship status?: never How often do you talk on the phone with friends or family?: decline to answer How often do you get together with friends or relatives?: decline to answer Do you belong to any clubs or organized social groups?: decline to answer Panel score (0-1 are the most socially isolated patients): 0 What type of physical activity do you participate in: walking and additional Details: Basketball Frequency: daily Danielle/Muslim: None Seatbelt use: sometimes Helmet use: No Drive intox or ride w/intox trash collector truck driver: Yes (ride with intoxicated trash collector truck driver) Do you feel safe at home: No Do you feel safe in your relationship?: No PAWSS Have you Been Recently Intoxicated or Drunk Within the Last 30 days?: Yes Have you Ever Experienced Previous Episodes of Alcohol Withdrawal?: No Have you ever Experienced Withdrawal Seizures?: No Have you ever Experienced Delirium Tremens(DT)s?: No Have you ever undergone Alcohol Rehabilitation Treatment (i.e, inpt ot outpatient treatment programs)?: No Have you ever Experienced Blackouts?: No Have you ever Combined Alcohol with other Downers within the last 90 days?: No Have you ever Combined Alcohol with any other Substance of Abuse during the last 90 days?: No Positive Blood Alcohol level on Presentation? [PCS.BAL]: No Evidence of Increased Autonomic Activity (i.e. HR>120, tremor, sweating, agitation, nausea)?: No Result: 1
[2024-08-02 04:12] LABS: Abs Immature Grans 0.01 10^3/uL (0.0-0.06); Absolute Basophil Count 0.06 10^3/uL (0.0-0.2); Absolute Eosinophil Count 0.18 10^3/uL (0.0-0.7); Absolute Lymphocyte Count 1.75 10^3/uL (1.2-3.4); Absolute Monocyte Count 0.53 10^3/uL (0.1-0.8); Absolute Neutrophil Count 4.85 10^3/uL (1.2-6.7); Basophils % 0.8 %; Eosinophils % 2.4 %; HCT 48.8 % (40.0-50.0); HGB 16.3 g/dL (13.5-17.5); Immature Grans % 0.1 %; Lymphocytes % 23.7 %; MCH 29.1 pg (27.0-33.0); MCHC 33.4 % (32.0-36.0); MCV 87 fL (80-95); MPV 8.7 fL (8.0-11.0); Monocytes % 7.2 %; Neutrophils % 65.8 %; Platelet Count 302 10^3/uL (130-400); RBC 5.61 10^6/uL (4.36-5.78); RDW 11.9 % (11.8-14.1); RDW-SD 37.5 fL; WBC 7.38 10^3/uL (4.4-10.8)
--- NOTE | 2024-08-02 04:19 | PDOC.MHCN_ITS ---
Date of service: 08/02/24 Time of Service: 03:30 PHQ-9 Over the last 2 weeks, how often have you been bothered by any of the following problems? 1. Little interest or pleasure in doing things: nearly every day 2. Feeling down, depressed, or hopeless: nearly every day 3. Trouble falling or staying asleep, or sleeping too much: nearly every day 4. Feeling tired or having little energy: nearly every day 5. Poor appetite or overeating: more than half the days 6. Feeling bad about yourself - or that you are a failure or have let yourself and your family down: nearly every day 7. Trouble concentrating on things, such as reading the newspaper or watching television: nearly every day 8. Moving or speaking so slowly that other people could have noticed? - Or the opposite - being so fidgety or restless that you have been moving around a lot more than usual: nearly every day 9. Thoughts that you would be better off or of hurting yourself in some way: nearly every day Total score: 26 If you checked off any problems, how difficult have these problems made it for you to do your work, take care of things at home, or get along with other people?: extremely difficult Source: Developed by Drs. Robbie Gerard, Alysha Rodriguez, Edward Hayes and colleagues, with an educational kana from [employer]. Suicide Severity Rate CSSRS Have you wished you were or wished you could go to sleep and not wake up?: Yes Have you actually had any thoughts of killing yourself?: Yes CSSRS2 Have you been thinking about how you might do this?: Yes Have you had these thoughts and had some intention of acting on them?: Yes Have you started to work out or worked out the details of how to kill yourself? 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 Intent: yes, has intent. Plan: yes,has a plan. Risk: Does risk to harm exist?: yes. Risk: Moderate Risk Duty to warn indicated: No Asssessment/Mental Status Appearance: Other (paper clothes) Attitude: Cooperative Behavior: Agitated Speech: Normal Affect: Normal Mood: Anxious Thought process: Unremarkable Hallucinations: No Delusions: No Attention: Unremarkable Perception: Not impaired Orientation: Fully orientated Memory: Intact Insight: Fair Judgement: Fair Neurovegetative Symptoms Sleep: Decrease Appetitie: Decrease Interests: Decrease Energy: Decrease Libido: Not applicable Substance Use: Do you use nicotine?: No Have you used substances in the last 7 days?: yes, unclear Additional Issues: Assaultive/Threatening Behavior: No Medical Concerns: No Client engaged in active self harm w/weapon: No Threatening to run away: No Child reported abuse/neglect: No Voluntarily presenting for services: Yes Domestic violence is a concern: No Extreme Psychosis or extreme behavior is present: No Plan/Disposition Recommended Disposition: Hospitalization facilities contacted. Plan: Patient will rem[facility] at [facility], referrals have been sent out. Person reported agreement to plan: Yes Reports/communication Outcome discussed with: ED/Personnel
[2024-08-02 04:34] LABS: ALT 31 U/L (16-63); AST 16 U/L (15-37); Albumin 4.2 g/dL (3.4-5.0); Alkaline Phosphatase 104 U/L (46-116); Anion Gap 7.7 mmol/L (3-11); BUN 17 mg/dL (7-18); Bilirubin, Total 0.9 mg/dL (0.2-1.0); CO2 30.3 mmol/L (21.0-32.0); CREATININE 1.1 mg/dL (0.70-1.30); Calcium 9.5 mg/dL (8.5-10.1); Chloride 103 mmol/L (98-107); Estimated GFR 99.17 (mL/min/1.73m2); Glucose 85 mg/dL (74-106); Sodium 141 mmol/L (136-145); TSH (W/Ref FT4) 1.33 uIU/mL (0.52-4.13); Total Protein 7.9 g/dL (6.4-8.2)
[2024-08-02 04:45] LABS: Acetaminophen < 2 ug/mL (10-30); Salicylate < 2.8 mg/dL (<2.8)
[2024-08-02 04:48] LABS: ETHANOL BLOOD < 3.0 mg/dL (<10)
--- NOTE | 2024-08-02 12:11 | CMSP_ITS ---
Documented by User: Vaishali Caballero 08/02/24 15:21 Date of service: 08/02/24 Time of Service: 12:11 Care Management Safety Plan Status Status: Voluntary Reason for Wait Reason for Wait: Inpatient Admission Safety Plan Safety Plan: VOLUNTARY FOR INPATIENT PSYCHIATRIC STABILIZATION.? Patient is appropriate in all interactions since arriving at [facility]; Pt has demonstrated appropriate coping and communication skills, has articulated his or her needs and concerns and is fully engaged during staff interactions. Safety plan has been established with patient, and care team, to adhere to patient goals, identify restrictions based on behavioral status, address nutrition, and determine allowed personal belongings, tools for hygiene and p ersonal care. Determine level of activity including ambulation, level of supervision, visitors, and determine privileges based on behaviors and level of engagement by pt. VOLUNTARY SAFETY PLAN: 1. Will remain on suicide precautions, in paper clothes, and may also utilized hair ties 2. Will remain in Zone B under direct supervision of one-on-one staff at all times provided by [employer]; MELISA, SHEETMETAL TRADES WORKER lead network architect. 3. May have paper cups, plates, finger foods as well as a cardboard spoon with which to eat meals. 4. Follow [facility] Management of the Admitted Behavioral Health Patient policy. 5. Shower available in Zone B without restriction. 6. Personal belongings-soft items permitted at RN discretion. 7. Visitors- supporting visitors at RN discretion 8. Activities: soft cart items, hospital tablets (Netflix/[place]+/music) approved per RN discretion. 9.? Bathroom available in Zone B without restriction. 10. Phone: limited to [facility] cordless phone at RN discretion. Due to VOLUNTARY status, if patient wishes to leave [facility], staff will contact [facility] Crisis Screener ([phone]) and Electronics Processing Supervisor ([phone]) as soon as possible. In the event of elopement, notify [facility] Police ([phone]). Patient is currently voluntarily at [facility] and seeking inpatient admission when a bed becomes available. [facility] Frontline Maintenance Electrician will continue seeking placement. Please contact the Electronics Processing Supervisor ([phone]) and [facility] Maintenance Electrician ([phone]) for any needed changes in the Safety Plan. Safety plan has been provided to interdepartmental care team. Documented by User: Olivia Zaragozao 08/02/24 15:03 Care Management Safety Plan Safety Plan Safety Plan: VOLUNTARY FOR INPATIENT PSYCHIATRIC STABILIZATION.? Patient is appropriate in all interactions since arriving at [facility]; Pt has demonstrated appropriate coping and communication skills, has articulated his or her needs and concerns and is fully engaged during staff interactions. Safety plan has been established with patient, and care team, to adhere to patient goals, identify restrictions based on behavioral status, address nutrition, and determine allowed personal belongings, tools for hygiene and personal care. Determine level of activity including ambulation, level of supervision, visitors, and determine privileges based on behaviors and level of engagement by pt. VOLUNTARY SAFETY PLAN: 1. Will remain on suicide precautions, in paper clothes, and may also utilize hair ties 2. Will remain in Zone B under direct supervision of one-on-one staff at all times provided by [employer]; MELISA, SHEETMETAL TRADES WORKER lead network architect. 3. May have paper cups, plates, finger foods as well as a cardboard spoon with which to eat meals. 4. Follow [facility] Management of the Admitted Behavioral Health Patient policy. 5. Shower available in Zone B without restriction. 6. Personal belongings-soft items permitted at RN discretion. 7. Visitors- supporting visitors at RN discretion 8. Activities: soft cart items, hospital tablets (Netflix/[place]+/music) approved per RN discretion. 9.? Bathroom available in Zone B without restriction. 10. Phone: limited to [facility] cordless phone at RN discretion. Due to VOLUNTARY status, if patient wishes to leave [facility], staff will contact [facility] Crisis Screener ([phone]) and Electronics Processing Supervisor ([phone]) as soon as possible. In the event of elopement, notify [facility] Police ([phone]). Patient is currently voluntarily at [facility] and seeking inpatient admission when a bed becomes available. [facility] Frontline Maintenance Electrician will continue seeking placement. Please contact the Electronics Processing Supervisor ([phone]) and [facility] Maintenance Electrician ([phone]) for any needed changes in the Safety Plan. Safety plan has been provided to interdepartmental care team.
--- NOTE | 2024-08-02 12:11 | PDOC.CMSAFE ---
Documented by User: Vaishali Caballero 08/02/24 15:21 Date of service: 08/02/24 Time of Service: 12:11 Care Management Safety Plan Status Status: Voluntary Reason for Wait Reason for Wait: Inpatient Admission Safety Plan Safety Plan: VOLUNTARY FOR INPATIENT PSYCHIATRIC STABILIZATION.? Patient is appropriate in all interactions since arriving at [facility]; Pt has demonstrated appropriate coping and communication skills, has articulated his or her needs and concerns and is fully engaged during staff interactions. Safety plan has been established with patient, and care team, to adhere to patient goals, identify restrictions based on behavioral status, address nutrition, and determine allowed personal belongings, tools for hygiene and personal care. Determine level of activity including ambulation, level of supervision, visitors, and determine privileges based on behaviors and level of engagement by pt. VOLUNTARY SAFETY PLAN: 1. Will remain on suicide precautions, in paper clothes, and may also utilized hair ties 2. Will remain in Zone B under direct supervision of one-on-one staff at all times provided by [employer]; MELISA, MINE SURVEYOR program director substance abuse. 3. May have paper cups, plates, finger foods as well as a cardboard spoon with which to eat meals. 4. Follow [facility] Management of the Admitted Behavioral Health Patient policy. 5. Shower available in Zone B without restriction. 6. Personal belongings-soft items permitted at RN discretion. 7. Visitors- supporting visitors at RN discretion 8. Activities: soft cart items, hospital tablets (Netflix/[place]+/music) approved per RN discretion. 9.? Bathroom available in Zone B without restriction. 10. Phone: limited to [facility] cordless phone at RN discretion. Due to VOLUNTARY status, if patient wishes to leave [facility], staff will contact [facility] Crisis Screener ([phone]) and Campus Executive Director ([phone]) as soon as possible. In the event of elopement, notify [facility] Police ([phone]). Patient is currently voluntarily at [facility] and seeking inpatient admission when a bed becomes available. [facility] Frontline Magistrate will continue seeking placement. Please contact the Campus Executive Director ([phone]) and [facility] Magistrate ([phone]) for any needed changes in the Safety Plan. Safety plan has been provided to interdepartmental care team. Documented by User: Olivia Zaragozao 08/02/24 15:03 Care Management Safety Plan Safety Plan Safety Plan: VOLUNTARY FOR INPATIENT PSYCHIATRIC STABILIZATION.? Patient is appropriate in all interactions since arriving at [facility]; Pt has demonstrated appropriate coping and communication skills, has articulated his or her needs and concerns and is fully engaged during staff interactions. Safety plan has been established with patient, and care team, to adhere to patient goals, identify restrictions based on behavioral status, address nutrition, and determine allowed personal belongings, tools for hygiene and personal care. Determine level of activity including ambulation, level of supervision, visitors, and determine privileges based on behaviors and level of engagement by pt. VOLUNTARY SAFETY PLAN: 1. Will remain on suicide precautions, in paper clothes, and may also utilize hair ties 2. Will remain in Zone B under direct supervision of one-on-one staff at all times provided by [employer]; MELISA, MINE SURVEYOR program director substance abuse. 3. May have paper cups, plates, finger foods as well as a cardboard spoon with which to eat meals. 4. Follow [facility] Management of the Admitted Behavioral Health Patient policy. 5. Shower available in Zone B without restriction. 6. Personal belongings-soft items permitted at RN discretion. 7. Visitors- supporting visitors at RN discretion 8. Activities: soft cart items, hospital tablets (Netflix/[place]+/music) approved per RN discretion. 9.? Bathroom available in Zone B without restriction. 10. Phone: limited to [facility] cordless phone at RN discretion. Due to VOLUNTARY status, if patient wishes to leave [facility], staff will contact [facility] Crisis Screener ([phone]) and Campus Executive Director ([phone]) as soon as possible. In the event of elopement, notify [facility] Police ([phone]). Patient is currently voluntarily at [facility] and seeking inpatient admission when a bed becomes available. [facility] Frontline Magistrate will continue seeking placement. Please contact the Campus Executive Director ([phone]) and [facility] Magistrate ([phone]) for any needed changes in the Safety Plan. Safety plan has been provided to interdepartmental care team.
--- NOTE | 2024-08-02 13:53 | PDOC.MHPN2 ---
Date of service: 08/02/24 Time of Service: 13:53 Mental Health Emergency Note Release [facility] release signed:: Yes Reason for Visit The client is known to [facility] and receives services through the [facility] program. He only recently moved back to the [facility] area with his brother previously he was staying in the [place] area. Per his initial assessment the client reported that he walked from [facility] to [facility] to get help due to feelings of SI with a plan. Client was at [facility] on 24 hour hold due to drugs in his system and an issue reported at [facility]. Client receives services through [facility] program. He has been hospitalized numerous times and it is reported by a call with [facility] today that that historically he does not respond well to treatment at [place] and more broadly does not respond to inpatient treatment well. He is insistent however, that he needs to be inpatient. It is important to note as well that the client shared that his case mgr as well informed him it won't help I got to at least try though. In the last 2 weeks has the pt presented for ES prior to today?: Yes, presented at [facility] ED Impression The client is a 18-year-old, single, male who is living with his brother in [facility]. He is well known to [facility] and the ES program. He uses He/Him pronouns. All underrepresented identifiers were honored during this assessment. The client presents initially talking with the nurse at the door. He turns to walk back to his room when this clinician arrived and sat on his bed to talk. He does not make further eye contact. He is known to say he is suicidal when he is deregulated in the community. The client is also versed in what he needs to say to stay at the hospital and seek placement. It is reported to this clinician by the client himself as well as, an earlier conversation a co-worker had with [facility] that he does not benefit from inpatient treatment. Plan/Disposition Recommended Disposition: Hospitalization facilities contacted. Plan: The client will remain at the ED until placed. This clinician will explore the CARE Bed as an option however, the staffing account manager would like to have a jairo conversation with him if he is interested based on previous behaviors he displayed during his last admission. Person reported agreement to plan: Yes Reports/communication Outcome discussed with: ED/Personnel
[2024-08-02] MEDS: Carbamide Peroxide 15 ML BTL AU ×2 (14:07→19:45)
[2024-08-02] MEDS: ARIPiprazole 5 MG TAB ×2 (14:09)
--- NOTE | 2024-08-02 14:24 | PDOC.CMPRO ---
Date of service: 08/02/24 Time of Service: 14:28 Care Management Progress Note Progress Note Text Progress Note Text: CM huddled with staff regarding Keshav's plan of care. During the huddle, he was first walking around, then went to lay in bed. Keshav has indicated he has SI at a 9/10 and plans to jump off a bridge, in front of a train. RN states that Minda, his care provider at [facility] and [facility] called to inform Zone B that his Abilify injection is due today. The prescription has been filled 07/24/24, and RN is trying to locate where the medication is currently. He has a case management social worker (Cristiane Alvarado). Per [facility], referrals are sent, with no current offers. CM will continue to follow. Reason for Wait: Inpatient Admission Social Determinants of Health Screening Will the Patient Participate in the Screening?: Declined to provide
--- NOTE | 2024-08-02 15:17 | ED.PROG_ITS ---
Date of service: 08/02/24 Time of Service: 15:17 Medical Decision Making Care was signed out by Dr. Sultaan, please see his documentation regarding prior ED course. Plan at signout was to await for inpatient psychiatric treatment availability. Nursing noted that patient was due for his Abilify IM today which he receives monthly. Unfortunately do not have this on formulary. I have initiated daily Abilify 10 mg oral dosing and will attempt to secure his prescribed IM dosing. Patient did complain of some right ear discomfort. He notes he fell asleep with an earbud in his ear but also has had cerumen impaction in the past. I examined his external canals. Left external canal clear with normal TM. Right external canal with mild inflammation, no discharge, cerumen impaction noted deep and external canal. I suspect he sustained some inflammation from earbud last night. I will treat with Debrox to remove cerumen. 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 needs details home health care physician is aw are Discharge Plan Discharge Details Chief Complaint: PsychEval Clinical Impression: Suicidal ideations, Impacted cerumen, right ear Primary Care Provider: None,None ED Provider: Blair Lee Home Meds and New Rx's Prescriptions: No Action Abilify Maintena 400 mg suspension,extended rel recon 400 mg IM QMONTH Patient Comments: Due on August 02 quetiapine [Seroquel] 50 mg tablet 50 mg PO HS
[2024-08-02 15:19] VITALS: BP 112/53; PULSE 95; TEMP 36.2; O2SAT 98
[2024-08-02 16:01] LABS: *AMPHETAMINES SCREEN URINE Negative (Negative); *BARBITURATES SCREEN URINE Negative (Negative); *BENZODIAZEPINES SCREEN URINE Negative (Negative); Cannabinoids THC Positive (Negative); Cocaine Screen,Urine Negative (Negative); METHADONE URINE SCREEN Negative (Negative); OPIATES URINE SCREEN Negative (Negative); Tricyclic Antidepressants Negative (Negative)
--- NOTE | 2024-08-02 19:10 | ED.PROG_ITS ---
Date of service: 08/02/24 Time of Service: 19:10 Medical Decision Making Care assumed from off going provider. Patient is a 18-year-old gentleman currently here voluntarily for suicidal ideation. He has been evaluated by mental health services and will be transferred to the care bed tomorrow. He did get someone to bring in his IM Abilify and this will be administered in the morning. No issues otherwise. 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 needs details critical care physician assistant is aw are Discharge Plan Discharge Details Chief Complaint: PsychEval Clinical Impression: Suicidal ideations, Impacted cerumen, right ear Primary Care Provider: None,None ED Provider: Vidhi York Home Meds and New Rx's Prescriptions: No Action Abilify Maintena 400 mg suspension,extended rel recon 400 mg IM QMONTH Patient Comments: Due on August 02 quetiapine [Seroquel] 50 mg tablet 50 mg PO HS
[2024-08-02] MEDS: QUEtiapine 50 MG TAB PO (19:45)
[2024-08-02 19:49] VITALS: BP 107/66; PULSE 87; RESP 18; O2SAT 100
[2024-08-02] MEDS: LORazepam 1 MG TAB 2 MG PO (23:44)
--- NOTE | 2024-08-03 00:13 | NUR.NOTE ---
08/02/24 2340 PT came to window and requested something to help him sleep. ED provider notified. Nursing Note:
[2024-08-03 07:50] VITALS: PULSE 98; RESP 21; TEMP 36; O2SAT 100
[2024-08-03] MEDS: Carbamide Peroxide 15 ML BTL AU ×2 (08:36→20:27)
--- NOTE | 2024-08-03 08:43 | ED.PROG_ITS ---
Date of service: 08/03/24 Time of Service: 08:43 Medical Decision Making I received signout on this 18-year-old male in the emergency department voluntarily in the setting of suicidal ideation. Plan is for patient to receive his intramuscular aripiprazole this morning prior to transitioning to the care bed.Will update documentation as clinically warranted and signed patient out to the evening provider. 12 PM I [facility]. Patient remains voluntary. There is unfortunately no availability of the care bed today. [facility] hopes to have the patient placed at the care bed in 2 days time. [place] [facility] also waiting room. Patient apparently does not do well at the retreat when receiving care. Will continue to monitor the patient in the emergency department. 3:30 PM No active behavioral issues on my shift. Will sign patient out to Dr. York. 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 needs details farm or ranch animal caretaker is aw are Discharge Plan Discharge Details Chief Complaint: PsychEval Clinical Impression: Suicidal ideations, Impacted cerumen, right ear Primary Care Provider: None,None ED Provider: Bin Ventura Home Meds and New Rx's Prescriptions: No Action Abilify Maintena 400 mg suspension,extended rel recon 400 mg IM QMONTH Patient Comments: Due on August 02 quetiapine [Seroquel] 50 mg tablet 50 mg PO HS
--- NOTE | 2024-08-03 11:44 | CMSP_ITS ---
Date of service: 08/03/24 Time of Service: 11:44 Care Management Safety Plan Status Status: Voluntary Reason for Wait Reason for Wait: Community Placement (Care Bed) Safety Plan Safety Plan: VOLUNTARY FOR INPATIENT PSYCHIATRIC STABILIZATION.? Patient is appropriate in all interactions since arriving at [facility]; Pt has demonstrated appropriate coping and communication skills, has articulated his or her needs and concerns and is fully engaged during staff interactions. Safety plan has been established with patient, and care team, to adhere to patient goals, identify restrictions based on behavioral status, address nutrition, and determine allowed personal belongings, tools for hygiene and personal care. Determine level of activity including ambulation, level of supervision, visitors, and determine privileges based on behaviors and level of engagement by pt. VOLUNTARY SAFETY PLAN: 1. Will remain on suicide precautions, in paper clothes, and may also utilized hair ties 2. Will remain in Zone B under direct supervision of one-on-one staff at all times provided by [employer]; MELISA, ORAL THERAPIST principal network architect. 3. May have paper cups, plates, finger foods as well as a cardboard spoon with which to eat meals. 4. Follow [facility] Management of the Admitted Behavioral Health Patient policy. 5. Shower available in Zone B without restriction. 6. Personal belongings-soft items permitted at RN discretion. 7. Visitors- supporting visitors at RN discretion 8. Activities: soft cart items, hospital tablets (Netflix/Xenia+/music) approved per RN discretion. 9.? Bathroom available in Zone B without restriction. 10. Phone: limited to [facility] cordless phone at RN discretion. Due to VOLUNTARY status, if patient wishes to leave [facility], staff will contact [facility] Crisis Screener ([phone]) and [employer] Team Member ([phone]) as soon as possible. In the event of elopement, notify [place] [employer] Police ([phone]). Patient is currently voluntarily at [facility] and seeking inpatient admission when a bed becomes available. [facility] Frontline Chemist Organic will continue seeking placement. Please contact the [employer] Team Member ([phone]) and [facility] Chemist Organic ([phone]) for any needed changes in the Safety Plan. Safety plan has been provided to interdepartmental care team.
--- NOTE | 2024-08-03 12:48 | PDOC.CMPRO ---
Date of service: 08/03/24 Time of Service: 11:45 Care Management Progress Note Progress Note Text Progress Note Text: CM huddled today with [facility] worker, Zone B RN, ER showcase trimmer, bottle house cleaners supervisor and ER provider. Keshav is denying SI today, but stated not yet, anyway, to the [facility] worker. [facility] is feeling that Keshav is becoming manipulative, and answering questions in a way to keep him in zone B. There are no beds available at the Care Bed today. [facility] feels that Keshav typically does not respond well to inpatient treatment. There are currently no beds at [facility] at this time, anyway. Per [facility] B RN, Keshav was given his monthly Abilify injection today. MH Services (Omit if N/A) Current MH Services: [facility] Referred to Internal [facility] (ED embedded) continuous pillowcase cutter?: Yes Status Status: Voluntary Reason for Wait: Inpatient Admission (vs Care Bed) Social Determinants of Health Screening Will the Patient Participate in the Screening?: Declined to provide
[2024-08-03] MEDS: QUEtiapine 50 MG TAB PO (19:14)
--- NOTE | 2024-08-03 20:28 | PDOC.MHPN2 ---
Date of service: 08/03/24 Time of Service: 11:30 Mental Health Emergency Note Release [facility] release signed:: Yes Reason for Visit The client went to [facility] seeking mental health treatment due to SI with plan and intent. 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 Safety Risk/Harm to Self or Others Current Ideation to Harm Self or Others: No Risk: Does risk to harm exist?: yes. Risk: Moderate Risk Duty to warn indicated: No Asssessment/Mental Status Appearance: Unremarkable Attitude: Cooperative and Friendly Behavior: Unremarkable Speech: Normal Affect: Normal and Cogruent with mood Mood: Sad, Stressed, Depressed and Anxious Thought process: Goal directed Hallucinations: No evidence Delusions: No evidence Attention: Unremarkable Perception: Not impaired Orientation: Fully orientated Memory: Intact Insight: Fair Judgement: Fair Neurovegetative Symptoms Sleep: Decrease Appetitie: No change Interests: No change Energy: No change Additional Issues: Assaultive/Threatening Behavior: No Medical Concerns: No Client engaged in active self harm w/weapon: No Threatening to run away: No Child reported abuse/neglect: No Voluntarily presenting for services: Yes Domestic violence is a concern: No Extreme Psychosis or extreme behavior is present: No Impression The client is a 18-year-old, single, male who is living with his brother in [facility]. He is well known to [facility] and the ES program. He uses He/Him pronouns. All underrepresented identifiers were honored during this assessment. The client presents initially talking with the nurse at the door. The client proceeded to pace up and down the paz while ES staff was updating the RN, Ernesto. INDRA Pantoja shared that she connected with Chica from the care bed and told that the care bed was unavailable this weekend and it will be revisited on Monday. This public relations writer and INDRA Pantoja along with VALARIE Orozco went into the room together anticipating the client's reaction to be similar to known reactions in the past. When this public relations writer let the client know the information about the care bed, then client reacted in an insightful and respectful way stating that he was okay and he was looking forward to hearing more on Monday. This public relations writer asked the client about sleep, food and if he was feeling SI/HI. He responded that he slept poorly last nigh and was groggy from the meds he was given, that he was eating and that he was not currently feeling SI yet today. The client is also versed in what he needs to say to stay at the hospital and seek placement. It is reported to this clinician by the client himself as well as, an earlier conversation a co-worker had with Carolina Burt that he does not benefit from inpatient treatment. This public relations writer thanked the client for being open minded and respectful and let him know that she would be back tomorrow. The client is still seeking inpatient treatment. Resources Reosurces reviewed and given:: Crisis Bed and [facility] Plan/Disposition Recommended Disposition: Hospitalization facilities contacted. Plan: The client is waiting in Zone B until inpatient placemnt. Facilities contacted if Applicable [facility] Not accepted, Other [facility] Not accepted, Other, [facility] Not accepted, Other [facility] Not accepted, Other Reports/communication Outcome discussed with: ED/Personnel
--- NOTE | 2024-08-03 21:57 | W.EDPROG ---
Date of service: 08/03/24 Time of Service: 21:57 Medical Decision Making Care assumed from outgoing provider. Patient is currently pending voluntary placement for suicidal ideation. Per mental health services, the plan will be to place him in the care bed on Monday, no issues during my shift. 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 needs details primary care sales representative is aware Discharge Plan Discharge Details Chief Complaint: PsychEval Clinical Impression: Suicidal ideations, Impacted cerumen, right ear Primary Care Provider: None,None ED Provider: Vidhi York Home Meds and New Rx's Prescriptions: No Action Abilify Maintena 400 mg suspension,extended rel recon 400 mg IM QMONTH Patient Comments: Due on August 02 quetiapine [Seroquel] 50 mg tablet 50 mg PO HS
[2024-08-04 07:11] VITALS: BP 117/56; PULSE 89; RESP 18; O2SAT 100
[2024-08-04] MEDS: Carbamide Peroxide 15 ML BTL AU (08:05)
--- NOTE | 2024-08-04 08:35 | W.EDPROG ---
Date of service: 08/04/24 Time of Service: 08:35 Medical Decision Making I received signout on this 18-year-old male in the emergency department voluntarily in the setting of suicidal ideation. Plan is for patient to be transition to the care bed tomorrow. Will update documentation as clinically warranted and signed patient out to the evening provider. 2:36 PM No active behavioral issues. Patient signed out to Dr. Laura. 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 needs details care management associate is aware Discharge Plan Discharge Details Chief Complaint: PsychEval Clinical Impression: Suicidal ideations, Impacted cerumen, right ear Primary Care Provider: None,None ED Provider: Bin Ventura Otto Meds and New Rx's Prescriptions: No Action Abilify Maintena 400 mg suspension,extended rel recon 400 mg IM QMONTH Patient Comments: Due on August 02 quetiapine [Seroquel] 50 mg tablet 50 mg PO HS
--- NOTE | 2024-08-04 11:43 | CMPROGNOTE_ITS ---
Date of service: 08/04/24 Time of Service: 09:30 Care Management Progress Note Progress Note Text Progress Note Text: CM huddled with [facility] worker, Zone B RN, ER auditor in charge and ER provider. Keshav was unwilling to engage with NK today. It's been reported that his behaviors are increasingly manipulative. [facility] and Dr. Ventura agreed that NK worker would come back later in the day and try again. Per report, Keshav was reminded that engaging with [facility] is part of the agreement of being in Zone B. [facility] will be reaching [facility] to both [facility] and the Care Bed tomorrow. Per report, [facility] has stated that Keshav has not done well there in the past. Social Determinants of Health Screening Will the Patient Participate in the Screening?: Declined to provide
--- NOTE | 2024-08-04 11:43 | PDOC.CMPRO ---
Date of service: 08/04/24 Time of Service: 09:30 Care Management Progress Note Progress Note Text Progress Note Text: CM huddled with [facility] worker, Zone B RN, ER sample case porter and ER provider. Keshav was unwilling to engage with NK today. It's been reported that his behaviors are increasingly manipulative. [facility] and Dr. Ventura agreed that NK worker would come back later in the day and try again. Per report, Keshav was reminded that engaging with [facility] is part of the agreement of being in Zone B. [facility] will be reaching out to both [facility] and the Care Bed tomorrow. Per report, [facility] has stated that Keshav has not done well there in the past. Social Determinants of Health Screening Will the Patient Participate in the Screening?: Declined to provide
--- NOTE | 2024-08-04 11:52 | CMSP_ITS ---
Date of service: 08/04/24 Time of Service: 11:52 Care Management Safety Plan Status Status: Voluntary Reason for Wait Reason for Wait: Inpatient Admission and Community Placement Safety Plan Safety Plan: VOLUNTARY FOR INPATIENT PSYCHIATRIC STABILIZATION.? Patient is appropriate in all interactions since arriving at [facility]; Pt has demonstrated appropriate coping and communication skills, has articulated his or her needs and concerns and is fully engaged during staff interactions. Safety plan has been established with patient, and care team, to adhere to patient goals, identify restrictions based on behavioral status, address nutrition, and determine allowed personal belongings, tools for hygiene and personal care. Determine level of activity including ambulation, level of supervision, visitors, and determine privileges based on behaviors and level of engagement by pt. VOLUNTARY SAFETY PLAN: 1. Will remain on suicide precautions, in paper clothes, and may also utilized hair ties 2. Will remain in Zone B under direct supervision of one-on-one staff at all times provided by [employer]; MELISA, TAP BUILDER director of quality improvement. 3. May have paper cups, plates, finger foods as well as a cardboard spoon with which to eat meals. 4. Follow [facility] Management of the Admitted Behavioral Health Patient policy. 5. Shower available in Zone B without restriction. 6. Personal belongings-soft items permitted at RN discretion. 7. Visitors- supporting visitors at RN discretion 8. Activities: soft cart items, hospital tablets (Netflix/Xenia+/music) approved per RN discretion. 9.? Bathroom available in Zone B without restriction. 10. Phone: limited to [facility] cordless phone at RN discretion. Due to VOLUNTARY status, if patient wishes to leave [facility], staff will contact [facility] Crisis Screener ([phone]) and [employer] Metal Sprayer ([phone]) as soon as possible. In the event of elopement, notify [place] [employer] ([phone]). Patient is currently voluntarily at [facility] and seeking inpatient admission when a bed becomes available. [facility] Frontline Analytics Architect will continue seeking placement. Please contact the [employer] Metal Sprayer ([phone]) and [facility] Analytics Architect ([phone]) for any needed changes in the Safety Plan. Safety plan has been provided to interdepartmental care team.
--- NOTE | 2024-08-04 15:31 | W.EDPROG ---
Date of service: 08/04/24 Time of Service: 15:31 Medical Decision Making In brief, this is a 18-year-old male patient boarding in our emergency department with suicidal ideation. Prior to my taking over their care, the patient was medically cleared, and has been resting comfortably. They have met with the home health care social worker and we are awaiting final dispo. They have not required any additional medications for restraint or sedation. The patient did have some increased agitation and behavioral disturbances during my, including punching the reeves, attempting to break holes in the wall with a marker, and pacing. He was amenable to taking some hydroxyzine for anxiety. The patient continues to endorse suicidal ideation, does not care to elaborate on his plan, and was reevaluated by [facility] at which time he also endorsed homicidal ideation which he was able to control. He was signed out to the oncoming provider prior to final disposition, we continue to pursue inpatient placement. Aimee Laura MD Medical Records Medical records reviewed: Yes I reviewed the patient's medical records. Lab Data Lab results reviewed: Yes I reviewed the patient's lab results. 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 needs details home health care social worker is aware Discharge Plan Discharge Details Chief Complaint: PsychEval Clinical Impression: Suicidal ideations, Impacted cerumen, right ear Primary Care Provider: None,None ED Provider: Aimee Laura Home Meds and New Rx's Prescriptions: No Action Abilify Maintena 400 mg suspension,extended rel recon 400 mg IM QMONTH Patient Comments: Due on August 02 quetiapine [Seroquel] 50 mg tablet 50 mg PO HS
[2024-08-04] MEDS: hydrOXYzine HCL 25 MG TAB (16:35)
[2024-08-04] MEDS: QUEtiapine 50 MG TAB PO (19:23)
--- NOTE | 2024-08-05 10:11 | PDOC.MHPN2 ---
Date of service: 08/04/24 Time of Service: 21:00 Mental Health Emergency Note Release [facility] release signed:: Yes Reason for Visit Client is expressing SI. 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 He is well known to [facility] and the ES program. He uses He/Him pronouns. All underrepresented identifiers were honored during this assessment. The client presents in bed 4 covered with a blanket. This contract writer asked security to join due to the client's physical outbursts earlier. These physical outbursts include punching the reeves and the windows along with being rude and disrespectful to staff down its Zone B. This contract writer initiated conversation by asking how the client was feeling. The client had a flat affect when stating he was fine. This contract writer talked to the client through what had happened and concerns from the staff. The client expressed his frustration with staff and not engaging with him or ?doing their job.? This contract writer explained that different staff utilize and bend the policies of zone B in different ways and that at this time the staff expressed not feeling safe in his presence due to his physical and verbal outbursts. This contract writer explained that the client is voluntary and if he would prefer to safety that they would be more than willing to do that for them. The client stated no he wanted to stay because he was here to get help. He said that while rolling his eyes. The client then asked when he was going to the care bed and this contract writer explained that the care bed would review his referral on Monday due to there being no availability over the weekend like this contract writer had explained the previous day. This contract writer asked the client if he was having any thoughts of SI/HI. He stated that he was so this contract writer asked for clarification on the HI he was feeling. He expressed that he could think of a few people he wanted to hurt but he was able to keep that under control. This contract writer then asked about his SI and he stated he was at a 6/10 with a plan but he was not willing to share that plan with this contract writer. The client is to remain in zone B voluntary at this time. Plan/Disposition Recommended Disposition: [facility] Services [facility] Services: FACULTY NEUROPSYCHOLOGIST, Hospitalization facilities contacted and Therapy. Reports/communication Outcome discussed with: ED/Personnel
[2024-08-05] MEDS: hydrOXYzine HCL 25 MG TAB 50 MG PO (11:44)
[2024-08-05] MEDS: Acetaminophen 325 MG TAB 650 MG PO (11:46)
--- NOTE | 2024-08-05 12:27 | MHPN_ITS ---
Date of service: 08/05/24 Time of Service: 11:01 Mental Health Emergency Note Release [facility] release signed:: Yes Reason for Visit In the last 2 weeks has the pt presented for ES prior to today?: Yes, presented at Asssessment/Mental Status Appearance: Unremarkable Attitude: Guarded and Hostile Behavior: Psychomotor retardation Speech: Soft Affect: Flat Mood: Stressed and Angry Thought process: Poverty of content Hallucinations: No Delusions: No Attention: Unremarkable Perception: Not impaired Orientation: Fully orientated Memory: Intact Insight: Fair Judgement: Fair Neurovegetative Symptoms Sleep: Decrease (The client states he woke up throughout the night.) Appetitie: No change Interests: No change Energy: No change Libido: Not applicable Impression Mr Albright is a 18 year old single male who is currently unhoused in the [facility]. The client presented as hostile and guarded during this reassessment. The client minimally engaged with the clinician. The client states that he is still having thoughts of suicidal ideation and homicidal ideation but would not disclose a plan. The client states he did eat breakfast but could not remember what. The client reports that he is feeling better than the previous night. The client states he wants to utilize the carebed. This clinician and [facility] Shirley John informed the client that a referral would be put out for the carebed but the client would need to show at the [facility] zone b that he could regulate his emotions so himself and other members of the community would be safe at the carebed. Per nursing staff the client has made inappropriate sexual comments towards younger female staff at [facility]. Per nursing report the client has overused allotted time on the phone and snorted chalk. Per nursing staff report the client has lost privilege of chalk and basketball due to inappropriate use of it Plan/Disposition Recommended Disposition: Crisis bed, facility contacted. Status of Crisis Bed acceptance: Pending review and Hospitalization facilities contacted. Plan: The client will wait for in patient treatment in the [facility] b. Reports/communication Outcome discussed with: ED/Personnel
--- NOTE | 2024-08-05 16:16 | W.EDPROG ---
Date of service: 08/05/24 Time of Service: 16:17 Medical Decision Making Patient here on voluntary status for depression, no new acute complaints. Will continue to monitor until safe disposition found 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 needs details progressive care manager is aware Discharge Plan Discharge Details Chief Complaint: PsychEval Clinical Impression: Suicidal ideations, Impacted cerumen, right ear Primary Care Provider: None,None ED Provider: Ernesto Ulloa Home Meds and New Rx's Prescriptions: No Action Abilify Maintena 400 mg suspension,extended rel recon 400 mg IM QMONTH Patient Comments: Due on August 02 quetiapine [Seroquel] 50 mg tablet 50 mg PO HS
--- NOTE | 2024-08-05 16:22 | PDOC.CMSAFE ---
Date of service: 08/05/24 Time of Service: 16:23 Care Management Safety Plan Status Status: Voluntary Reason for Wait Reason for Wait: Inpatient Admission Safety Plan Safety Plan: VOLUNTARY FOR INPATIENT PSYCHIATRIC STABILIZATION.? Patient is appropriate in all interactions since arriving at [facility]; Pt has demonstrated appropriate coping and communication skills, has articulated his or her needs and concerns and is fully engaged during staff interactions. Safety plan has been established with patient, and care team, to adhere to patient goals, identify restrictions based on behavioral status, address nutrition, and determine allowed personal belongings, tools for hygiene and personal care. Determine level of activity including ambulation, level of supervision, visitors, and determine privileges based on behaviors and level of engagement by pt. VOLUNTARY SAFETY PLAN: 1. Will remain on suicide precautions, in paper clothes, and may also utilized hair ties 2. Will remain in Zone B under direct supervision of one-on-one staff at all times provided by [employer]; MELISA, BUILDINGS PAINTER tracing lathe set up operator. 3. May have paper cups, plates, finger foods as well as a cardboard spoon with which to eat meals. 4. Follow [facility] Management of the Admitted Behavioral Health Patient policy. 5. Shower available in Zone B without restriction. 6. Personal belongings-soft items permitted at RN discretion. 7. Visitors- supporting visitors at RN discretion 8. Activities: soft cart items, hospital tablets (Netflix/[place]+/music) approved per RN discretion, in two hour increments. 9.? Bathroom available in Zone B without restriction. 10. Phone: limited to [facility] cordless phone, in 15 min increments (with the exception of legal consultation) at RN discretion. Due to VOLUNTARY status, if patient wishes to leave [facility], staff will contact [facility] Crisis Screener ([phone]) and Bounty Hunter ([phone]) as soon as possible. In the event of elopement, notify [place] [employer] ([phone]). Patient is currently voluntarily at [facility] and seeking inpatient admission when a bed becomes available. [facility] Frontline Advertising Internship will continue seeking placement. Please contact the Bounty Hunter ([phone]) and [facility] Advertising Internship ([phone]) for any needed changes in the Safety Plan. Safety plan has been provided to interdepartmental care team.
--- NOTE | 2024-08-05 16:32 | PDOC.CMPRO ---
Date of service: 08/05/24 Time of Service: 16:32 Care Management Progress Note Progress Note Text Progress Note Text: FABIAN met with [facility] and [facility] staff regarding Keshav's plan of care. Per RN, Keshav has been pushing limits that have been set, including using the phone in 15 min increments, in the common area. Per RN, he has made some inappropriate comments to staff members; going forward staff will document this, and will inform him at the time that it is inappropriate. He is able to use the Ipad in two hour increments, in order to provide time for charging and to share with other patients. He has not been able to be appropriate and/or maintain safety with lids (on food items), chalk, cards or markers, therefore these items are currently restricted. Per [facility], he continues to make vague SI/HI statements, although does not endorse a plan. He was declined by [facility]. [facility] this [facility]. Rudy has not responded. Per [facility], Keshav has asked about going to the care bed, which will be explored as an option. CM asked that his [employer] nurse outreach case manager is brought into the conversation, as he will likely be discharged to the community with a safety plan if he is not accepted at a facility for inpatient psychiatric care. Keshav is currently voluntary, seeking inpatient psychiatric admission. Safety plan in place; CM will continue to follow. Social Determinants of Health Screening Will the Patient Participate in the Screening?: Declined to provide
[2024-08-05 17:12] VITALS: BP 127/67; PULSE 68; RESP 18; TEMP 36.7; O2SAT 100
[2024-08-05] MEDS: QUEtiapine 50 MG TAB PO (20:07)
[2024-08-05 20:13] VITALS: BP 119/63; PULSE 69; RESP 16; TEMP 36.7; O2SAT 97
--- NOTE | 2024-08-06 06:35 | ED.PROG_ITS ---
Date of service: 08/06/24 Time of Service: 06:36 Medical Decision Making Patient remains in ED for voluntary inpatient psychiatric admission related to depression and SI. No issues on the overnight shift. 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 needs details medicare compliance auditor is aw are Discharge Plan Discharge Details Chief Complaint: PsychEval Clinical Impression: Suicidal ideations, Impacted cerumen, right ear Primary Care Provider: None,None ED Provider: Robbie Valdez [place] [facility] and New Rx's Prescriptions: No Action Abilify Maintena 400 mg suspension,extended rel recon 400 mg IM QMONTH Patient Comments: Due on August 02 quetiapine [Seroquel] 50 mg tablet 50 mg PO HS
--- NOTE | 2024-08-06 07:44 | W.EDPROG ---
Date of service: 08/06/24 Time of Service: 07:45 Medical Decision Making I received signout on this 18-year-old male, here for voluntary admission for depression, SI, HI. No issues on the overnight shift. Will update documentation as clinically warranted and signed patient out to the oncoming ED provider. 12:[address] [facility] human services rescreen the patient. I met with Hermiloantelmo and Cristiane. He had been declined by all psychiatric facilities. He was provided with a safety plan which he has received in the past. He was also educated about community connections for additional resources as he is reportedly undomiciled. I met with the patient. He reported that he did own on any handguns. I advised him to return to the emergency department if he did not feel safe with this plan. I have asked health ED coordinator Sherrie to have the patient establish with a primary care provider. 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 needs details respiratory care technician is aware Discharge Plan Disposition Patient Disposition: Home Discharge Details Clinical Impression: Suicidal ideations, Impacted cerumen, right ear, Unhoused person Primary Care Provider: None,None ED Provider: Bin Ventura Home Meds and New Rx's Prescriptions: Continued Abilify Maintena 400 mg suspension,extended rel recon 400 mg IM QMONTH Patient Comments: Due on August 02 quetiapine [Seroquel] 50 mg tablet 50 mg PO HS Discharge Instructions Additional Instructions: You were seen in the emergency department for your thoughts of self-harm. You were provided with a safety plan. The care management team will help you to establish a primary care provider. Please return to the emergency department if you do not feel safe. Discharge Data Discharge Date/Time-TO BE ENTERED AT DEPARTURE: 08/06/24 12:42
[2024-08-06] MEDS: Carbamide Peroxide 15 ML BTL AU (08:27)
--- NOTE | 2024-08-06 10:08 | NUR.NOTE ---
Faxed all current notes to [facility] and [facility] at [phone]. They would like notes faxed daily until they can accept him.
--- NOTE | 2024-08-06 12:20 | PDOC.CMPRO ---
Date of service: 08/06/24 Time of Service: 12:21 Care Management Progress Note Progress Note Text Progress Note Text: CM huddled with [facility] and [facility] staff today to discuss Keshav's plan of care. Per [facility], he has been declined by all facilities, and is appropriate for discharge to the community with a safety plan and close follow up by [facility]. He is in the [employer] [employer] program, and his caseworker, Cristiane, came in to complete the safety plan with Keshav and the clinician. Keshav expressed understanding of his safety plan, and was provided a copy. He was discharged to the community. During the huddle, it was discussed that if Keshav presents back at the ED today, that he will be kept in the ED (not zone B), and [facility] will be contacted to discuss his safety plan, to help support him in the community, unless his circumstances have changed. CM will continue to follow. Social Determinants of Health Screening Will the Patient Participate in the Screening?: Declined to provide
--- NOTE | 2024-08-06 12:32 | NUR.NOTE ---
pt was evaluated by [facility] and his case manger and told that he had been refused at all facilities and the care bed r/t his behaviors and lack of need for inpt treatment. Pt was to be d/c with safety plan and offered a ride to his brother's house by his case filler at 1300, pt refused, pt was then told that [facility] would be available at 1350. pt then asked for the phone to make calls and his meal was brought to him. Minda from [email or web address] called and said that pt had tried to call her, she was transferred to phone so pt could speak with her. After returning phone pt then demanded to be d/c 'NOW' at around 1215. Belongings and d/c paperwork obtained but while doing d/c Minda called back wanting to speak with 'Case Management' regarding her displeasure that pt was being d/c with active SI with plan as stated to her stating 'he told me he will walk to train tracks and jump in front of train'. was explained that pt had denied SI/HI mult times to [facility] staff and that he was refused inpt care and the Care Bed r/t lack of need in the former and his beh in the later. Minda stated that pt had stated on his refused to list 'one thing worth living for' on his safety plan and that was evidence that he needed to stay and be evaluated. With Security and frothing machine operator Liliana listening to RN side of conversation this RN calmly informed Minda that pt was exhibiting secondary gain beh and when asked what that meant 'he wants to have a place to sleep and be fed', and that pt had a pattern of making similar statements to obtain what he wants vs what he actually needs. phone conversation ended soon after. Pt was given d/c paperwork and safety plan and questioned with security present if he had actually told Minda what she claimed. Pt was very abrupt and dismissive, aggressive stance noted with pt stating 'Disregard what I said' and cut off RN when she cont to question him about his statements. Pt cont to show belligerence and aggressive stance, was informed of plan of care if he chose to return, pt dismissive of this RN and cont to demand to leave 'NOW' raising his voice and advancing on this RN to which the senior information security analyst stepped forward and pt stepped back 2 steps stating 'I am moving back so BACK OFF', pt refused to sign d/c paperwork, denied ride, was informed he could not remain on property to which pt replied 'SO WHAT'. pt escorted off unit by security at 1230.
--- NOTE | 2024-08-06 16:08 | MHPN_ITS ---
Date of service: 08/06/24 Time of Service: 11:06 Mental Health Emergency Note Release [facility] release signed:: Yes Reason for Visit Mr Patiño is a 18 year old single male who is currently unhoused and uses he/him pronouns. The client's main complaint is of suicidal and homicidal ideation that the client would not disclose more information around these ideations. The client presented as guarded and none engaging. The client has been declined by all hospitals. The client was safety planned with the help of his [employer] classification case manager Cristiane Lira. The client expressed wanting to make the hospital let him go before they had finished discharging him. This clinician utilized motivational interviewing to de-escalate and wait for the doctor to finish his discharge before leaving the hospital. The client made a plan with his classification case manager to check in the next day. The client declined the classification case manager's offer to bring him to [facility] and stated he would go on his own. The client engaged in parts of a safety plan but would not engage in other parts. All underrepresented identities were honored during this assessment. 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 Plan: Client will check in with his classification case manager on Monday at 12pm and connect with community connections. Reports/communication Outcome discussed with: ED/Personnel
== END 2024-08-06 12:42 | disposition home or self-care (01) ==
PROVIDERS: Student in an Organized Health Care Education/Training Program; Emergency Provider Emergency Medicine
DX: R45.851 Suicidal ideations (principal); H61.21 Impacted cerumen, right ear; Z59.00 Homelessness unspecified
CPT/HCPCS: 99285 ×6; 00123; 80053; 80307; 96127; H0046; 80320; 80329; 84443; 85025